=== PATIENT | male | born 1960 | race Caucasian/White ===

== ENCOUNTER 2017-11-10 20:29 | Inpatient (IN) | payer BC ==
[2017-11-10] MEDS ORDERED: VERAPAMIL 2.5 MG/ML 2 ML AMP ONE (21:14)
[2017-11-10] MEDS ORDERED: [UNRECOGNIZED DRUG - REMARK] IV ONE (21:17)
[2017-11-10] MEDS ORDERED: MIDAZOLAM 2 MG/2 ML VIAL ONE ×2 (21:26→21:38)
[2017-11-10] MEDS ORDERED: LIDOCAINE 2% INJ 20 MG/ML SQ ONE (21:29)
[2017-11-10] MEDS ORDERED: SODIUM CHLORIDE 0.9% 500 ML IV ONE (21:30)
[2017-11-10] MEDS ORDERED: MIDAZOLAM 2 MG/2 ML VIAL IV ONE ×3 (21:35→22:00)
[2017-11-10] MEDS ORDERED: BIVALIRUDIN BOLUS 250 MG/50 ML IV ONE (21:41)
[2017-11-10] MEDS ORDERED: SODIUM CHLORIDE 0.9% IV ONE (21:42)
[2017-11-10] MEDS ORDERED: BIVALIRUDIN IV ONE (21:42)
[2017-11-10] MEDS ORDERED: TICAGRELOR 90 MG TAB ONE (21:43)
[2017-11-10] MEDS ORDERED: TICAGRELOR 90 MG TAB OG-TUBE ONE (21:47)
[2017-11-10 21:50] LABS: ABG Base Excess -7.1 mmol/L; ABG HCO3 19 mmol/L (21-25); ABG Oxygen Saturation 98.7 % (94-97); ABG PCO2 42 mmHg (35-45); ABG PH 7.28 (7.35-7.45); ABG PO2 194 mmHg (83-108)
[2017-11-10] MEDS ORDERED: IOHEXOL 350 MG/ML 125ML BOTTLE INJ ONE (22:21)
[2017-11-10 22:31] LABS: ABG Base Excess -6.7 mmol/L; ABG HCO3 19 mmol/L (21-25); ABG Oxygen Saturation 98.6 % (94-97); ABG PCO2 43 mmHg (35-45); ABG PH 7.28 (7.35-7.45); ABG PO2 176 mmHg (83-108)
[2017-11-10] MEDS ORDERED: ATROPINE SULFATE 0.1 MG/ML 10ML SYRINGE IV PRN (22:45)
[2017-11-10] MEDS ORDERED: MAG HYDROX/AL HYDROX/SIMETH 30 ML CUP PO PRN (22:45)
[2017-11-10] MEDS ORDERED: NITROGLYCERIN SL TABS 0.4 MG TAB SUBLINGUAL PRN (22:45)
[2017-11-10] MEDS ORDERED: RX INFO: IV CONTRAST WAS GIVEN 1 EACH MISC MISCELLANE PRN (22:45)
[2017-11-10] MEDS ORDERED: ZOLPIDEM 5 MG TAB PO PRN (22:45)
--- NOTE | 2017-11-10 22:49 | CONS ---
CONSULTATION Mr. Meredith is 57-year-old male with a known history of lymphoma as well as history of carcinoid, who presented to the emergency room at [facility] after sudden cardiac . The patient was playing pickleball and apparently collapsed. An OR nurse started CPR on site, then the EMS arrived and was found to be in VFib, was shocked, went in asystole, subsequently had VFib again and then sinus tachycardia. He has been intubated, received epinephrine and Narcan. He was transferred from the emergency room at [facility] to [facility] for emergent cardiac catheterization. I do not have any other records, but according to the available chart, the patient had no evidence of chest discomfort prior to that and no prior cardiac history. According to the notes available to me, the patient is status post herniorrhaphy and cholecystectomy. No history of recent smoking. Review of systems could not be obtained. PHYSICAL EXAMINATION: A 57-year-old male; intubated, sedated, moving all extremities. HEAD: Normocephalic. EYES: Pupils fixed and not reactive to her light. NECK: No bruit noted. LUNGS: Clear to auscultation anteriorly. HEART: Regular rate and rhythm. S1, S2. No S3. No rub or gallop appreciated. ABDOMEN: Soft. Positive bowel sounds. No organomegaly. EXTREMITIES: No edema. Intact distal pulses. EKG shows a sinus mechanism with right bundle branch block, nonspecific ST- segment changes with possible prior inferior myocardial infarction. No lab data is available to me. IMPRESSION: 1. Cardiac arrest with ventricular fibrillation arrest. Rule out ischemic event in a patient with no prior cardiac history, according to the notes available to me. 2. History of leukemia in remission. 3. History of carcinoid. 4. History of hypertension. 5. History of hyperlipidemia. RECOMMENDATION: Patient will undergo emergent cardiac catheterization to further assess his status and guide his treatment. The plan was discussed by the ER physician at [facility] with his family that is not available at the time of my dictation. Thank you for this consult. Will follow with you. ADRIEN / IJN: [id number] / MTDD
[2017-11-10] MEDS ORDERED: PROPOFOL 100 ML IV ONE (22:59)
[2017-11-10 23:03] LABS: Glucose,Whole Blood 208 mg/dL (75-99)
--- NOTE | 2017-11-10 23:10 | PTCA ---
PERCUTANEOUSTRANS CORORONARY ANGIOGRAPHY Mr. Meredith is a 57-year-old male presented with acute sudden with ventricular fibrillation, underwent emergent cardiac catheterization was found to have critical stenosis involving the distal left main and the ostial LAD. Recommendation regarding angioplasty and stenting. DESCRIPTION OF PROCEDURE: A 6-Moldovan FR4 guiding catheter was introduced into the system and attempt to cannulate the left main were unsuccessful. The catheter was removed and a 6-Moldovan EBU 3.75 guiding catheter introduced. After cannulating the left main, a 0.014 advanced medium weight J-wire was advanced across the left main and positioned distal LAD. Subsequently, another 0.014 balanced medium weight J-wire was advanced in position in the distal left circumflex. Following that, a 2.5 x 12 mm Trek balloon was advanced and 2 inflations in the left main at maximum of 10 atmospheres were done. Following that, the balloon was removed and a 3.0 x 15 mm Xience Alpine stent was deployed in the distal left main and the ostial LAD and was dilated at 16 atmospheres. Following that, the balloon was removed and the wire was reintroduced in the left circumflex and a 3.0 x 12 mm Trek balloon was advanced and one inflation was done at 10 atmospheres. Following that, the balloon was removed and a 3.5 x 12 mm NC Trek balloon was advanced and inflation in the proximal segment of the stent was done at maximum of 12 atmospheres. After the last inflation, after appropriate wait, the balloon and the guidewire were withdrawn back in the guiding catheter. Images were obtained repeated. Those images reveal stable successful stenting. At that point, the guiding catheter, the balloon and the guidewire removed and a left ventriculogram was performed. Following that, catheter and sheaths were removed. Hemostasis was obtained with deployment of Angio-Seal. There was no immediate complication. The patient was hemodynamically stable at the end of procedure. He received Angiomax per protocol as well as oral loading dose of Brilinta. RESULTS: Successful stenting of the distal left main and the proximal ostial LAD with reduction of stenosis from 99% to 0%. RECOMMENDATION: Patient will continued on aspirin and Brilinta, statin and beta jessica. The prognosis remains guarded and depending on his neurological status, further recommendations will be made. Those findings and recommendation were discussed with the family who are in full understanding and agreement. Duration of the procedure: 55 minutes. MMODL / IJN: [id number] /
--- NOTE | 2017-11-10 23:19 | CC ---
CARDIAC CATHETERIZATION REPORT Mr. Meredith is a 57-year-old male with no prior documented history of coronary artery disease, history of stable leukemia as well as carcinoid, who presented to the emergency room at [facility] with sudden cardiac with ventricular fibrillation and CPR. He was intubated in sinus mechanism and was transferred to [facility]. Recommendation was made regarding cardiac catheterization. PROCEDURE: Patient was brought to the [facility], intubated and sedated. Using Xylocaine anesthesia and Seldinger technique, a 6-Mauritian sheath was introduced in the right femoral artery. Selective right and left coronary angiography was performed using 6-Mauritian 4 Bend right and left Percy catheters. Multiple views were taken of the arteries, including hemiaxial views. Following that, angioplasty and stenting was performed. Following that, 6-Mauritian tight pigtail catheter was introduced in the left ventricle and a 30- degree CRANE view of the left ventricle was obtained. Following that, catheter and sheath were removed. Hemostasis was obtained with deployment of an Angio-Seal. There was no immediate complication. Patient is returned to his room in stable condition. FINDINGS: 1. Left main. This is a large-sized vessel bifurcating into left circumflex, left anterior descending artery. Left main coronary artery has a 99% stenosis distally extending into the ostium of the left anterior descending artery. The distal left circumflex and proximal left anterior descending artery are calcified. 2. Left anterior descending artery. This is a large-sized vessel reaching toward the apex with a wrap around the apex segment giving rise to 2 small diagonal branches. The left anterior descending artery has mild intimal disease without any evidence of high-grade stenosis. 3. Left circumflex. This is a nondominant vessel, large in caliber, giving rise to a large obtuse marginal branch. The left circumflex has mild intimal disease in the proximal and mid segment of 20% to 30%. The ostium of the left circumflex has a 50% to 60% lesion. The rest of the vessel has no high-grade stenosis. 4. Right coronary artery. This is a large dominant vessel bifurcating into PDA, posterolateral segment and branches. The right coronary artery prior to the bifurcation has a plaque of about 30%. The rest of the vessel has no high-grade stenosis. 5. Left ventriculogram. Left ventriculogram was performed in 30-degree CRANE view and revealed anteroapical hypokinesis. The ejection fraction is estimated at 45%. There was no significant mitral regurgitation. 6. Hemodynamics. There was no gradient across the aortic valve. The left ventricular end-diastolic pressure was 20 to 24 mmHg. CONCLUSION: 1. Critical stenosis in the distal left main and ostial of LAD involving the takeoff of the left circumflex. 2. Mild disease in the distal right coronary artery. 3. Mildly to moderately impaired left ventricular systolic function. RECOMMENDATION: In view of findings and anatomy and the presentation, I have recommended proceeding with angioplasty and stenting of the left circumflex. MMODL / IJN: [id number] /
[2017-11-10] MEDS ORDERED: NALOXONE 0.4 MG/ML 1 ML VIAL IV PRN (23:42)
[2017-11-10] MEDS: PROPOFOL 1,000 MG in EMPTY BAG 1 BAG IV SCH (23:45)
[2017-11-10] MEDS: SODIUM CHLORIDE 0.9% 1,000 ML IV SCH (23:53)
[2017-11-11] MEDS ORDERED: HEPARIN SODIUM,PORCINE 5,000 UNIT/ML 1 ML VIAL SQ SCH
[2017-11-11] MEDS: SODIUM CHLORIDE 0.9% 1,000 ML IV SCH ×3 (00:08→00:50)
[2017-11-11 00:12] LABS: Basophils % (A) 0 %; Eosinophils % (A) 0 %; HCT 38.5 % (39.0-53.0); HGB 12.8 gm/dL (13.0-17.5); Lymphocytes # (A) 0.4 k/uL (1.0-4.8); Lymphocytes % (A) 3 %; MCH 31.6 pg (25.0-35.0); MCHC 33.3 g/dL (31.0-37.0); Mean Platelet Volume 8.9; Monocytes # (A) 0.5 k/uL (0-1.0); Monocytes % (A) 4 %; Neutrophils # (A) 13.8 k/uL (1.3-7.7); Neutrophils % (A) 93 %; Platelet Count 284 k/uL (150-450); RBC 4.06 m/uL (4.30-5.90); RDW 12.8 % (11.5-15.5); WBC 14.8 k/uL (3.8-10.6)
[2017-11-11 00:21] LABS: Calcium 9.1 mg/dL (8.4-10.2)
[2017-11-11 00:32] LABS: Magnesium 1.8 mg/dL (1.6-2.3); Phosphorus 5.4 mg/dL (2.5-4.5); Potassium 4.9 mmol/L (3.5-5.1)
[2017-11-11] MEDS ORDERED: NOREPINEPHRIN 4 MG-0.9% NS PMX 4 MG/250 ML ML IV ONE (01:41)
[2017-11-11] MEDS: NOREPINEPHRIN 4 MG-0.9% NS PMX 4 MG/250 ML ML IV SCH ×4 (01:45→20:52)
[2017-11-11] MEDS: PROPOFOL 1,000 MG in EMPTY BAG 1 BAG IV SCH ×4 (05:00→23:27)
[2017-11-11 05:16] LABS: ABG Base Excess -10.4 mmol/L; ABG HCO3 15 mmol/L (21-25); ABG Oxygen Saturation 98.4 % (94-97); ABG PCO2 28 mmHg (35-45); ABG PH 7.34 (7.35-7.45); ABG PO2 167 mmHg (83-108); ABG TCO2 16 mmol/L (19-24)
[2017-11-11 05:50] LABS: Basophils % (A) 0 %; Eosinophils % (A) 0 %; HCT 39.5 % (39.0-53.0); HGB 12.9 gm/dL (13.0-17.5); Lymphocytes # (A) 0.6 k/uL (1.0-4.8); Lymphocytes % (A) 7 %; MCH 30.2 pg (25.0-35.0); MCHC 32.7 g/dL (31.0-37.0); MCV 92.3 fL (80.0-100.0); Mean Platelet Volume 9.4; Monocytes # (A) 0.4 k/uL (0-1.0); Monocytes % (A) 4 %; Neutrophils # (A) 7.9 k/uL (1.3-7.7); Neutrophils % (A) 89 %; Platelet Count 326 k/uL (150-450); RBC 4.28 m/uL (4.30-5.90); WBC 8.9 k/uL (3.8-10.6)
[2017-11-11 07:18] LABS: Calcium 7.8 mg/dL (8.4-10.2); Magnesium 1.5 mg/dL (1.6-2.3); Phosphorus 3.2 mg/dL (2.5-4.5)
[2017-11-11 07:21] LABS: Potassium 6.8 mmol/L (3.5-5.1)
[2017-11-11] MEDS ORDERED: SODIUM CHLORIDE 0.9% 500 ML IV ONE (07:41)
--- NOTE | 2017-11-11 08:43 | XR ---
EXAMINATION TYPE: XR chest 1V DATE OF EXAM: 11/11/2017 COMPARISON: NONE INDICATION: Cardiac arrest TECHNIQUE: Single frontal view of the chest is obtained. FINDINGS: The heart size is normal. The pulmonary vasculature is normal. Minimal infiltrate or small nodule may be at the left base. This measures 7 mm. Some mild left lower lobe infiltrate is not excluded No displaced rib fractures are identified. No pneumothorax is evident. Endotracheal tube tip is 3.7 cm above the jasbir. A nasogastric tube transverses the thorax with tip in left upper quadrant of the abdomen. IMPRESSION: 1. Minimal infiltrate or densities at the left costophrenic angle. Follow-up is recommended. 2. Lines and catheters discussed above.
[2017-11-11] MEDS: ASPIRIN 81 MG PO SCH (09:06)
[2017-11-11] MEDS: TICAGRELOR 90 MG TAB PO SCH ×2 (09:06→21:02)
--- NOTE | 2017-11-11 10:34 | P.CNPUL ---
History of Present Illness Consult date: 11/11/17 Chief complaint: acute cardiac arrest History of present illness: A pleasant 57-year-old male patient who lives in [place], [place] and the patient was playing pickle ball in the [facility] area. The patient acutely arrested and he was into cardiac arrest. There was a bystander nurse who did CPR on him. EMS was called to the scene and the patient was found in V. fib. The patient was shocked and the patient was given a dose of epinephrine. Subsequently went into asystole. Following that, CPR was continued and the patient went into V. fib, shocked again and then went into normal sinus rhythm. EKG showed ST segment elevation and the patient was taken to [facility] and following that the patient was brought in to the [facility]. Emergent cardiac catheterization was done and the patient was found to have a left main lesion that was stented. The stent insertion with successful. The patient was in already intubated by EMS on the scene. The patient was kept intubated. The patient was moved to the ICU for further care. Overnight, the patient was sedated with Diprivan. He apparently was following some simple commands while given a sedation holiday. This morning, he is on 30 mics of levo fed for blood pressure support. Echocardiogram was done and showed ejection fraction of 35%. No other significant abnormalities noted and this is a preliminary report. Urine output is in order of 25-30 mL an hour. Overnight his urine output dropped and a given a bolus of 1 L and he received a total of 2.5 L fluid bolus. He is current maintenance fluid is at 75 mL of normal saline. He is on a mechanical ventilator on assist control mode at the rate of 20, tidal volume of 600, FiO2 of 50% and a PEEP of 5. Morning blood gases showed a pH of 7.34 with a pCO2 of 28 and pO2 167. Chest x- ray showing some cardiomegaly and some pulmonary vessel congestion. ET tube is in a good location. No other densities seen in the left lower lobe costophrenic angle area. The patient's creatinine is up to 1.4. Today's potassium is up to 6.8. This needs to be repeated. No EKG changes related to this high potassium level. He is afebrile. No aspiration was noted. He remains on 30 mics of norepinephrine infusion for now. Pulses in lower extremities are weak yet obtainable by Doppler. His legs are cold and clammy still. No significant secretions from his orotracheal tube. He is known to have carcinoid tumor and apparently his been on maintenance hormonal treatment. He is seeing a oncologist out of [facility]. The patient also has history of lymphoma. The details of these malignancies are not known to us. The origin of the carcinoid tumor is not clear to me at this point. Further information is to be obtained on this patient. Review of Systems ROS unobtainable: due to endotracheal tube, due to mental status Past Medical History Past Medical History: Coronary Artery Disease (CAD) Additional Past Medical History / Comment(s): Carcinoid tumor, history of lymphoma Medications and Allergies Allergies Allergy/AdvReac Type Severity Reaction Status Date / Time No Known Allergies Allergy Verified 11/10/17 21:00 Physical Exam Vitals: Vital Signs Temp Pulse Resp BP BP Pulse Ox 11/11/17 09:00 90 22 96/60 100 11/11/17 08:30 87 23 96/60 100 11/11/17 08:00 98.8 F 88 13 96/60 99 11/11/17 07:00 83 25 H 98 11/11/17 06:30 77 24 99 11/11/17 06:00 78 20 100 11/11/17 05:30 77 19 99 11/11/17 05:00 78 19 100 11/11/17 04:30 78 20 100 11/11/17 04:00 99.0 F 81 20 100 11/11/17 03:30 78 20 100 11/11/17 03:00 76 19 100 11/11/17 02:30 80 22 100 11/11/17 02:10 78 20 100 11/11/17 02:00 77 11 L 100 11/11/17 01:50 72 16 100 11/11/17 01:40 72 20 100 11/11/17 01:30 75 19 100 11/11/17 01:20 78 27 H 98 11/11/17 01:10 78 19 74/46 99 11/11/17 01:00 79 19 74/46 99 11/11/17 00:50 79 19 74/46 100 11/11/17 00:40 77 19 69/42 100 11/11/17 00:30 77 19 69/42 100 11/11/17 00:20 77 20 69/42 100 11/11/17 00:10 78 20 70/42 100 11/11/17 00:00 95.2 F L 78 20 70/42 100 11/10/17 23:50 73 20 70/42 100 11/10/17 23:40 72 19 81/50 100 11/10/17 23:30 68 19 81/50 100 11/10/17 23:20 66 20 81/50 100 11/10/17 23:10 79 80/48 11/10/17 23:00 95.2 F L 73 79 L 11/10/17 22:59 71 11/10/17 22:46 95.2 F L 20 80/52 Intake and Output 11/10/17 11/11/17 11/11/17 22:59 06:59 14:59 Intake Total 224.25 2872.267 812.595 Output Total 200 670 215 Balance 24.25 2202.267 597.595 Intake: IV 224.25 450 575 Sodium Chloride 0.9% 1, 450 575 000 ml @ 75 mls/hr IV . [id number] JACK Rx#:[id number] Intake, IV Titration 2422.267 237.595 Amount Norepinephrin 4 mg-0.9% 284.375 198.687 Ns Pmx 4 mg In 250 ml @ Titrate IV .Q0M JACK Rx#: [id number] Propofol 1,000 mg In 137.892 38.908 Empty Bag 1 bag @ Titrate IV .Q0M JACK Rx#: [id number] Sodium Chloride 0.9% 1, 2000 000 ml @ 999 mls/hr IV . Q1H1M JACK Rx#:[id number] Output: Gastric Drainage 400 100 Urine 200 270 115 Other: Voiding Method Indwelling Catheter Indwelling Catheter Indwelling Catheter Weight 87.6 kg ABP, PAP, CO, CI - Last 8 Hours Arterial Blood Pressure 104/62 Arterial Blood Pressure 108/62 Arterial Blood Pressure 102/62 Arterial Blood Pressure 100/62 Arterial Blood Pressure 102/65 Arterial Blood Pressure 105/68 Arterial Blood Pressure 87/59 Arterial Blood Pressure 99/62 Arterial Blood Pressure 115/75 Arterial Blood Pressure 109/72 Arterial Blood Pressure 104/70 Arterial Blood Pressure 102/69 Arterial Blood Pressure 103/69 Gen. appearance the patient is calm comfortable likely distress. He is still sedated under the effect of the prevent and is in the process of being given another sedation holiday. He withdraws to painful stimuli in all 4 extremities. He was not equal and reactive to light at 4-5 mm. No nystagmus. No clonus. No Babinski. My normal had orogastric and orotracheal tube are both in place.Neck was supple and without jugular venous distension, thyromegaly , or carotid bruits. Carotids were easily palpable bilaterally. There was no adenopathy. Lung sounds are equal and symmetrical bilaterally. No wheezes or rhonchi early crackles.Cardiac exam revealed the PMI to be normally situated and sized. The rhythm was regular and no extrasystoles were noted during several minutes of auscultation. The first and second heart sounds were normal and physiologic splitting of the second heart sound was noted. There were no murmurs, rubs, clicks, or gallops.Abdominal exam revealed normal bowel sounds. The abdomen was soft, non-tender, and without masses, organomegaly, or appreciable enlargement of the abdominal aorta.Examination of the extremities revealed easily palpable radial, femoral and pedal pulses. There was no cyanosis , clubbing or edema.Examination of the skin revealed no evidence of significant rashes, suspicious appearing nevi or other concerning lesions. Results - Laboratory Findings CBC and BMP: 11/11/17 05:13 11/11/17 06:45 ABG ABG pH 7.34 (7.35-7.45) L 11/11/17 05:15 ABG pCO2 28 mmHg (35-45) L 11/11/17 05:15 ABG pO2 167 mmHg (83-108) H 11/11/17 05:15 ABG O2 Saturation 98.4 % (94-97) H 11/11/17 05:15 Abnormal lab findings: Abnormal Labs 11/10/17 11/10/17 11/10/17 21:37 22:23 23:02 WBC RBC Hgb Hct Neutrophils # Lymphocytes # ABG pH 7.28 L 7.28 L ABG pCO2 ABG pO2 194 H 176 H ABG HCO3 19 L 19 L ABG Total CO2 ABG O2 Saturation 98.7 H 98.6 H Potassium Chloride Carbon Dioxide BUN Creatinine Glucose POC Glucose (mg/dL) 208 H Calcium Phosphorus Magnesium Troponin I Triglycerides HDL Cholesterol 11/10/17 11/10/17 11/10/17 23:29 23:29 23:29 WBC 14.8 H RBC 4.06 L Hgb 12.8 L Hct 38.5 L Neutrophils # 13.8 H Lymphocytes # 0.4 L ABG pH ABG pCO2 ABG pO2 ABG HCO3 ABG Total CO2 ABG O2 Saturation Potassium Chloride Carbon Dioxide 17 L BUN 21 H Creatinine Glucose 180 H POC Glucose (mg/dL) Calcium Phosphorus 5.4 H Magnesium Troponin I 5.520 H* Triglycerides HDL Cholesterol 11/11/17 11/11/17 11/11/17 05:13 05:13 05:15 WBC RBC 4.28 L Hgb 12.9 L Hct Neutrophils # 7.9 H Lymphocytes # 0.6 L ABG pH 7.34 L ABG pCO2 28 L ABG pO2 167 H ABG HCO3 15 L ABG Total CO2 16 L ABG O2 Saturation 98.4 H Potassium Chloride Carbon Dioxide BUN Creatinine Glucose POC Glucose (mg/dL) Calcium Phosphorus Magnesium Troponin I 16.800 H* Triglycerides HDL Cholesterol 11/11/17 06:45 WBC RBC Hgb Hct Neutrophils # Lymphocytes # ABG pH ABG pCO2 ABG pO2 ABG HCO3 ABG Total CO2 ABG O2 Saturation Potassium 6.8 H* Chloride 109 H Carbon Dioxide 19 L BUN 26 H Creatinine 1.41 H Glucose 125 H POC Glucose (mg/dL) Calcium 7.8 L Phosphorus Magnesium 1.5 L Troponin I Triglycerides 349 H HDL Cholesterol 36 L - Diagnostic Findings Chest x-ray: image reviewed Assessment and Plan Plan: Assessment [address] segment elevation myocardial infarction secondary to a tight left main lesion him a status post successful angioplasty and stenting 2 acute cardiac arrest secondary to above, resuscitated adequately, please refer to the information given earlier and the cord sheets 3 acute respiratory failure secondary to above 4 acute hypotension, possibly a component of cardiogenic shock postarrest. Echocardiogram showing impaired LV function with an ejection fraction of 35% and the patient is still pressor dependent 5 acute kidney injury secondary to above creatinine is up to 1.4 6 acute hyperkalemia 7 history of carcinoid tumor 8 history of lymphoma Plan Give the patient additional bolus of normal saline. Monitor the blood pressure and try to wean down the edema for this possible. The patient is still hypoperfusing and his still vasoconstrictive and cold and clammy. Will monitor his hemodynamics. We'll monitor the blood pressure and urine output. We'll be awaiting the final results of the echocardiogram. Continue vent support. Sedation holiday as the patient seems to be waking up appropriately and the patient is been following commands without any major difficulties. As such the patient has been resuscitated adequately and there are no clear signs of hypoxic encephalopathy at this point. Repeat the potassium level. Monitor renal function. Monitor urine output. Continue aspirin. Continue Brilinta. We'll try to get more information regarding his carcinoid tumor. The. The patient is a combination of octreotide and Sandostatin on outpatient basis.
[2017-11-11] MEDS ORDERED: SODIUM CHLORIDE 0.9% 1,000 ML IV ONE (10:46)
[2017-11-11] MEDS: METOPROLOL TARTRATE 12.5 MG TAB PO SCH ×2 (10:47→21:02)
--- NOTE | 2017-11-11 11:08 | P.PN ---
Subjective Progress Note Date: 11/11/17 Principal diagnosis: Cardiac Arrest This 57-year-old gentleman with no prior documented history of coronary artery disease, history of leukemia as well as carcinoid. Presented to the emergency room at [facility] after sudden cardiac with ventricular fibrillation and CPR. He was intubated and in sinus mechanism. Was transferred to [facility] and recommended to undergo cardiac catheterization. Cardiac catheterization showed critical stenosis in the distal left main and ostial LAD. He underwent stenting of both lesions. Patient remains intubated. He is currently on aspirin 81 mg daily, atorvastatin 80 mg daily, metoprolol tartrate 12.5 mg by mouth twice a day and Brilinta 90 mg twice a day. Objective - Vital Signs Vital signs: Vital Signs Temp 98.8 F 11/11/17 08:00 Pulse 91 11/11/17 10:30 Resp 22 11/11/17 10:30 BP 96/60 11/11/17 10:00 Pulse Ox 100 11/11/17 10:30 Intake & Output 11/10/17 11/11/17 11/11/17 18:59 06:59 18:59 Intake Total 3096.517 909.210 Output Total 870 215 Balance 2226.517 694.210 Weight 87.6 kg Intake: IV 674.25 650 Sodium Chloride 0.9% 1, 450 650 000 ml @ 75 mls/hr IV . [id number] JACK Rx#:[id number] Intake, IV Titration 2422.267 259.210 Amount Norepinephrin 4 mg-0.9% 284.375 198.687 Ns Pmx 4 mg In 250 ml @ Titrate IV .Q0M JACK Rx#: [id number] Propofol 1,000 mg In 137.892 60.523 Empty Bag 1 bag @ Titrate IV .Q0M JACK Rx#: [id number] Sodium Chloride 0.9% 1, 2000 000 ml @ 999 mls/hr IV . Q1H1M JACK Rx#:[id number] Output: Gastric Drainage 400 100 Urine 470 115 Other: Voiding Method Indwelling Catheter Indwelling Catheter ABP, PAP, CO, CI - Last Documented Arterial Blood Pressure 86/53 - Exam PHYSICAL EXAMINATION: HEENT: Head is atraumatic, normocephalic. Pupils equal, round. Neck is supple. There is no elevated jugular venous pressure. HEART EXAMINATION: Heart sounds regular, S1 and S2 normal. No murmur or gallop heard. CHEST EXAMINATION: Lungs are clear to auscultation and precussion. No chest wall tenderness is noted on palpation or with deep breathing. ABDOMEN: Soft, nontender. Bowel sounds are heard. No organomegaly noted. EXTREMITIES: Lower extremity peripheral pulses per doppler with no evidence of peripheral edema and no calf tenderness noted. NEUROLOGIC patient is awake, intubated, answering yes and no questions with gestures. . - Labs CBC & Chem 7: 11/11/17 05:13 11/11/17 10:30 Labs: Abnormal Lab Results - Last 24 Hours (Table) 11/10/17 11/10/17 11/10/17 Range/Units 21:37 22:23 23:02 WBC (3.8-10.6) k/uL RBC (4.30-5.90) m/uL Hgb (13.0-17.5) gm/dL Hct (39.0-53.0) % Neutrophils # (1.3-7.7) k/uL Lymphocytes # (1.0-4.8) k/uL ABG pH 7.28 L 7.28 L (7.35-7.45) ABG pCO2 (35-45) mmHg ABG pO2 194 H 176 H (83-108) mmHg ABG HCO3 19 L 19 L (21-25) mmol/L ABG Total CO2 (19-24) mmol/L ABG O2 Saturation 98.7 H 98.6 H (94-97) % Potassium (3.5-5.1) mmol/L Chloride (98-107) mmol/L Carbon Dioxide (22-30) mmol/L BUN (9-20) mg/dL Creatinine (0.66-1.25) mg/dL Glucose (74-99) mg/dL POC Glucose (mg/dL) 208 H (75-99) mg/dL Calcium (8.4-10.2) mg/dL Phosphorus (2.5-4.5) mg/dL Magnesium (1.6-2.3) mg/dL Troponin I (0.000-0.034) ng/mL Triglycerides (<150) mg/dL HDL Cholesterol (40-60) mg/dL 11/10/17 11/10/17 11/10/17 Range/Units 23:29 23:29 23:29 WBC 14.8 H (3.8-10.6) k/uL RBC 4.06 L (4.30-5.90) m/uL Hgb 12.8 L (13.0-17.5) gm/dL Hct 38.5 L (39.0-53.0) % Neutrophils # 13.8 H (1.3-7.7) k/uL Lymphocytes # 0.4 L (1.0-4.8) k/uL ABG pH (7.35-7.45) ABG pCO2 (35-45) mmHg ABG pO2 (83-108) mmHg ABG HCO3 (21-25) mmol/L ABG Total CO2 (19-24) mmol/L ABG O2 Saturation (94-97) % Potassium (3.5-5.1) mmol/L Chloride (98-107) mmol/L Carbon Dioxide 17 L (22-30) mmol/L BUN 21 H (9-20) mg/dL Creatinine (0.66-1.25) mg/dL Glucose 180 H (74-99) mg/dL POC Glucose (mg/dL) (75-99) mg/dL Calcium (8.4-10.2) mg/dL Phosphorus 5.4 H (2.5-4.5) mg/dL Magnesium (1.6-2.3) mg/dL Troponin I 5.520 H* (0.000-0.034) ng/mL Triglycerides (<150) mg/dL HDL Cholesterol (40-60) mg/dL 11/11/17 11/11/17 11/11/17 Range/Units 05:13 05:13 05:15 WBC (3.8-10.6) k/uL RBC 4.28 L (4.30-5.90) m/uL Hgb 12.9 L (13.0-17.5) gm/dL Hct (39.0-53.0) % Neutrophils # 7.9 H (1.3-7.7) k/uL Lymphocytes # 0.6 L (1.0-4.8) k/uL ABG pH 7.34 L (7.35-7.45) ABG pCO2 28 L (35-45) mmHg ABG pO2 167 H (83-108) mmHg ABG HCO3 15 L (21-25) mmol/L ABG Total CO2 16 L (19-24) mmol/L ABG O2 Saturation 98.4 H (94-97) % Potassium (3.5-5.1) mmol/L Chloride (98-107) mmol/L Carbon Dioxide (22-30) mmol/L BUN (9-20) mg/dL Creatinine (0.66-1.25) mg/dL Glucose (74-99) mg/dL POC Glucose (mg/dL) (75-99) mg/dL Calcium (8.4-10.2) mg/dL Phosphorus (2.5-4.5) mg/dL Magnesium (1.6-2.3) mg/dL Troponin I 16.800 H* (0.000-0.034) ng/mL Triglycerides (<150) mg/dL HDL Cholesterol (40-60) mg/dL 11/11/17 11/11/17 Range/Units 06:45 10:30 WBC (3.8-10.6) k/uL RBC (4.30-5.90) m/uL Hgb (13.0-17.5) gm/dL Hct (39.0-53.0) % Neutrophils # (1.3-7.7) k/uL Lymphocytes # (1.0-4.8) k/uL ABG pH (7.35-7.45) ABG pCO2 (35-45) mmHg ABG pO2 (83-108) mmHg ABG HCO3 (21-25) mmol/L ABG Total CO2 (19-24) mmol/L ABG O2 Saturation (94-97) % Potassium 6.8 H* 5.7 H (3.5-5.1) mmol/L Chloride 109 H (98-107) mmol/L Carbon Dioxide 19 L (22-30) mmol/L BUN 26 H (9-20) mg/dL Creatinine 1.41 H (0.66-1.25) mg/dL Glucose 125 H (74-99) mg/dL POC Glucose (mg/dL) (75-99) mg/dL Calcium 7.8 L (8.4-10.2) mg/dL Phosphorus (2.5-4.5) mg/dL Magnesium 1.5 L (1.6-2.3) mg/dL Troponin I (0.000-0.034) ng/mL Triglycerides 349 H (<150) mg/dL HDL Cholesterol 36 L (40-60) mg/dL Assessment and Plan Assessment: #1 cardiac arrest with ventricular fibrillation #2 status post stenting of the left main and LAD #3 history of leukemia, in remission #4 history of carcinoid #5 history of hypertension #6 history of hyperlipidemia Plan: From greens tier perspective, continue aspirin, atorvastatin, Brilinta, and metorprolol. Continue supportive therapy with mechanical ventilation. We'll continue to follow patient provide further recommendations accordingly. SANITARY ENGINEER note has been reviewed, I agree with a documented findings and plan of care. Patient was seen and examined.
[2017-11-11 11:45] LABS: Appearance,Urine Cloudy (Clear); Bilirubin,Urine Negative (Negative); Blood,Urine Moderate (Negative); Color,Urine Yellow; Glucose,Urine (UA) Negative (Negative); Ketones,Urine Negative (Negative); Leukocyte Esterase,Urine Negative (Negative); Mucus,Urine Rare /hpf; Nitrite,Urine Negative (Negative); PH, Urine 5.5 (5.0-8.0); Protein,Urine 1+ (Negative); RBC,Urine 5 /hpf (0-5); Squamous Epithelial Cell,Urine <1 /hpf (0-4); Urobilinogen,Urine <2.0 mg/dL (<2.0); WBC,Urine 10 /hpf (0-5)
[2017-11-11] MEDS ORDERED: SODIUM BICARB 8.4% 50 ML SYR (1 MEQ/ML) ONE (12:33)
[2017-11-11] MEDS ORDERED: DEXTROSE 50%-WATER 50 ML SYRINGE IVP ONE (12:34)
[2017-11-11] MEDS ORDERED: INSULIN REGULAR 100 UNIT/ML VIAL IV ONE (12:39)
[2017-11-11 14:08] LABS: Specific Gravity,Urine 1.048 (1.001-1.035)
[2017-11-11] MEDS ORDERED: Magnesium Replacement Protocol 1 EACH MISC MISCELLANE PRN (15:51)
[2017-11-11 16:02] LABS: Hemoglobin A1C 6.4 % (4.0-6.0)
[2017-11-11] MEDS: MORPHINE SULFATE 4 MG/ML SYRINGE IVP PRN (17:11)
[2017-11-11] MEDS: MAGNESIUM SULFATE-D5W PMX 1 GM in DEXTROSE/WATER 1 100ML.BAG IVPB SCH ×2 (17:12→18:16)
--- NOTE | 2017-11-11 17:39 | XR ---
Abdomen HISTORY: Pain Frontal view of the abdomen on 2 images Lung bases show areas of increased attenuation, retrocardiac air bronchograms could be indicative of pneumonia. NG tube is present with the distal tip overlying the stomach in the left upper quadrant. N o evident pneumoperitoneum or bowel obstruction. Question some renal stone some increased attenuation noted in the medullary aspect of the right kidney. Overlying leads obscure detail. Postop changes ar e noted in the right lower quadrant, vascular calcifications present in the pelvis. IMPRESSION: Correlate for pneumonia. Difficult to exclude renal calculi. NG tube is described. Follow -up as indicated.
[2017-11-11] MEDS: ALBUTEROL NEBULIZED 2.5 MG/3 ML INHALATION SCH (19:27)
[2017-11-11] MEDS: ATORVASTATIN 80 MG TAB PO SCH (21:01)
[2017-11-11] MEDS: CHLORHEXIDINE GLUCONATE 15 ML CUP MUCOUS MEM SCH (21:01)
--- NOTE | 2017-11-11 22:33 | P.HPIM ---
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 Patient was apparently playing pickle ball in the same with his family. Patient is leaned on the floor due to acute cardiac arrest. There was a bystander nurse who did CPR on him. EMS was called to the scene and the patient was found in V. fib. Patient had CPR for about 20 minutes and was also shocked. Patient was brought back to sinus rhythm. Patient was given lately taken to [facility] and was found to have ST elevated MT. Patient was immediately transferred to [facility]. Patient had emergent cardiac catheterization and left main artery stent was placed. Currently patient is intubated, mechanical ventilator and sedated. Patient otherwise does follow simple commands and able to open his eyes. Patient is on norepinephrine drip currently. 2-D echocardiography showed his ejection fraction 35%. Chest x-ray showed cardiomegaly and pulmonary vascular congestion. Potassium 6.8 today morning and came down to 4.6 currently. Magnesium 1.4 Patient is being followed by pulmonary and cardiology. Review of Systems Complete review of systems could not be obtained at this time Past Medical History Past Medical History: Coronary Artery Disease (CAD) Additional Past Medical History / Comment(s): Pt admitted with STEMI. 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 History of Any Multi-Drug Resistant Organisms: None Reported Past Surgical History: Back Surgery, Hernia Repair Additional Past Surgical History / Comment(s): 11/10/17 PCI with stent, bilateral hernia repair x 3, exploratory laparoscopy, colonoscopy, laminectomy. Past Anesthesia/Blood Transfusion Reactions: No Reported Reaction Smoking Status: Former smoker - Past Family History Father Family Medical History: No Reported History Additional Family Medical History / Comment(s): Father is 82 yrs old and healthy. Mother Family Medical History: Dementia Additional Family Medical History / Comment(s): Mother is . Medications and Allergies Home Medications Medication Instructions Recorded Confirmed Type Atorvastatin [Lipitor] 40 mg PO DAILY 11/11/17 11/11/17 History Butalb/APAP/Caff 50-325-40Mg 1 - 2 tab PO Q4H PRN MDD 6 TABS 11/11/17 11/11/17 History [Fioricet 50-325-40] Ibuprofen [Motrin] 600 mg PO Q6HR PRN 11/11/17 11/11/17 History Lisinopril [Zestril] 10 mg PO DAILY 11/11/17 11/11/17 History Octreotide Lar [SandoSTATIN LAR] 20 mg IM Q3D 11/11/17 11/11/17 History Omeprazole [PriLOSEC] 20 mg PO AC-[id number] 11/11/17 11/11/17 History Allergies Allergy/AdvReac Type Severity Reaction Status Date / Time No Known Allergies Allergy Verified 11/10/17 21:00 Physical Exam Vitals: Vital Signs Temp Pulse Resp BP BP Pulse Ox 11/11/17 11:30 91 31 H 97 11/11/17 11:00 90 23 100 11/11/17 10:30 91 22 100 11/11/17 10:00 90 27 H 96/60 100 11/11/17 09:30 87 21 96/60 100 11/11/17 09:00 90 22 96/60 100 11/11/17 08:30 87 23 96/60 100 11/11/17 08:00 98.8 F 88 13 96/60 99 11/11/17 07:00 83 25 H 98 11/11/17 06:30 77 24 99 11/11/17 06:00 78 20 100 11/11/17 05:30 77 19 99 11/11/17 05:00 78 19 100 11/11/17 04:30 78 20 100 11/11/17 04:00 99.0 F 81 20 100 11/11/17 03:30 78 20 100 11/11/17 03:00 76 19 100 11/11/17 02:30 80 22 100 11/11/17 02:10 78 20 100 11/11/17 02:00 77 11 L 100 11/11/17 01:50 72 16 100 11/11/17 01:40 72 20 100 11/11/17 01:30 75 19 100 11/11/17 01:20 78 27 H 98 11/11/17 01:10 78 19 74/46 99 11/11/17 01:00 79 19 74/46 99 11/11/17 00:50 79 19 74/46 100 11/11/17 00:40 77 19 69/42 100 11/11/17 00:30 77 19 69/42 100 11/11/17 00:20 77 20 69/42 100 11/11/17 00:10 78 20 70/42 100 11/11/17 00:00 95.2 F L 78 20 70/42 100 11/10/17 23:50 73 20 70/42 100 11/10/17 23:40 72 19 81/50 100 11/10/17 23:30 68 19 81/50 100 11/10/17 23:20 66 20 81/50 100 11/10/17 23:10 79 80/48 11/10/17 23:00 95.2 F L 73 79 L 11/10/17 22:59 71 11/10/17 22:46 95.2 F L 20 80/52 Intake and Output 11/10/17 11/11/17 11/11/17 22:59 06:59 14:59 Intake Total 224.25 2872.267 1984.210 Output Total 200 670 305 Balance 24.25 2202.267 1679.210 Intake: IV 224.25 450 1725 Sodium Chloride 0.9% 1, 450 1725 000 ml @ 75 mls/hr IV . [id number] JACK Rx#:[id number] Intake, IV Titration 2422.267 259.210 Amount Norepinephrin 4 mg-0.9% 284.375 198.687 Ns Pmx 4 mg In 250 ml @ Titrate IV .Q0M JACK Rx#: [id number] Propofol 1,000 mg In 137.892 60.523 Empty Bag 1 bag @ Titrate IV .Q0M JACK Rx#: [id number] Sodium Chloride 0.9% 1, 2000 000 ml @ 999 mls/hr IV . Q1H1M JACK Rx#:[id number] Output: Gastric Drainage 400 100 Urine 200 270 205 Other: Voiding Method Indwelling Catheter Indwelling Catheter Indwelling Catheter Weight 87.6 kg ABP, PAP, CO, CI - Last 8 Hours Arterial Blood Pressure 115/68 Arterial Blood Pressure 103/60 Arterial Blood Pressure 86/53 Arterial Blood Pressure 89/55 Arterial Blood Pressure 86/52 Arterial Blood Pressure 104/62 Arterial Blood Pressure 108/62 Arterial Blood Pressure 102/62 Arterial Blood Pressure 100/62 Arterial Blood Pressure 102/65 Arterial Blood Pressure 105/68 Arterial Blood Pressure 87/59 Arterial Blood Pressure 99/62 Arterial Blood Pressure 115/75 PHYSICAL EXAMINATION: Patient is lying in the bed comfortably, no acute distress, awake alert and currently intubated HEENT: Normocephalic. Neck is supple. Pupils reactive. Nostrils clear. Oral cavity is moist. Ears reveal no drainage. Neck reveals no JVD, carotid bruits, or thyromegaly. CHEST EXAMINATION: Trachea is central. Symmetrical expansion. Lung martel clear to auscultation and percussion. CARDIAC: Normal S1, S2 with no gallops. No murmurs ABDOMEN: Soft. Tenderness in the epigastric region. Bowel sounds normal. No organomegaly. No abdominal bruits. Extremities: reveal no edema. No clubbing or cyanosis Neurologically awake, alert with well-coordinated movements. No focal deficits noted Skin: No rash or skin lesions. Psychiatric: Could not be assessed completely Musculoskeletal: No joint swelling or deformity. Normal range of motion. Results CBC & Chem 7: 11/11/17 05:13 11/11/17 15:40 Labs: Abnormal Lab Results - Last 24 Hours (Table) 11/10/17 11/10/17 11/10/17 Range/Units 21:37 22:23 23:02 WBC (3.8-10.6) k/uL RBC (4.30-5.90) m/uL Hgb (13.0-17.5) gm/dL Hct (39.0-53.0) % Neutrophils # (1.3-7.7) k/uL Lymphocytes # (1.0-4.8) k/uL ABG pH 7.28 L 7.28 L (7.35-7.45) ABG pCO2 (35-45) mmHg ABG pO2 194 H 176 H (83-108) mmHg ABG HCO3 19 L 19 L (21-25) mmol/L ABG Total CO2 (19-24) mmol/L ABG O2 Saturation 98.7 H 98.6 H (94-97) % Potassium (3.5-5.1) mmol/L Chloride (98-107) mmol/L Carbon Dioxide (22-30) mmol/L BUN (9-20) mg/dL Creatinine (0.66-1.25) mg/dL Glucose (74-99) mg/dL POC Glucose (mg/dL) 208 H (75-99) mg/dL Calcium (8.4-10.2) mg/dL Phosphorus (2.5-4.5) mg/dL Magnesium (1.6-2.3) mg/dL Troponin I (0.000-0.034) ng/mL Triglycerides (<150) mg/dL HDL Cholesterol (40-60) mg/dL Urine Protein (Negative) Urine Blood (Negative) Urine WBC (0-5) /hpf Urine Mucus (None) /hpf 11/10/17 11/10/17 11/10/17 Range/Units 23:29 23:29 23:29 WBC 14.8 H (3.8-10.6) k/uL RBC 4.06 L (4.30-5.90) m/uL Hgb 12.8 L (13.0-17.5) gm/dL Hct 38.5 L (39.0-53.0) % Neutrophils # 13.8 H (1.3-7.7) k/uL Lymphocytes # 0.4 L (1.0-4.8) k/uL ABG pH (7.35-7.45) ABG pCO2 (35-45) mmHg ABG pO2 (83-108) mmHg ABG HCO3 (21-25) mmol/L ABG Total CO2 (19-24) mmol/L ABG O2 Saturation (94-97) % Potassium (3.5-5.1) mmol/L Chloride (98-107) mmol/L Carbon Dioxide 17 L (22-30) mmol/L BUN 21 H (9-20) mg/dL Creatinine (0.66-1.25) mg/dL Glucose 180 H (74-99) mg/dL POC Glucose (mg/dL) (75-99) mg/dL Calcium (8.4-10.2) mg/dL Phosphorus 5.4 H (2.5-4.5) mg/dL Magnesium (1.6-2.3) mg/dL Troponin I 5.520 H* (0.000-0.034) ng/mL Triglycerides (<150) mg/dL HDL Cholesterol (40-60) mg/dL Urine Protein (Negative) Urine Blood (Negative) Urine WBC (0-5) /hpf Urine Mucus (None) /hpf 11/11/17 11/11/17 11/11/17 Range/Units 05:13 05:13 05:15 WBC (3.8-10.6) k/uL RBC 4.28 L (4.30-5.90) m/uL Hgb 12.9 L (13.0-17.5) gm/dL Hct (39.0-53.0) % Neutrophils # 7.9 H (1.3-7.7) k/uL Lymphocytes # 0.6 L (1.0-4.8) k/uL ABG pH 7.34 L (7.35-7.45) ABG pCO2 28 L (35-45) mmHg ABG pO2 167 H (83-108) mmHg ABG HCO3 15 L (21-25) mmol/L ABG Total CO2 16 L (19-24) mmol/L ABG O2 Saturation 98.4 H (94-97) % Potassium (3.5-5.1) mmol/L Chloride (98-107) mmol/L Carbon Dioxide (22-30) mmol/L BUN (9-20) mg/dL Creatinine (0.66-1.25) mg/dL Glucose (74-99) mg/dL POC Glucose (mg/dL) (75-99) mg/dL Calcium (8.4-10.2) mg/dL Phosphorus (2.5-4.5) mg/dL Magnesium (1.6-2.3) mg/dL Troponin I 16.800 H* (0.000-0.034) ng/mL Triglycerides (<150) mg/dL HDL Cholesterol (40-60) mg/dL Urine Protein (Negative) Urine Blood (Negative) Urine WBC (0-5) /hpf Urine Mucus (None) /hpf 11/11/17 11/11/17 11/11/17 Range/Units 06:45 10:30 10:50 WBC (3.8-10.6) k/uL RBC (4.30-5.90) m/uL Hgb (13.0-17.5) gm/dL Hct (39.0-53.0) % Neutrophils # (1.3-7.7) k/uL Lymphocytes # (1.0-4.8) k/uL ABG pH (7.35-7.45) ABG pCO2 (35-45) mmHg ABG pO2 (83-108) mmHg ABG HCO3 (21-25) mmol/L ABG Total CO2 (19-24) mmol/L ABG O2 Saturation (94-97) % Potassium 6.8 H* 5.7 H (3.5-5.1) mmol/L Chloride 109 H (98-107) mmol/L Carbon Dioxide 19 L (22-30) mmol/L BUN 26 H (9-20) mg/dL Creatinine 1.41 H (0.66-1.25) mg/dL Glucose 125 H (74-99) mg/dL POC Glucose (mg/dL) (75-99) mg/dL Calcium 7.8 L (8.4-10.2) mg/dL Phosphorus (2.5-4.5) mg/dL Magnesium 1.5 L (1.6-2.3) mg/dL Troponin I (0.000-0.034) ng/mL Triglycerides 349 H (<150) mg/dL HDL Cholesterol 36 L (40-60) mg/dL Urine Protein 1+ H (Negative) Urine Blood Moderate H (Negative) Urine WBC 10 H (0-5) /hpf Urine Mucus Rare H (None) /hpf Thrombosis Risk Factor Assmnt - DVT/VTE Prophylaxis DVT/VTE Prophylaxis: Pharmacologic Prophylaxis ordered - Choose All That Apply Any of the Below Risk Factors Present?: Yes Each Factor Represents 1 point: Age 41-60 years, Obesity (BMI >25) Other Risk Factors: Yes Each Risk Factor Represents 2 Points: Malignancy Other congenital or acquired thrombophilia - If yes, enter type in comment: No Thrombosis Risk Factor Assessment Total Risk Factor Score: 4 Thrombosis Risk Factor Assessment Level: Moderate Risk Assessment and Plan Assessment: Acute ST elevated MT status post cardiac catheterization and stenting to left main artery Acute cardiac arrest. Status post adequate resuscitation Acute respiratory failure post procedure Hypertension and possible cardiogenic shock. 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 Pressor support and IV fluids. Pulmonary and cardiology is on board Continue with aspirin, statins and metoprolol. DVT prophylaxis Further recommendations based on the clinical course. Prognosis is guarded. Discussed the family at bedside in detail and all questions were answered. Time with Patient: Greater than 30
[2017-11-11] MEDS: HEPARIN SODIUM,PORCINE 5,000 UNIT/ML 1 ML VIAL SQ SCH (23:45)
[2017-11-12] MEDS: NOREPINEPHRIN 4 MG-0.9% NS PMX 4 MG/250 ML ML IV SCH ×3 (02:16→11:47)
[2017-11-12] MEDS: PROPOFOL 1,000 MG in EMPTY BAG 1 BAG IV SCH ×4 (02:17→21:57)
[2017-11-12 05:17] LABS: Magnesium 1.9 mg/dL (1.6-2.3); Phosphorus 3.4 mg/dL (2.5-4.5); Potassium 5.1 mmol/L (3.5-5.1)
[2017-11-12 05:28] LABS: Calcium 6.1 mg/dL (8.4-10.2)
[2017-11-12 05:50] LABS: HCT 39.9 % (39.0-53.0); HGB 13.7 gm/dL (13.0-17.5); MCH 31.4 pg (25.0-35.0); MCHC 34.4 g/dL (31.0-37.0); MCV 91.3 fL (80.0-100.0); Mean Platelet Volume 9.4; Platelet Count 265 k/uL (150-450); RBC 4.37 m/uL (4.30-5.90); RDW 13.2 % (11.5-15.5); WBC 8.9 k/uL (3.8-10.6)
[2017-11-12 06:16] LABS: ABG Base Excess -8.4 mmol/L; ABG HCO3 17 mmol/L (21-25); ABG Oxygen Saturation 94.8 % (94-97); ABG PCO2 28 mmHg (35-45); ABG PH 7.38 (7.35-7.45); ABG PO2 77 mmHg (83-108); ABG TCO2 18 mmol/L (19-24)
[2017-11-12] MEDS: MAGNESIUM SULFATE-D5W PMX 1 GM in DEXTROSE/WATER 1 100ML.BAG IVPB SCH ×2 (06:31→08:14)
--- NOTE | 2017-11-12 08:03 | XR ---
EXAMINATION TYPE: XR chest 1V portable DATE OF EXAM: 11/12/2017 COMPARISON: Prior chest x-ray 11/11/2017 HISTORY: Intubated TECHNIQUE: Single frontal view of the chest is obtained. FINDINGS: Endotracheal tube is overlying the tracheal air column in appropriate position, there is a n NG tube also present coursing towards the stomach, distal tip not included on the exam. No evident pneumothorax. Bibasilar increased density is again noted, the right hemidiaphragm is obscured in the interval. The heart is at the upper limit of normal for size. IMPRESSION: Findings are similar to prior exam, correlate for lower lobe atelectasis versus edema or pneumonia and associated effusion.
[2017-11-12] MEDS: MORPHINE SULFATE 4 MG/ML SYRINGE IVP PRN ×3 (08:08→19:15)
[2017-11-12 08:09] LABS: Band Neutrophils % 25 %; Lymphocytes # (M) 1.07 k/uL (1.0-4.8); Metamyelocytes # (M) 0.98 k/uL (0); Metamyelocytes % 11 %; Monocytes # (M) 0.18 k/uL (0-1.0); Myelocytes # (M) 0.36 k/uL (0); Myelocytes % 4 %; Neutrophils % (M) 48 %; Nucleated Red Blood Cells 0 /100 WBC (0-0); Total Cells Counted 200
[2017-11-12] MEDS: SODIUM CHLORIDE 0.9% 1,000 ML IV SCH ×2 (08:09→15:17)
[2017-11-12 08:10] LABS: Poikilocytosis (M) Present
[2017-11-12 08:11] LABS: Toxic Granulation Present
[2017-11-12] MEDS: HEPARIN SODIUM,PORCINE 5,000 UNIT/ML 1 ML VIAL SQ SCH ×2 (08:13→15:18)
[2017-11-12] MEDS: ASPIRIN 81 MG PO SCH (08:27)
[2017-11-12] MEDS: TICAGRELOR 90 MG TAB PO SCH ×2 (08:27→21:56)
[2017-11-12] MEDS: CHLORHEXIDINE GLUCONATE 15 ML CUP MUCOUS MEM SCH ×2 (08:27→21:57)
[2017-11-12] MEDS: METOPROLOL TARTRATE 12.5 MG TAB PO SCH ×2 (08:28→21:57)
[2017-11-12] MEDS: PANTOPRAZOLE 40 MG/10 ML VIAL IV SCH (08:28)
[2017-11-12] MEDS: ALBUTEROL NEBULIZED 2.5 MG/3 ML INHALATION SCH ×3 (08:30→19:08)
[2017-11-12] MEDS ORDERED: CALCIUM GLUCONATE 1,000 MG in SODIUM CHLORIDE 0.9% 100 ML IVPB ONE (10:00)
--- NOTE | 2017-11-12 12:10 | P.PN ---
Subjective Progress Note Date: 11/12/17 A pleasant 57-year-old male patient who lives in [place], [place] and the patient was playing pickle ball in the [facility] area. The patient acutely arrested and he was into cardiac arrest. There was a bystander nurse who did CPR on him. EMS was called to the scene and the patient was found in V. fib. The patient was shocked and the patient was given a dose of epinephrine. Subsequently went into asystole. Following that, CPR was continued and the patient went into V. fib, shocked again and then went into normal sinus rhythm. EKG showed ST segment elevation and the patient was taken to [facility] and following that the patient was brought in to the [facility]. Emergent cardiac catheterization was done and the patient was found to have a left main lesion that was stented. The stent insertion with successful. The patient was in already intubated by EMS on the scene. The patient was kept intubated. The patient was moved to the ICU for further care. Overnight, the patient was sedated with Diprivan. He apparently was following some simple commands while given a sedation holiday. This morning, he is on 30 mics of levo fed for blood pressure support. Echocardiogram was done and showed ejection fraction of 35%. No other significant abnormalities noted and this is a preliminary report. Urine output is in order of 25-30 mL an hour. Overnight his urine output dropped and a given a bolus of 1 L and he received a total of 2.5 L fluid bolus. He is current maintenance fluid is at 75 mL of normal saline. He is on a mechanical ventilator on assist control mode at the rate of 20, tidal volume of 600, FiO2 of 50% and a PEEP of 5. Morning blood gases showed a pH of 7.34 with a pCO2 of 28 and pO2 167. Chest x- ray showing some cardiomegaly and some pulmonary vessel congestion. ET tube is in a good location. No other densities seen in the left lower lobe costophrenic angle area. The patient's creatinine is up to 1.4. Today's potassium is up to 6.8. This needs to be repeated. No EKG changes related to this high potassium level. He is afebrile. No aspiration was noted. He remains on 30 mics of norepinephrine infusion for now. Pulses in lower extremities are weak yet obtainable by Doppler. His legs are cold and clammy still. No significant secretions from his orotracheal tube. He is known to have carcinoid tumor and apparently his been on maintenance hormonal treatment. He is seeing a oncologist out of [facility]. The patient also has history of lymphoma. The details of these malignancies are not known to us. The origin of the carcinoid tumor is not clear to me at this point. Further information is to be obtained on this patient. On 11/12 and I'm seeing this patient for a follow-up. The patient remains intubated on a mechanical ventilator and the patient is post acute STEMI in acute cardiac arrest. I did not extubated the patient yesterday as the patient was still hypo-tensive and hypoperfusing and the patient was having diminished pulses in lower extremities and he looked cold and clammy and he had ongoing electrolyte disturbance with hypokalemia. He was given IV fluids and the neck fluid balance over the past 24 hours is +2.3 L. Currently is on 75 mL an hour of normal saline. Pulses are palpable in lower oximetry is bilaterally and the patient is much more warm. He is still however on pressors and currently norepinephrine infusion is running at 14 mics. His urine output dropped this morning and he is producing around 25-30 mL an hour of urine output. The patient has the levo fed infusion running through his right upper extremity. He remains on a mechanical ventilator. His assist-control mode at the rate of 20, tidal volume of 600, FiO2 of 40% and a PEEP of 5. The blood gases showed a pH of 7.3 with a pCO2 of 28 and pO2 77. Chest x-ray showing cardiomegaly. ET tube is in a good location. There is development of four- vessel congestion and possibly a right-sided pleural effusion also developing. He is afebrile. He is having no significant secretions with orotracheal tube. His white cell count has dropped and I doubt an underlying aspiration pneumonia although this is not completely excluded. I think his hypotension and shock is probably cardiogenic following his cardiac arrest. In addition, the patient's ionized calcium today's at 3.8 and the patient was given a total of 1 g of calcium gluconate. His troponin peaked at 26.4. This morning he is sedated and is calm and comfortable and synchronous with the mechanical ventilator. Orogastric and orotracheal tube are both in place. The patient is still nothing by mouth. Objective - Vital Signs Vital signs: Vital Signs Temp 98.8 F 11/12/17 08:00 Pulse 92 11/12/17 10:00 Resp 19 11/12/17 10:00 BP 83/56 11/12/17 04:00 Pulse Ox 98 11/12/17 10:00 Intake & Output 11/11/17 11/12/17 11/12/17 18:59 06:59 18:59 Intake Total 3080.875 1701.783 675 Output Total 1405 1045 170 Balance 1675.875 656.783 505 Weight 87.6 kg 85 kg Intake: IV 2600 900 225 Sodium Chloride 0.9% 1, 2600 900 225 000 ml @ 75 mls/hr IV . [id number] JACK Rx#:[id number] Intake, IV Titration 480.875 741.783 450 Amount Magnesium Sulfate-D5w Pmx 100 1 gm In Dextrose/Water 1 100ml.bag @ 100 mls/hr IVPB Q1H JACK Rx#: [id number] Norepinephrin 4 mg-0.9% 332.750 591.500 250 Ns Pmx 4 mg In 250 ml @ Titrate IV .Q0M JACK Rx#: [id number] Propofol 1,000 mg In 148.125 150.283 100 Empty Bag 1 bag @ Titrate IV .Q0M JACK Rx#: [id number] Other 60 Output: Gastric Drainage 800 700 100 Urine 605 345 70 Other: Voiding Method Indwelling Catheter Indwelling Catheter Indwelling Catheter ABP, PAP, CO, CI - Last Documented Arterial Blood Pressure 92/57 - Exam Gen. appearance the patient is calm comfortable likely distress. Patient is calm and comfortable and the patient is sedated with Diprivan running at 40 mics per KG pigmented. He withdraws to painful stimuli in all 4 extremities. He was not equal and reactive to light at 4-5 mm. No nystagmus. No clonus. No Babinski. My normal had orogastric and orotracheal tube are both in place.Neck was supple and without jugular venous distension, thyromegaly, or carotid bruits. Carotids were easily palpable bilaterally. There was no adenopathy. Lung sounds are equal and symmetrical bilaterally. No wheezes or rhonchi early crackles.Cardiac exam revealed the PMI to be normally situated and sized. The rhythm was regular and no extrasystoles were noted during several minutes of auscultation. The first and second heart sounds were normal and physiologic splitting of the second heart sound was noted. There were no murmurs, rubs, clicks, or gallops.Abdominal exam revealed normal bowel sounds. The abdomen was soft, non-tender, and without masses, organomegaly, or appreciable enlargement of the abdominal aorta.Examination of the extremities revealed easily palpable radial, femoral and pedal pulses. There was no cyanosis , clubbing or edema. Examination of the skin revealed no evidence of significant rashes, suspicious appearing nevi or other concerning lesions. - Labs CBC & Chem 7: 11/12/17 04:45 11/12/17 04:45 Labs: Abnormal Lab Results - Last 24 Hours (Table) 11/10/17 11/11/17 11/11/17 Range/Units 23:29 10:50 11:30 Metamyelocytes # (Man) (0) k/uL Myelocytes # (Manual) (0) k/uL ABG pCO2 (35-45) mmHg ABG pO2 (83-108) mmHg ABG HCO3 (21-25) mmol/L ABG Total CO2 (19-24) mmol/L Chloride (98-107) mmol/L Carbon Dioxide (22-30) mmol/L BUN (9-20) mg/dL Creatinine (0.66-1.25) mg/dL Glucose (74-99) mg/dL Hemoglobin A1c 6.4 H (4.0-6.0) % Calcium (8.4-10.2) mg/dL Ionized Calcium Eduardo (4.5-5.3) mg/dL Troponin I 26.400 H* (0.000-0.034) ng/mL Ur Specific Corning 1.048 H (1.001-1.035) 11/12/17 11/12/17 11/12/17 Range/Units 04:45 04:45 06:10 Metamyelocytes # (Man) 0.98 H (0) k/uL Myelocytes # (Manual) 0.36 H (0) k/uL ABG pCO2 28 L (35-45) mmHg ABG pO2 77 L (83-108) mmHg ABG HCO3 17 L (21-25) mmol/L ABG Total CO2 18 L (19-24) mmol/L Chloride 113 H (98-107) mmol/L Carbon Dioxide 17 L (22-30) mmol/L BUN 33 H (9-20) mg/dL Creatinine 1.44 H (0.66-1.25) mg/dL Glucose 141 H (74-99) mg/dL Hemoglobin A1c (4.0-6.0) % Calcium 6.1 L* (8.4-10.2) mg/dL Ionized Calcium Eduardo (4.5-5.3) mg/dL Troponin I (0.000-0.034) ng/mL Ur Specific Corning (1.001-1.035) 11/12/17 Range/Units 06:53 Metamyelocytes # (Man) (0) k/uL Myelocytes # (Manual) (0) k/uL ABG pCO2 (35-45) mmHg ABG pO2 (83-108) mmHg ABG HCO3 (21-25) mmol/L ABG Total CO2 (19-24) mmol/L Chloride (98-107) mmol/L Carbon Dioxide (22-30) mmol/L BUN (9-20) mg/dL Creatinine (0.66-1.25) mg/dL Glucose (74-99) mg/dL Hemoglobin A1c (4.0-6.0) % Calcium (8.4-10.2) mg/dL Ionized Calcium Eduardo 3.8 L (4.5-5.3) mg/dL Troponin I (0.000-0.034) ng/mL Ur Specific Corning (1.001-1.035) Microbiology - Last 24 Hours (Table) 11/11/17 23:23 Sputum Culture - Preliminary Sputum Assessment and Plan Plan: Assessment [address] segment elevation myocardial infarction secondary to a tight left main lesion him a status post successful angioplasty and stenting 2 acute cardiac arrest secondary to above, resuscitated adequately, please refer to the information given earlier and the code sheets 3 acute respiratory failure secondary to above 4 acute hypotension, possibly a component of cardiogenic shock postarrest. Echocardiogram showing impaired LV function with an ejection fraction of 35% and the patient is still pressor dependent 5 acute kidney injury secondary to above creatinine is up to 1.4 6 acute hyperkalemia, treated and the patient's potassium level is down to 5.1 7 history of carcinoid tumor 8 history of lymphoma 9 hypocalcemia 10 non-anion gap metabolic acidosis Plan Juany IV fluids with normal saline at the rate of 75 mL an hour. Insert the triple-lumen catheter and monitor the CVP. Continue pressors with levo fed. Attempted improved back cardiac output with addition of dobutamine at 2.5 g per KG pigmented and may go up to 5 and the patient's blood pressure and heart rate tolerates. Will monitor the urine output. Avoid Lasix for now. Continue vent support. Continue monitoring the hemodynamics. Initiate tube feeds at a lower rate. Keep the patient sedated for now. Keep the metoprolol and hold. DVT and GI prophylaxis. We'll continue to follow. Family was updated on his condition and the patient is still critical. This critically care evaluation that was done and 32 minutes. This was done excluding time to do any procedures. Time with Patient: Greater than 30
[2017-11-12] MEDS: MILRINONE-D5W PMX 20 MG in DEXTROSE/WATER 1 100ML.BAG IV SCH ×2 (13:04→23:03)
--- NOTE | 2017-11-12 13:19 | XR ---
EXAMINATION TYPE: XR chest 1V DATE OF EXAM: 11/12/2017 COMPARISON: Prior chest x-ray 11/12/2017 and earlier time HISTORY: Left subclavian central venous catheter placement TECHNIQUE: Single frontal view of the chest is obtained. FINDINGS: There is been interval placement of a left subclavian central venous catheter, distal tip is at the cavoatrial junction level. No evident pneumothorax. No other interval change. IMPRESSION: No evident complication status post central venous catheter placement
[2017-11-12] MEDS: NOREPINEPHRIN 16 MG-0.9%NS PMX 16 MG/250 ML ML IV SCH (17:29)
[2017-11-12 17:49] LABS: Glucose,Whole Blood 144 mg/dL (75-99)
--- NOTE | 2017-11-12 18:12 | PCN ---
PROCEDURE NOTE TRIPLE LUMEN CATHETER PLACEMENT: PREOPERATIVE DIAGNOSIS: Acute cardiac arrest/myocardial infarction. POSTOPERATIVE DIAGNOSIS: Acute cardiac arrest/myocardial infarction. Indication Hemodynamic monitoring/Intravenous access. A time-out was completed verifying correct patient, procedure, site, positioning, and implant(s) or special equipment if applicable. The patient was placed in a dependent position appropriate for triple lumen catheter placement based on the vein to be cannulated. The patient's left neck was prepped and draped in sterile fashion. 1% Lidocaine was used to anesthetize the surrounding skin area. A triple lumen 9F Cordis catheter was introduced into the left subclavian vein using Seldinger technique. The catheter was threaded smoothly over the guide wire and appropriate blood return was obtained. Each lumen of the catheter was evacuated of air and flushed with sterile saline. The catheter was then sutured in place to the skin and a sterile dressing applied. Perfusion to the extremity distal to the point of catheter insertion was checked and found to be adequate. MMODL / IJN: [id number] /
[2017-11-12] MEDS: ATORVASTATIN 80 MG TAB PO SCH (21:56)
[2017-11-12 23:45] LABS: Glucose,Whole Blood 149 mg/dL (75-99)
[2017-11-13] MEDS: HEPARIN SODIUM,PORCINE 5,000 UNIT/ML 1 ML VIAL SQ SCH ×3 (00:01→16:29)
[2017-11-13] MEDS: INSULIN ASPART 100 UNIT/ML 1 ML 10 ML VIAL SQ SCH ×4 (00:01→18:35)
[2017-11-13] MEDS: MORPHINE SULFATE 4 MG/ML SYRINGE IVP PRN (02:30)
[2017-11-13 04:44] LABS: ABG HCO3 17 mmol/L (21-25); ABG Oxygen Saturation 96.2 % (94-97); ABG PCO2 29 mmHg (35-45); ABG PH 7.38 (7.35-7.45); ABG PO2 85 mmHg (83-108); ABG TCO2 18 mmol/L (19-24)
[2017-11-13 05:15] LABS: Basophils % (A) 0 %; Eosinophils % (A) 0 %; HCT 29.5 % (39.0-53.0); Lymphocytes # (A) 0.5 k/uL (1.0-4.8); Lymphocytes % (A) 6 %; MCH 31.5 pg (25.0-35.0); MCV 92.8 fL (80.0-100.0); Mean Platelet Volume 10.2; Monocytes # (A) 0.2 k/uL (0-1.0); Monocytes % (A) 3 %; Neutrophils # (A) 7.4 k/uL (1.3-7.7); Neutrophils % (A) 90 %; Platelet Count 205 k/uL (150-450); RBC 3.18 m/uL (4.30-5.90); RDW 13.4 % (11.5-15.5); WBC 8.3 k/uL (3.8-10.6)
[2017-11-13 06:31] LABS: Magnesium 2.5 mg/dL (1.6-2.3); Phosphorus 3.2 mg/dL (2.5-4.5); Potassium 4.4 mmol/L (3.5-5.1)
[2017-11-13 06:53] LABS: Calcium 5.6 mg/dL (8.4-10.2)
[2017-11-13] MEDS: PROPOFOL 1,000 MG in EMPTY BAG 1 BAG IV SCH ×4 (07:10→20:28)
[2017-11-13 07:16] LABS: Glucose,Whole Blood 161 mg/dL (75-99)
[2017-11-13] MEDS: ALBUTEROL NEBULIZED 2.5 MG/3 ML INHALATION SCH ×3 (07:46→19:34)
[2017-11-13] MEDS ORDERED: CALCIUM GLUCONATE 2,000 MG in SODIUM CHLORIDE 0.9% 100 ML IVPB ONE (08:23)
[2017-11-13] MEDS ORDERED: FUROSEMIDE 10 MG/ML 4 ML VIAL IV STA (08:25)
[2017-11-13 08:54] LABS: Total Bilirubin 0.4 mg/dL (0.2-1.3)
[2017-11-13] MEDS ORDERED: RX INFO: IV CONTRAST WAS GIVEN 1 EACH MISC MISCELLANE PRN (09:09)
--- NOTE | 2017-11-13 09:09 | P.PN ---
Subjective Progress Note Date: 11/13/17 A pleasant 57-year-old male patient who lives in [place], [place] and the patient was playing pickle ball in the [facility] area. The patient acutely arrested and he was into cardiac arrest. There was a bystander nurse who did CPR on him. EMS was called to the scene and the patient was found in V. fib. The patient was shocked and the patient was given a dose of epinephrine. Subsequently went into asystole. Following that, CPR was continued and the patient went into V. fib, shocked again and then went into normal sinus rhythm. EKG showed ST segment elevation and the patient was taken to [facility] [place] [facility] and following that the patient was brought in to the [facility]. Emergent cardiac catheterization was done and the patient was found to have a left main lesion that was stented. The stent insertion with successful. The patient was in already intubated by EMS on the scene. The patient was kept intubated. The patient was moved to the ICU for further care. Overnight, the patient was sedated with Diprivan. He apparently was following some simple commands while given a sedation holiday. This morning, he is on 30 mics of levo fed for blood pressure support. Echocardiogram was done and showed ejection fraction of 35%. No other significant abnormalities noted and this is a preliminary report. Urine output is in order of 25-30 mL an hour. Overnight his urine output dropped and a given a bolus of 1 L and he received a total of 2.5 L fluid bolus. He is current maintenance fluid is at 75 mL of normal saline. He is on a mechanical ventilator on assist control mode at the rate of 20, tidal volume of 600, FiO2 of 50% and a PEEP of 5. Morning blood gases showed a pH of 7.34 with a pCO2 of 28 and pO2 167. Chest x- ray showing some cardiomegaly and some pulmonary vessel congestion. ET tube is in a good location. No other densities seen in the left lower lobe costophrenic angle area. The patient's creatinine is up to 1.4. Today's potassium is up to 6.8. This needs to be repeated. No EKG changes related to this high potassium level. He is afebrile. No aspiration was noted. He remains on 30 mics of norepinephrine infusion for now. Pulses in lower extremities are weak yet obtainable by Doppler. His legs are cold and clammy still. No significant secretions from his orotracheal tube. He is known to have carcinoid tumor and apparently his been on maintenance hormonal treatment. He is seeing a oncologist out of [facility]. The patient also has history of lymphoma. The details of these malignancies are not known to us. The origin of the carcinoid tumor is not clear to me at this point. Further information is to be obtained on this patient. On 11/12 I'm seeing this patient for a follow-up. The patient remains intubated on a mechanical ventilator and the patient is post acute STEMI in acute cardiac arrest. I did not extubated the patient yesterday as the patient was still hypo-tensive and hypoperfusing and the patient was having diminished pulses in lower extremities and he looked cold and clammy and he had ongoing electrolyte disturbance with hypokalemia. He was given IV fluids and the neck fluid balance over the past 24 hours is +2.3 L. Currently is on 75 mL an hour of normal saline. Pulses are palpable in lower oximetry is bilaterally and the patient is much more warm. He is still however on pressors and currently norepinephrine infusion is running at 14 mics. His urine output dropped this morning and he is producing around 25-30 mL an hour of urine output. The patient has the levo fed infusion running through his right upper extremity. He remains on a mechanical ventilator. His assist-control mode at the rate of 20, tidal volume of 600, FiO2 of 40% and a PEEP of 5. The blood gases showed a pH of 7.3 with a pCO2 of 28 and pO2 77. Chest x-ray showing cardiomegaly. ET tube is in a good location. There is development of four-vessel congestion and possibly a right-sided pleural effusion also developing. He is afebrile. He is having no significant secretions with orotracheal tube. His white cell count has dropped and I doubt an underlying aspiration pneumonia although this is not completely excluded. I think his hypotension and shock is probably cardiogenic following his cardiac arrest. In addition, the patient's ionized calcium today's at 3.8 and the patient was given a total of 1 g of calcium gluconate. His troponin peaked at 26.4. This morning he is sedated and is calm and comfortable and synchronous with the mechanical ventilator. Orogastric and orotracheal tube are both in place. The patient is still nothing by mouth. On 11/13/2017 I'm seeing this patient for a follow-up. Patient remains intubated on a mechanical ventilator. He is sedated Diprivan is calm and comfortable. He withdraws to painful stimulation. A repeat echo cardiac exam was done today that showed a preserved LV function. Note that post [place] the patient's ejection fraction was impaired with ejection fraction of 35-40%. Based on the licensed occupational therapy assistant destination, the ejection fraction is a furthermore improved. I did add milrinone yesterday on him which I am willing to discontinue based on these findings. His CVP is around 7. He is in a positive fluid balance in order of 5 L since he came in to the intensive care unit. He has adequate pulses in all 4 extremities bilaterally. His chest x-ray showing diffuse bilateral pulmonary infiltrates which seems to be more so of a acute lung injury/aspiration-type of picture/non-cardiogenic pulmonary edema. The patient is on assist control mode, at the rate of 20, tidal volume of 600, FiO2 of 40% and PEEP of 5. The morning blood gas showed a pH of 7.38 with a pCO2 of 29 and pO2 of 85. The patient is on normal state rate of 75 mL an hour. Urine output is between 25-30 mL an hour. The patient's creatinine was up to 2 on today's evaluation. He did have a 1 spike of temperature and he is currently covered with IV Zosyn. White cell count is not elevated. No secretions with orotracheal tube. The patient had some difficulties tolerating tube feeds. Abdomen on examination was felt to be quite tender. Calcium level has dropped progressively. We'll need immediate fed femoral the abdomen addition to the liver function tests and pancreatic enzymes. Calcium level will be supplemented. Objective - Vital Signs Vital signs: Vital Signs Temp 99.3 F 11/13/17 08:00 Pulse 96 11/13/17 08:00 Resp 20 11/13/17 08:00 BP 92/43 11/13/17 01:00 Pulse Ox 97 11/13/17 08:00 Intake & Output 11/12/17 11/13/17 11/13/17 18:59 06:59 18:59 Intake Total 1600.0 1345.261 210.781 Output Total 455 890 80 Balance 1145.0 455.261 130.781 Weight 85 kg 98.3 kg Intake: IV 900 900 75 Sodium Chloride 0.9% 1, 900 900 75 000 ml @ 75 mls/hr IV . [id number] [facility] Rx#:[id number] Intake, IV Titration 650.0 365.261 135.781 Amount Calcium Gluconate 1,000 100 mg In Sodium Chloride 0.9 % 100 ml @ 100 mls/hr IVPB ONCE ONE Rx#: [id number] Magnesium Sulfate-D5w Pmx 100 1 gm In Dextrose/Water 1 100ml.bag @ 100 mls/hr IVPB Q1H [facility] Rx#: [id number] Milrinone-D5w Pmx 20 mg 61.115 In Dextrose/Water 1 100ml .bag @ 0.4 MCG/KG/MIN 10. 2 mls/hr IV .[id number] [facility] Rx#:[id number] Norepinephrin 16 mg-0.9% 91.646 135.781 Ns Pmx 16 mg In 250 ml @ Titrate IV .Q0M [facility] Rx#: [id number] Norepinephrin 4 mg-0.9% 250 Ns Pmx 4 mg In 250 ml @ Titrate IV .Q0M [facility] Rx#: [id number] Piperacillin-Tazobactam 3 12.5 .375 gm In Dextrose/Water 1 50ml.bag @ 12.5 mls/hr IVPB Q8HR [facility] Rx#: [id number] Propofol 1,000 mg In 200.0 200 Empty Bag 1 bag @ Titrate IV .Q0M [facility] Rx#: [id number] Tube Feeding 50 80 Output: Gastric Drainage 100 290 Urine 355 600 80 Other: Voiding Method Indwelling Catheter Indwelling Catheter ABP, PAP, CO, CI - Last Documented Arterial Blood Pressure 121/49 - Exam Gen. appearance the patient is calm comfortable likely distress. Patient is calm and comfortable and the patient is sedated with Diprivan r. He withdraws to painful stimuli in all 4 extremities. He was not equal and reactive to light . No nystagmus. No clonus. No Babinski. My normal had orogastric and orotracheal tube are both in place.Neck was supple and without jugular venous distension, thyromegaly, or carotid bruits. Carotids were easily palpable bilaterally. There was no adenopathy. Lung sounds are equal and symmetrical bilaterally. No wheezes or rhonchi early crackles.Cardiac exam revealed the PMI to be normally situated and sized. The rhythm was regular and no extrasystoles were noted during several minutes of auscultation. The first and second heart sounds were normal and physiologic splitting of the second heart sound was noted. There were no murmurs, rubs, clicks, or gallops.Abdominal exam revealed normal bowel sounds. The abdomen was soft, non-tender, and without masses, organomegaly, or appreciable enlargement of the abdominal aorta.the patient's abdomen is mildly tender and there is a mild diffuse tenderness yet a accurate examination cannot be performed as the patient is currently off sedation. Abdomen is not firm. Bowel sounds are hypoactive at this point. Examination of the extremities revealed easily palpable radial, femoral and pedal pulses. There was no cyanosis, clubbing or edema. Examination of the skin revealed no evidence of significant rashes, suspicious appearing nevi or other concerning lesions. - Labs CBC & Chem 7: 11/13/17 04:45 11/13/17 04:45 Labs: Abnormal Lab Results - Last 24 Hours (Table) 11/12/17 11/12/17 11/13/17 Range/Units 17:48 23:43 04:42 RBC (4.30-5.90) m/uL Hgb (13.0-17.5) gm/dL Hct (39.0-53.0) % Lymphocytes # (1.0-4.8) k/uL ABG pCO2 29 L (35-45) mmHg ABG HCO3 17 L (21-25) mmol/L ABG Total CO2 18 L (19-24) mmol/L Chloride (98-107) mmol/L Carbon Dioxide (22-30) mmol/L BUN (9-20) mg/dL Creatinine (0.66-1.25) mg/dL Glucose (74-99) mg/dL POC Glucose (mg/dL) 144 H 149 H (75-99) mg/dL Calcium (8.4-10.2) mg/dL Ionized Calcium Eduardo (4.5-5.3) mg/dL Magnesium (1.6-2.3) mg/dL 11/13/17 11/13/17 11/13/17 Range/Units 04:45 04:45 04:45 RBC 3.18 L (4.30-5.90) m/uL Hgb 10.0 L D (13.0-17.5) gm/dL Hct 29.5 L (39.0-53.0) % Lymphocytes # 0.5 L (1.0-4.8) k/uL ABG pCO2 (35-45) mmHg ABG HCO3 (21-25) mmol/L ABG Total CO2 (19-24) mmol/L Chloride 112 H (98-107) mmol/L Carbon Dioxide 18 L (22-30) mmol/L BUN 45 H (9-20) mg/dL Creatinine 2.00 H (0.66-1.25) mg/dL Glucose 154 H (74-99) mg/dL POC Glucose (mg/dL) (75-99) mg/dL Calcium 5.6 L* (8.4-10.2) mg/dL Ionized Calcium Eduardo 3.8 L (4.5-5.3) mg/dL Magnesium 2.5 H (1.6-2.3) mg/dL 11/13/17 Range/Units 07:14 RBC (4.30-5.90) m/uL Hgb (13.0-17.5) gm/dL Hct (39.0-53.0) % Lymphocytes # (1.0-4.8) k/uL ABG pCO2 (35-45) mmHg ABG HCO3 (21-25) mmol/L ABG Total CO2 (19-24) mmol/L Chloride (98-107) mmol/L Carbon Dioxide (22-30) mmol/L BUN (9-20) mg/dL Creatinine (0.66-1.25) mg/dL Glucose (74-99) mg/dL POC Glucose (mg/dL) 161 H (75-99) mg/dL Calcium (8.4-10.2) mg/dL Ionized Calcium Eduardo (4.5-5.3) mg/dL Magnesium (1.6-2.3) mg/dL Microbiology - Last 24 Hours (Table) 11/11/17 23:23 Gram Stain - Preliminary Sputum Sputum Culture - Preliminary Assessment and Plan Plan: Assessment [address] segment elevation myocardial infarction secondary to a tight left main lesion him a status post successful angioplasty and stenting 2 acute cardiac arrest secondary to above, resuscitated adequately 3 acute respiratory failure secondary to above 4 acute hypotension, post cardiac arrest. Obviously echocardiogram showing a preserved LV function and there is no valvular disruption and that is no clear- cut cardiogenic component. No evidence of any stunned myocardium on subsequent echocardiogram. Consider peripheral vasodilation probably related to an underlying septic event. 5 acute kidney injury secondary to above creatinine is up to 2.0 6 diffuse bilateral pulmonary infiltrates/effusion. Consider noncardiogenic pulmonary edema. Consider acute lung injury secondary aspiration/cardiac arrest. Patient is still oxygenating and ventilating well. Not ready for any weaning for now. I 7 history of carcinoid tumor 8 history of lymphoma 9 hypocalcemia, recurrent, will need further investigation 10 non-anion gap metabolic acidosis 11 poor tolerability to tube feeds along with some mild abdominal tenderness. We'll need further investigation Plan Stop the milrinone, and continue IV fluids at 75 mL an hour. IV Zosyn was added yesterday in consultation for aspiration pneumonia. Drop the tidal volume to 500. Continue monitoring the urine output. Check liver function tests, check amylase and lipase, check flat film of the abdomen, give the patient 2 g of calcium gluconate and monitor the calcium level as the patient's ionized calcium is still low, keep tube feeds on hold for today, give a dose of Lasix 40 mg IV push, no weaning for today. Case was discussed with the family. May consider transferring him to a tertiary care center specially if his condition shows no signs of improvement and/or worsening over the next few hours. Case was discussed with Dr. Alan from cardiology. Echocardiogram was repeated and reviewed. We'll continue to follow make further recommendations based on his progress. Critically care evaluation. 45 minutes. Time with Patient: Greater than 30
[2017-11-13] MEDS: NOREPINEPHRIN 16 MG-0.9%NS PMX 16 MG/250 ML ML IV SCH (09:19)
[2017-11-13] MEDS: SODIUM CHLORIDE 0.9% 1,000 ML IV SCH (09:19)
[2017-11-13] MEDS: PIPERACILLIN-TAZOBACTAM 3.375 GM in DEXTROSE/WATER 1 50ML.BAG IVPB SCH ×3 (09:20→16:32)
[2017-11-13] MEDS: MILRINONE-D5W PMX 20 MG in DEXTROSE/WATER 1 100ML.BAG IV SCH (09:20)
[2017-11-13] MEDS: METOPROLOL TARTRATE 12.5 MG TAB PO SCH ×2 (09:21→20:17)
[2017-11-13] MEDS: PANTOPRAZOLE 40 MG/10 ML VIAL IV SCH (09:24)
[2017-11-13] MEDS: CHLORHEXIDINE GLUCONATE 15 ML CUP MUCOUS MEM SCH ×2 (09:24→20:29)
[2017-11-13] MEDS: TICAGRELOR 90 MG TAB PO SCH ×2 (09:25→20:28)
[2017-11-13] MEDS: ASPIRIN 81 MG PO SCH (09:25)
[2017-11-13] MEDS: IOHEXOL 350 MG/ML 25 ML BOTTLE (ORAL USE) PO PRN ×2 (09:54→11:03)
--- NOTE | 2017-11-13 12:11 | CT ---
EXAMINATION TYPE: CT abdomen pelvis wo con DATE OF EXAM: 11/13/2017 HISTORY: Abdominal pain. Poor tolerability to tube feeds with mild abdominal tenderness. History of n euroendocrine tumor and lymphoma. CT DLP: 1207.9 mGycm. Automated Exposure Control for Dose Reduction was Utilized. TECHNIQUE: CT scan of the abdomen and pelvis is performed with oral but without IV contrast. COMPARISON: NONE FINDINGS: Within the limitations of a non-contrast study, the following observations are made. LUNG BASES: There is cardiomegaly with small to moderate-sized bilateral pleural effusions partially imaged and associated compressive atelectasis. There is coronary artery desiccation which is noted ma rker for coronary artery disease. Bilateral rounded gynecomastia is present. LIVER/GB: Gallbladder has distended margins without surrounding inflammatory change. PANCREAS: No significant abnormality is seen. SPLEEN: No significant abnormality is seen. ADRENALS: No significant abnormality is seen. KIDNEYS: Felipe catheter seen within bladder. BOWEL: Oral contrast reaches level of the cecum. Cecum is low-lying into the right anterior pelvis. T here is severe wall thickening at this level with mild surrounding fluid. This could reflect site of tumor or inflammatory change. Small bowel up to this level shows no suspicious dilatation. Some contr ast filled small bowel loops in the lower abdomen or slightly more prominent. There is small amount o f fluid in the left paracolic gutter. GENITAL ORGANS: No gross abnormality seen. LYMPH NODES: There is abnormal retroperitoneal adenopathy. For reference aortocaval lymph node measur es 2.1 x 1.9 cm axial image 48. OSSEOUS STRUCTURES: Moderate to advanced disc space narrowing lumbosacral junction with vacuum disc p henomenon is present. OTHER: Surgical coils from right inguinal hernia repair surgery are noted at superior right groin lev el. IMPRESSION: Marked abnormal cecum with severe wall thickening, primary neoplasm and/or inflammation/i nfection is in differential. Small amount of abdominal and pelvic ascites and presence of retroperito peter adenopathy makes neoplasm more likely. There are slightly prominent distal small bowel loops elias sing concern for mild ileus or mild partial obstruction. No abnormal distention is present. Contrast does reach level of cecum.
[2017-11-13 12:23] LABS: Glucose,Whole Blood 123 mg/dL (75-99)
--- NOTE | 2017-11-13 13:37 | XR ---
EXAMINATION TYPE: XR chest 1V portable DATE OF EXAM: 11/13/2017 CLINICAL HISTORY: Shortness of breath. TECHNIQUE: 2 AP portable semierect views of the chest are obtained. COMPARISON: Chest x-ray from one day earlier and older studies. FINDINGS: An endotracheal tube, orogastric tube, and left-sided subclavian central venous catheter a re all stable in appearance. There is persistent mild cardiomegaly with central vascular congestion and bibasilar opacity felt to reflect small to moderate-sized bilateral pleural effusions and associated bibasilar compressive atel ectasis. Osseous structures are intact. IMPRESSION: Overall stable findings, suspect CHF exacerbation as there is mild cardiomegaly with ce ntral vascular congestion and small to moderate-sized bilateral pleural effusions felt present. Corre late clinically. No significant change from one day earlier.
--- NOTE | 2017-11-13 16:34 | P.PN ---
Subjective Patient remains intubated. He remains on pressors which are being tapered off his blood pressure is fairly normal now. While his 2-D echo shows preserved LV systolic function without any segmental wall motion normalities chest x-ray shows bibasilar opacities and he is still intubated On examination breath sounds are reduced bilaterally Heart sounds are soft soreness to his normal no murmurs or gallops On pressors the blood pressure is 143 systolic and the pressors are being tapered off Abdomen soft nontender Impression Acute myocardial infarction, left main disease status post successful stenting and preserved LV systolic function on 2-D echo today Plan Continue aspirin Brilinta, and atorvastatin low dose metoprolol while tapering off pressors and if possible tomorrow maximize this Objective - Vital Signs Vital signs: Vital Signs Temp 98 F 11/13/17 12:00 Pulse 90 11/13/17 15:00 Resp 20 11/13/17 15:00 BP 114/54 11/13/17 14:00 Pulse Ox 97 11/13/17 15:00 Intake & Output 11/12/17 11/13/17 11/13/17 18:59 06:59 18:59 Intake Total 1600.0 7889.486 6263.448 Output Total 447 747 2910 Balance 1145.0 455.261 -16.552 Weight 85 kg 98.3 kg Intake: IV 900 900 723 0.9 for pressure 48 Sodium Chloride 0.9% 1, 900 900 675 000 ml @ 75 mls/hr IV . [id number] [facility] Rx#:[id number] Intake, IV Titration 650.0 365.261 405.448 Amount Calcium Gluconate 1,000 100 mg In Sodium Chloride 0.9 % 100 ml @ 100 mls/hr IVPB ONCE ONE Rx#: [id number] Calcium Gluconate 2,000 100 mg In Sodium Chloride 0.9 % 100 ml @ 100 mls/hr IVPB ONCE ONE Rx#: [id number] Magnesium Sulfate-D5w Pmx 100 1 gm In Dextrose/Water 1 100ml.bag @ 100 mls/hr IVPB Q1H [facility] Rx#: [id number] Milrinone-D5w Pmx 20 mg 61.115 In Dextrose/Water 1 100ml .bag @ 0.4 MCG/KG/MIN 10. 2 mls/hr IV .[id number] [facility] Rx#:[id number] Norepinephrin 16 mg-0.9% 91.646 205.448 Ns Pmx 16 mg In 250 ml @ Titrate IV .Q0M [facility] Rx#: [id number] Norepinephrin 4 mg-0.9% 250 Ns Pmx 4 mg In 250 ml @ Titrate IV .Q0M [facility] Rx#: [id number] Piperacillin-Tazobactam 3 12.5 .375 gm In Dextrose/Water 1 50ml.bag @ 12.5 mls/hr IVPB Q8HR [facility] Rx#: [id number] Propofol 1,000 mg In 200.0 200 100 Empty Bag 1 bag @ Titrate IV .Q0M [facility] Rx#: [id number] Tube Feeding 50 80 Other 1000 Output: Gastric Drainage 100 290 250 Urine 406 169 9284 Other: Voiding Method Indwelling Catheter Indwelling Catheter Indwelling Catheter ABP, PAP, CO, CI - Last Documented Arterial Blood Pressure 121/55 - Labs CBC & Chem 7: 11/13/17 04:45 11/13/17 04:45 Labs: Abnormal Lab Results - Last 24 Hours (Table) 11/12/17 11/12/17 11/13/17 Range/Units 17:48 23:43 04:42 RBC (4.30-5.90) m/uL Hgb (13.0-17.5) gm/dL Hct (39.0-53.0) % Lymphocytes # (1.0-4.8) k/uL ABG pCO2 29 L (35-45) mmHg ABG HCO3 17 L (21-25) mmol/L ABG Total CO2 18 L (19-24) mmol/L Chloride (98-107) mmol/L Carbon Dioxide (22-30) mmol/L BUN (9-20) mg/dL Creatinine (0.66-1.25) mg/dL Glucose (74-99) mg/dL POC Glucose (mg/dL) 144 H 149 H (75-99) mg/dL Calcium (8.4-10.2) mg/dL Ionized Calcium Eduardo (4.5-5.3) mg/dL Magnesium (1.6-2.3) mg/dL AST (17-59) U/L ALT (21-72) U/L Amylase (30-110) U/L Lipase (23-300) U/L 11/13/17 11/13/17 11/13/17 Range/Units 04:45 04:45 04:45 RBC 3.18 L (4.30-5.90) m/uL Hgb 10.0 L D (13.0-17.5) gm/dL Hct 29.5 L (39.0-53.0) % Lymphocytes # 0.5 L (1.0-4.8) k/uL ABG pCO2 (35-45) mmHg ABG HCO3 (21-25) mmol/L ABG Total CO2 (19-24) mmol/L Chloride 112 H (98-107) mmol/L Carbon Dioxide 18 L (22-30) mmol/L BUN 45 H (9-20) mg/dL Creatinine 2.00 H (0.66-1.25) mg/dL Glucose 154 H (74-99) mg/dL POC Glucose (mg/dL) (75-99) mg/dL Calcium 5.6 L* (8.4-10.2) mg/dL Ionized Calcium Eduardo 3.8 L (4.5-5.3) mg/dL Magnesium 2.5 H (1.6-2.3) mg/dL AST (17-59) U/L ALT (21-72) U/L Amylase (30-110) U/L Lipase (23-300) U/L 11/13/17 11/13/17 11/13/17 Range/Units 04:45 07:14 12:03 RBC (4.30-5.90) m/uL Hgb (13.0-17.5) gm/dL Hct (39.0-53.0) % Lymphocytes # (1.0-4.8) k/uL ABG pCO2 (35-45) mmHg ABG HCO3 (21-25) mmol/L ABG Total CO2 (19-24) mmol/L Chloride (98-107) mmol/L Carbon Dioxide (22-30) mmol/L BUN (9-20) mg/dL Creatinine (0.66-1.25) mg/dL Glucose (74-99) mg/dL POC Glucose (mg/dL) 161 H 123 H (75-99) mg/dL Calcium (8.4-10.2) mg/dL Ionized Calcium Eduardo (4.5-5.3) mg/dL Magnesium (1.6-2.3) mg/dL AST 218 H (17-59) U/L ALT 179 H (21-72) U/L Amylase 257 H (30-110) U/L Lipase 478 H (23-300) U/L Microbiology - Last 24 Hours (Table) 11/11/17 23:23 Gram Stain - Preliminary Sputum Sputum Culture - Preliminary
[2017-11-13 18:37] LABS: Glucose,Whole Blood 119 mg/dL (75-99)
[2017-11-13] MEDS: ATORVASTATIN 80 MG TAB PO SCH (20:28)
[2017-11-13 23:48] LABS: Glucose,Whole Blood 123 mg/dL (75-99)
--- NOTE | 2017-11-13 23:58 | P.PN ---
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 Patient was apparently playing pickle ball in the same with his family. Patient is leaned on the floor due to acute cardiac arrest. There was a bystander nurse who did CPR on him. EMS was called to the scene and the patient was found in V. fib. Patient had CPR for about 20 minutes and was also shocked. Patient was brought back to sinus rhythm. Patient was given lately taken to [facility] and was found to have ST elevated NM. Patient was immediately transferred to [facility]. Patient had emergent cardiac catheterization and left main artery stent was placed. Currently patient is intubated, mechanical ventilator and sedated. Patient otherwise does follow simple commands and able to open his eyes. Patient is on norepinephrine drip currently. 2-D echocardiography showed his ejection fraction 35%. Chest x-ray showed cardiomegaly and pulmonary vascular congestion. Potassium 6.8 today morning and came down to 4.6 currently. Magnesium 1.4 Patient is being followed by pulmonary and cardiology. 11/12/2017 Patient remained on mechanical ventilator. Patient is still on pressor support. The blood gases showed a pH of 7.3 with a pCO2 of 28 and pO2 77. Chest x-ray showed cardiomegaly and pulmonary vascular congestion and possibly right-sided developing pleural effusion. Patient was given calcium gluconate due to hypocalcemia. Patient has been afebrile otherwise. tube feeding is being initiated. Discussed with the family in detail at bedside. Complete review of systems could not be apparent from the patient. Objective - Vital Signs Vital signs: Vital Signs Temp 100.4 F H 11/12/17 15:00 Pulse 96 11/12/17 19:38 Resp 18 11/12/17 19:30 BP 83/56 11/12/17 04:00 Pulse Ox 85 L 11/12/17 19:30 Intake & Output 11/12/17 11/12/17 11/13/17 06:59 18:59 06:59 Intake Total 8621.442 8531.0 85 Output Total 1045 455 30 Balance 224.123 6435.0 55 Weight 85 kg 85 kg Intake: IV 900 900 75 Sodium Chloride 0.9% 1, 900 900 75 000 ml @ 75 mls/hr IV . [id number] [facility] Rx#:[id number] Intake, IV Titration 741.783 650.0 Amount Calcium Gluconate 1,000 100 mg In Sodium Chloride 0.9 % 100 ml @ 100 mls/hr IVPB ONCE ONE Rx#: [id number] Magnesium Sulfate-D5w Pmx 100 1 gm In Dextrose/Water 1 100ml.bag @ 100 mls/hr IVPB Q1H [facility] Rx#: [id number] Norepinephrin 4 mg-0.9% 591.500 250 Ns Pmx 4 mg In 250 ml @ Titrate IV .Q0M [facility] Rx#: [id number] Propofol 1,000 mg In 150.283 200.0 Empty Bag 1 bag @ Titrate IV .Q0M [facility] Rx#: [id number] Tube Feeding 50 10 Other 60 Output: Gastric Drainage 700 100 Urine 345 355 30 Other: Voiding Method Indwelling Catheter Indwelling Catheter ABP, PAP, CO, CI - Last Documented Arterial Blood Pressure 108/47 - Exam Patient is lying in the bed comfortably, no acute distress, sedated and intubated HEENT: Normocephalic. Neck is supple. Pupils reactive. Nostrils clear. Oral cavity is moist. Ears reveal no drainage. Neck reveals no JVD, carotid bruits, or thyromegaly. CHEST EXAMINATION: Trachea is central. Symmetrical expansion. Lung martel clear to auscultation and percussion. CARDIAC: Normal S1, S2 with no gallops. No murmurs ABDOMEN: Soft. Tenderness in the epigastric region. Bowel sounds normal. No organomegaly. No abdominal bruits. Extremities: reveal no edema. No clubbing or cyanosis Neurologically sedated and intubated. No focal deficits noted Skin: No rash or skin lesions. Psychiatric: Could not be assessed completely Musculoskeletal: No joint swelling or deformity. Normal range of motion. - Labs CBC & Chem 7: 11/13/17 04:45 11/13/17 04:45 Labs: Abnormal Lab Results - Last 24 Hours (Table) 11/12/17 11/12/17 11/12/17 Range/Units 04:45 04:45 06:10 Metamyelocytes # (Man) 0.98 H (0) k/uL Myelocytes # (Manual) 0.36 H (0) k/uL ABG pCO2 28 L (35-45) mmHg ABG pO2 77 L (83-108) mmHg ABG HCO3 17 L (21-25) mmol/L ABG Total CO2 18 L (19-24) mmol/L Chloride 113 H (98-107) mmol/L Carbon Dioxide 17 L (22-30) mmol/L BUN 33 H (9-20) mg/dL Creatinine 1.44 H (0.66-1.25) mg/dL Glucose 141 H (74-99) mg/dL POC Glucose (mg/dL) (75-99) mg/dL Calcium 6.1 L* (8.4-10.2) mg/dL Ionized Calcium Eduardo (4.5-5.3) mg/dL 11/12/17 11/12/17 Range/Units 06:53 17:48 Metamyelocytes # (Man) (0) k/uL Myelocytes # (Manual) (0) k/uL ABG pCO2 (35-45) mmHg ABG pO2 (83-108) mmHg ABG HCO3 (21-25) mmol/L ABG Total CO2 (19-24) mmol/L Chloride (98-107) mmol/L Carbon Dioxide (22-30) mmol/L BUN (9-20) mg/dL Creatinine (0.66-1.25) mg/dL Glucose (74-99) mg/dL POC Glucose (mg/dL) 144 H (75-99) mg/dL Calcium (8.4-10.2) mg/dL Ionized Calcium Eduardo 3.8 L (4.5-5.3) mg/dL Microbiology - Last 24 Hours (Table) 11/11/17 23:23 Gram Stain - Preliminary Sputum Sputum Culture - Preliminary Assessment and Plan Assessment: Acute ST elevated NM status post cardiac catheterization and stenting to left main artery Acute cardiac arrest. Status post adequate resuscitation Acute respiratory failure post procedure Hypertension and possible cardiogenic shock. 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 Pressor support and IV fluids. Pulmonary and cardiology is on board Continue with aspirin, statins and metoprolol. DVT prophylaxis Further recommendations based on the clinical course. Prognosis is guarded. Discussed the family at bedside in detail and all questions were answered. Time with Patient: Greater than 30
--- NOTE | 2017-11-14 00:04 | P.PN ---
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 Patient was apparently playing pickle ball in the same with his family. Patient is leaned on the floor due to acute cardiac arrest. There was a bystander nurse who did CPR on him. EMS was called to the scene and the patient was found in V. fib. Patient had CPR for about 20 minutes and was also shocked. Patient was brought back to sinus rhythm. Patient was given lately taken to [facility] and was found to have ST elevated OR. Patient was immediately transferred to [facility]. Patient had emergent cardiac catheterization and left main artery stent was placed. Currently patient is intubated, mechanical ventilator and sedated. Patient otherwise does follow simple commands and able to open his eyes. Patient is on norepinephrine drip currently. 2-D echocardiography showed his ejection fraction 35%. Chest x-ray showed cardiomegaly and pulmonary vascular congestion. Potassium 6.8 today morning and came down to 4.6 currently. Magnesium 1.4 Patient is being followed by pulmonary and cardiology. 11/12/2017 Patient remained on mechanical ventilator. Patient is still on pressor support. The blood gases showed a pH of 7.3 with a pCO2 of 28 and pO2 77. Chest x-ray showed cardiomegaly and pulmonary vascular congestion and possibly right-sided developing pleural effusion. Patient was given calcium gluconate due to hypocalcemia. Patient has been afebrile otherwise. tube feeding is being initiated. Discussed with the family in detail at bedside. 11/13/2017 Patient remained on mechanical ventilator. And pressor support. Chest x-ray showed consistent with CHF with pulmonary vascular congestion and bilateral pleural effusion. CT of the abdomen and pelvis was done. We showed inflammatory changes in the ileum which is consistent with his neoplasm. Otherwise ileus versus partial bowel obstruction was noted which has been ongoing as per the family. No fever no chills. Patient was started on Zosyn at this time. Pulmonary and cardiology is following. Patient's condition is still critical which has been related to the family. Active Medications Al Hydroxide/Mg Hydroxide (Maalox) 30 ml PO Q4HR PRN PRN Reason: Heartburn Albuterol Sulfate (Ventolin Nebulized) 2.5 mg INHALATION RT-TID [facility] Last Admin: 11/13/17 19:34 Dose: 2.5 mg Aspirin (Aspirin) 81 mg PO DAILY [facility] Last Admin: 11/13/17 09:25 Dose: 81 mg Atorvastatin Calcium (Lipitor) 80 mg PO HS [facility] Last Admin: 11/13/17 20:28 Dose: 80 mg Atropine Sulfate (Atropine) 0.5 mg IV ONCE PRN PRN Reason: Symptomatic Bradycardia Chlorhexidine Gluconate (Peridex) 15 ml MUCOUS MEM BID [facility] Last Admin: 11/13/17 20:29 Dose: 15 ml Heparin Sodium (Porcine) (Heparin) 5,000 unit SQ Q8HR [facility] Last Admin: 11/13/17 16:29 Dose: 5,000 unit Sodium Chloride (Saline 0.9%) 1,000 mls @ 75 mls/hr IV .[id number] [facility] Last Admin: 11/13/17 09:19 Dose: 75 mls/hr Propofol 1,000 mg/ IV Solution 100 mls @ 0 mls/hr IV .Q0M [facility]; Titrate PRN Reason: Protocol Last Admin: 11/13/17 20:28 Dose: 40.18 mcg/kg/min, 23.7 mls/hr Norepinephrine Bitartrate (Levophed-0.9% Nacl 16 Mg/250ml Pmx) 16 mg in 250 mls @ 0 mls/hr IV .Q0M [facility]; Titrate PRN Reason: Protocol Last Titration: 11/13/17 19:03 Dose: 8 mcg/min, 7.5 mls/hr Piperacillin/Tazobactam/ (Dextrose 3.375 gm/ IV Solution) 50 mls @ 12.5 mls/hr IVPB Q8HR [facility] Last Admin: 11/13/17 16:32 Dose: 12.5 mls/hr Insulin Aspart (Novolog) 0 unit SQ Q6HR [facility] PRN Reason: Protocol Last Admin: 11/13/17 18:35 Dose: Not Given Iohexol (Omnipaque 350 Mg/Ml (For Oral Use)) 25 ml PO Q60M PRN PRN Reason: CT Scan Stop: 11/14/17 09:10 Last Admin: 11/13/17 11:03 Dose: 25 ml Metoprolol Tartrate (Lopressor) 12.5 mg PO BID [facility] Last Admin: 11/13/17 20:17 Dose: Not Given Miscellaneous Information (Magnesium Per Protocol) 1 each MISCELLANE DAILY PRN ; Protocol PRN Reason: Per Protocol Miscellaneous Information (Rx Info: Iv Contrast Was Given) 1 each MISCELLANE DAILY PRN PRN Reason: Per Protocol Stop: 11/15/17 09:10 Morphine Sulfate (Morphine Sulfate (Inj)) 1 mg IVP Q4HR PRN PRN Reason: Pain Last Admin: 11/13/17 02:30 Dose: 1 mg Naloxone HCl (Narcan) 0.2 mg IV Q2M PRN PRN Reason: Opioid Reversal Nitroglycerin (Nitrostat) 0.4 mg SUBLINGUAL Q5M PRN PRN Reason: Chest Pain Pantoprazole Sodium (Protonix) 40 mg IV DAILY [facility] Last Admin: 11/13/17 09:24 Dose: 40 mg Ticagrelor (Brilinta) 90 mg PO BID [facility] Last Admin: 11/13/17 20:28 Dose: 90 mg Zolpidem Tartrate (Ambien) 5 mg PO HS PRN PRN Reason: Insomnia Complete review of systems could not be apparent from the patient. Objective - Vital Signs Vital signs: Vital Signs Temp 100.7 F H 11/13/17 20:00 Pulse 90 11/13/17 20:30 Resp 31 H 11/13/17 20:30 BP 95/53 11/13/17 19:00 Pulse Ox 98 11/13/17 20:30 Intake & Output 11/13/17 11/13/17 11/14/17 06:59 18:59 07:59 Intake Total 7184.428 6062.027 267.392 Output Total 890 2845 195 Balance 455.261 -405.973 72.392 Weight 98.3 kg Intake: IV 900 966 162 0.9 for pressure 66 12 Sodium Chloride 0.9% 1, 900 900 150 000 ml @ 75 mls/hr IV . [id number] [facility] Rx#:[id number] Intake, IV Titration 365.261 473.027 105.392 Amount Calcium Gluconate 2,000 100 mg In Sodium Chloride 0.9 % 100 ml @ 100 mls/hr IVPB ONCE ONE Rx#: [id number] Milrinone-D5w Pmx 20 mg 61.115 In Dextrose/Water 1 100ml .bag @ 0.4 MCG/KG/MIN 10. 2 mls/hr IV .[id number] [facility] Rx#:[id number] Norepinephrin 16 mg-0.9% 91.646 206.667 2.437 Ns Pmx 16 mg In 250 ml @ Titrate IV .Q0M [facility] Rx#: [id number] Piperacillin-Tazobactam 3 12.5 12.5 .375 gm In Dextrose/Water 1 50ml.bag @ 12.5 mls/hr IVPB Q8HR [facility] Rx#: [id number] Propofol 1,000 mg In 200 166.36 90.455 Empty Bag 1 bag @ Titrate IV .Q0M [facility] Rx#: [id number] Tube Feeding 80 Other 1000 Output: Gastric Drainage 290 500 Urine 600 2345 195 Other: Voiding Method Indwelling Catheter Indwelling Catheter ABP, PAP, CO, CI - Last Documented Arterial Blood Pressure 78/38 - Exam Patient is lying in the bed comfortably, no acute distress, sedated and intubated HEENT: Normocephalic. Neck is supple. Pupils reactive. Nostrils clear. Oral cavity is moist. Ears reveal no drainage. Neck reveals no JVD, carotid bruits, or thyromegaly. CHEST EXAMINATION: Trachea is central. Symmetrical expansion. Lung martel clear to auscultation and percussion. CARDIAC: Normal S1, S2 with no gallops. No murmurs ABDOMEN: Soft. Tenderness in the epigastric region. Bowel sounds normal. No organomegaly. No abdominal bruits. Extremities: reveal no edema. No clubbing or cyanosis Neurologically sedated and intubated. No focal deficits noted Skin: No rash or skin lesions. Psychiatric: Could not be assessed completely Musculoskeletal: No joint swelling or deformity. Normal range of motion. - Labs CBC & Chem 7: 11/13/17 04:45 11/13/17 04:45 Labs: Abnormal Lab Results - Last 24 Hours (Table) 11/12/17 11/13/17 11/13/17 Range/Units 23:43 04:42 04:45 RBC 3.18 L (4.30-5.90) m/uL Hgb 10.0 L D (13.0-17.5) gm/dL Hct 29.5 L (39.0-53.0) % Lymphocytes # 0.5 L (1.0-4.8) k/uL ABG pCO2 29 L (35-45) mmHg ABG HCO3 17 L (21-25) mmol/L ABG Total CO2 18 L (19-24) mmol/L Chloride (98-107) mmol/L Carbon Dioxide (22-30) mmol/L BUN (9-20) mg/dL Creatinine (0.66-1.25) mg/dL Glucose (74-99) mg/dL POC Glucose (mg/dL) 149 H (75-99) mg/dL Calcium (8.4-10.2) mg/dL Ionized Calcium Eduardo (4.5-5.3) mg/dL Magnesium (1.6-2.3) mg/dL AST (17-59) U/L ALT (21-72) U/L Amylase (30-110) U/L Lipase (23-300) U/L 11/13/17 11/13/17 11/13/17 Range/Units 04:45 04:45 04:45 RBC (4.30-5.90) m/uL Hgb (13.0-17.5) gm/dL Hct (39.0-53.0) % Lymphocytes # (1.0-4.8) k/uL ABG pCO2 (35-45) mmHg ABG HCO3 (21-25) mmol/L ABG Total CO2 (19-24) mmol/L Chloride 112 H (98-107) mmol/L Carbon Dioxide 18 L (22-30) mmol/L BUN 45 H (9-20) mg/dL Creatinine 2.00 H (0.66-1.25) mg/dL Glucose 154 H (74-99) mg/dL POC Glucose (mg/dL) (75-99) mg/dL Calcium 5.6 L* (8.4-10.2) mg/dL Ionized Calcium Eduardo 3.8 L (4.5-5.3) mg/dL Magnesium 2.5 H (1.6-2.3) mg/dL AST 218 H (17-59) U/L ALT 179 H (21-72) U/L Amylase 257 H (30-110) U/L Lipase 478 H (23-300) U/L 0311/13/17 11/13/17 Range/Units 07:14 12:03 18:33 RBC (4.30-5.90) m/uL Hgb (13.0-17.5) gm/dL Hct (39.0-53.0) % Lymphocytes # (1.0-4.8) k/uL ABG pCO2 (35-45) mmHg ABG HCO3 (21-25) mmol/L ABG Total CO2 (19-24) mmol/L Chloride (98-107) mmol/L Carbon Dioxide (22-30) mmol/L BUN (9-20) mg/dL Creatinine (0.66-1.25) mg/dL Glucose (74-99) mg/dL POC Glucose (mg/dL) 161 H 123 H 119 H (75-99) mg/dL Calcium (8.4-10.2) mg/dL Ionized Calcium Eduardo (4.5-5.3) mg/dL Magnesium (1.6-2.3) mg/dL AST (17-59) U/L ALT (21-72) U/L Amylase (30-110) U/L Lipase (23-300) U/L Assessment and Plan Assessment: Acute ST elevated OR status post cardiac catheterization and stenting to left main artery Acute cardiac arrest. Status post adequate resuscitation Acute respiratory failure post procedure Hypertension and possible cardiogenic shock. 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 Replaced with calcium gluconate elevated lipase and amylase Elevated liver enzymes DVT prophylaxis Plan: Patient be continued on mechanical ventilator. Pressor support and IV fluids. Pulmonary and cardiology is on board Continue with aspirin, statins and metoprolol. DVT prophylaxis Further recommendations based on the clinical course. Prognosis is guarded. Discussed the family at bedside in detail and all questions were answered. Time with Patient: Greater than 30
[2017-11-14] MEDS: PROPOFOL 1,000 MG in EMPTY BAG 1 BAG IV SCH ×5 (01:00→21:38)
[2017-11-14] MEDS: HEPARIN SODIUM,PORCINE 5,000 UNIT/ML 1 ML VIAL SQ SCH ×4 (01:18→23:24)
[2017-11-14] MEDS: INSULIN ASPART 100 UNIT/ML 1 ML 10 ML VIAL SQ SCH ×5 (01:18→23:26)
[2017-11-14] MEDS: PIPERACILLIN-TAZOBACTAM 3.375 GM in DEXTROSE/WATER 1 50ML.BAG IVPB SCH ×4 (01:18→23:28)
[2017-11-14 04:59] LABS: ABG Base Excess -6.6 mmol/L; ABG HCO3 17 mmol/L (21-25); ABG Oxygen Saturation 98.2 % (94-97); ABG PCO2 31 mmHg (35-45); ABG PH 7.37 (7.35-7.45); ABG PO2 135 mmHg (83-108)
[2017-11-14 05:21] LABS: Basophils % (A) 0 %; Eosinophils # (A) 0.1 k/uL (0-0.7); Eosinophils % (A) 1 %; HCT 27.9 % (39.0-53.0); HGB 9.4 gm/dL (13.0-17.5); Lymphocytes # (A) 0.6 k/uL (1.0-4.8); Lymphocytes % (A) 6 %; MCH 31.6 pg (25.0-35.0); MCHC 33.9 g/dL (31.0-37.0); MCV 93.1 fL (80.0-100.0); Mean Platelet Volume 9.7; Monocytes # (A) 0.5 k/uL (0-1.0); Monocytes % (A) 4 %; Neutrophils # (A) 9.1 k/uL (1.3-7.7); Neutrophils % (A) 88 %; Platelet Count 191 k/uL (150-450); RBC 2.99 m/uL (4.30-5.90); RDW 13.7 % (11.5-15.5); WBC 10.4 k/uL (3.8-10.6)
[2017-11-14 05:53] LABS: Ionized Calcium 3.6 mg/dL (4.5-5.3)
[2017-11-14 06:01] LABS: Magnesium 2.6 mg/dL (1.6-2.3); Phosphorus 4.8 mg/dL (2.5-4.5); Potassium 4.2 mmol/L (3.5-5.1)
[2017-11-14 06:45] LABS: Calcium 5.8 mg/dL (8.4-10.2)
[2017-11-14 07:07] LABS: Glucose,Whole Blood 126 mg/dL (75-99)
[2017-11-14] MEDS: ALBUTEROL NEBULIZED 2.5 MG/3 ML INHALATION SCH ×3 (07:22→18:49)
--- NOTE | 2017-11-14 07:41 | XR ---
EXAMINATION TYPE: XR chest 1V portable DATE OF EXAM: 11/14/2017 CLINICAL HISTORY: Difficulty breathing progress study. TECHNIQUE: Single AP portable semiupright view of the chest is obtained. COMPARISON: Chest x-ray from one day earlier and older studies. FINDINGS: An endotracheal tube, orogastric tube, and left-sided subclavian central venous catheter a re all stable in appearance. There is persistent mild cardiomegaly with moderate to severe central vascular congestion and bibasil ar opacity felt to reflect small to moderate-sized bilateral pleural effusions and associated bibasil ar compressive atelectasis. Osseous structures are intact. IMPRESSION: Suspect CHF exacerbation as there is mild cardiomegaly with moderate to severe central va scular congestion and small to moderate-sized bilateral pleural effusions all felt present. No signif icant change from one day earlier.
[2017-11-14] MEDS: SODIUM CHLORIDE 0.9% 1,000 ML IV SCH ×3 (08:05→20:39)
[2017-11-14] MEDS ORDERED: CALCIUM GLUCONATE 1,000 MG in SODIUM CHLORIDE 0.9% 100 ML IVPB ONE (09:16)
--- NOTE | 2017-11-14 09:18 | P.NPCON ---
History of Present Illness - Reason for Consult Consult date: 11/14/17 acute renal failure - Chief Complaint Cardiopulmonary arrest - History of Present Illness Mr. Meredith is a 57-year-old white gentleman coming to the hospital with cardiopulmonary arrest. He was playing ping-pong ball suddenly collapsed and CPR was started by his friend and EMS was called. When he presented to the hospital on 11/10/2017 he had V. fib and STEMI and LAD was stented and currently on a ventilator. His baseline creatinine is about 1.2 MG per DL. And his creatinine started creeping to 2.5 MG per DL today he has good urine output. He still on a ventilator with 5 of PEEP and 40% FiO2. He is still on levofloxacin at 2 mics. Echo showed EF of 35%. Review of Systems Unable to obtain at this point because he is on a ventilator Past Medical History Past Medical History: Coronary Artery Disease (CAD) Additional Past Medical History / Comment(s): Pt admitted with STEMI. 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 History of Any Multi-Drug Resistant Organisms: None Reported Past Surgical History: Back Surgery, Hernia Repair Additional Past Surgical History / Comment(s): 11/10/17 PCI with stent, bilateral hernia repair x 3, exploratory laparoscopy, colonoscopy, laminectomy. Past Anesthesia/Blood Transfusion Reactions: No Reported Reaction Smoking Status: Former smoker - Past Family History Father Family Medical History: No Reported History Additional Family Medical History / Comment(s): Father is 82 yrs old and healthy. Mother Family Medical History: Dementia Additional Family Medical History / Comment(s): Mother is . Medications and Allergies Home Medications and Allergies Comment(s): Reviewed Home Medications Medication Instructions Recorded Confirmed Type Atorvastatin [Lipitor] 40 mg PO DAILY 11/11/17 11/11/17 History Butalb/APAP/Caff 50-325-40Mg 1 - 2 tab PO Q4H PRN MDD 6 TABS 11/11/17 11/11/17 History [Fioricet 50-325-40] Ibuprofen [Motrin] 600 mg PO Q6HR PRN 11/11/17 11/11/17 History Lisinopril [Zestril] 10 mg PO DAILY 11/11/17 11/11/17 History Octreotide Lar [SandoSTATIN LAR] 20 mg IM Q3D 11/11/17 11/11/17 History Omeprazole [PriLOSEC] 20 mg PO [id number] 11/11/17 11/11/17 History Allergies Allergy/AdvReac Type Severity Reaction Status Date / Time No Known Allergies Allergy Verified 11/10/17 21:00 Physical Exam Vitals: Vital Signs Temp Pulse Resp BP Pulse Ox 11/14/17 08:30 89 21 96 11/14/17 08:00 100 F H 88 22 91 L 11/14/17 07:32 84 11/14/17 07:30 82 20 98 11/14/17 07:23 83 11/14/17 07:00 82 21 96 11/14/17 06:00 99.3 F 81 19 98 11/14/17 05:30 80 22 98 11/14/17 05:00 79 24 99 11/14/17 04:30 77 17 98 11/14/17 04:00 98.8 F 79 20 98 11/14/17 03:30 79 22 99 11/14/17 03:00 79 22 102/51 98 11/14/17 01:30 81 23 102/51 98 11/14/17 01:00 81 20 98 11/14/17 00:30 83 22 98 11/14/17 00:00 99.6 F 82 22 98 11/13/17 23:30 81 21 98 11/13/17 23:00 84 11 L 97 11/13/17 22:31 87 23 96 11/13/17 22:30 87 16 96 11/13/17 22:00 100.8 F H 87 25 H 98 11/13/17 21:30 89 24 97 11/13/17 21:00 91 23 97 11/13/17 20:30 90 31 H 98 11/13/17 20:01 86 11/13/17 20:00 100.7 F H 89 22 99 11/13/17 19:44 86 11/13/17 19:30 86 22 98 11/13/17 19:00 88 24 95/53 97 11/13/17 18:30 93 26 H 95/53 97 11/13/17 18:00 93 15 95/53 97 11/13/17 17:30 94 20 95/53 97 11/13/17 17:27 89 20 96 11/13/17 16:30 88 20 87/49 95 11/13/17 16:00 99.4 F 90 20 97 11/13/17 15:30 91 23 97 11/13/17 15:00 90 20 97 11/13/17 14:30 87 22 96 11/13/17 14:00 90 21 114/54 97 11/13/17 13:51 88 11/13/17 13:42 89 11/13/17 13:30 89 22 114/54 98 11/13/17 13:00 90 21 114/54 96 11/13/17 12:30 92 25 H 114/54 97 11/13/17 12:00 98 F 95 20 114/54 95 11/13/17 11:00 93 20 98 11/13/17 10:30 92 20 100 11/13/17 10:00 95 25 H 97 11/13/17 09:30 92 20 97 11/13/17 09:00 94 20 99 11/13/17 08:30 94 20 96 Intake and Output 11/13/17 11/14/17 11/14/17 21:59 06:59 14:59 Intake Total 233.270 Output Total 175 Balance 58.270 Intake: IV 162 0.9 for pressure 12 Sodium Chloride 0.9% 1, 150 000 ml @ 75 mls/hr IV . [id number] [facility] Rx#:[id number] Intake, IV Titration 71.270 Amount Norepinephrin 16 mg-0.9% 6.095 Ns Pmx 16 mg In 250 ml @ Titrate IV .Q0M [facility] Rx#: [id number] Piperacillin-Tazobactam 3 .375 gm In Dextrose/Water 1 50ml.bag @ 12.5 mls/hr IVPB Q8HR [facility] Rx#: [id number] Propofol 1,000 mg In 65.175 Empty Bag 1 bag @ Titrate IV .Q0M [facility] Rx#: [id number] Output: Gastric Drainage Urine 175 Other: Voiding Method Weight ABP, PAP, CO, CI - Last 8 Hours Arterial Blood Pressure 113/55 Arterial Blood Pressure 138/71 Arterial Blood Pressure 105/51 Arterial Blood Pressure 105/53 Arterial Blood Pressure 119/56 Arterial Blood Pressure 102/54 Arterial Blood Pressure 132/66 Arterial Blood Pressure 93/54 Arterial Blood Pressure 92/53 Arterial Blood Pressure 119/61 Arterial Blood Pressure 90/51 Arterial Blood Pressure 96/53 Arterial Blood Pressure 123/63 Arterial Blood Pressure 100/54 Lying in bed on a ventilator being commands S1-S2 heard lungs clear Soft bowel sounds present Felipe catheter in place No edema Results - Lab Results Most recent lab results ABG pH 7.37 (7.35-7.45) 11/14/17 04:30 ABG pCO2 31 mmHg (35-45) L 11/14/17 04:30 ABG pO2 135 mmHg (83-108) H 11/14/17 04:30 ABG HCO3 17 mmol/L (21-25) L 11/14/17 04:30 ABG O2 Saturation 98.2 % (94-97) H 11/14/17 04:30 Calcium 5.8 mg/dL (8.4-10.2) L* 11/14/17 04:50 Phosphorus 4.8 mg/dL (2.5-4.5) H 11/14/17 04:50 Magnesium 2.6 mg/dL (1.6-2.3) H 11/14/17 04:50 11/14/17 04:50 11/14/17 04:50 Assessment and Plan Assessment: Impression: #1 nonoliguric acute kidney injury from acute tubular necrosis (toxic from contrast and ischemic from cardiopulmonary arrest) #2 coronary artery disease with STEMI status post LAD stent #3 vent dependent respiratory failure #4 status post cardiopulmonary arrest #5 cardiogenic shock #6 carcinoid tumor #7 metabolic acidosis from NILE. #8 hypocalcemia. Recommendations: #1 currently he is euvolemic with good urine output. He is on normal saline 75 mL an hour. Continue with fluids as his urine output and OG output combined is 3 and half liters. #2 renal off pressors and ventilator #3 his creatinine will rise and stabilize and come down, anticipate recovery next couple of days. #4 check intact PTH with magnesium and phosphorus within normal limits. Replace calcium gluconate for hypocalcemia. Thank you Very much for this consultation we will follow along while he is in the hospital.
[2017-11-14] MEDS: TICAGRELOR 90 MG TAB PO SCH ×2 (09:23→21:37)
[2017-11-14] MEDS: PANTOPRAZOLE 40 MG/10 ML VIAL IV SCH (09:23)
[2017-11-14] MEDS: METOPROLOL TARTRATE 12.5 MG TAB PO SCH ×2 (09:23→22:51)
[2017-11-14] MEDS: ASPIRIN 81 MG PO SCH (09:23)
[2017-11-14] MEDS: CHLORHEXIDINE GLUCONATE 15 ML CUP MUCOUS MEM SCH ×2 (09:23→21:37)
--- NOTE | 2017-11-14 11:15 | P.PN ---
Subjective Progress Note Date: 11/14/17 A pleasant 57-year-old male patient who lives in [place], [place] and the patient was playing pickle ball in the [facility] area. The patient acutely arrested and he was into cardiac arrest. There was a bystander nurse who did CPR on him. EMS was called to the scene and the patient was found in V. fib. The patient was shocked and the patient was given a dose of epinephrine. Subsequently went into asystole. Following that, CPR was continued and the patient went into V. fib, shocked again and then went into normal sinus rhythm. EKG showed ST segment elevation and the patient was taken to [facility] and following that the patient was brought in to the [facility]. Emergent cardiac catheterization was done and the patient was found to have a left main lesion that was stented. The stent insertion with successful. The patient was in already intubated by EMS on the scene. The patient was kept intubated. The patient was moved to the ICU for further care. Overnight, the patient was sedated with Diprivan. He apparently was following some simple commands while given a sedation holiday. This morning, he is on 30 mics of levo fed for blood pressure support. Echocardiogram was done and showed ejection fraction of 35%. No other significant abnormalities noted and this is a preliminary report. Urine output is in order of 25-30 mL an hour. Overnight his urine output dropped and a given a bolus of 1 L and he received a total of 2.5 L fluid bolus. He is current maintenance fluid is at 75 mL of normal saline. He is on a mechanical ventilator on assist control mode at the rate of 20, tidal volume of 600, FiO2 of 50% and a PEEP of 5. Morning blood gases showed a pH of 7.34 with a pCO2 of 28 and pO2 167. Chest x- ray showing some cardiomegaly and some pulmonary vessel congestion. ET tube is in a good location. No other densities seen in the left lower lobe costophrenic angle area. The patient's creatinine is up to 1.4. Today's potassium is up to 6.8. This needs to be repeated. No EKG changes related to this high potassium level. He is afebrile. No aspiration was noted. He remains on 30 mics of norepinephrine infusion for now. Pulses in lower extremities are weak yet obtainable by Doppler. His legs are cold and clammy still. No significant secretions from his orotracheal tube. He is known to have carcinoid tumor and apparently his been on maintenance hormonal treatment. He is seeing a oncologist out of [facility]. The patient also has history of lymphoma. The details of these malignancies are not known to us. The origin of the carcinoid tumor is not clear to me at this point. Further information is to be obtained on this patient. On 11/12 I'm seeing this patient for a follow-up. The patient remains intubated on a mechanical ventilator and the patient is post acute STEMI in acute cardiac arrest. I did not extubated the patient yesterday as the patient was still hypo-tensive and hypoperfusing and the patient was having diminished pulses in lower extremities and he looked cold and clammy and he had ongoing electrolyte disturbance with hypokalemia. He was given IV fluids and the neck fluid balance over the past 24 hours is +2.3 L. Currently is on 75 mL an hour of normal saline. Pulses are palpable in lower oximetry is bilaterally and the patient is much more warm. He is still however on pressors and currently norepinephrine infusion is running at 14 mics. His urine output dropped this morning and he is producing around 25-30 mL an hour of urine output. The patient has the levo fed infusion running through his right upper extremity. He remains on a mechanical ventilator. His assist-control mode at the rate of 20, tidal volume of 600, FiO2 of 40% and a PEEP of 5. The blood gases showed a pH of 7.3 with a pCO2 of 28 and pO2 77. Chest x-ray showing cardiomegaly. ET tube is in a good location. There is development of four-vessel congestion and possibly a right-sided pleural effusion also developing. He is afebrile. He is having no significant secretions with orotracheal tube. His white cell count has dropped and I doubt an underlying aspiration pneumonia although this is not completely excluded. I think his hypotension and shock is probably cardiogenic following his cardiac arrest. In addition, the patient's ionized calcium today's at 3.8 and the patient was given a total of 1 g of calcium gluconate. His troponin peaked at 26.4. This morning he is sedated and is calm and comfortable and synchronous with the mechanical ventilator. Orogastric and orotracheal tube are both in place. The patient is still nothing by mouth. On 11/13/2017 I'm seeing this patient for a follow-up. Patient remains intubated on a mechanical ventilator. He is sedated Diprivan is calm and comfortable. He withdraws to painful stimulation. A repeat echo cardiac exam was done today that showed a preserved LV function. Note that post [place] the patient's ejection fraction was impaired with ejection fraction of 35-40%. 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 I did add milrinone yesterday on him which I am willing to discontinue based on these findings. His CVP is around 7. He is in a positive fluid balance in order of 5 L since he came in to the intensive care unit. He has adequate pulses in all 4 extremities bilaterally. His chest x-ray showing diffuse bilateral pulmonary infiltrates which seems to be more so of a acute lung injury/aspiration-type of picture/non-cardiogenic pulmonary edema. The patient is on assist control mode, at the rate of 20, tidal volume of 600, FiO2 of 40% and PEEP of 5. The morning blood gas showed a pH of 7.38 with a pCO2 of 29 and pO2 of 85. The patient is on normal state rate of 75 mL an hour. Urine output is between 25-30 mL an hour. The patient's creatinine was up to 2 on today's evaluation. He did have a 1 spike of temperature and he is currently covered with IV Zosyn. White cell count is not elevated. No secretions with orotracheal tube. The patient had some difficulties tolerating tube feeds. Abdomen on examination was felt to be quite tender. Calcium level has dropped progressively. We'll need immediate fed femoral the abdomen addition to the liver function tests and pancreatic enzymes. Calcium level will be supplemented. On 11/14/2017 I'm seeing this patient for a follow-up. As mentioned earlier the patient is post cardiac arrest and the patient had a acute cardiac intervention and stenting of a left main for an acute cardiac arrest, acute ST segment elevation myocardial infarction. The patient fortunately does not show signs of hypoxic encephalopathy. Yet there is another complications preventing him from weaning. Initially was quite hypotensive which was thought to be of a cardiogenic in nature. Subsequent echocardiogram showed improvement in the LV function and probably had this done the myocardium which is improving. Hemodynamically improved and is at the point where norepinephrine infusion has been drop down to a few mics only. He subsequently developed an acute kidney injury, nonoliguric, and the creatinine is up to 2.5. This is expected knowing that the patient was subjected to a cardiac arrest, hypotension, pressors and contrast material. He also had potentially an aspiration pneumonia. He developed bilateral lower lobe consolidation/atelectasis and effusions. He is currently on IV Zosyn. The patient got diuresed any procedures adequate amount of urine output over the past 24 hours. He is still oxygenating and ventilating without any major difficulties. He also developed a abdominal distention. CAT scan of the abdomen was done and there is a cecal mass probably his known carcinoid mass. In addition, there is small bowel ileus/ obstruction for which the tube feeds were placed on hold and since then the patient has drained approximately 800 mL of gastric greenish material and his output is still considerably high. Liver function test are within normal. Amylase and lipase are not elevated. The patient also is having excessive rest or secretions which are being suctioned out. He is not ready for further weaning for now. Is afebrile. He is sedated with propofol. He is still on the same vent setting which includes an assist-control of 20, FiO2 of 60% Objective - Vital Signs Vital signs: Vital Signs Temp 100 F H 11/14/17 08:00 Pulse 84 11/14/17 10:00 Resp 20 11/14/17 10:00 BP 102/51 11/14/17 03:00 Pulse Ox 97 11/14/17 10:00 Intake & Output 11/13/17 11/14/17 11/14/17 17:59 06:59 18:59 Intake Total 480.757 Output Total 495 Balance -14.243 Weight Intake: IV 374.0 0.9 for pressure 24 Calcium Gluconate 1,000 100 mg In Sodium Chloride 0.9 % 100 ml @ 100 mls/hr IVPB ONCE ONE Rx#: [id number] Piperacillin-Tazobactam 3 25.0 .375 gm In Dextrose/Water 1 50ml.bag @ 12.5 mls/hr IVPB Q8HR [facility] Rx#: [id number] Sodium Chloride 0.9% 1, 225 000 ml @ 75 mls/hr IV . [id number] [facility] Rx#:[id number] Intake, IV Titration 106.757 Amount Calcium Gluconate 2,000 mg In Sodium Chloride 0.9 % 100 ml @ 100 mls/hr IVPB ONCE ONE Rx#: [id number] Norepinephrin 16 mg-0.9% 7.282 Ns Pmx 16 mg In 250 ml @ Titrate IV .Q0M [facility] Rx#: [id number] Piperacillin-Tazobactam 3 .375 gm In Dextrose/Water 1 50ml.bag @ 12.5 mls/hr IVPB Q8HR [facility] Rx#: [id number] Propofol 1,000 mg In 99.475 Empty Bag 1 bag @ Titrate IV .Q0M [facility] Rx#: [id number] Other Output: Gastric Drainage 100 Urine 395 Other: Voiding Method ABP, PAP, CO, CI - Last Documented Arterial Blood Pressure 98/51 - Exam Gen. appearance the patient is calm comfortable likely distress. Patient is calm and comfortable and the patient is sedated with Diprivan r. He withdraws to painful stimuli in all 4 extremities. He was not equal and reactive to light . No nystagmus. No clonus. No Babinski. My normal had orogastric and orotracheal tube are both in place.Neck was supple and without jugular venous distension, thyromegaly, or carotid bruits. Carotids were easily palpable bilaterally. There was no adenopathy. Lung sounds are equal and symmetrical bilaterally. No wheezes or rhonchi early crackles.Cardiac exam revealed the PMI to be normally situated and sized. The rhythm was regular and no extrasystoles were noted during several minutes of auscultation. The first and second heart sounds were normal and physiologic splitting of the second heart sound was noted. There were no murmurs, rubs, clicks, or gallops.Abdominal exam revealed diminished bowel sounds. The abdomen was soft, non-tender, and without masses, organomegaly, or appreciable enlargement of the abdominal aorta.there is no abdominal distention this point. the patient's abdomen is mildly tender and there is a mild diffuse tenderness yet a accurate examination cannot be performed as the patient is currently off sedation. Abdomen is not firm. Bowel sounds are hypoactive at this point. Examination of the extremities revealed easily palpable radial, femoral and pedal pulses. There was no cyanosis , clubbing or edema. Examination of the skin revealed no evidence of significant rashes, suspicious appearing nevi or other concerning lesions. - Labs CBC & Chem 7: 11/14/17 04:50 11/14/17 04:50 Labs: Abnormal Lab Results - Last 24 Hours (Table) 11/13/17 11/13/17 11/13/17 Range/Units 12:03 18:33 23:46 RBC (4.30-5.90) m/uL Hgb (13.0-17.5) gm/dL Hct (39.0-53.0) % Neutrophils # (1.3-7.7) k/uL Lymphocytes # (1.0-4.8) k/uL ABG pCO2 (35-45) mmHg ABG pO2 (83-108) mmHg ABG HCO3 (21-25) mmol/L ABG O2 Saturation (94-97) % Chloride (98-107) mmol/L Carbon Dioxide (22-30) mmol/L BUN (9-20) mg/dL Creatinine (0.66-1.25) mg/dL Glucose (74-99) mg/dL POC Glucose (mg/dL) 123 H 119 H 123 H (75-99) mg/dL Calcium (8.4-10.2) mg/dL Ionized Calcium Eduardo (4.5-5.3) mg/dL Phosphorus (2.5-4.5) mg/dL Magnesium (1.6-2.3) mg/dL 11/14/17 11/14/17 11/14/17 Range/Units 04:30 04:50 04:50 RBC 2.99 L (4.30-5.90) m/uL Hgb 9.4 L (13.0-17.5) gm/dL Hct 27.9 L (39.0-53.0) % Neutrophils # 9.1 H (1.3-7.7) k/uL Lymphocytes # 0.6 L (1.0-4.8) k/uL ABG pCO2 31 L (35-45) mmHg ABG pO2 135 H (83-108) mmHg ABG HCO3 17 L (21-25) mmol/L ABG O2 Saturation 98.2 H (94-97) % Chloride 112 H (98-107) mmol/L Carbon Dioxide 18 L (22-30) mmol/L BUN 50 H (9-20) mg/dL Creatinine 2.50 H (0.66-1.25) mg/dL Glucose 115 H (74-99) mg/dL POC Glucose (mg/dL) (75-99) mg/dL Calcium 5.8 L* (8.4-10.2) mg/dL Ionized Calcium Eduardo 3.6 L (4.5-5.3) mg/dL Phosphorus 4.8 H (2.5-4.5) mg/dL Magnesium 2.6 H (1.6-2.3) mg/dL 11/14/17 Range/Units 07:05 RBC (4.30-5.90) m/uL Hgb (13.0-17.5) gm/dL Hct (39.0-53.0) % Neutrophils # (1.3-7.7) k/uL Lymphocytes # (1.0-4.8) k/uL ABG pCO2 (35-45) mmHg ABG pO2 (83-108) mmHg ABG HCO3 (21-25) mmol/L ABG O2 Saturation (94-97) % Chloride (98-107) mmol/L Carbon Dioxide (22-30) mmol/L BUN (9-20) mg/dL Creatinine (0.66-1.25) mg/dL Glucose (74-99) mg/dL POC Glucose (mg/dL) 126 H (75-99) mg/dL Calcium (8.4-10.2) mg/dL Ionized Calcium Eduardo (4.5-5.3) mg/dL Phosphorus (2.5-4.5) mg/dL Magnesium (1.6-2.3) mg/dL Assessment and Plan Plan: Assessment [address] segment elevation myocardial infarction secondary to a tight left main lesion him a status post successful angioplasty and stenting 2 acute cardiac arrest secondary to above, resuscitated adequately 3 acute hypoxic respiratory failure secondary to above 4 acute hypotension, post cardiac arrest. Obviously echocardiogram showing a preserved LV function and there is no valvular disruption and that is no clear- cut cardiogenic component. No evidence of any stunned myocardium on subsequent echocardiogram. Low-pressure considerably improved and the patient is currently on few mics of norepinephrine infusion 5 acute kidney injury secondary acute cardiac arrest, hypotension and possibly contrast material. The patient is nonoliguric. Creatinine is up to 2.5. 6 diffuse bilateral pulmonary infiltrates/effusion. Consider noncardiogenic pulmonary edema. Consider acute lung injury secondary aspiration/cardiac arrest. Patient is still oxygenating and ventilating well. The volume status is somewhat improved compared to yesterday. The patient got diuresed. The patient is still having significant amount of orotracheal secretions. Sputum Gram stain and culture was sent. 7 history of carcinoid tumor the patient had a follow-up CAT scan of the abdomen that showed abnormal cecum and severe wall thickening with primary nap as could be present as the patient has known history of carcinoid. The patient also has a component of small bowel obstruction/ileus. NG tube is in place. Bowel sounds are hypoactive the patient is having significant amount of output for now. Abdomen is less distended and less tender compared to yesterday. 8 history of lymphoma 9 hypocalcemia, recurrent, 10 non-anion gap metabolic acidosis Plan The patient is on IV fluids at the rate of 75 mL an hour. This will be continued. No plans to wean and extubate today. Keep the patient on mechanical ventilator. Monitor the urine output and the renal function. No need for Lasix today. Levo fed will be titrated to keep a mean atrial pressure above 65. The patient continues to have episodes of hypocalcemia. He received a total of 2 g of calcium yesterday and 2 g the night before. The calcium level is down to 3.6 ionized and the patient will be given a total of 3 g of calcium today. We'll continue with IV Zosyn. Sputum Gram stain and culture. Continue and keep the bowel to rest. Monitor renal function. Keep the patient on sedation. The patient wakes up nicely and the patient follows commands once given a sedation holiday. He is actually taking well. Not ready for weaning for the above-mentioned comorbidities. We'll continue to follow. The was updated on his condition. Critically care evaluation. 35 minutes. Time with Patient: Greater than 30
[2017-11-14] MEDS ORDERED: CALCIUM GLUCONATE 2,000 MG in SODIUM CHLORIDE 0.9% 100 ML IVPB ONE (11:17)
[2017-11-14 12:03] LABS: Glucose,Whole Blood 125 mg/dL (75-99)
--- NOTE | 2017-11-14 16:16 | P.PN ---
Subjective Patient remains intubated. White count 10.4 him a electrolytes are normal BUN 50 creatinine 2.5 still remains intubated On examination Blood pressure 180 no 57 mmHg pulse rate in the 80s Heart sounds are normal no murmurs no gallops no rub Breath sounds are clear no rhonchi no crackles Abdomen is soft nontender Extremities warm no edema Impression VF arrest in the setting of an acute myocardial infarction left main disease left main stenosis and stenting Plan Continue medical treatment for coronary artery disease LV function has improved await neurologic recovery and resolution of pulmonary issues Objective - Vital Signs Vital signs: Vital Signs Temp 98.6 F 11/14/17 12:00 Pulse 82 11/14/17 15:30 Resp 21 11/14/17 15:30 BP 102/51 11/14/17 03:00 Pulse Ox 96 11/14/17 15:30 Intake & Output 11/13/17 11/14/17 11/14/17 17:59 06:59 18:59 Intake Total 860.757 Output Total 1055 Balance -194.243 Weight Intake: IV 754.0 0.9 for pressure 54 Calcium Gluconate 1,000 200 mg In Sodium Chloride 0.9 % 100 ml @ 100 mls/hr IVPB ONCE ONE Rx#: [id number] Piperacillin-Tazobactam 3 50.0 .375 gm In Dextrose/Water 1 50ml.bag @ 12.5 mls/hr IVPB Q8HR [facility] Rx#: [id number] Sodium Chloride 0.9% 1, 450 000 ml @ 75 mls/hr IV . [id number] [facility] Rx#:[id number] Intake, IV Titration 106.757 Amount Calcium Gluconate 2,000 mg In Sodium Chloride 0.9 % 100 ml @ 100 mls/hr IVPB ONCE ONE Rx#: [id number] Norepinephrin 16 mg-0.9% 7.282 Ns Pmx 16 mg In 250 ml @ Titrate IV .Q0M [facility] Rx#: [id number] Piperacillin-Tazobactam 3 .375 gm In Dextrose/Water 1 50ml.bag @ 12.5 mls/hr IVPB Q8HR [facility] Rx#: [id number] Propofol 1,000 mg In 99.475 Empty Bag 1 bag @ Titrate IV .Q0M [facility] Rx#: [id number] Other Output: Gastric Drainage 300 Urine 755 Other: Voiding Method Indwelling Catheter ABP, PAP, CO, CI - Last Documented Arterial Blood Pressure 114/56 - Labs CBC & Chem 7: 11/14/17 04:50 11/14/17 04:50 Labs: Abnormal Lab Results - Last 24 Hours (Table) 11/13/17 11/13/17 11/14/17 Range/Units 18:33 23:46 04:30 RBC (4.30-5.90) m/uL Hgb (13.0-17.5) gm/dL Hct (39.0-53.0) % Neutrophils # (1.3-7.7) k/uL Lymphocytes # (1.0-4.8) k/uL ABG pCO2 31 L (35-45) mmHg ABG pO2 135 H (83-108) mmHg ABG HCO3 17 L (21-25) mmol/L ABG O2 Saturation 98.2 H (94-97) % Chloride (98-107) mmol/L Carbon Dioxide (22-30) mmol/L BUN (9-20) mg/dL Creatinine (0.66-1.25) mg/dL Glucose (74-99) mg/dL POC Glucose (mg/dL) 119 H 123 H (75-99) mg/dL Calcium (8.4-10.2) mg/dL Ionized Calcium Eduardo (4.5-5.3) mg/dL Phosphorus (2.5-4.5) mg/dL Magnesium (1.6-2.3) mg/dL 11/14/17 11/14/17 11/14/17 Range/Units 04:50 04:50 07:05 RBC 2.99 L (4.30-5.90) m/uL Hgb 9.4 L (13.0-17.5) gm/dL Hct 27.9 L (39.0-53.0) % Neutrophils # 9.1 H (1.3-7.7) k/uL Lymphocytes # 0.6 L (1.0-4.8) k/uL ABG pCO2 (35-45) mmHg ABG pO2 (83-108) mmHg ABG HCO3 (21-25) mmol/L ABG O2 Saturation (94-97) % Chloride 112 H (98-107) mmol/L Carbon Dioxide 18 L (22-30) mmol/L BUN 50 H (9-20) mg/dL Creatinine 2.50 H (0.66-1.25) mg/dL Glucose 115 H (74-99) mg/dL POC Glucose (mg/dL) 126 H (75-99) mg/dL Calcium 5.8 L* (8.4-10.2) mg/dL Ionized Calcium Eduardo 3.6 L (4.5-5.3) mg/dL Phosphorus 4.8 H (2.5-4.5) mg/dL Magnesium 2.6 H (1.6-2.3) mg/dL 11/14/17 Range/Units 12:02 RBC (4.30-5.90) m/uL Hgb (13.0-17.5) gm/dL Hct (39.0-53.0) % Neutrophils # (1.3-7.7) k/uL Lymphocytes # (1.0-4.8) k/uL ABG pCO2 (35-45) mmHg ABG pO2 (83-108) mmHg ABG HCO3 (21-25) mmol/L ABG O2 Saturation (94-97) % Chloride (98-107) mmol/L Carbon Dioxide (22-30) mmol/L BUN (9-20) mg/dL Creatinine (0.66-1.25) mg/dL Glucose (74-99) mg/dL POC Glucose (mg/dL) 125 H (75-99) mg/dL Calcium (8.4-10.2) mg/dL Ionized Calcium Eduardo (4.5-5.3) mg/dL Phosphorus (2.5-4.5) mg/dL Magnesium (1.6-2.3) mg/dL Microbiology - Last 24 Hours (Table) 11/11/17 23:23 Gram Stain - Final Sputum Sputum Culture - Final
[2017-11-14 19:00] LABS: Glucose,Whole Blood 132 mg/dL (75-99)
[2017-11-14] MEDS: ATORVASTATIN 80 MG TAB PO SCH (21:37)
[2017-11-14 23:28] LABS: Glucose,Whole Blood 120 mg/dL (75-99)
[2017-11-15 04:40] LABS: ABG Base Excess -8.3 mmol/L; ABG HCO3 17 mmol/L (21-25); ABG Oxygen Saturation 97.2 % (94-97); ABG PCO2 29 mmHg (35-45); ABG PH 7.37 (7.35-7.45); ABG PO2 105 mmHg (83-108); ABG TCO2 18 mmol/L (19-24)
[2017-11-15 04:42] LABS: Basophils % (A) 0 %; Eosinophils # (A) 0.2 k/uL (0-0.7); Eosinophils % (A) 2 %; HCT 26.7 % (39.0-53.0); HGB 8.9 gm/dL (13.0-17.5); Lymphocytes # (A) 0.5 k/uL (1.0-4.8); Lymphocytes % (A) 5 %; MCH 31.1 pg (25.0-35.0); MCHC 33.4 g/dL (31.0-37.0); MCV 93.1 fL (80.0-100.0); Mean Platelet Volume 9.3; Monocytes # (A) 0.6 k/uL (0-1.0); Monocytes % (A) 6 %; Neutrophils # (A) 9.4 k/uL (1.3-7.7); Neutrophils % (A) 87 %; Platelet Count 217 k/uL (150-450); RBC 2.87 m/uL (4.30-5.90); WBC 10.9 k/uL (3.8-10.6)
[2017-11-15 05:27] LABS: Phosphorus 4.9 mg/dL (2.5-4.5); Potassium 4.2 mmol/L (3.5-5.1)
[2017-11-15 06:13] LABS: Calcium 6.2 mg/dL (8.4-10.2)
[2017-11-15] MEDS: INSULIN ASPART 100 UNIT/ML 1 ML 10 ML VIAL SQ SCH ×2 (06:15→12:15)
[2017-11-15] MEDS ORDERED: CALCIUM GLUCONATE 1,000 MG in SODIUM CHLORIDE 0.9% 100 ML IVPB ONE (07:00)
[2017-11-15] MEDS: ALBUTEROL NEBULIZED 2.5 MG/3 ML INHALATION SCH ×3 (07:16→20:07)
[2017-11-15] MEDS: ASPIRIN 81 MG PO SCH (08:50)
[2017-11-15] MEDS: HEPARIN SODIUM,PORCINE 5,000 UNIT/ML 1 ML VIAL SQ SCH ×3 (08:50→23:41)
[2017-11-15] MEDS: TICAGRELOR 90 MG TAB PO SCH ×2 (08:51→21:16)
[2017-11-15] MEDS: PANTOPRAZOLE 40 MG/10 ML VIAL IV SCH (08:51)
[2017-11-15] MEDS: METOPROLOL TARTRATE 12.5 MG TAB PO SCH ×2 (08:51→21:16)
[2017-11-15] MEDS: CHLORHEXIDINE GLUCONATE 15 ML CUP MUCOUS MEM SCH ×2 (08:51→21:16)
[2017-11-15] MEDS: SODIUM CHLORIDE 0.9% 1,000 ML IV SCH ×2 (08:51→23:41)
[2017-11-15] MEDS: PIPERACILLIN-TAZOBACTAM 3.375 GM in DEXTROSE/WATER 1 50ML.BAG IVPB SCH ×3 (08:57→23:41)
--- NOTE | 2017-11-15 09:26 | XR ---
EXAMINATION TYPE: XR chest 1V portable DATE OF EXAM: 11/15/2017 COMPARISON: 11/14/2017 HISTORY: Tube placement TECHNIQUE: Single frontal view of the chest is obtained. FINDINGS: ET and NG tube stable. Left-sided central line stable. Bilateral consolidation and pleural effusion stable. No pneumothorax. Heart size enlarged. IMPRESSION: 1. Stable bilateral infiltrate and pleural effusion underlying CHF not excluded correlate for pneumon ia.
[2017-11-15] MEDS: PROPOFOL 1,000 MG in EMPTY BAG 1 BAG IV SCH ×3 (09:56→23:59)
--- NOTE | 2017-11-15 12:05 | P.PN ---
Subjective Progress Note Date: 11/15/17 Principal diagnosis: Acute cardiac arrest secondary to acute ST segment elevation UT. A pleasant 57-year-old male patient who lives in [place], [place] and the patient was playing pickle ball in the [facility] area. The patient acutely arrested and he was into cardiac arrest. There was a bystander nurse who did CPR on him. EMS was called to the scene and the patient was found in V. fib. The patient was shocked and the patient was given a dose of epinephrine. Subsequently went into asystole. Following that, CPR was continued and the patient went into V. fib, shocked again and then went into normal sinus rhythm. EKG showed ST segment elevation and the patient was taken to [facility] and following that the patient was brought in to the [facility]. Emergent cardiac catheterization was done and the patient was found to have a left main lesion that was stented. The stent insertion with successful. The patient was in already intubated by EMS on the scene. The patient was kept intubated. The patient was moved to the ICU for further care. Overnight, the patient was sedated with Diprivan. He apparently was following some simple commands while given a sedation holiday. This morning, he is on 30 mics of levo fed for blood pressure support. Echocardiogram was done and showed ejection fraction of 35%. No other significant abnormalities noted and this is a preliminary report. Urine output is in order of 25-30 mL an hour. Overnight his urine output dropped and a given a bolus of 1 L and he received a total of 2.5 L fluid bolus. He is current maintenance fluid is at 75 mL of normal saline. He is on a mechanical ventilator on assist control mode at the rate of 20, tidal volume of 600, FiO2 of 50% and a PEEP of 5. Morning blood gases showed a pH of 7.34 with a pCO2 of 28 and pO2 167. Chest x- ray showing some cardiomegaly and some pulmonary vessel congestion. ET tube is in a good location. No other densities seen in the left lower lobe costophrenic angle area. The patient's creatinine is up to 1.4. Today's potassium is up to 6.8. This needs to be repeated. No EKG changes related to this high potassium level. He is afebrile. No aspiration was noted. He remains on 30 mics of norepinephrine infusion for now. Pulses in lower extremities are weak yet obtainable by Doppler. His legs are cold and clammy still. No significant secretions from his orotracheal tube. He is known to have carcinoid tumor and apparently his been on maintenance hormonal treatment. He is seeing a oncologist out of [facility]. The patient also has history of lymphoma. The details of these malignancies are not known to us. The origin of the carcinoid tumor is not clear to me at this point. Further information is to be obtained on this patient. On 11/12 I'm seeing this patient for a follow-up. The patient remains intubated on a mechanical ventilator and the patient is post acute STEMI in acute cardiac arrest. I did not extubated the patient yesterday as the patient was still hypo-tensive and hypoperfusing and the patient was having diminished pulses in lower extremities and he looked cold and clammy and he had ongoing electrolyte disturbance with hypokalemia. He was given IV fluids and the neck fluid balance over the past 24 hours is +2.3 L. Currently is on 75 mL an hour of normal saline. Pulses are palpable in lower oximetry is bilaterally and the patient is much more warm. He is still however on pressors and currently norepinephrine infusion is running at 14 mics. His urine output dropped this morning and he is producing around 25-30 mL an hour of urine output. The patient has the levo fed infusion running through his right upper extremity. He remains on a mechanical ventilator. His assist-control mode at the rate of 20, tidal volume of 600, FiO2 of 40% and a PEEP of 5. The blood gases showed a pH of 7.3 with a pCO2 of 28 and pO2 77. Chest x-ray showing cardiomegaly. ET tube is in a good location. There is development of four-vessel congestion and possibly a right-sided pleural effusion also developing. He is afebrile. He is having no significant secretions with orotracheal tube. His white cell count has dropped and I doubt an underlying aspiration pneumonia although this is not completely excluded. I think his hypotension and shock is probably cardiogenic following his cardiac arrest. In addition, the patient's ionized calcium today's at 3.8 and the patient was given a total of 1 g of calcium gluconate. His troponin peaked at 26.4. This morning he is sedated and is calm and comfortable and synchronous with the mechanical ventilator. Orogastric and orotracheal tube are both in place. The patient is still nothing by mouth. On 11/13/2017 I'm seeing this patient for a follow-up. Patient remains intubated on a mechanical ventilator. He is sedated Diprivan is calm and comfortable. He withdraws to painful stimulation. A repeat echo cardiac exam was done today that showed a preserved LV function. Note that post UT the patient's ejection fraction was impaired with ejection fraction of 35-40%. Based on the candy maker helper destination, the ejection fraction is a furthermore improved. I did add milrinone yesterday on him which I am willing to discontinue based on these findings. His CVP is around 7. He is in a positive fluid balance in order of 5 L since he came in to the intensive care unit. He has adequate pulses in all 4 extremities bilaterally. His chest x-ray showing diffuse bilateral pulmonary infiltrates which seems to be more so of a acute lung injury/aspiration-type of picture/non-cardiogenic pulmonary edema. The patient is on assist control mode, at the rate of 20, tidal volume of 600, FiO2 of 40% and PEEP of 5. The morning blood gas showed a pH of 7.38 with a pCO2 of 29 and pO2 of 85. The patient is on normal state rate of 75 mL an hour. Urine output is between 25-30 mL an hour. The patient's creatinine was up to 2 on today's evaluation. He did have a 1 spike of temperature and he is currently covered with IV Zosyn. White cell count is not elevated. No secretions with orotracheal tube. The patient had some difficulties tolerating tube feeds. Abdomen on examination was felt to be quite tender. Calcium level has dropped progressively. We'll need immediate fed femoral the abdomen addition to the liver function tests and pancreatic enzymes. Calcium level will be supplemented. On 11/14/2017 I'm seeing this patient for a follow-up. As mentioned earlier the patient is post cardiac arrest and the patient had a acute cardiac intervention and stenting of a left main for an acute cardiac arrest, acute ST segment elevation myocardial infarction. The patient fortunately does not show signs of hypoxic encephalopathy. Yet there is another complications preventing him from weaning. Initially was quite hypotensive which was thought to be of a cardiogenic in nature. Subsequent echocardiogram showed improvement in the LV function and probably had this done the myocardium which is improving. Hemodynamically improved and is at the point where norepinephrine infusion has been drop down to a few mics only. He subsequently developed an acute kidney injury, nonoliguric, and the creatinine is up to 2.5. This is expected knowing that the patient was subjected to a cardiac arrest, hypotension, pressors and contrast material. He also had potentially an aspiration pneumonia. He developed bilateral lower lobe consolidation/atelectasis and effusions. He is currently on IV Zosyn. The patient got diuresed any procedures adequate amount of urine output over the past 24 hours. He is still oxygenating and ventilating without any major difficulties. He also developed a abdominal distention. CAT scan of the abdomen was done and there is a cecal mass probably his known carcinoid mass. In addition, there is small bowel ileus/ obstruction for which the tube feeds were placed on hold and since then the patient has drained approximately 800 mL of gastric greenish material and his output is still considerably high. Liver function test are within normal. Amylase and lipase are not elevated. The patient also is having excessive rest or secretions which are being suctioned out. He is not ready for further weaning for now. Is afebrile. He is sedated with propofol. He is still on the same vent setting which includes an assist-control of 20, FiO2 of 60% Patient was reevaluated today on 11/15/2017, patient remains on mechanical ventilation, his ventilator settings are FiO2 of 40% tidal volume of 500 assist control rate of 20 and PEEP of 5. ABG showed a pO2 of 105 pCO2 of 29 pH of 7.37 CBC and basic metabolic profile are relatively normal however his BUN is 59 creatinine is 3.05. Bicarb is 18. Patient continues to have fair amount of secretions according to the nurses taking care of him, his urine output is excellent, remains on IV fluid at a relatively high rate. Chest x-ray showed stable bilateral infiltrates and possibly pleural effusions. Suspect the patient may have had an aspiration pneumonia involving the right lower lobe. Hemodynamically, the patient seems to be stable, neurologically he was noted to be functioning well based on the note by Dr. Moise above. Apparently the patient did not sustain any significant hypoxic encephalopathy. His echocardiogram showed improvement in LV function. His kidney functioning seems to be a bit concerning, being closely followed by nephrology. I believe the patient must have sustained acute tubular necrosis and acute kidney injury. Remains on antibiotics for presumptive aspiration. His CT of the abdomen was reviewed, there is a cecal mass possibly his known carcinoid mass. His feeding was placed on hold, but considering the patient had 2 bowel movements over the last 24 hours, I will resume tube feeding. Secretions are still present but not as bad as reported by Dr. Moise yesterday. Hence I plan to give the patient a weaning trial, sedation holiday, and possibly a spontaneous breathing trial. Objective - Vital Signs Vital signs: Vital Signs Temp 97.7 F 11/15/17 08:00 Pulse 74 11/15/17 11:00 Resp 24 11/15/17 11:00 BP 92/49 11/15/17 11:00 Pulse Ox 98 11/15/17 11:00 Intake & Output 11/14/17 11/15/17 11/15/17 18:59 06:59 18:59 Intake Total 1850.903 2148.353 400.973 Output Total 1470 1500 480 Balance -259.192 -302.647 -79.027 Weight 87.9 kg 87.9 kg Intake: IV 997.0 1037.0 387 0.9 for pressure 72 12 12 Calcium Gluconate 1,000 200 100 mg In Sodium Chloride 0.9 % 100 ml @ 100 mls/hr IVPB ONCE ONE Rx#: [id number] Piperacillin-Tazobactam 3 50.0 50.0 50 .375 gm In Dextrose/Water 1 50ml.bag @ 12.5 mls/hr IVPB Q8HR [facility] Rx#: [id number] Sodium Chloride 0.9% 1, 675 975 225 000 ml @ 75 mls/hr IV . [id number] [facility] Rx#:[id number] Intake, IV Titration 213.808 160.353 13.973 Amount Norepinephrin 16 mg-0.9% 14.333 14.153 Ns Pmx 16 mg In 250 ml @ Titrate IV .Q0M [facility] Rx#: [id number] Propofol 1,000 mg In 199.475 146.2 13.973 Empty Bag 1 bag @ Titrate IV .Q0M [facility] Rx#: [id number] Output: Gastric Drainage 500 400 Urine 970 1100 480 Other: Voiding Method Indwelling Catheter Indwelling Catheter Indwelling Catheter # Bowel Movements 1 ABP, PAP, CO, CI - Last Documented Arterial Blood Pressure 109/58 - Exam Physical Exam: Revealed a 57-year-old white male on mechanical ventilation, in no distress. Presently on propofol. Head: Atraumatic, normocephalic. HEENT:[Neck is supple.] [No neck masses.] [No thyromegaly.] [No JVD.] Endotracheal tube seems to be intact. Moist mucous membranes. Throat is clear. Chest: [Minimal fine crackles at the right base, no rhonchi no wheezes.] Cardiac Exam: [Normal S1 and S2, no S3 gallop, no murmur.] Abdomen: [Soft, nontender, no megaly, no rebound, no guarding, normal bowel sounds.] Extremities: [No clubbing, no edema, no cyanosis.] Neurological Exam: Cannot be assessed, patient is presently on propofol drip. Psychiatric: Cannot be assessed patient is sedated Musculoskeletal: Cannot be assessed. - Labs CBC & Chem 7: 11/15/17 04:25 11/15/17 04:25 Labs: Abnormal Lab Results - Last 24 Hours (Table) 11/14/17 11/14/17 11/14/17 Range/Units 12:02 18:49 23:25 WBC (3.8-10.6) k/uL RBC (4.30-5.90) m/uL Hgb (13.0-17.5) gm/dL Hct (39.0-53.0) % Neutrophils # (1.3-7.7) k/uL Lymphocytes # (1.0-4.8) k/uL ABG pCO2 (35-45) mmHg ABG HCO3 (21-25) mmol/L ABG Total CO2 (19-24) mmol/L ABG O2 Saturation (94-97) % Chloride (98-107) mmol/L Carbon Dioxide (22-30) mmol/L BUN (9-20) mg/dL Creatinine (0.66-1.25) mg/dL Glucose (74-99) mg/dL POC Glucose (mg/dL) 125 H 132 H 120 H (75-99) mg/dL Calcium (8.4-10.2) mg/dL Ionized Calcium Eduardo (4.5-5.3) mg/dL Phosphorus (2.5-4.5) mg/dL Magnesium (1.6-2.3) mg/dL TSH (0.465-4.680) mIU/L 11/15/17 11/15/17 11/15/17 Range/Units 04:25 04:25 04:35 WBC 10.9 H (3.8-10.6) k/uL RBC 2.87 L (4.30-5.90) m/uL Hgb 8.9 L (13.0-17.5) gm/dL Hct 26.7 L (39.0-53.0) % Neutrophils # 9.4 H (1.3-7.7) k/uL Lymphocytes # 0.5 L (1.0-4.8) k/uL ABG pCO2 29 L (35-45) mmHg ABG HCO3 17 L (21-25) mmol/L ABG Total CO2 18 L (19-24) mmol/L ABG O2 Saturation 97.2 H (94-97) % Chloride 114 H (98-107) mmol/L Carbon Dioxide 18 L (22-30) mmol/L BUN 59 H (9-20) mg/dL Creatinine 3.05 H (0.66-1.25) mg/dL Glucose 105 H (74-99) mg/dL POC Glucose (mg/dL) (75-99) mg/dL Calcium 6.2 L* (8.4-10.2) mg/dL Ionized Calcium Eduardo 4.0 L (4.5-5.3) mg/dL Phosphorus 4.9 H (2.5-4.5) mg/dL Magnesium 3.0 H (1.6-2.3) mg/dL TSH 0.114 L (0.465-4.680) mIU/L Microbiology - Last 24 Hours (Table) 11/11/17 23:23 Gram Stain - Final Sputum Sputum Culture - Final Assessment and Plan Assessment: [address] segment elevation myocardial infarction secondary to a tight left main lesion him a status post successful angioplasty and stenting 2 acute cardiac arrest secondary to above, resuscitated adequately 3 acute hypoxic respiratory failure secondary to above 4 acute hypotension, post cardiac arrest. Obviously echocardiogram showing a preserved LV function and there is no valvular disruption and that is no clear- cut cardiogenic component. No evidence of any stunned myocardium on subsequent echocardiogram. Low-pressure considerably improved and the patient is currently on few mics of norepinephrine infusion 5 acute kidney injury secondary acute cardiac arrest, hypotension and possibly contrast material. The patient is nonoliguric. Creatinine is up to 3.05 with BUN of 59 6 diffuse bilateral pulmonary infiltrates/effusion. Consider noncardiogenic pulmonary edema. Consider acute lung injury secondary aspiration/cardiac arrest. Patient is still oxygenating and ventilating well. The patient is still having significant amount of orotracheal secretions. Sputum Gram stain and culture was sent. 7 history of carcinoid tumor the patient had a follow-up CAT scan of the abdomen that showed abnormal cecum and severe wall thickening with primary nap as could be present as the patient has known history of carcinoid. The patient also has a component of small bowel obstruction/ileus. Seems to be resolving today. NG tube is in place. Bowel sounds are becoming active, hence we'll proceed with feeding again today. 8 history of lymphoma 9 hypocalcemia, recurrent, 10 non-anion gap metabolic acidosis Plan: Continue IV fluids at 75 mL/h, continue to monitor renal status closely, discontinue propofol, assess mental status, consider spontaneous breathing trial today. Discontinue norepinephrine if tolerated. Continue empiric antibiotics Zosyn for presumptive aspiration pneumonia involving the right lower lobe. Continue to monitor renal functioning. Restart feeding via nasogastric tube. We'll continue to follow closely. Critical care time is 34 minutes. Time with Patient: Greater than 30
[2017-11-15 12:13] LABS: Glucose,Whole Blood 128 mg/dL (75-99)
--- NOTE | 2017-11-15 13:12 | ECHOF ---
Referral Reason:wy MEASUREMENTS -------- HEIGHT: 175.3 cm WEIGHT: 87.5 kg BP: 102/65 IVSd: 1.5 cm (0.6 - 1.1) LVIDd: 3.8 cm (3.9 - 5.3) LVPWd: 1.4 cm (0.6 - 1.1) IVSs: 2.0 cm LVIDs: 2.5 cm LVPWs: 1.6 cm LA Diam: 3.2 cm (2.7 - 3.8) Ao Diam: 3.3 cm (2.0 - 3.7) AV Cusp: 1.9 cm (1.5 - 2.6) LA Diam: 3.3 cm (2.7 - 3.8) MV EXCURSION: 16.312 mm (> 18.000) MV EF SLOPE: 73 mm/s (70 - 150) EPSS: 0.5 cm MV E Colby: 0.29 m/s MV DecT: 204 ms MV A Colby: 0.71 m/s MV E/A Ratio: 0.41 RAP: 5.00 mmHg RVSP: 24.69 mmHg FINDINGS -------- Sinus rhythm. This was a technically adequate study. The left ventricular size is normal. There is moderate concentric left ventricular hypertrophy. O verall left ventricular systolic function is moderately impaired with, an EF between 35 - 40 %. Sep paradise wall motion is delayed, and consistent with conduction delay/bundle branch block. Posterior hyp okinesis Septal Hypokinesis The right ventricle is normal in size. The left atrial size is normal. The right atrial size is normal. 5.0mg OF Lumason UTLIZED: 2 OR MORE WALL SEGMENTS NOT VISUALIZED. The aortic valve is trileaflet, and appears structurally normal. No aortic stenosis or regurgitation. Mild mitral regurgitation is present. Mild tricuspid regurgitation present. There is no evidence of pulmonary hypertension. The right v entricular systolic pressure, as measured by Doppler, is 24.69mmHg. Trace/mild (physiologic) pulmonic regurgitation. The aortic root size is normal. There is no pericardial effusion. CONCLUSIONS -------- 1. The left ventricular size is normal. 2. There is moderate concentric left ventricular hypertrophy. 3. Septal wall motion is delayed, and consistent with conduction delay/bundle branch block. 4. Posterior hypokinesis 5. Septal Hypokinesis 6. 5.0mg OF Lumason UTLIZED: 2 OR MORE WALL SEGMENTS NOT VISUALIZED. 7. The aortic valve is trileaflet, and appears structurally normal. No aortic stenosis or regurgitati on. 8. Mild mitral regurgitation is present. 9. Mild tricuspid regurgitation present. 10. There is no evidence of pulmonary hypertension. 11. The right ventricular systolic pressure, as measured by Doppler, is 24.69mmHg. 12. Trace/mild (physiologic) pulmonic regurgitation. 13. The aortic root size is normal. 14. There is no pericardial effusion. DEICER FINISHER: Ailyn Villegas RDCS
--- NOTE | 2017-11-15 13:12 | ECHOF ---
Referral Reason:AMI MEASUREMENTS -------- HEIGHT: 175.3 cm WEIGHT: 98.0 kg BP: 139/54 RVIDd: 3.0 cm (< 3.3) IVSd: 1.3 cm (0.6 - 1.1) LVIDd: 4.1 cm (3.9 - 5.3) LVPWd: 1.3 cm (0.6 - 1.1) IVSs: 1.7 cm LVIDs: 1.9 cm LVPWs: 1.7 cm Ao Diam: 3.5 cm (2.0 - 3.7) AV Cusp: 1.7 cm (1.5 - 2.6) LA Diam: 2.8 cm (2.7 - 3.8) MV EXCURSION: 13.189 mm (> 18.000) MV EF SLOPE: 71 mm/s (70 - 150) EPSS: 0.5 cm MV E Colby: 0.69 m/s MV DecT: 258 ms MV A Colby: 0.83 m/s MV E/A Ratio: 0.84 RAP: 5.00 mmHg RVSP: 15.95 mmHg FINDINGS -------- Sinus rhythm. This was a technically good study. The left ventricular size is normal. There is mild concentric left ventricular hypertrophy. Overa ll left ventricular systolic function is normal with, an EF between 55 - 60 %. The right ventricle is normal in size. The left atrium is normal in size. The right atrium is normal in size. Aortic valve is trileaflet and is mildly thickened. The mitral valve leaflets are mildly thickened. Mild mitral regurgitation is present. Mild tricuspid regurgitation present. The right ventricular systolic pressure, as measured by Doppl er, is 15.95mmHg. Pulmonic valve appears structurally normal. The aortic root size is normal. Normal inferior vena cava with normal inspiratory collapse consistent with estimated right atrial pre ssure of 5 mmHg. The pericardium is normal. CONCLUSIONS -------- 1. Sinus rhythm. 2. This was a technically good study. 3. The left ventricular size is normal. 4. There is mild concentric left ventricular hypertrophy. 5. Overall left ventricular systolic function is normal with, an EF between 55 - 60 %. 6. The right ventricle is normal in size. 7. The left atrium is normal in size. 8. The right atrium is normal in size. 9. Aortic valve is trileaflet and is mildly thickened. 10. The mitral valve leaflets are mildly thickened. 11. Mild mitral regurgitation is present. 12. Mild tricuspid regurgitation present. 13. The right ventricular systolic pressure, as measured by Doppler, is 15.95mmHg. 14. Pulmonic valve appears structurally normal. 15. The aortic root size is normal. 16. Normal inferior vena cava with normal inspiratory collapse consistent with estimated right atrial pressure of 5 mmHg. 17. The pericardium is normal. YEAST DISTILLER: Allison Wheeler RDCS
[2017-11-15] MEDS: ATORVASTATIN 80 MG TAB PO SCH (21:16)
--- NOTE | 2017-11-15 22:04 | P.PN ---
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 Patient was apparently playing pickle ball in the same with his family. Patient is leaned on the floor due to acute cardiac arrest. There was a bystander nurse who did CPR on him. EMS was called to the scene and the patient was found in V. fib. Patient had CPR for about 20 minutes and was also shocked. Patient was brought back to sinus rhythm. Patient was given lately taken to [facility] and was found to have ST elevated IN. Patient was immediately transferred to [facility]. Patient had emergent cardiac catheterization and left main artery stent was placed. Currently patient is intubated, mechanical ventilator and sedated. Patient otherwise does follow simple commands and able to open his eyes. Patient is on norepinephrine drip currently. 2-D echocardiography showed his ejection fraction 35%. Chest x-ray showed cardiomegaly and pulmonary vascular congestion. Potassium 6.8 today morning and came down to 4.6 currently. Magnesium 1.4 Patient is being followed by pulmonary and cardiology. 11/12/2017 Patient remained on mechanical ventilator. Patient is still on pressor support. The blood gases showed a pH of 7.3 with a pCO2 of 28 and pO2 77. Chest x-ray showed cardiomegaly and pulmonary vascular congestion and possibly right-sided developing pleural effusion. Patient was given calcium gluconate due to hypocalcemia. Patient has been afebrile otherwise. tube feeding is being initiated. Discussed with the family in detail at bedside. 11/13/2017 Patient remained on mechanical ventilator. And pressor support. Chest x-ray showed consistent with CHF with pulmonary vascular congestion and bilateral pleural effusion. CT of the abdomen and pelvis was done. We showed inflammatory changes in the ileum which is consistent with his neoplasm. Otherwise ileus versus partial bowel obstruction was noted which has been ongoing as per the family. No fever no chills. Patient was started on Zosyn at this time. Pulmonary and cardiology is following. Patient's condition is still critical which has been related to the family. 11/14/2017 Patient is currently on ventilator. Weaning off pressor support. Otherwise they'll function worsening with elevated creatinine level. Nephrology was consulted. Otherwise patient is awake and is able to respond with eye- movement. No fever no chills. Continued on IV fluids. Active Medications Al Hydroxide/Mg Hydroxide (Maalox) 30 ml PO Q4HR PRN PRN Reason: Heartburn Albuterol Sulfate (Ventolin Nebulized) 2.5 mg INHALATION RT-TID [facility] Last Admin: 11/13/17 19:34 Dose: 2.5 mg Aspirin (Aspirin) 81 mg PO DAILY JACK Last Admin: 11/13/17 09:25 Dose: 81 mg Atorvastatin Calcium (Lipitor) 80 mg PO HS JACK Last Admin: 11/13/17 20:28 Dose: 80 mg Atropine Sulfate (Atropine) 0.5 mg IV ONCE PRN PRN Reason: Symptomatic Bradycardia Chlorhexidine Gluconate (Peridex) 15 ml MUCOUS MEM BID [facility] Last Admin: 11/13/17 20:29 Dose: 15 ml Heparin Sodium (Porcine) (Heparin) 5,000 unit SQ Q8HR JACK Last Admin: 11/13/17 16:29 Dose: 5,000 unit Sodium Chloride (Saline 0.9%) 1,000 mls @ 75 mls/hr IV .[id number] [facility] Last Admin: 11/13/17 09:19 Dose: 75 mls/hr Propofol 1,000 mg/ IV Solution 100 mls @ 0 mls/hr IV .Q0M JACK; Titrate PRN Reason: Protocol Last Admin: 11/13/17 20:28 Dose: 40.18 mcg/kg/min, 23.7 mls/hr Norepinephrine Bitartrate (Levophed-0.9% Nacl 16 Mg/250ml Pmx) 16 mg in 250 mls @ 0 mls/hr IV .Q0M JACK; Titrate PRN Reason: Protocol Last Titration: 11/13/17 19:03 Dose: 8 mcg/min, 7.5 mls/hr Piperacillin/Tazobactam/ (Dextrose 3.375 gm/ IV Solution) 50 mls @ 12.5 mls/hr IVPB Q8HR [facility] Last Admin: 11/13/17 16:32 Dose: 12.5 mls/hr Insulin Aspart (Novolog) 0 unit SQ Q6HR JACK PRN Reason: Protocol Last Admin: 11/13/17 18:35 Dose: Not Given Iohexol (Omnipaque 350 Mg/Ml (For Oral Use)) 25 ml PO Q60M PRN PRN Reason: CT Scan Stop: 11/14/17 09:10 Last Admin: 11/13/17 11:03 Dose: 25 ml Metoprolol Tartrate (Lopressor) 12.5 mg PO BID [facility] Last Admin: 11/13/17 20:17 Dose: Not Given Miscellaneous Information (Magnesium Per Protocol) 1 each MISCELLANE DAILY PRN ; Protocol PRN Reason: Per Protocol Miscellaneous Information (Rx Info: Iv Contrast Was Given) 1 each MISCELLANE DAILY PRN PRN Reason: Per Protocol Stop: 11/15/17 09:10 Morphine Sulfate (Morphine Sulfate (Inj)) 1 mg IVP Q4HR PRN PRN Reason: Pain Last Admin: 11/13/17 02:30 Dose: 1 mg Naloxone HCl (Narcan) 0.2 mg IV Q2M PRN PRN Reason: Opioid Reversal Nitroglycerin (Nitrostat) 0.4 mg SUBLINGUAL Q5M PRN PRN Reason: Chest Pain Pantoprazole Sodium (Protonix) 40 mg IV DAILY [facility] Last Admin: 11/13/17 09:24 Dose: 40 mg Ticagrelor (Brilinta) 90 mg PO BID [facility] Last Admin: 11/13/17 20:28 Dose: 90 mg Zolpidem Tartrate (Ambien) 5 mg PO HS PRN PRN Reason: Insomnia Complete review of systems could not be apparent from the patient. Objective - Vital Signs Vital signs: Vital Signs Temp 98.6 F 11/14/17 20:00 Pulse 81 11/14/17 21:30 Resp 20 11/14/17 21:30 BP 93/46 11/14/17 21:30 Pulse Ox 95 11/14/17 21:30 Intake & Output 11/14/17 11/14/17 11/15/17 06:59 18:59 06:59 Intake Total 1210.808 337 Output Total 1470 265 Balance -259.192 72 Weight Intake: IV 997.0 237 0.9 for pressure 72 12 Calcium Gluconate 1,000 200 mg In Sodium Chloride 0.9 % 100 ml @ 100 mls/hr IVPB ONCE ONE Rx#: [id number] Piperacillin-Tazobactam 3 50.0 .375 gm In Dextrose/Water 1 50ml.bag @ 12.5 mls/hr IVPB Q8HR JACK Rx#: [id number] Sodium Chloride 0.9% 1, 675 225 000 ml @ 75 mls/hr IV . [id number] JACK Rx#:[id number] Intake, IV Titration 213.808 100 Amount Norepinephrin 16 mg-0.9% 14.333 Ns Pmx 16 mg In 250 ml @ Titrate IV .Q0M JACK Rx#: [id number] Piperacillin-Tazobactam 3 .375 gm In Dextrose/Water 1 50ml.bag @ 12.5 mls/hr IVPB Q8HR JACK Rx#: [id number] Propofol 1,000 mg In 199.475 100 Empty Bag 1 bag @ Titrate IV .Q0M JACK Rx#: [id number] Output: Gastric Drainage 500 Urine 970 265 Other: Voiding Method Indwelling Catheter # Bowel Movements 1 ABP, PAP, CO, CI - Last Documented Arterial Blood Pressure 93/46 - Exam Patient is lying in the bed comfortably, no acute distress, sedated and intubated HEENT: Normocephalic. Neck is supple. Pupils reactive. Nostrils clear. Oral cavity is moist. Ears reveal no drainage. Neck reveals no JVD, carotid bruits, or thyromegaly. CHEST EXAMINATION: Trachea is central. Symmetrical expansion. Lung martel clear to auscultation and percussion. CARDIAC: Normal S1, S2 with no gallops. No murmurs ABDOMEN: Soft. Tenderness in the epigastric region. Bowel sounds normal. No organomegaly. No abdominal bruits. Extremities: reveal no edema. No clubbing or cyanosis Neurologically sedated and intubated. No focal deficits noted Skin: No rash or skin lesions. Psychiatric: Could not be assessed completely Musculoskeletal: No joint swelling or deformity. Normal range of motion. - Labs CBC & Chem 7: 11/15/17 04:25 11/15/17 04:25 Labs: Abnormal Lab Results - Last 24 Hours (Table) 11/13/17 11/14/17 11/14/17 Range/Units 23:46 04:30 04:50 RBC 2.99 L (4.30-5.90) m/uL Hgb 9.4 L (13.0-17.5) gm/dL Hct 27.9 L (39.0-53.0) % Neutrophils # 9.1 H (1.3-7.7) k/uL Lymphocytes # 0.6 L (1.0-4.8) k/uL ABG pCO2 31 L (35-45) mmHg ABG pO2 135 H (83-108) mmHg ABG HCO3 17 L (21-25) mmol/L ABG O2 Saturation 98.2 H (94-97) % Chloride (98-107) mmol/L Carbon Dioxide (22-30) mmol/L BUN (9-20) mg/dL Creatinine (0.66-1.25) mg/dL Glucose (74-99) mg/dL POC Glucose (mg/dL) 123 H (75-99) mg/dL Calcium (8.4-10.2) mg/dL Ionized Calcium Eduardo (4.5-5.3) mg/dL Phosphorus (2.5-4.5) mg/dL Magnesium (1.6-2.3) mg/dL 11/14/17 11/14/17 11/14/17 Range/Units 04:50 07:05 12:02 RBC (4.30-5.90) m/uL Hgb (13.0-17.5) gm/dL Hct (39.0-53.0) % Neutrophils # (1.3-7.7) k/uL Lymphocytes # (1.0-4.8) k/uL ABG pCO2 (35-45) mmHg ABG pO2 (83-108) mmHg ABG HCO3 (21-25) mmol/L ABG O2 Saturation (94-97) % Chloride 112 H (98-107) mmol/L Carbon Dioxide 18 L (22-30) mmol/L BUN 50 H (9-20) mg/dL Creatinine 2.50 H (0.66-1.25) mg/dL Glucose 115 H (74-99) mg/dL POC Glucose (mg/dL) 126 H 125 H (75-99) mg/dL Calcium 5.8 L* (8.4-10.2) mg/dL Ionized Calcium Eduardo 3.6 L (4.5-5.3) mg/dL Phosphorus 4.8 H (2.5-4.5) mg/dL Magnesium 2.6 H (1.6-2.3) mg/dL 11/14/17 Range/Units 18:49 RBC (4.30-5.90) m/uL Hgb (13.0-17.5) gm/dL Hct (39.0-53.0) % Neutrophils # (1.3-7.7) k/uL Lymphocytes # (1.0-4.8) k/uL ABG pCO2 (35-45) mmHg ABG pO2 (83-108) mmHg ABG HCO3 (21-25) mmol/L ABG O2 Saturation (94-97) % Chloride (98-107) mmol/L Carbon Dioxide (22-30) mmol/L BUN (9-20) mg/dL Creatinine (0.66-1.25) mg/dL Glucose (74-99) mg/dL POC Glucose (mg/dL) 132 H (75-99) mg/dL Calcium (8.4-10.2) mg/dL Ionized Calcium Eduardo (4.5-5.3) mg/dL Phosphorus (2.5-4.5) mg/dL Magnesium (1.6-2.3) mg/dL Microbiology - Last 24 Hours (Table) 11/11/17 23:23 Gram Stain - Final Sputum Sputum Culture - Final Assessment and Plan Assessment: Acute ST elevated IN status post cardiac catheterization and stenting to left main artery Acute cardiac arrest. Status post adequate resuscitation Acute kidney injury likely due to ATN Acute respiratory failure post procedure Hypertension and possible cardiogenic shock. 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 Replaced with calcium gluconate elevated lipase and amylase Elevated liver enzymes DVT prophylaxis Plan: Patient be continued on mechanical ventilator. Pressor support and IV fluids. Wean off from [place] support. Pulmonary and cardiology is on board Continue with aspirin, statins and metoprolol. DVT prophylaxis Further recommendations based on the clinical course. Prognosis is guarded. Discussed the family at bedside in detail and all questions were answered. Time with Patient: Greater than 30
--- NOTE | 2017-11-15 22:07 | P.PN ---
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 Patient was apparently playing pickle ball in the same with his family. Patient is leaned on the floor due to acute cardiac arrest. There was a bystander nurse who did CPR on him. EMS was called to the scene and the patient was found in V. fib. Patient had CPR for about 20 minutes and was also shocked. Patient was brought back to sinus rhythm. Patient was given lately taken to [facility] and was found to have ST elevated ND. Patient was immediately transferred to [facility]. Patient had emergent cardiac catheterization and left main artery stent was placed. Currently patient is intubated, mechanical ventilator and sedated. Patient otherwise does follow simple commands and able to open his eyes. Patient is on norepinephrine drip currently. 2-D echocardiography showed his ejection fraction 35%. Chest x-ray showed cardiomegaly and pulmonary vascular congestion. Potassium 6.8 today morning and came down to 4.6 currently. Magnesium 1.4 Patient is being followed by pulmonary and cardiology. 11/12/2017 Patient remained on mechanical ventilator. Patient is still on pressor support. The blood gases showed a pH of 7.3 with a pCO2 of 28 and pO2 77. Chest x-ray showed cardiomegaly and pulmonary vascular congestion and possibly right-sided developing pleural effusion. Patient was given calcium gluconate due to hypocalcemia. Patient has been afebrile otherwise. tube feeding is being initiated. Discussed with the family in detail at bedside. 11/13/2017 Patient remained on mechanical ventilator. And pressor support. Chest x-ray showed consistent with CHF with pulmonary vascular congestion and bilateral pleural effusion. CT of the abdomen and pelvis was done. We showed inflammatory changes in the ileum which is consistent with his neoplasm. Otherwise ileus versus partial bowel obstruction was noted which has been ongoing as per the family. No fever no chills. Patient was started on Zosyn at this time. Pulmonary and cardiology is following. Patient's condition is still critical which has been related to the family. 11/14/2017 Patient is currently on ventilator. Weaning off pressor support. Otherwise they'll function worsening with elevated creatinine level. Nephrology was consulted. Patient was given calcium gluconate. Otherwise patient is awake and is able to respond with eye-movement. No fever no chills. Continued on IV fluids. 11/15/2017 Patient remained on mechanical ventilator. Otherwise renal function slightly worsened with creatinine level III.05. Patient is making good urine output. Patient is off pressor support. Continued on IV fluids. No other acute overnight issues. No fever. No nausea vomiting. Active Medications Al Hydroxide/Mg Hydroxide (Maalox) 30 ml PO Q4HR PRN PRN Reason: Heartburn Albuterol Sulfate (Ventolin Nebulized) 2.5 mg INHALATION RT-TID [facility] Last Admin: 11/13/17 19:34 Dose: 2.5 mg Aspirin (Aspirin) 81 mg PO DAILY [facility] Last Admin: 11/13/17 09:25 Dose: 81 mg Atorvastatin Calcium (Lipitor) 80 mg PO HS [facility] Last Admin: 11/13/17 20:28 Dose: 80 mg Atropine Sulfate (Atropine) 0.5 mg IV ONCE PRN PRN Reason: Symptomatic Bradycardia Chlorhexidine Gluconate (Peridex) 15 ml MUCOUS MEM BID [facility] Last Admin: 11/13/17 20:29 Dose: 15 ml Heparin Sodium (Porcine) (Heparin) 5,000 unit SQ Q8HR JACK Last Admin: 11/13/17 16:29 Dose: 5,000 unit Sodium Chloride (Saline 0.9%) 1,000 mls @ 75 mls/hr IV .[id number] [facility] Last Admin: 11/13/17 09:19 Dose: 75 mls/hr Propofol 1,000 mg/ IV Solution 100 mls @ 0 mls/hr IV .Q0M JACK; Titrate PRN Reason: Protocol Last Admin: 11/13/17 20:28 Dose: 40.18 mcg/kg/min, 23.7 mls/hr Norepinephrine Bitartrate (Levophed-0.9% Nacl 16 Mg/250ml Pmx) 16 mg in 250 mls @ 0 mls/hr IV .Q0M JACK; Titrate PRN Reason: Protocol Last Titration: 11/13/17 19:03 Dose: 8 mcg/min, 7.5 mls/hr Piperacillin/Tazobactam/ (Dextrose 3.375 gm/ IV Solution) 50 mls @ 12.5 mls/hr IVPB Q8HR [facility] Last Admin: 11/13/17 16:32 Dose: 12.5 mls/hr Insulin Aspart (Novolog) 0 unit SQ Q6HR JACK PRN Reason: Protocol Last Admin: 11/13/17 18:35 Dose: Not Given Iohexol (Omnipaque 350 Mg/Ml (For Oral Use)) 25 ml PO Q60M PRN PRN Reason: CT Scan Stop: 11/14/17 09:10 Last Admin: 11/13/17 11:03 Dose: 25 ml Metoprolol Tartrate (Lopressor) 12.5 mg PO BID [facility] Last Admin: 11/13/17 20:17 Dose: Not Given Miscellaneous Information (Magnesium Per Protocol) 1 each MISCELLANE DAILY PRN ; Protocol PRN Reason: Per Protocol Miscellaneous Information (Rx Info: Iv Contrast Was Given) 1 each MISCELLANE DAILY PRN PRN Reason: Per Protocol Stop: 11/15/17 09:10 Morphine Sulfate (Morphine Sulfate (Inj)) 1 mg IVP Q4HR PRN PRN Reason: Pain Last Admin: 11/13/17 02:30 Dose: 1 mg Naloxone HCl (Narcan) 0.2 mg IV Q2M PRN PRN Reason: Opioid Reversal Nitroglycerin (Nitrostat) 0.4 mg SUBLINGUAL Q5M PRN PRN Reason: Chest Pain Pantoprazole Sodium (Protonix) 40 mg IV DAILY [facility] Last Admin: 11/13/17 09:24 Dose: 40 mg Ticagrelor (Brilinta) 90 mg PO BID [facility] Last Admin: 11/13/17 20:28 Dose: 90 mg Zolpidem Tartrate (Ambien) 5 mg PO HS PRN PRN Reason: Insomnia Complete review of systems could not be apparent from the patient. Objective - Vital Signs Vital signs: Vital Signs Temp 98.2 F 11/15/17 19:00 Pulse 79 11/15/17 21:30 Resp 27 H 11/15/17 21:30 BP 95/51 11/15/17 21:30 Pulse Ox 99 11/15/17 21:30 Intake & Output 11/15/17 11/15/17 11/16/17 06:59 18:59 06:59 Intake Total 4929.294 8442.926 263.225 Output Total 1500 1150 180 Balance -302.647 -65.074 83.225 Weight 87.9 kg 87.9 kg Intake: IV 1037.0 954 162 0.9 for pressure 12 54 12 Calcium Gluconate 1,000 100 mg In Sodium Chloride 0.9 % 100 ml @ 100 mls/hr IVPB ONCE ONE Rx#: [id number] Piperacillin-Tazobactam 3 50.0 50 .375 gm In Dextrose/Water 1 50ml.bag @ 12.5 mls/hr IVPB Q8HR [facility] Rx#: [id number] Sodium Chloride 0.9% 1, 975 750 150 000 ml @ 75 mls/hr IV . [id number] [facility] Rx#:[id number] Intake, IV Titration 160.353 70.926 61.225 Amount Norepinephrin 16 mg-0.9% 14.153 Ns Pmx 16 mg In 250 ml @ Titrate IV .Q0M JACK Rx#: [id number] Propofol 1,000 mg In 146.2 70.926 61.225 Empty Bag 1 bag @ Titrate IV .Q0M [facility] Rx#: [id number] Tube Feeding 60 40 Output: Gastric Drainage 400 Urine 1100 1150 180 Other: Voiding Method Indwelling Catheter Indwelling Catheter Indwelling Catheter ABP, PAP, CO, CI - Last Documented Arterial Blood Pressure 123/55 - Exam Patient is lying in the bed comfortably, no acute distress, sedated and intubated HEENT: Normocephalic. Neck is supple. Pupils reactive. Nostrils clear. Oral cavity is moist. Ears reveal no drainage. Neck reveals no JVD, carotid bruits, or thyromegaly. CHEST EXAMINATION: Trachea is central. Symmetrical expansion. Lung martel clear to auscultation and percussion. CARDIAC: Normal S1, S2 with no gallops. No murmurs ABDOMEN: Soft. Tenderness in the epigastric region. Bowel sounds normal. No organomegaly. No abdominal bruits. Extremities: reveal no edema. No clubbing or cyanosis Neurologically sedated and intubated. No focal deficits noted Skin: No rash or skin lesions. Psychiatric: Could not be assessed completely Musculoskeletal: No joint swelling or deformity. Normal range of motion. - Labs CBC & Chem 7: 11/15/17 04:25 11/15/17 04:25 Labs: Abnormal Lab Results - Last 24 Hours (Table) 11/14/17 11/15/17 11/15/17 Range/Units 23:25 04:25 04:25 WBC 10.9 H (3.8-10.6) k/uL RBC 2.87 L (4.30-5.90) m/uL Hgb 8.9 L (13.0-17.5) gm/dL Hct 26.7 L (39.0-53.0) % Neutrophils # 9.4 H (1.3-7.7) k/uL Lymphocytes # 0.5 L (1.0-4.8) k/uL ABG pCO2 (35-45) mmHg ABG HCO3 (21-25) mmol/L ABG Total CO2 (19-24) mmol/L ABG O2 Saturation (94-97) % Chloride (98-107) mmol/L Carbon Dioxide (22-30) mmol/L BUN (9-20) mg/dL Creatinine (0.66-1.25) mg/dL Glucose (74-99) mg/dL POC Glucose (mg/dL) 120 H (75-99) mg/dL Calcium (8.4-10.2) mg/dL Ionized Calcium Eduardo (4.5-5.3) mg/dL Phosphorus (2.5-4.5) mg/dL Magnesium (1.6-2.3) mg/dL TSH (0.465-4.680) mIU/L PTH Intact 318.6 H (14.0-72.0) pg/mL 11/15/17 11/15/17 11/15/17 Range/Units 04:25 04:35 12:11 WBC (3.8-10.6) k/uL RBC (4.30-5.90) m/uL Hgb (13.0-17.5) gm/dL Hct (39.0-53.0) % Neutrophils # (1.3-7.7) k/uL Lymphocytes # (1.0-4.8) k/uL ABG pCO2 29 L (35-45) mmHg ABG HCO3 17 L (21-25) mmol/L ABG Total CO2 18 L (19-24) mmol/L ABG O2 Saturation 97.2 H (94-97) % Chloride 114 H (98-107) mmol/L Carbon Dioxide 18 L (22-30) mmol/L BUN 59 H (9-20) mg/dL Creatinine 3.05 H (0.66-1.25) mg/dL Glucose 105 H (74-99) mg/dL POC Glucose (mg/dL) 128 H (75-99) mg/dL Calcium 6.2 L* (8.4-10.2) mg/dL Ionized Calcium Eduardo 4.0 L (4.5-5.3) mg/dL Phosphorus 4.9 H (2.5-4.5) mg/dL Magnesium 3.0 H (1.6-2.3) mg/dL TSH 0.114 L (0.465-4.680) mIU/L PTH Intact (14.0-72.0) pg/mL Assessment and Plan Assessment: Acute ST elevated ND status post cardiac catheterization and stenting to left main artery Acute cardiac arrest. Status post adequate resuscitation Acute kidney injury likely due to ATN Low TSH. Possible sick euthyroid. check free T4 level. Acute respiratory failure post procedure Hypertension and possible cardiogenic shock. 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 Replaced with calcium gluconate elevated lipase and amylase Elevated liver enzymes DVT prophylaxis Plan: Patient be continued on mechanical ventilator. Pressor support and IV fluids. Patient is off pressor support. Pulmonary and cardiology is on board Continue with aspirin, statins and metoprolol. DVT prophylaxis Further recommendations based on the clinical course. Prognosis is guarded. Discussed the family at bedside in detail and all questions were answered. Time with Patient: Greater than 30
--- NOTE | 2017-11-15 22:24 | PN ---
PROGRESS NOTE Patient is seen for followup for acute kidney injury. Currently patient is awake. There are plans for extubation. He is maintained on normal saline at 75 mL/hour. Patient has good urine output. On examination this morning, blood pressure was 113/59, heart rate about 80 per minute. Patient is afebrile. EXAMINATION OF THE HEART: S1, S2. EXAMINATION OF LUNGS: Decreased breath sounds at the bases. ABDOMEN: Soft. Examination of lower extremities shows edema trace bilaterally. [employer] exam is grossly intact. Labs show sodium 142, potassium 4.2, chloride 114. CO2 is 18, BUN 59, serum creatinine 3.05, hemoglobin 8.9 g/dL. ASSESSMENT: 1. Acute kidney injury, acute tubular necrosis, currently nonoliguric with good urine output. Serum creatinine is higher today. Patient is not maintained on any nephrotoxic medications. Continue with the IV fluids. Chest x-ray from today did show bilateral pleural effusions with consideration for possible CHF. However, clinically at this time we can continue with the IV fluids. If patient is extubated, we will likely give him a dose of Lasix and decrease the IV fluids. 2. Acute ST-elevation myocardial infarction, status post cardiac catheterization and angioplasty and stenting. 3. Status post cardiac arrest. 4. Ventilator-dependent respiratory failure, status post cardiac arrest. Consider mildly diuresing patient if unable to come off the vent and depending on his repeat chest x-ray in a.m. 5. Metabolic acidosis, currently stable. 6. Anemia. No active bleeding noted. Check iron studies. 7. Hypocalcemia with significantly elevated PTH levels. Magnesium is not low. Check 25-hydroxy vitamin D levels and continue calcium supplementation. PLAN: Repeat chest x-ray in a.m. Reevaluate volume status in a.m. Check 25-hydroxy vitamin D levels and check iron profile if not done. MMODL / IJN: [id number] /
[2017-11-16] MEDS: PROPOFOL 1,000 MG in EMPTY BAG 1 BAG IV SCH ×2 (03:37→12:39)
[2017-11-16 04:39] LABS: Basophils % (A) 0 %; Eosinophils # (A) 0.2 k/uL (0-0.7); Eosinophils % (A) 2 %; HCT 27.5 % (39.0-53.0); HGB 9.5 gm/dL (13.0-17.5); Lymphocytes # (A) 0.6 k/uL (1.0-4.8); Lymphocytes % (A) 5 %; MCHC 34.5 g/dL (31.0-37.0); MCV 92.8 fL (80.0-100.0); Mean Platelet Volume 8.4; Monocytes # (A) 0.5 k/uL (0-1.0); Monocytes % (A) 4 %; Neutrophils # (A) 9.8 k/uL (1.3-7.7); Neutrophils % (A) 87 %; Platelet Count 296 k/uL (150-450); RBC 2.96 m/uL (4.30-5.90); WBC 11.3 k/uL (3.8-10.6)
[2017-11-16 04:54] LABS: Ionized Calcium 4.2 mg/dL (4.5-5.3)
[2017-11-16 05:13] LABS: Potassium 3.9 mmol/L (3.5-5.1)
[2017-11-16 05:25] LABS: T4, Free (Free Thyroxine) 0.68 ng/dL (0.78-2.19)
[2017-11-16 05:30] LABS: Calcium 6.4 mg/dL (8.4-10.2)
[2017-11-16] MEDS ORDERED: Potassium Replacement Protocol 1 EACH MISC MISCELLANE PRN (05:40)
[2017-11-16] MEDS ORDERED: CALCIUM GLUCONATE 1,000 MG in SODIUM CHLORIDE 0.9% 100 ML IVPB ONE (05:40)
[2017-11-16] MEDS ORDERED: POTASSIUM BICARBONATE/CIT AC 20 MEQ TABLET.EFF NG-TUBE SCH (06:00)
[2017-11-16] MEDS: ALBUTEROL NEBULIZED 2.5 MG/3 ML INHALATION SCH ×3 (07:14→19:20)
[2017-11-16] MEDS: PANTOPRAZOLE 40 MG/10 ML VIAL IV SCH (08:11)
[2017-11-16] MEDS: METOPROLOL TARTRATE 12.5 MG TAB PO SCH ×2 (08:11→20:09)
[2017-11-16] MEDS: TICAGRELOR 90 MG TAB PO SCH ×2 (08:11→20:09)
[2017-11-16] MEDS: HEPARIN SODIUM,PORCINE 5,000 UNIT/ML 1 ML VIAL SQ SCH ×3 (08:11→23:26)
[2017-11-16] MEDS: CHLORHEXIDINE GLUCONATE 15 ML CUP MUCOUS MEM SCH ×2 (08:11→20:09)
[2017-11-16] MEDS: PIPERACILLIN-TAZOBACTAM 3.375 GM in DEXTROSE/WATER 1 50ML.BAG IVPB SCH ×3 (08:12→23:26)
[2017-11-16 08:13] LABS: ABG Base Excess -8.2 mmol/L; ABG HCO3 17 mmol/L (21-25); ABG Oxygen Saturation 96.9 % (94-97); ABG PCO2 29 mmHg (35-45); ABG PH 7.38 (7.35-7.45); ABG PO2 90 mmHg (83-108); ABG TCO2 18 mmol/L (19-24)
[2017-11-16] MEDS: ASPIRIN 81 MG PO SCH (08:14)
--- NOTE | 2017-11-16 10:10 | XR ---
EXAMINATION TYPE: XR chest 1V portable DATE OF EXAM: 11/16/2017 COMPARISON: 11/15/2017 HISTORY: Tube placement TECHNIQUE: Single frontal view of the chest is obtained. FINDINGS: ET and NG tube stable. Left-sided central line stable. Bilateral consolidation and pleural effusion stable. No pneumothorax. Heart size enlarged. IMPRESSION: Stable bilateral infiltrate and pleural effusion underlying CHF not excluded correlate f or pneumonia.
--- NOTE | 2017-11-16 12:16 | P.PN ---
Subjective Progress Note Date: 11/16/17 Principal diagnosis: Acute cardiac arrest secondary to acute ST segment elevation MN. A pleasant 57-year-old male patient who lives in [place], [place] and the patient was playing pickle ball in the [facility] area. The patient acutely arrested and he was into cardiac arrest. There was a bystander nurse who did CPR on him. EMS was called to the scene and the patient was found in V. fib. The patient was shocked and the patient was given a dose of epinephrine. Subsequently went into asystole. Following that, CPR was continued and the patient went into V. fib, shocked again and then went into normal sinus rhythm. EKG showed ST segment elevation and the patient was taken to [facility] and following that the patient was brought in to the Risk Manager [facility]. Emergent cardiac catheterization was done and the patient was found to have a left main lesion that was stented. The stent insertion with successful. The patient was in already intubated by EMS on the scene. The patient was kept intubated. The patient was moved to the ICU for further care. Overnight, the patient was sedated with Diprivan. He apparently was following some simple commands while given a sedation holiday. This morning, he is on 30 mics of levo fed for blood pressure support. Echocardiogram was done and showed ejection fraction of 35%. No other significant abnormalities noted and this is a preliminary report. Urine output is in order of 25-30 mL an hour. Overnight his urine output dropped and a given a bolus of 1 L and he received a total of 2.5 L fluid bolus. He is current maintenance fluid is at 75 mL of normal saline. He is on a mechanical ventilator on assist control mode at the rate of 20, tidal volume of 600, FiO2 of 50% and a PEEP of 5. Morning blood gases showed a pH of 7.34 with a pCO2 of 28 and pO2 167. Chest x- ray showing some cardiomegaly and some pulmonary vessel congestion. ET tube is in a good location. No other densities seen in the left lower lobe costophrenic angle area. The patient's creatinine is up to 1.4. Today's potassium is up to 6.8. This needs to be repeated. No EKG changes related to this high potassium level. He is afebrile. No aspiration was noted. He remains on 30 mics of norepinephrine infusion for now. Pulses in lower extremities are weak yet obtainable by Doppler. His legs are cold and clammy still. No significant secretions from his orotracheal tube. He is known to have carcinoid tumor and apparently his been on maintenance hormonal treatment. He is seeing a oncologist out of [facility]. The patient also has history of lymphoma. The details of these malignancies are not known to us. The origin of the carcinoid tumor is not clear to me at this point. Further information is to be obtained on this patient. On 11/12 I'm seeing this patient for a follow-up. The patient remains intubated on a mechanical ventilator and the patient is post acute STEMI in acute cardiac arrest. I did not extubated the patient yesterday as the patient was still hypo-tensive and hypoperfusing and the patient was having diminished pulses in lower extremities and he looked cold and clammy and he had ongoing electrolyte disturbance with hypokalemia. He was given IV fluids and the neck fluid balance over the past 24 hours is +2.3 L. Currently is on 75 mL an hour of normal saline. Pulses are palpable in lower oximetry is bilaterally and the patient is much more warm. He is still however on pressors and currently norepinephrine infusion is running at 14 mics. His urine output dropped this morning and he is producing around 25-30 mL an hour of urine output. The patient has the levo fed infusion running through his right upper extremity. He remains on a mechanical ventilator. His assist-control mode at the rate of 20, tidal volume of 600, FiO2 of 40% and a PEEP of 5. The blood gases showed a pH of 7.3 with a pCO2 of 28 and pO2 77. Chest x-ray showing cardiomegaly. ET tube is in a good location. There is development of four-vessel congestion and possibly a right-sided pleural effusion also developing. He is afebrile. He is having no significant secretions with orotracheal tube. His white cell count has dropped and I doubt an underlying aspiration pneumonia although this is not completely excluded. I think his hypotension and shock is probably cardiogenic following his cardiac arrest. In addition, the patient's ionized calcium today's at 3.8 and the patient was given a total of 1 g of calcium gluconate. His troponin peaked at 26.4. This morning he is sedated and is calm and comfortable and synchronous with the mechanical ventilator. Orogastric and orotracheal tube are both in place. The patient is still nothing by mouth. On 11/13/2017 I'm seeing this patient for a follow-up. Patient remains intubated on a mechanical ventilator. He is sedated Diprivan is calm and comfortable. He withdraws to painful stimulation. A repeat echo cardiac exam was done today that showed a preserved LV function. Note that post MN the patient's ejection fraction was impaired with ejection fraction of 35-40%. Based on the hard tile setter apprentice destination, the ejection fraction is a furthermore improved. I did add milrinone yesterday on him which I am willing to discontinue based on these findings. His CVP is around 7. He is in a positive fluid balance in order of 5 L since he came in to the intensive care unit. He has adequate pulses in all 4 extremities bilaterally. His chest x-ray showing diffuse bilateral pulmonary infiltrates which seems to be more so of a acute lung injury/aspiration-type of picture/non-cardiogenic pulmonary edema. The patient is on assist control mode, at the rate of 20, tidal volume of 600, FiO2 of 40% and PEEP of 5. The morning blood gas showed a pH of 7.38 with a pCO2 of 29 and pO2 of 85. The patient is on normal state rate of 75 mL an hour. Urine output is between 25-30 mL an hour. The patient's creatinine was up to 2 on today's evaluation. He did have a 1 spike of temperature and he is currently covered with IV Zosyn. White cell count is not elevated. No secretions with orotracheal tube. The patient had some difficulties tolerating tube feeds. Abdomen on examination was felt to be quite tender. Calcium level has dropped progressively. We'll need immediate fed femoral the abdomen addition to the liver function tests and pancreatic enzymes. Calcium level will be supplemented. On 11/14/2017 I'm seeing this patient for a follow-up. As mentioned earlier the patient is post cardiac arrest and the patient had a acute cardiac intervention and stenting of a left main for an acute cardiac arrest, acute ST segment elevation myocardial infarction. The patient fortunately does not show signs of hypoxic encephalopathy. Yet there is another complications preventing him from weaning. Initially was quite hypotensive which was thought to be of a cardiogenic in nature. Subsequent echocardiogram showed improvement in the LV function and probably had this done the myocardium which is improving. Hemodynamically improved and is at the point where norepinephrine infusion has been drop down to a few mics only. He subsequently developed an acute kidney injury, nonoliguric, and the creatinine is up to 2.5. This is expected knowing that the patient was subjected to a cardiac arrest, hypotension, pressors and contrast material. He also had potentially an aspiration pneumonia. He developed bilateral lower lobe consolidation/atelectasis and effusions. He is currently on IV Zosyn. The patient got diuresed any procedures adequate amount of urine output over the past 24 hours. He is still oxygenating and ventilating without any major difficulties. He also developed a abdominal distention. CAT scan of the abdomen was done and there is a cecal mass probably his known carcinoid mass. In addition, there is small bowel ileus/ obstruction for which the tube feeds were placed on hold and since then the patient has drained approximately 800 mL of gastric greenish material and his output is still considerably high. Liver function test are within normal. Amylase and lipase are not elevated. The patient also is having excessive rest or secretions which are being suctioned out. He is not ready for further weaning for now. Is afebrile. He is sedated with propofol. He is still on the same vent setting which includes an assist-control of 20, FiO2 of 60% Patient was reevaluated today on 11/15/2017, patient remains on mechanical ventilation, his ventilator settings are FiO2 of 40% tidal volume of 500 assist control rate of 20 and PEEP of 5. ABG showed a pO2 of 105 pCO2 of 29 pH of 7.37 CBC and basic metabolic profile are relatively normal however his BUN is 59 creatinine is 3.05. Bicarb is 18. Patient continues to have fair amount of secretions according to the nurses taking care of him, his urine output is excellent, remains on IV fluid at a relatively high rate. Chest x-ray showed stable bilateral infiltrates and possibly pleural effusions. Suspect the patient may have had an aspiration pneumonia involving the right lower lobe. Hemodynamically, the patient seems to be stable, neurologically he was noted to be functioning well based on the note by Dr. Moise above. Apparently the patient did not sustain any significant hypoxic encephalopathy. His echocardiogram showed improvement in LV function. His kidney functioning seems to be a bit concerning, being closely followed by nephrology. I believe the patient must have sustained acute tubular necrosis and acute kidney injury. Remains on antibiotics for presumptive aspiration. His CT of the abdomen was reviewed, there is a cecal mass possibly his known carcinoid mass. His feeding was placed on hold, but considering the patient had 2 bowel movements over the last 24 hours, I will resume tube feeding. Secretions are still present but not as bad as reported by Dr. Moise yesterday. Hence I plan to give the patient a weaning trial, sedation holiday, and possibly a spontaneous breathing trial. Reevaluated today on 11/16/2017, remains on mechanical ventilation, sedated, on propofol drip, ventilator settings are the same as noted above. ABG showed a pO2 of 90 pCO2 of 29 pH of 7.38. Renal profile is slightly better today with a creatinine down to 2.90 BUN is 65. Patient remains a bit acidotic with a bicarb of 17. Endotracheal tube secretions seem to be much less today. Chest x -ray is showing improvement in his by basilar infiltrates and pleural effusions. Hemodynamically the patient remains stable. Neurologically patient is to be awakened today, he will be given a sedation holiday, and possibly a spontaneous breathing trial. All labs were reviewed, patient remains on enteral feeding. is at bedside, and she was updated on his condition. Objective - Vital Signs Vital signs: Vital Signs Temp 98.4 F 11/16/17 08:00 Pulse 84 11/16/17 11:00 Resp 30 H 11/16/17 11:00 BP 111/56 11/16/17 11:00 Pulse Ox 99 11/16/17 11:00 Intake & Output 11/15/17 11/16/17 11/16/17 18:59 06:59 18:59 Intake Total 4879.093 2963.557 424 Output Total 1150 1265 355 Balance -65.074 626.557 69 Weight 87.9 kg 86.1 kg Intake: IV 954 1026 324 0.9 for pressure 54 51 24 Calcium Gluconate 1,000 100 mg In Sodium Chloride 0.9 % 100 ml @ 100 mls/hr IVPB ONCE ONE Rx#: [id number] Piperacillin-Tazobactam 3 50 .375 gm In Dextrose/Water 1 50ml.bag @ 12.5 mls/hr IVPB Q8HR [facility] Rx#: [id number] Sodium Chloride 0.9% 1, 750 975 300 000 ml @ 75 mls/hr IV . [id number] JACK Rx#:[id number] Intake, IV Titration 70.926 195.557 Amount Propofol 1,000 mg In 70.926 195.557 Empty Bag 1 bag @ Titrate IV .Q0M JACK Rx#: [id number] Tube Feeding 60 670 100 Output: Urine 1150 1265 355 Other: Voiding Method Indwelling Catheter Indwelling Catheter Indwelling Catheter ABP, PAP, CO, CI - Last Documented Arterial Blood Pressure 134/60 - Exam Physical Exam: Revealed a 57-year-old white male on mechanical ventilation, in no distress. Presently on propofol. Head: Atraumatic, normocephalic. HEENT:[Neck is supple.] [No neck masses.] [No thyromegaly.] [No JVD.] Endotracheal tube seems to be intact. Moist mucous membranes. Throat is clear. Chest: [Minimal fine crackles at the right base, no rhonchi no wheezes.] Cardiac Exam: [Normal S1 and S2, no S3 gallop, no murmur.] Abdomen: [Soft, nontender, no megaly, no rebound, no guarding, normal bowel sounds.] Extremities: [No clubbing, no edema, no cyanosis.] Neurological Exam: Cannot be assessed, patient is presently on propofol drip. Psychiatric: Cannot be assessed patient is sedated Musculoskeletal: Cannot be assessed. - Labs CBC & Chem 7: 11/16/17 04:15 11/16/17 04:15 Labs: Abnormal Lab Results - Last 24 Hours (Table) 11/15/17 11/15/17 11/15/17 Range/Units 04:25 04:25 12:11 WBC (3.8-10.6) k/uL RBC (4.30-5.90) m/uL Hgb (13.0-17.5) gm/dL Hct (39.0-53.0) % Neutrophils # (1.3-7.7) k/uL Lymphocytes # (1.0-4.8) k/uL ABG pCO2 (35-45) mmHg ABG HCO3 (21-25) mmol/L ABG Total CO2 (19-24) mmol/L Chloride (98-107) mmol/L Carbon Dioxide (22-30) mmol/L BUN (9-20) mg/dL Creatinine (0.66-1.25) mg/dL Glucose (74-99) mg/dL POC Glucose (mg/dL) 128 H (75-99) mg/dL Calcium (8.4-10.2) mg/dL Ionized Calcium Eduardo (4.5-5.3) mg/dL Vitamin D 25-Hydroxy 15.8 L (30.0-100.0) ng/mL Free T4 (0.78-2.19) ng/dL PTH Intact 318.6 H (14.0-72.0) pg/mL 11/16/17 11/16/17 11/16/17 Range/Units 04:15 04:15 08:10 WBC 11.3 H (3.8-10.6) k/uL RBC 2.96 L (4.30-5.90) m/uL Hgb 9.5 L (13.0-17.5) gm/dL Hct 27.5 L (39.0-53.0) % Neutrophils # 9.8 H (1.3-7.7) k/uL Lymphocytes # 0.6 L (1.0-4.8) k/uL ABG pCO2 29 L (35-45) mmHg ABG HCO3 17 L (21-25) mmol/L ABG Total CO2 18 L (19-24) mmol/L Chloride 117 H (98-107) mmol/L Carbon Dioxide 17 L (22-30) mmol/L BUN 65 H (9-20) mg/dL Creatinine 2.90 H (0.66-1.25) mg/dL Glucose 151 H (74-99) mg/dL POC Glucose (mg/dL) (75-99) mg/dL Calcium 6.4 L* (8.4-10.2) mg/dL Ionized Calcium Eduardo 4.2 L (4.5-5.3) mg/dL Vitamin D 25-Hydroxy (30.0-100.0) ng/mL Free T4 0.68 L (0.78-2.19) ng/dL PTH Intact (14.0-72.0) pg/mL Assessment and Plan Assessment: [address] segment elevation myocardial infarction secondary to a tight left main lesion him a status post successful angioplasty and stenting 2 acute cardiac arrest secondary to above, resuscitated adequately 3 acute hypoxic respiratory failure secondary to above 4 acute hypotension, post cardiac arrest. Obviously echocardiogram showing a preserved LV function and there is no valvular disruption and that is no clear- cut cardiogenic component. No evidence of any stunned myocardium on subsequent echocardiogram. 5 acute kidney injury secondary acute cardiac arrest, hypotension and possibly contrast material. The patient is nonoliguric. Creatinine is up to 2.9, and BUN is 65 6 diffuse bilateral pulmonary infiltrates/effusion. Consider noncardiogenic pulmonary edema. Consider acute lung injury secondary aspiration/cardiac arrest. Patient is still oxygenating and ventilating well. The patient is still having some endotracheal tube secretions. But improved. 7 history of carcinoid tumor the patient had a follow-up CAT scan of the abdomen that showed abnormal cecum and severe wall thickening with primary nap as could be present as the patient has known history of carcinoid. The patient also has a component of small bowel obstruction/ileus. Seems to be resolving today. NG tube is in place. Bowel sounds are becoming active, hence we'll proceed with feeding again today. 8 history of lymphoma 9 hypocalcemia, recurrent, 10 non-anion gap metabolic acidosis Plan: Continue IV fluids at 75 mL/h, continue to monitor renal status closely, discontinue propofol, assess mental status, consider spontaneous breathing trial today. Continue empiric antibiotics Zosyn for presumptive aspiration pneumonia involving the right lower lobe. Continue to monitor renal functioning. Restart feeding via nasogastric tube. We'll continue to follow closely. Critical care time is 40 minutes, discussed his condition with at bedside. Time with Patient: Greater than 30
[2017-11-16] MEDS: SODIUM CHLORIDE 0.9% 1,000 ML IV SCH ×4 (12:38→20:12)
[2017-11-16] MEDS: ATORVASTATIN 80 MG TAB PO SCH (20:09)
[2017-11-16] MEDS: ERGOCALCIFEROL 50,000 UNIT CAP PO SCH (20:10)
--- NOTE | 2017-11-16 20:16 | PN ---
PROGRESS NOTE Patient is seen for followup for acute kidney injury secondary to ischemic acute tubular necrosis currently nonoliguric with good urine output. Patient remains on IV fluids. His serum creatinine is about the same as yesterday at 2.9 from 3.0 from yesterday. The patient could not be extubated yesterday. He is on weaning trials again today. EXAMINATION: Blood pressure is 136/66, heart rate 98 per minute. He is afebrile. Examination of the heart: S1, S2. Examination lungs: Bilateral breath sounds are heard. Abdomen is soft, nontender. Examination lower extremities shows edema 1+ mainly in the ankles. LAB: Show sodium 145, potassium 3.9, chloride 117, CO2 17, BUN 65, serum creatinine 2.9, hemoglobin 9.5 g/dL. UA shows 1+ protein, moderate blood. ASSESSMENT: 1. Acute kidney injury, acute tubular necrosis, currently nonoliguric secondary to contrast nephropathy from recent coronary stenting as well as hypotension and hypoperfusion. Cardiac catheterization was on 11/10/2017. I will continue with the IV fluids but decrease the rate to about 50 mL an hour. 2. Status post cardiac arrest. 3. Acute ST-elevation [place] status post coronary stent placement on 11/10/2017. 4. History of carcinoid tumor. PLAN: Decrease IV fluids. Repeat labs in a.m. Continue to avoid nephrotoxic agents. MMODL / IJN: [id number] /
[2017-11-17] MEDS: PROPOFOL 1,000 MG in EMPTY BAG 1 BAG IV SCH ×4 (00:34→18:24)
[2017-11-17] MEDS: MORPHINE SULFATE 4 MG/ML SYRINGE IVP PRN (03:48)
[2017-11-17 05:32] LABS: Basophils # (A) 0.1 k/uL (0-0.2); Basophils % (A) 0 %; Eosinophils # (A) 0.3 k/uL (0-0.7); Eosinophils % (A) 2 %; HCT 28.3 % (39.0-53.0); HGB 9.9 gm/dL (13.0-17.5); Lymphocytes # (A) 0.8 k/uL (1.0-4.8); Lymphocytes % (A) 5 %; MCH 32.3 pg (25.0-35.0); MCV 92.1 fL (80.0-100.0); Mean Platelet Volume 8.6; Monocytes # (A) 0.6 k/uL (0-1.0); Monocytes % (A) 3 %; Neutrophils # (A) 14.9 k/uL (1.3-7.7); Neutrophils % (A) 88 %; Platelet Count 385 k/uL (150-450); RBC 3.07 m/uL (4.30-5.90); RDW 14.4 % (11.5-15.5); WBC 16.9 k/uL (3.8-10.6)
[2017-11-17 05:53] LABS: Ionized Calcium 4.4 mg/dL (4.5-5.3)
[2017-11-17 06:03] LABS: Calcium 6.9 mg/dL (8.4-10.2); Magnesium 3.1 mg/dL (1.6-2.3); Phosphorus 4.6 mg/dL (2.5-4.5); Potassium 4.1 mmol/L (3.5-5.1)
[2017-11-17 07:39] LABS: ABG Base Excess -8.8 mmol/L; ABG HCO3 18 mmol/L (21-25); ABG Oxygen Saturation 95.5 % (94-97); ABG PCO2 35 mmHg (35-45); ABG PH 7.31 (7.35-7.45); ABG PO2 87 mmHg (83-108); ABG TCO2 19 mmol/L (19-24)
[2017-11-17] MEDS: TICAGRELOR 90 MG TAB PO SCH ×2 (08:28→20:43)
[2017-11-17] MEDS: PIPERACILLIN-TAZOBACTAM 3.375 GM in DEXTROSE/WATER 1 50ML.BAG IVPB SCH ×2 (08:28→16:19)
[2017-11-17] MEDS: PANTOPRAZOLE 40 MG/10 ML VIAL IV SCH (08:28)
[2017-11-17] MEDS: CHLORHEXIDINE GLUCONATE 15 ML CUP MUCOUS MEM SCH ×2 (08:28→20:42)
[2017-11-17] MEDS: HEPARIN SODIUM,PORCINE 5,000 UNIT/ML 1 ML VIAL SQ SCH ×2 (08:28→16:04)
[2017-11-17] MEDS: ASPIRIN 81 MG PO SCH (08:29)
--- NOTE | 2017-11-17 08:29 | XR ---
EXAMINATION TYPE: XR chest 1V portable DATE OF EXAM: 11/17/2017 COMPARISON: 11/16/2017 HISTORY: Tube placement TECHNIQUE: Single frontal view of the chest is obtained. FINDINGS: ET and NG tube stable. ET tube approximately 2 cm above jasbir. Left-sided central line st able. Bilateral consolidation and pleural effusion stable. No pneumothorax. Heart size enlarged. IMPRESSION: Stable bilateral infiltrate and pleural effusion underlying CHF not excluded correlate f or pneumonia.
[2017-11-17] MEDS: ALBUTEROL NEBULIZED 2.5 MG/3 ML INHALATION SCH ×3 (08:39→19:07)
[2017-11-17] MEDS: METOPROLOL TARTRATE 12.5 MG TAB PO SCH ×2 (09:24→20:42)
[2017-11-17] MEDS ORDERED: DEXTROSE 5% IN WATER 1,000 ML IV ONE (09:41)
[2017-11-17] MEDS ORDERED: LORazepam 2 MG/ML INJ IV STA (10:24)
--- NOTE | 2017-11-17 11:38 | PN ---
PROGRESS NOTE Patient is seen for followup for acute kidney injury. He remains on the vent. Renal function is slightly improved with creatinine going down to 2.68. The urine output has been about 100 to 75 mL an hour. Patient was maintained on half-normal saline. His IV fluids have been switched to D5W for the high sodium. PHYSICAL EXAMINATION: On examination, blood pressure is 116/65, heart rate 87 per minute. Patient is afebrile. He is not following commands. Sedation is decreased. EXAMINATION OF THE HEART: S1, S2. EXAMINATION OF THE LUNGS: Bilateral breath sounds are heard. Abdomen is soft, nontender, distended. Examination of lower extremities shows edema 2+ bilaterally. LABS: Labs show sodium 149, potassium 4.1, chloride 122, BUN 64, serum creatinine 2.68. Hemoglobin 9.9 g/dL. ASSESSMENT: 1. Acute kidney injury, acute tubular necrosis secondary to contrast nephropathy and hypoperfusion, currently improved. Patient is not requiring vasopressors anymore. Once his sodium improves, we can try diuresis. 2. Ventilator-dependent respiratory failure. 3. Status post cardiac arrest. 4. Status post acute myocardial infarction, status post coronary stenting on 11/10/[address] Alan. 5. Cardiomyopathy, ejection fraction at about 45%. 6. Mild volume overload with third spacing and interstitial edema. Chest x-ray showing bilateral infiltrates and pleural effusions. PLAN: Agree with D5W. If the patient is back on his tube feeding, I will also increase his free water down the feeding tube. Repeat labs in a.m. Continue to avoid nephrotoxic agents. MMODL / IJN: [id number] /
--- NOTE | 2017-11-17 12:03 | P.PN ---
Subjective Progress Note Date: 11/17/17 Principal diagnosis: Acute cardiac arrest secondary to acute ST segment elevation CO. A pleasant 57-year-old male patient who lives in [place], [place] and the patient was playing pickle ball in the [facility] area. The patient acutely arrested and he was into cardiac arrest. There was a bystander nurse who did CPR on him. EMS was called to the scene and the patient was found in V. fib. The patient was shocked and the patient was given a dose of epinephrine. Subsequently went into asystole. Following that, CPR was continued and the patient went into V. fib, shocked again and then went into normal sinus rhythm. EKG showed ST segment elevation and the patient was taken to [facility] and following that the patient was brought in to the [facility]. Emergent cardiac catheterization was done and the patient was found to have a left main lesion that was stented. The stent insertion with successful. The patient was in already intubated by EMS on the scene. The patient was kept intubated. The patient was moved to the ICU for further care. Overnight, the patient was sedated with Diprivan. He apparently was following some simple commands while given a sedation holiday. This morning, he is on 30 mics of levo fed for blood pressure support. Echocardiogram was done and showed ejection fraction of 35%. No other significant abnormalities noted and this is a preliminary report. Urine output is in order of 25-30 mL an hour. Overnight his urine output dropped and a given a bolus of 1 L and he received a total of 2.5 L fluid bolus. He is current maintenance fluid is at 75 mL of normal saline. He is on a mechanical ventilator on assist control mode at the rate of 20, tidal volume of 600, FiO2 of 50% and a PEEP of 5. Morning blood gases showed a pH of 7.34 with a pCO2 of 28 and pO2 167. Chest x- ray showing some cardiomegaly and some pulmonary vessel congestion. ET tube is in a good location. No other densities seen in the left lower lobe costophrenic angle area. The patient's creatinine is up to 1.4. Today's potassium is up to 6.8. This needs to be repeated. No EKG changes related to this high potassium level. He is afebrile. No aspiration was noted. He remains on 30 mics of norepinephrine infusion for now. Pulses in lower extremities are weak yet obtainable by Doppler. His legs are cold and clammy still. No significant secretions from his orotracheal tube. He is known to have carcinoid tumor and apparently his been on maintenance hormonal treatment. He is seeing a oncologist out of [facility]. The patient also has history of lymphoma. The details of these malignancies are not known to us. The origin of the carcinoid tumor is not clear to me at this point. Further information is to be obtained on this patient. On 11/12 I'm seeing this patient for a follow-up. The patient remains intubated on a mechanical ventilator and the patient is post acute STEMI in acute cardiac arrest. I did not extubated the patient yesterday as the patient was still hypo-tensive and hypoperfusing and the patient was having diminished pulses in lower extremities and he looked cold and clammy and he had ongoing electrolyte disturbance with hypokalemia. He was given IV fluids and the neck fluid balance over the past 24 hours is +2.3 L. Currently is on 75 mL an hour of normal saline. Pulses are palpable in lower oximetry is bilaterally and the patient is much more warm. He is still however on pressors and currently norepinephrine infusion is running at 14 mics. His urine output dropped this morning and he is producing around 25-30 mL an hour of urine output. The patient has the levo fed infusion running through his right upper extremity. He remains on a mechanical ventilator. His assist-control mode at the rate of 20, tidal volume of 600, FiO2 of 40% and a PEEP of 5. The blood gases showed a pH of 7.3 with a pCO2 of 28 and pO2 77. Chest x-ray showing cardiomegaly. ET tube is in a good location. There is development of four-vessel congestion and possibly a right-sided pleural effusion also developing. He is afebrile. He is having no significant secretions with orotracheal tube. His white cell count has dropped and I doubt an underlying aspiration pneumonia although this is not completely excluded. I think his hypotension and shock is probably cardiogenic following his cardiac arrest. In addition, the patient's ionized calcium today's at 3.8 and the patient was given a total of 1 g of calcium gluconate. His troponin peaked at 26.4. This morning he is sedated and is calm and comfortable and synchronous with the mechanical ventilator. Orogastric and orotracheal tube are both in place. The patient is still nothing by mouth. On 11/13/2017 I'm seeing this patient for a follow-up. Patient remains intubated on a mechanical ventilator. He is sedated Diprivan is calm and comfortable. He withdraws to painful stimulation. A repeat echo cardiac exam was done today that showed a preserved LV function. Note that post CO the patient's ejection fraction was impaired with ejection fraction of 35-40%. Based on the termite control servicer destination, the ejection fraction is a furthermore improved. I did add milrinone yesterday on him which I am willing to discontinue based on these findings. His CVP is around 7. He is in a positive fluid balance in order of 5 L since he came in to the intensive care unit. He has adequate pulses in all 4 extremities bilaterally. His chest x-ray showing diffuse bilateral pulmonary infiltrates which seems to be more so of a acute lung injury/aspiration-type of picture/non-cardiogenic pulmonary edema. The patient is on assist control mode, at the rate of 20, tidal volume of 600, FiO2 of 40% and PEEP of 5. The morning blood gas showed a pH of 7.38 with a pCO2 of 29 and pO2 of 85. The patient is on normal state rate of 75 mL an hour. Urine output is between 25-30 mL an hour. The patient's creatinine was up to 2 on today's evaluation. He did have a 1 spike of temperature and he is currently covered with IV Zosyn. White cell count is not elevated. No secretions with orotracheal tube. The patient had some difficulties tolerating tube feeds. Abdomen on examination was felt to be quite tender. Calcium level has dropped progressively. We'll need immediate fed femoral the abdomen addition to the liver function tests and pancreatic enzymes. Calcium level will be supplemented. On 11/14/2017 I'm seeing this patient for a follow-up. As mentioned earlier the patient is post cardiac arrest and the patient had a acute cardiac intervention and stenting of a left main for an acute cardiac arrest, acute ST segment elevation myocardial infarction. The patient fortunately does not show signs of hypoxic encephalopathy. Yet there is another complications preventing him from weaning. Initially was quite hypotensive which was thought to be of a cardiogenic in nature. Subsequent echocardiogram showed improvement in the LV function and probably had this done the myocardium which is improving. Hemodynamically improved and is at the point where norepinephrine infusion has been drop down to a few mics only. He subsequently developed an acute kidney injury, nonoliguric, and the creatinine is up to 2.5. This is expected knowing that the patient was subjected to a cardiac arrest, hypotension, pressors and contrast material. He also had potentially an aspiration pneumonia. He developed bilateral lower lobe consolidation/atelectasis and effusions. He is currently on IV Zosyn. The patient got diuresed any procedures adequate amount of urine output over the past 24 hours. He is still oxygenating and ventilating without any major difficulties. He also developed a abdominal distention. CAT scan of the abdomen was done and there is a cecal mass probably his known carcinoid mass. In addition, there is small bowel ileus/ obstruction for which the tube feeds were placed on hold and since then the patient has drained approximately 800 mL of gastric greenish material and his output is still considerably high. Liver function test are within normal. Amylase and lipase are not elevated. The patient also is having excessive rest or secretions which are being suctioned out. He is not ready for further weaning for now. Is afebrile. He is sedated with propofol. He is still on the same vent setting which includes an assist-control of 20, FiO2 of 60% Patient was reevaluated today on 11/15/2017, patient remains on mechanical ventilation, his ventilator settings are FiO2 of 40% tidal volume of 500 assist control rate of 20 and PEEP of 5. ABG showed a pO2 of 105 pCO2 of 29 pH of 7.37 CBC and basic metabolic profile are relatively normal however his BUN is 59 creatinine is 3.05. Bicarb is 18. Patient continues to have fair amount of secretions according to the nurses taking care of him, his urine output is excellent, remains on IV fluid at a relatively high rate. Chest x-ray showed stable bilateral infiltrates and possibly pleural effusions. Suspect the patient may have had an aspiration pneumonia involving the right lower lobe. Hemodynamically, the patient seems to be stable, neurologically he was noted to be functioning well based on the note by Dr. Moise above. Apparently the patient did not sustain any significant hypoxic encephalopathy. His echocardiogram showed improvement in LV function. His kidney functioning seems to be a bit concerning, being closely followed by nephrology. I believe the patient must have sustained acute tubular necrosis and acute kidney injury. Remains on antibiotics for presumptive aspiration. His CT of the abdomen was reviewed, there is a cecal mass possibly his known carcinoid mass. His feeding was placed on hold, but considering the patient had 2 bowel movements over the last 24 hours, I will resume tube feeding. Secretions are still present but not as bad as reported by Dr. Moise yesterday. Hence I plan to give the patient a weaning trial, sedation holiday, and possibly a spontaneous breathing trial. Reevaluated today on 11/16/2017, remains on mechanical ventilation, sedated, on propofol drip, ventilator settings are the same as noted above. ABG showed a pO2 of 90 pCO2 of 29 pH of 7.38. Renal profile is slightly better today with a creatinine down to 2.90 BUN is 65. Patient remains a bit acidotic with a bicarb of 17. Endotracheal tube secretions seem to be much less today. Chest x -ray is showing improvement in his by basilar infiltrates and pleural effusions. Hemodynamically the patient remains stable. Neurologically patient is to be awakened today, he will be given a sedation holiday, and possibly a spontaneous breathing trial. All labs were reviewed, patient remains on enteral feeding. is at bedside, and she was updated on his condition. Patient was reevaluated today on 11/17/2017, remains on mechanical ventilation, sedated, on propofol drip. His ventilator settings are basically the same. No changes were made over the last 24 hours. However the patient was taken off propofol, I awaken the patient, seems to be responsive, but generally weak, and I recommended a trial of spontaneous breathing using pressure support mode of mechanical ventilation, pressure support was at 12 and CPAP. Patient did well for about 45 minutes, then he was noted to get more tachypneic, tachycardic, and hypertensive. Patient was arrested back again on assist control mode of mechanical ventilation. His IV fluid was changed to D5W since the patient is developing hypernatremia, and hyperchloremic metabolic acidosis. His renal profile showed a BUN of 64 creatinine of 2.68 slightly improved compared to yesterday. ABG showed a pO2 of 87 pCO2 of 35 pH of 7.31. CBC continues to show leukocytosis with WBC count of 16.9. Chest x-ray is showing stable bilateral infiltrates and pleural effusions. Looking at the patient's fluid balance, patient has been slightly on the negative side, and his urine output has been reasonable. His IV fluid was changed to D5W because of the hypernatremia, and may have to consider fluid boluses via the nasogastric tube with the feedings. Objective - Vital Signs Vital signs: Vital Signs Temp 98.5 F 11/17/17 08:00 Pulse 93 11/17/17 11:00 Resp 33 H 11/17/17 11:00 BP 134/66 11/17/17 11:00 Pulse Ox 95 11/17/17 11:00 Intake & Output 11/16/17 11/17/17 11/17/17 18:59 06:59 18:59 Intake Total 2021 1599.817 568.667 Output Total 880 1150 555 Balance 1142 449.817 13.667 Weight 87.2 kg Intake: IV 972 613 317.5 0.9 for pressure 72 63 30 Dextrose 5% in Water 1, 50 000 ml @ 50 mls/hr IV . Q20H [facility] Rx#:[id number] Piperacillin-Tazobactam 3 37.5 .375 gm In Dextrose/Water 1 50ml.bag @ 12.5 mls/hr IVPB Q8HR [facility] Rx#: [id number] Sodium Chloride 0.9% 1, 900 550 200 000 ml @ 50 mls/hr IV . Q20H [facility] Rx#:[id number] Intake, IV Titration 200 146.817 71.167 Amount Propofol 1,000 mg In 200 146.817 71.167 Empty Bag 1 bag @ Titrate IV .Q0M [facility] Rx#: [id number] Tube Feeding 850 750 150 Other 90 30 Output: Urine 880 1150 555 Other: Voiding Method Indwelling Catheter Indwelling Catheter ABP, PAP, CO, CI - Last Documented Arterial Blood Pressure 158/79 - Exam Physical Exam: Revealed a 57-year-old white male on mechanical ventilation, in no distress. Head: Atraumatic, normocephalic. HEENT:[Neck is supple.] [No neck masses.] [No thyromegaly.] [No JVD.] Endotracheal tube seems to be intact. Moist mucous membranes. Throat is clear. Chest: [Minimal fine crackles at the right base, no rhonchi no wheezes.] Cardiac Exam: [Normal S1 and S2, no S3 gallop, no murmur.] Abdomen: [Soft, nontender, no megaly, no rebound, no guarding, normal bowel sounds.] Extremities: [No clubbing, no edema, no cyanosis.] Neurological Exam: Examined off propofol, patient was noted to follow very simple instructions, but generally weak, and seems to be appropriate.. Psychiatric: Blunted affect, cannot fully assess mental status examination except the patient is able to follow instructions. Musculoskeletal: Generally weak otherwise no focal deficit. - Labs CBC & Chem 7: 11/17/17 05:20 11/17/17 05:20 Labs: Abnormal Lab Results - Last 24 Hours (Table) 11/17/17 11/17/17 11/17/17 Range/Units 05:20 05:20 07:37 WBC 16.9 H (3.8-10.6) k/uL RBC 3.07 L (4.30-5.90) m/uL Hgb 9.9 L (13.0-17.5) gm/dL Hct 28.3 L (39.0-53.0) % Neutrophils # 14.9 H (1.3-7.7) k/uL Lymphocytes # 0.8 L (1.0-4.8) k/uL ABG pH 7.31 L (7.35-7.45) ABG HCO3 18 L (21-25) mmol/L Sodium 149 H (137-145) mmol/L Chloride 122 H* (98-107) mmol/L Carbon Dioxide 18 L (22-30) mmol/L BUN 64 H (9-20) mg/dL Creatinine 2.68 H (0.66-1.25) mg/dL Glucose 136 H (74-99) mg/dL Calcium 6.9 L (8.4-10.2) mg/dL Ionized Calcium Eduardo 4.4 L (4.5-5.3) mg/dL Phosphorus 4.6 H (2.5-4.5) mg/dL Magnesium 3.1 H (1.6-2.3) mg/dL Assessment and Plan Assessment: [address] segment elevation myocardial infarction secondary to a tight left main lesion him a status post successful angioplasty and stenting 2 acute cardiac arrest secondary to above, resuscitated adequately 3 acute hypoxic respiratory failure secondary to above 4 acute hypotension, post cardiac arrest. Obviously echocardiogram showing a preserved LV function and there is no valvular disruption and that is no clear- cut cardiogenic component. No evidence of any stunned myocardium on subsequent echocardiogram. 5 acute kidney injury secondary acute cardiac arrest, hypotension and possibly contrast material. The patient is nonoliguric. Creatinine is up to 2.9, and BUN is 65 6 diffuse bilateral pulmonary infiltrates/effusion. Consider noncardiogenic pulmonary edema. Consider acute lung injury secondary aspiration/cardiac arrest. Patient is still oxygenating and ventilating well. The patient is still having some endotracheal tube secretions. But improved. 7 history of carcinoid tumor the patient had a follow-up CAT scan of the abdomen that showed abnormal cecum and severe wall thickening with primary nap as could be present as the patient has known history of carcinoid. The patient also has a component of small bowel obstruction/ileus. Seems to be resolving today. NG tube is in place. Bowel sounds are becoming active, hence we'll proceed with feeding again today. 8 history of lymphoma 9 hypocalcemia, recurrent, 10 non-anion gap metabolic acidosis 11 acute hypernatremia with hyperchloremic metabolic acidosis, patient is free water deficient, hence the IV fluid was changed to D5W, may give free water fluid boluses via nasogastric tube. Plan: Continue at least twice a day trials of spontaneous breathing trials, patient tolerated pressure support of 12 and CPAP for about 40 minutes. However he was noted to be tachypnea, tachycardic, hypertensive, hence he was placed back on assist control mode of mechanical ventilation again. Discussed his condition with his at bedside, we will continue these trials, however comes next week May have to seriously consider tracheostomy. Continue nutritional support, continue hemodynamic support, continue GI and DVT prophylaxis. Prognosis remains very guarded. Critical care time is 40 minutes Time with Patient: Greater than 30
[2017-11-17] MEDS: METOCLOPRAMIDE 5 MG/ML 2 ML VIAL IVP SCH ×2 (12:41→18:25)
[2017-11-17] MEDS: ATORVASTATIN 80 MG TAB PO SCH (20:43)
--- NOTE | 2017-11-17 22:40 | P.PN ---
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 Patient was apparently playing pickle ball in the same with his family. Patient is leaned on the floor due to acute cardiac arrest. There was a bystander nurse who did CPR on him. EMS was called to the scene and the patient was found in V. fib. Patient had CPR for about 20 minutes and was also shocked. Patient was brought back to sinus rhythm. Patient was given lately taken to [facility] and was found to have ST elevated MO. Patient was immediately transferred to [facility]. Patient had emergent cardiac catheterization and left main artery stent was placed. Currently patient is intubated, mechanical ventilator and sedated. Patient otherwise does follow simple commands and able to open his eyes. Patient is on norepinephrine drip currently. 2-D echocardiography showed his ejection fraction 35%. Chest x-ray showed cardiomegaly and pulmonary vascular congestion. Potassium 6.8 today morning and came down to 4.6 currently. Magnesium 1.4 Patient is being followed by pulmonary and cardiology. 11/12/2017 Patient remained on mechanical ventilator. Patient is still on pressor support. The blood gases showed a pH of 7.3 with a pCO2 of 28 and pO2 77. Chest x-ray showed cardiomegaly and pulmonary vascular congestion and possibly right-sided developing pleural effusion. Patient was given calcium gluconate due to hypocalcemia. Patient has been afebrile otherwise. tube feeding is being initiated. Discussed with the family in detail at bedside. 11/13/2017 Patient remained on mechanical ventilator. And pressor support. Chest x-ray showed consistent with CHF with pulmonary vascular congestion and bilateral pleural effusion. CT of the abdomen and pelvis was done. We showed inflammatory changes in the ileum which is consistent with his neoplasm. Otherwise ileus versus partial bowel obstruction was noted which has been ongoing as per the family. No fever no chills. Patient was started on Zosyn at this time. Pulmonary and cardiology is following. Patient's condition is still critical which has been related to the family. 11/14/2017 Patient is currently on ventilator. Weaning off pressor support. Otherwise they'll function worsening with elevated creatinine level. Nephrology was consulted. Patient was given calcium gluconate. Otherwise patient is awake and is able to respond with eye-movement. No fever no chills. Continued on IV fluids. 11/15/2017 Patient remained on mechanical ventilator. Otherwise renal function slightly worsened with creatinine level III.05. Patient is making good urine output. Patient is off pressor support. Continued on IV fluids. No other acute overnight issues. No fever. No nausea vomiting. 11/16/2017 Patient remained on mechanical ventilator. Otherwise failed weaning trial today. Patient does have good urine output and renal function improved with creatinine level II.9 No fever no chills. No other acute overnight issues. Patient was found have low TSH level and free T4 level. recommended to start on levothyroxine but the patient's does not want to be started this time saying that she usually does have low levels due to his cancer. Otherwise patient was recommended to follow with primary care physician for repeat levels. Active Medications Al Hydroxide/Mg Hydroxide (Maalox) 30 ml PO Q4HR PRN PRN Reason: Heartburn Albuterol Sulfate (Ventolin Nebulized) 2.5 mg INHALATION RT-TID [facility] Last Admin: 11/13/17 19:34 Dose: 2.5 mg Aspirin (Aspirin) 81 mg PO DAILY [facility] Last Admin: 11/13/17 09:25 Dose: 81 mg Atorvastatin Calcium (Lipitor) 80 mg PO HS [facility] Last Admin: 11/13/17 20:28 Dose: 80 mg Atropine Sulfate (Atropine) 0.5 mg IV ONCE PRN PRN Reason: Symptomatic Bradycardia Chlorhexidine Gluconate (Peridex) 15 ml MUCOUS MEM BID [facility] Last Admin: 11/13/17 20:29 Dose: 15 ml Heparin Sodium (Porcine) (Heparin) 5,000 unit SQ Q8HR [facility] Last Admin: 11/13/17 16:29 Dose: 5,000 unit Sodium Chloride (Saline 0.9%) 1,000 mls @ 75 mls/hr IV .[id number] [facility] Last Admin: 11/13/17 09:19 Dose: 75 mls/hr Propofol 1,000 mg/ IV Solution 100 mls @ 0 mls/hr IV .Q0M [facility]; Titrate PRN Reason: Protocol Last Admin: 11/13/17 20:28 Dose: 40.18 mcg/kg/min, 23.7 mls/hr Norepinephrine Bitartrate (Levophed-0.9% Nacl 16 Mg/250ml Pmx) 16 mg in 250 mls @ 0 mls/hr IV .Q0M [facility]; Titrate PRN Reason: Protocol Last Titration: 11/13/17 19:03 Dose: 8 mcg/min, 7.5 mls/hr Piperacillin/Tazobactam/ (Dextrose 3.375 gm/ IV Solution) 50 mls @ 12.5 mls/hr IVPB Q8HR [facility] Last Admin: 11/13/17 16:32 Dose: 12.5 mls/hr Insulin Aspart (Novolog) 0 unit SQ Q6HR [facility] PRN Reason: Protocol Last Admin: 11/13/17 18:35 Dose: Not Given Iohexol (Omnipaque 350 Mg/Ml (For Oral Use)) 25 ml PO Q60M PRN PRN Reason: CT Scan Stop: 11/14/17 09:10 Last Admin: 11/13/17 11:03 Dose: 25 ml Metoprolol Tartrate (Lopressor) 12.5 mg PO BID [facility] Last Admin: 11/13/17 20:17 Dose: Not Given Miscellaneous Information (Magnesium Per Protocol) 1 each MISCELLANE DAILY PRN ; Protocol PRN Reason: Per Protocol Miscellaneous Information (Rx Info: Iv Contrast Was Given) 1 each MISCELLANE DAILY PRN PRN Reason: Per Protocol Stop: 11/15/17 09:10 Morphine Sulfate (Morphine Sulfate (Inj)) 1 mg IVP Q4HR PRN PRN Reason: Pain Last Admin: 11/13/17 02:30 Dose: 1 mg Naloxone HCl (Narcan) 0.2 mg IV Q2M PRN PRN Reason: Opioid Reversal Nitroglycerin (Nitrostat) 0.4 mg SUBLINGUAL Q5M PRN PRN Reason: Chest Pain Pantoprazole Sodium (Protonix) 40 mg IV DAILY [facility] Last Admin: 11/13/17 09:24 Dose: 40 mg Ticagrelor (Brilinta) 90 mg PO BID [facility] Last Admin: 11/13/17 20:28 Dose: 90 mg Zolpidem Tartrate (Ambien) 5 mg PO HS PRN PRN Reason: Insomnia Complete review of systems could not be apparent from the patient. Objective - Vital Signs Vital signs: Vital Signs Temp 99.0 F 11/16/17 16:00 Pulse 98 11/16/17 18:00 Resp 26 H 11/16/17 18:00 BP 149/64 11/16/17 18:00 Pulse Ox 100 11/16/17 18:00 Intake & Output 11/16/17 11/16/17 11/17/17 06:59 18:59 06:59 Intake Total 3608.439 6628 Output Total 1265 880 Balance 025.498 5230 Weight 86.1 kg Intake: IV 1026 972 0.9 for pressure 51 72 Sodium Chloride 0.9% 1, 975 900 000 ml @ 75 mls/hr IV . [id number] [facility] Rx#:[id number] Intake, IV Titration 195.557 100 Amount Propofol 1,000 mg In 195.557 100 Empty Bag 1 bag @ Titrate IV .Q0M [facility] Rx#: [id number] Tube Feeding 670 850 Output: Urine 1265 880 Other: Voiding Method Indwelling Catheter Indwelling Catheter ABP, PAP, CO, CI - Last Documented Arterial Blood Pressure 136/66 - Exam Patient is lying in the bed comfortably, no acute distress, patient is awake and is able to open his eyes with verbal commands. HEENT: Normocephalic. Neck is supple. Pupils reactive. Nostrils clear. Oral cavity is moist. Ears reveal no drainage. Neck reveals no JVD, carotid bruits, or thyromegaly. CHEST EXAMINATION: Trachea is central. Symmetrical expansion. Lung martel clear to auscultation and percussion. CARDIAC: Normal S1, S2 with no gallops. No murmurs ABDOMEN: Soft. Tenderness in the epigastric region. Bowel sounds normal. No organomegaly. No abdominal bruits. Extremities: reveal no edema. No clubbing or cyanosis Neurologically awake and alert. No focal deficits noted Skin: No rash or skin lesions. Psychiatric: Could not be assessed completely Musculoskeletal: No joint swelling or deformity. Normal range of motion. - Labs CBC & Chem 7: 11/17/17 05:20 11/17/17 05:20 Labs: Abnormal Lab Results - Last 24 Hours (Table) 11/15/17 11/16/17 11/16/17 Range/Units 04:25 04:15 04:15 WBC 11.3 H (3.8-10.6) k/uL RBC 2.96 L (4.30-5.90) m/uL Hgb 9.5 L (13.0-17.5) gm/dL Hct 27.5 L (39.0-53.0) % Neutrophils # 9.8 H (1.3-7.7) k/uL Lymphocytes # 0.6 L (1.0-4.8) k/uL ABG pCO2 (35-45) mmHg ABG HCO3 (21-25) mmol/L ABG Total CO2 (19-24) mmol/L Chloride 117 H (98-107) mmol/L Carbon Dioxide 17 L (22-30) mmol/L BUN 65 H (9-20) mg/dL Creatinine 2.90 H (0.66-1.25) mg/dL Glucose 151 H (74-99) mg/dL Calcium 6.4 L* (8.4-10.2) mg/dL Ionized Calcium Eduardo 4.2 L (4.5-5.3) mg/dL Vitamin D 25-Hydroxy 15.8 L (30.0-100.0) ng/mL Free T4 0.68 L (0.78-2.19) ng/dL 11/16/17 Range/Units 08:10 WBC (3.8-10.6) k/uL RBC (4.30-5.90) m/uL Hgb (13.0-17.5) gm/dL Hct (39.0-53.0) % Neutrophils # (1.3-7.7) k/uL Lymphocytes # (1.0-4.8) k/uL ABG pCO2 29 L (35-45) mmHg ABG HCO3 17 L (21-25) mmol/L ABG Total CO2 18 L (19-24) mmol/L Chloride (98-107) mmol/L Carbon Dioxide (22-30) mmol/L BUN (9-20) mg/dL Creatinine (0.66-1.25) mg/dL Glucose (74-99) mg/dL Calcium (8.4-10.2) mg/dL Ionized Calcium Eduardo (4.5-5.3) mg/dL Vitamin D 25-Hydroxy (30.0-100.0) ng/mL Free T4 (0.78-2.19) ng/dL Assessment and Plan Assessment: Acute ST elevated MO status post cardiac catheterization and stenting to left main artery Acute cardiac arrest. Status post adequate resuscitation Acute kidney injury likely due to ATN. Improving Hypothyroidism. Low TSH and free T4 level Acute respiratory failure post procedure Hypertension and possible cardiogenic shock. 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 Replaced with calcium gluconate elevated lipase and amylase Elevated liver enzymes DVT prophylaxis Plan: Patient be continued on mechanical ventilator. Pressor support and IV fluids. Patient is off pressor support. Pulmonary and cardiology is on board. Continue the weaning trial as tolerated. Continue with aspirin, statins and metoprolol. DVT prophylaxis Further recommendations based on the clinical course. Prognosis is guarded. Discussed the family at bedside in detail and all questions were answered. Time with Patient: Greater than 30
--- NOTE | 2017-11-17 22:42 | P.PN ---
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 Patient was apparently playing pickle ball in the same with his family. Patient is leaned on the floor due to acute cardiac arrest. There was a bystander nurse who did CPR on him. EMS was called to the scene and the patient was found in V. fib. Patient had CPR for about 20 minutes and was also shocked. Patient was brought back to sinus rhythm. Patient was given lately taken to [facility] and was found to have ST elevated VT. Patient was immediately transferred to [facility]. Patient had emergent cardiac catheterization and left main artery stent was placed. Currently patient is intubated, mechanical ventilator and sedated. Patient otherwise does follow simple commands and able to open his eyes. Patient is on norepinephrine drip currently. 2-D echocardiography showed his ejection fraction 35%. Chest x-ray showed cardiomegaly and pulmonary vascular congestion. Potassium 6.8 today morning and came down to 4.6 currently. Magnesium 1.4 Patient is being followed by pulmonary and cardiology. 11/12/2017 Patient remained on mechanical ventilator. Patient is still on pressor support. The blood gases showed a pH of 7.3 with a pCO2 of 28 and pO2 77. Chest x-ray showed cardiomegaly and pulmonary vascular congestion and possibly right-sided developing pleural effusion. Patient was given calcium gluconate due to hypocalcemia. Patient has been afebrile otherwise. tube feeding is being initiated. Discussed with the family in detail at bedside. 11/13/2017 Patient remained on mechanical ventilator. And pressor support. Chest x-ray showed consistent with CHF with pulmonary vascular congestion and bilateral pleural effusion. CT of the abdomen and pelvis was done. We showed inflammatory changes in the ileum which is consistent with his neoplasm. Otherwise ileus versus partial bowel obstruction was noted which has been ongoing as per the family. No fever no chills. Patient was started on Zosyn at this time. Pulmonary and cardiology is following. Patient's condition is still critical which has been related to the family. 11/14/2017 Patient is currently on ventilator. Weaning off pressor support. Otherwise they'll function worsening with elevated creatinine level. Nephrology was consulted. Patient was given calcium gluconate. Otherwise patient is awake and is able to respond with eye-movement. No fever no chills. Continued on IV fluids. 11/15/2017 Patient remained on mechanical ventilator. Otherwise renal function slightly worsened with creatinine level III.05. Patient is making good urine output. Patient is off pressor support. Continued on IV fluids. No other acute overnight issues. No fever. No nausea vomiting. 11/16/2017 Patient remained on mechanical ventilator. Otherwise failed weaning trial today. Patient does have good urine output and renal function improved with creatinine level II.9 No fever no chills. No other acute overnight issues. Patient was found have low TSH level and free T4 level. recommended to start on levothyroxine but the patient's does not want to be started this time saying that she usually does have low levels due to his cancer. Otherwise patient was recommended to follow with primary care physician for repeat levels. 11/17/2017 patient is on mechanical data and became more shaky and distress with weaning trial. Otherwise renal function is much improved with creatinine level II.68 Sodium level increased to 148 along with chloride level. IV fluids changed to D5 water. Otherwise no fever no chills. Leukocytosis with increased WBC count 16 today. Discussed with his at bedside in detail and all questions answered. Active Medications Al Hydroxide/Mg Hydroxide (Maalox) 30 ml PO Q4HR PRN PRN Reason: Heartburn Albuterol Sulfate (Ventolin Nebulized) 2.5 mg INHALATION RT-TID [facility] Last Admin: 11/13/17 19:34 Dose: 2.5 mg Aspirin (Aspirin) 81 mg PO DAILY [facility] Last Admin: 11/13/17 09:25 Dose: 81 mg Atorvastatin Calcium (Lipitor) 80 mg PO HS [facility] Last Admin: 11/13/17 20:28 Dose: 80 mg Atropine Sulfate (Atropine) 0.5 mg IV ONCE PRN PRN Reason: Symptomatic Bradycardia Chlorhexidine Gluconate (Peridex) 15 ml MUCOUS MEM BID [facility] Last Admin: 11/13/17 20:29 Dose: 15 ml Heparin Sodium (Porcine) (Heparin) 5,000 unit SQ Q8HR [facility] Last Admin: 11/13/17 16:29 Dose: 5,000 unit Sodium Chloride (Saline 0.9%) 1,000 mls @ 75 mls/hr IV .[id number] [facility] Last Admin: 11/13/17 09:19 Dose: 75 mls/hr Propofol 1,000 mg/ IV Solution 100 mls @ 0 mls/hr IV .Q0M [facility]; Titrate PRN Reason: Protocol Last Admin: 11/13/17 20:28 Dose: 40.18 mcg/kg/min, 23.7 mls/hr Norepinephrine Bitartrate (Levophed-0.9% Nacl 16 Mg/250ml Pmx) 16 mg in 250 mls @ 0 mls/hr IV .Q0M [facility]; Titrate PRN Reason: Protocol Last Titration: 11/13/17 19:03 Dose: 8 mcg/min, 7.5 mls/hr Piperacillin/Tazobactam/ (Dextrose 3.375 gm/ IV Solution) 50 mls @ 12.5 mls/hr IVPB Q8HR [facility] Last Admin: 11/13/17 16:32 Dose: 12.5 mls/hr Insulin Aspart (Novolog) 0 unit SQ Q6HR [facility] PRN Reason: Protocol Last Admin: 11/13/17 18:35 Dose: Not Given Iohexol (Omnipaque 350 Mg/Ml (For Oral Use)) 25 ml PO Q60M PRN PRN Reason: CT Scan Stop: 11/14/17 09:10 Last Admin: 11/13/17 11:03 Dose: 25 ml Metoprolol Tartrate (Lopressor) 12.5 mg PO BID [facility] Last Admin: 11/13/17 20:17 Dose: Not Given Miscellaneous Information (Magnesium Per Protocol) 1 each MISCELLANE DAILY PRN ; Protocol PRN Reason: Per Protocol Miscellaneous Information (Rx Info: Iv Contrast Was Given) 1 each MISCELLANE DAILY PRN PRN Reason: Per Protocol Stop: 11/15/17 09:10 Morphine Sulfate (Morphine Sulfate (Inj)) 1 mg IVP Q4HR PRN PRN Reason: Pain Last Admin: 11/13/17 02:30 Dose: 1 mg Naloxone HCl (Narcan) 0.2 mg IV Q2M PRN PRN Reason: Opioid Reversal Nitroglycerin (Nitrostat) 0.4 mg SUBLINGUAL Q5M PRN PRN Reason: Chest Pain Pantoprazole Sodium (Protonix) 40 mg IV DAILY [facility] Last Admin: 11/13/17 09:24 Dose: 40 mg Ticagrelor (Brilinta) 90 mg PO BID [facility] Last Admin: 11/13/17 20:28 Dose: 90 mg Zolpidem Tartrate (Ambien) 5 mg PO HS PRN PRN Reason: Insomnia Complete review of systems could not be apparent from the patient. Objective - Vital Signs Vital signs: Vital Signs Temp 99.0 F 11/17/17 20:00 Pulse 93 11/17/17 20:30 Resp 29 H 11/17/17 20:30 BP 122/70 11/17/17 20:30 Pulse Ox 100 11/17/17 20:30 Intake & Output 11/17/17 11/17/17 11/18/17 06:59 18:59 06:59 Intake Total 6884.318 9658.000 118.5 Output Total 1150 1175 100 Balance 449.817 -8.000 18.5 Weight 87.2 kg Intake: IV 613 787.0 68.5 0.9 40 0 0.9 for pressure 63 72 6 Dextrose 5% in Water 1, 400 50 000 ml @ 50 mls/hr IV . Q20H [facility] Rx#:[id number] Piperacillin-Tazobactam 3 75.0 12.5 .375 gm In Dextrose/Water 1 50ml.bag @ 12.5 mls/hr IVPB Q8HR [facility] Rx#: [id number] Sodium Chloride 0.9% 1, 550 200 000 ml @ 50 mls/hr IV . Q20H [facility] Rx#:[id number] Intake, IV Titration 146.817 100.000 Amount Propofol 1,000 mg In 146.817 100.000 Empty Bag 1 bag @ Titrate IV .Q0M [facility] Rx#: [id number] Tube Feeding 750 250 50 Other 90 30 Output: Urine 1150 1175 100 Other: Voiding Method Indwelling Catheter Indwelling Catheter ABP, PAP, CO, CI - Last Documented Arterial Blood Pressure 145/72 - Exam Patient is lying in the bed comfortably, no acute distress, patient is awake and is able to open his eyes with verbal commands. HEENT: Normocephalic. Neck is supple. Pupils reactive. Nostrils clear. Oral cavity is moist. Ears reveal no drainage. Neck reveals no JVD, carotid bruits, or thyromegaly. CHEST EXAMINATION: Trachea is central. Symmetrical expansion. Lung martel clear to auscultation and percussion. CARDIAC: Normal S1, S2 with no gallops. No murmurs ABDOMEN: Soft. Tenderness in the epigastric region. Bowel sounds normal. No organomegaly. No abdominal bruits. Extremities: reveal no edema. No clubbing or cyanosis Neurologically awake and alert. No focal deficits noted Skin: No rash or skin lesions. Psychiatric: Could not be assessed completely Musculoskeletal: No joint swelling or deformity. Normal range of motion. - Labs CBC & Chem 7: 11/17/17 05:20 11/17/17 05:20 Labs: Abnormal Lab Results - Last 24 Hours (Table) 11/17/17 11/17/17 11/17/17 Range/Units 05:20 05:20 07:37 WBC 16.9 H (3.8-10.6) k/uL RBC 3.07 L (4.30-5.90) m/uL Hgb 9.9 L (13.0-17.5) gm/dL Hct 28.3 L (39.0-53.0) % Neutrophils # 14.9 H (1.3-7.7) k/uL Lymphocytes # 0.8 L (1.0-4.8) k/uL ABG pH 7.31 L (7.35-7.45) ABG HCO3 18 L (21-25) mmol/L Sodium 149 H (137-145) mmol/L Chloride 122 H* (98-107) mmol/L Carbon Dioxide 18 L (22-30) mmol/L BUN 64 H (9-20) mg/dL Creatinine 2.68 H (0.66-1.25) mg/dL Glucose 136 H (74-99) mg/dL Calcium 6.9 L (8.4-10.2) mg/dL Ionized Calcium Eduardo 4.4 L (4.5-5.3) mg/dL Phosphorus 4.6 H (2.5-4.5) mg/dL Magnesium 3.1 H (1.6-2.3) mg/dL Assessment and Plan Assessment: Acute ST elevated [place] status post cardiac catheterization and stenting to left main artery Acute cardiac arrest. Status post adequate resuscitation Acute kidney injury likely due to ATN. Improving Hypothyroidism. Low TSH and free T4 level Acute respiratory failure post procedure Hypertension and possible cardiogenic shock. 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 Replaced with calcium gluconate elevated lipase and amylase Elevated liver enzymes DVT prophylaxis Plan: Patient be continued on mechanical ventilator. Pressor support and IV fluids. Patient is off pressor support. Pulmonary and cardiology is on board. Continue the weaning trial as tolerated. Continue with aspirin, statins and metoprolol. DVT prophylaxis Further recommendations based on the clinical course. Prognosis is guarded. Discussed the family at bedside in detail and all questions were answered. Time with Patient: Greater than 30
[2017-11-18] MEDS: HEPARIN SODIUM,PORCINE 5,000 UNIT/ML 1 ML VIAL SQ SCH ×3 (01:00→15:54)
[2017-11-18] MEDS: METOCLOPRAMIDE 5 MG/ML 2 ML VIAL IVP SCH ×4 (01:01→17:09)
[2017-11-18] MEDS: PIPERACILLIN-TAZOBACTAM 3.375 GM in DEXTROSE/WATER 1 50ML.BAG IVPB SCH ×3 (01:01→15:54)
[2017-11-18 04:34] LABS: Basophils # (A) 0.1 k/uL (0-0.2); Basophils % (A) 0 %; Eosinophils # (A) 0.3 k/uL (0-0.7); Eosinophils % (A) 1 %; HCT 29.1 % (39.0-53.0); HGB 9.8 gm/dL (13.0-17.5); Lymphocytes # (A) 0.7 k/uL (1.0-4.8); Lymphocytes % (A) 4 %; MCHC 33.6 g/dL (31.0-37.0); MCV 92.1 fL (80.0-100.0); Mean Platelet Volume 8.7; Monocytes # (A) 0.5 k/uL (0-1.0); Monocytes % (A) 3 %; Neutrophils # (A) 18.4 k/uL (1.3-7.7); Neutrophils % (A) 90 %; Platelet Count 458 k/uL (150-450); RBC 3.15 m/uL (4.30-5.90); RDW 14.2 % (11.5-15.5); WBC 20.4 k/uL (3.8-10.6)
[2017-11-18 05:06] LABS: Ionized Calcium 4.4 mg/dL (4.5-5.3)
[2017-11-18 05:15] LABS: Calcium 6.8 mg/dL (8.4-10.2); Magnesium 3.1 mg/dL (1.6-2.3); Phosphorus 5.3 mg/dL (2.5-4.5); Potassium 4.2 mmol/L (3.5-5.1)
[2017-11-18] MEDS: PROPOFOL 1,000 MG in EMPTY BAG 1 BAG IV SCH ×2 (06:00→19:49)
[2017-11-18 07:51] LABS: ABG HCO3 16 mmol/L (21-25); ABG Oxygen Saturation 96.6 % (94-97); ABG PCO2 27 mmHg (35-45); ABG PH 7.38 (7.35-7.45); ABG PO2 87 mmHg (83-108); ABG TCO2 17 mmol/L (19-24)
[2017-11-18] MEDS: ALBUTEROL NEBULIZED 2.5 MG/3 ML INHALATION SCH ×3 (08:20→19:27)
[2017-11-18] MEDS: CHLORHEXIDINE GLUCONATE 15 ML CUP MUCOUS MEM SCH ×2 (08:31→21:46)
[2017-11-18] MEDS: PANTOPRAZOLE 40 MG/10 ML VIAL IV SCH (08:31)
[2017-11-18] MEDS: ASPIRIN 81 MG PO SCH (08:31)
[2017-11-18] MEDS: METOPROLOL TARTRATE 12.5 MG TAB PO SCH ×2 (08:31→21:46)
[2017-11-18] MEDS: TICAGRELOR 90 MG TAB PO SCH ×2 (08:32→21:46)
[2017-11-18] MEDS: DEXTROSE 5% IN WATER 1,000 ML IV SCH ×2 (10:16→18:15)
--- NOTE | 2017-11-18 10:22 | XR ---
EXAMINATION TYPE: XR chest 1V DATE OF EXAM: 11/18/2017 COMPARISON: 11/17/2017 HISTORY: Shortness of breath TECHNIQUE: Single frontal view of the chest is obtained. FINDINGS: ET and NG tube stable. ET tube approximately 2 cm above jasbir. Left-sided central line st able. Bilateral consolidation and pleural effusion stable. No pneumothorax. Heart size enlarged. IMPRESSION: 1. Stable bilateral infiltrate and pleural effusion. Frontal diagnosis would include diffuse pneumoni a, CHF or ARDS.
--- NOTE | 2017-11-18 10:25 | XR ---
EXAMINATION TYPE: XR abdomen 1V DATE OF EXAM: 11/18/2017 COMPARISON: 11/11/2017 HISTORY: Pain TECHNIQUE: One view abdominal series FINDINGS: Bilateral infiltrate, pleural effusion and cardiomegaly noted. Bowel gas pattern is nonspecific. Contrast is seen within bowel extending to the rectum. Hypertrophic change of the spine and arthropathy of the hips noted. NG tube noted. Overall bowel gas pattern nons pecific. IMPRESSION: 1. Nonspecific abdomen 2. Bilateral infiltrate and pleural effusion
[2017-11-18] MEDS ORDERED: ceFAZolin IN SWFI 2 GM/20 ML SYRINGE IVP ONE (10:45)
[2017-11-18 11:09] LABS: Glucose,Whole Blood 203 mg/dL (75-99)
[2017-11-18] MEDS: INSULIN ASPART 100 UNIT/ML 1 ML 10 ML VIAL SQ SCH ×2 (11:10→17:09)
--- NOTE | 2017-11-18 11:30 | P.PN ---
Subjective Patient remains intubated. No meaningful neurologic recovery. From a cardiac standpoint he appears stable Pulse rate in the 80s, blood pressure 125/71 mmHg no JVD Breath sounds are clear no rhonchi no crackles Abdomen soft nontender Heart sounds are normal normal S1 normal S2 Labs are reviewed sodium 151 chloride 121, creatinine 2.67 magnesium 3.1 Impression VF arrest CAD status post coronary stenting in the setting of an CT LV function was normal in follow-up by 2-D echo No arrhythmias From a cardiac standpoint continue baby aspirin atorvastatin beta blockers Awaiting neurologic recovery Please call us as needed Objective - Vital Signs Vital signs: Vital Signs Temp 97.8 F 11/18/17 08:00 Pulse 85 11/18/17 10:00 Resp 20 11/18/17 10:00 BP 125/71 11/18/17 10:00 Pulse Ox 96 11/18/17 10:00 Intake & Output 11/17/17 11/18/17 11/18/17 18:59 06:59 18:59 Intake Total 0731.337 8518.5 904.867 Output Total 1175 1205 515 Balance -8.000 769.5 389.867 Weight 87.7 kg 87.7 kg Intake: IV 787.0 774.5 492.5 0.9 40 40 50 0.9 for pressure 72 72 30 Dextrose 5% in Water 1, 125 000 ml @ 125 mls/hr IV . Q8H [facility] Rx#:[id number] Dextrose 5% in Water 1, 400 600 275 000 ml @ 50 mls/hr IV . Q20H [facility] Rx#:[id number] Piperacillin-Tazobactam 3 75.0 62.5 12.5 .375 gm In Dextrose/Water 1 50ml.bag @ 12.5 mls/hr IVPB Q8HR [facility] Rx#: [id number] Sodium Chloride 0.9% 1, 200 000 ml @ 50 mls/hr IV . Q20H [facility] Rx#:[id number] Intake, IV Titration 100.000 100 62.367 Amount Propofol 1,000 mg In 100.000 100 62.367 Empty Bag 1 bag @ Titrate IV .Q0M [facility] Rx#: [id number] Tube Feeding 250 800 250 Other 30 300 100 Output: Urine 1175 1205 515 Other: Voiding Method Indwelling Catheter Indwelling Catheter Indwelling Catheter ABP, PAP, CO, CI - Last Documented Arterial Blood Pressure 129/71 - Labs CBC & Chem 7: 11/18/17 04:20 11/18/17 04:20 Labs: Abnormal Lab Results - Last 24 Hours (Table) 11/18/17 11/18/17 11/18/17 Range/Units 04:20 04:20 07:50 WBC 20.4 H (3.8-10.6) k/uL RBC 3.15 L (4.30-5.90) m/uL Hgb 9.8 L (13.0-17.5) gm/dL Hct 29.1 L (39.0-53.0) % Plt Count 458 H (150-450) k/uL Neutrophils # 18.4 H (1.3-7.7) k/uL Lymphocytes # 0.7 L (1.0-4.8) k/uL ABG pCO2 27 L (35-45) mmHg ABG HCO3 16 L (21-25) mmol/L ABG Total CO2 17 L (19-24) mmol/L Sodium 151 H (137-145) mmol/L Chloride 121 H* (98-107) mmol/L Carbon Dioxide 17 L (22-30) mmol/L BUN 62 H (9-20) mg/dL Creatinine 2.67 H (0.66-1.25) mg/dL Glucose 155 H (74-99) mg/dL POC Glucose (mg/dL) (75-99) mg/dL Calcium 6.8 L (8.4-10.2) mg/dL Ionized Calcium Eduardo 4.4 L (4.5-5.3) mg/dL Phosphorus 5.3 H (2.5-4.5) mg/dL Magnesium 3.1 H (1.6-2.3) mg/dL 11/18/17 Range/Units 11:06 WBC (3.8-10.6) k/uL RBC (4.30-5.90) m/uL Hgb (13.0-17.5) gm/dL Hct (39.0-53.0) % Plt Count (150-450) k/uL Neutrophils # (1.3-7.7) k/uL Lymphocytes # (1.0-4.8) k/uL ABG pCO2 (35-45) mmHg ABG HCO3 (21-25) mmol/L ABG Total CO2 (19-24) mmol/L Sodium (137-145) mmol/L Chloride (98-107) mmol/L Carbon Dioxide (22-30) mmol/L BUN (9-20) mg/dL Creatinine (0.66-1.25) mg/dL Glucose (74-99) mg/dL POC Glucose (mg/dL) 203 H (75-99) mg/dL Calcium (8.4-10.2) mg/dL Ionized Calcium Eduardo (4.5-5.3) mg/dL Phosphorus (2.5-4.5) mg/dL Magnesium (1.6-2.3) mg/dL
--- NOTE | 2017-11-18 12:46 | P.PN ---
Subjective Progress Note Date: 11/18/17 Principal diagnosis: Acute cardiac arrest secondary to acute ST segment elevation OR. A pleasant 57-year-old male patient who lives in [place], [place] and the patient was playing pickle ball in the [facility] area. The patient acutely arrested and he was into cardiac arrest. There was a bystander nurse who did CPR on him. EMS was called to the scene and the patient was found in V. fib. The patient was shocked and the patient was given a dose of epinephrine. Subsequently went into asystole. Following that, CPR was continued and the patient went into V. fib, shocked again and then went into normal sinus rhythm. EKG showed ST segment elevation and the patient was taken to [facility] and following that the patient was brought in to the [facility]. Emergent cardiac catheterization was done and the patient was found to have a left main lesion that was stented. The stent insertion with successful. The patient was in already intubated by EMS on the scene. The patient was kept intubated. The patient was moved to the ICU for further care. Overnight, the patient was sedated with Diprivan. He apparently was following some simple commands while given a sedation holiday. This morning, he is on 30 mics of levo fed for blood pressure support. Echocardiogram was done and showed ejection fraction of 35%. No other significant abnormalities noted and this is a preliminary report. Urine output is in order of 25-30 mL an hour. Overnight his urine output dropped and a given a bolus of 1 L and he received a total of 2.5 L fluid bolus. He is current maintenance fluid is at 75 mL of normal saline. He is on a mechanical ventilator on assist control mode at the rate of 20, tidal volume of 600, FiO2 of 50% and a PEEP of 5. Morning blood gases showed a pH of 7.34 with a pCO2 of 28 and pO2 167. Chest x- ray showing some cardiomegaly and some pulmonary vessel congestion. ET tube is in a good location. No other densities seen in the left lower lobe costophrenic angle area. The patient's creatinine is up to 1.4. Today's potassium is up to 6.8. This needs to be repeated. No EKG changes related to this high potassium level. He is afebrile. No aspiration was noted. He remains on 30 mics of norepinephrine infusion for now. Pulses in lower extremities are weak yet obtainable by Doppler. His legs are cold and clammy still. No significant secretions from his orotracheal tube. He is known to have carcinoid tumor and apparently his been on maintenance hormonal treatment. He is seeing a oncologist out of [facility]. The patient also has history of lymphoma. The details of these malignancies are not known to us. The origin of the carcinoid tumor is not clear to me at this point. Further information is to be obtained on this patient. On 11/12 I'm seeing this patient for a follow-up. The patient remains intubated on a mechanical ventilator and the patient is post acute STEMI in acute cardiac arrest. I did not extubated the patient yesterday as the patient was still hypo-tensive and hypoperfusing and the patient was having diminished pulses in lower extremities and he looked cold and clammy and he had ongoing electrolyte disturbance with hypokalemia. He was given IV fluids and the neck fluid balance over the past 24 hours is +2.3 L. Currently is on 75 mL an hour of normal saline. Pulses are palpable in lower oximetry is bilaterally and the patient is much more warm. He is still however on pressors and currently norepinephrine infusion is running at 14 mics. His urine output dropped this morning and he is producing around 25-30 mL an hour of urine output. The patient has the levo fed infusion running through his right upper extremity. He remains on a mechanical ventilator. His assist-control mode at the rate of 20, tidal volume of 600, FiO2 of 40% and a PEEP of 5. The blood gases showed a pH of 7.3 with a pCO2 of 28 and pO2 77. Chest x-ray showing cardiomegaly. ET tube is in a good location. There is development of four-vessel congestion and possibly a right-sided pleural effusion also developing. He is afebrile. He is having no significant secretions with orotracheal tube. His white cell count has dropped and I doubt an underlying aspiration pneumonia although this is not completely excluded. I think his hypotension and shock is probably cardiogenic following his cardiac arrest. In addition, the patient's ionized calcium today's at 3.8 and the patient was given a total of 1 g of calcium gluconate. His troponin peaked at 26.4. This morning he is sedated and is calm and comfortable and synchronous with the mechanical ventilator. Orogastric and orotracheal tube are both in place. The patient is still nothing by mouth. On 11/13/2017 I'm seeing this patient for a follow-up. Patient remains intubated on a mechanical ventilator. He is sedated Diprivan is calm and comfortable. He withdraws to painful stimulation. A repeat echo cardiac exam was done today that showed a preserved LV function. Note that post OR the patient's ejection fraction was impaired with ejection fraction of 35-40%. Based on the framing machine tender destination, the ejection fraction is a furthermore improved. I did add milrinone yesterday on him which I am willing to discontinue based on these findings. His CVP is around 7. He is in a positive fluid balance in order of 5 L since he came in to the intensive care unit. He has adequate pulses in all 4 extremities bilaterally. His chest x-ray showing diffuse bilateral pulmonary infiltrates which seems to be more so of a acute lung injury/aspiration-type of picture/non-cardiogenic pulmonary edema. The patient is on assist control mode, at the rate of 20, tidal volume of 600, FiO2 of 40% and PEEP of 5. The morning blood gas showed a pH of 7.38 with a pCO2 of 29 and pO2 of 85. The patient is on normal state rate of 75 mL an hour. Urine output is between 25-30 mL an hour. The patient's creatinine was up to 2 on today's evaluation. He did have a 1 spike of temperature and he is currently covered with IV Zosyn. White cell count is not elevated. No secretions with orotracheal tube. The patient had some difficulties tolerating tube feeds. Abdomen on examination was felt to be quite tender. Calcium level has dropped progressively. We'll need immediate fed femoral the abdomen addition to the liver function tests and pancreatic enzymes. Calcium level will be supplemented. On 11/14/2017 I'm seeing this patient for a follow-up. As mentioned earlier the patient is post cardiac arrest and the patient had a acute cardiac intervention and stenting of a left main for an acute cardiac arrest, acute ST segment elevation myocardial infarction. The patient fortunately does not show signs of hypoxic encephalopathy. Yet there is another complications preventing him from weaning. Initially was quite hypotensive which was thought to be of a cardiogenic in nature. Subsequent echocardiogram showed improvement in the LV function and probably had this done the myocardium which is improving. Hemodynamically improved and is at the point where norepinephrine infusion has been drop down to a few mics only. He subsequently developed an acute kidney injury, nonoliguric, and the creatinine is up to 2.5. This is expected knowing that the patient was subjected to a cardiac arrest, hypotension, pressors and contrast material. He also had potentially an aspiration pneumonia. He developed bilateral lower lobe consolidation/atelectasis and effusions. He is currently on IV Zosyn. The patient got diuresed any procedures adequate amount of urine output over the past 24 hours. He is still oxygenating and ventilating without any major difficulties. He also developed a abdominal distention. CAT scan of the abdomen was done and there is a cecal mass probably his known carcinoid mass. In addition, there is small bowel ileus/ obstruction for which the tube feeds were placed on hold and since then the patient has drained approximately 800 mL of gastric greenish material and his output is still considerably high. Liver function test are within normal. Amylase and lipase are not elevated. The patient also is having excessive rest or secretions which are being suctioned out. He is not ready for further weaning for now. Is afebrile. He is sedated with propofol. He is still on the same vent setting which includes an assist-control of 20, FiO2 of 60% Patient was reevaluated today on 11/15/2017, patient remains on mechanical ventilation, his ventilator settings are FiO2 of 40% tidal volume of 500 assist control rate of 20 and PEEP of 5. ABG showed a pO2 of 105 pCO2 of 29 pH of 7.37 CBC and basic metabolic profile are relatively normal however his BUN is 59 creatinine is 3.05. Bicarb is 18. Patient continues to have fair amount of secretions according to the nurses taking care of him, his urine output is excellent, remains on IV fluid at a relatively high rate. Chest x-ray showed stable bilateral infiltrates and possibly pleural effusions. Suspect the patient may have had an aspiration pneumonia involving the right lower lobe. Hemodynamically, the patient seems to be stable, neurologically he was noted to be functioning well based on the note by Dr. Moise above. Apparently the patient did not sustain any significant hypoxic encephalopathy. His echocardiogram showed improvement in LV function. His kidney functioning seems to be a bit concerning, being closely followed by nephrology. I believe the patient must have sustained acute tubular necrosis and acute kidney injury. Remains on antibiotics for presumptive aspiration. His CT of the abdomen was reviewed, there is a cecal mass possibly his known carcinoid mass. His feeding was placed on hold, but considering the patient had 2 bowel movements over the last 24 hours, I will resume tube feeding. Secretions are still present but not as bad as reported by Dr. Moise yesterday. Hence I plan to give the patient a weaning trial, sedation holiday, and possibly a spontaneous breathing trial. Reevaluated today on 11/16/2017, remains on mechanical ventilation, sedated, on propofol drip, ventilator settings are the same as noted above. ABG showed a pO2 of 90 pCO2 of 29 pH of 7.38. Renal profile is slightly better today with a creatinine down to 2.90 BUN is 65. Patient remains a bit acidotic with a bicarb of 17. Endotracheal tube secretions seem to be much less today. Chest x -ray is showing improvement in his by basilar infiltrates and pleural effusions. Hemodynamically the patient remains stable. Neurologically patient is to be awakened today, he will be given a sedation holiday, and possibly a spontaneous breathing trial. All labs were reviewed, patient remains on enteral feeding. is at bedside, and she was updated on his condition. Patient was reevaluated today on 11/17/2017, remains on mechanical ventilation, sedated, on propofol drip. His ventilator settings are basically the same. No changes were made over the last 24 hours. However the patient was taken off propofol, I awaken the patient, seems to be responsive, but generally weak, and I recommended a trial of spontaneous breathing using pressure support mode of mechanical ventilation, pressure support was at 12 and CPAP. Patient did well for about 45 minutes, then he was noted to get more tachypneic, tachycardic, and hypertensive. Patient was arrested back again on assist control mode of mechanical ventilation. His IV fluid was changed to D5W since the patient is developing hypernatremia, and hyperchloremic metabolic acidosis. His renal profile showed a BUN of 64 creatinine of 2.68 slightly improved compared to yesterday. ABG showed a pO2 of 87 pCO2 of 35 pH of 7.31. CBC continues to show leukocytosis with WBC count of 16.9. Chest x-ray is showing stable bilateral infiltrates and pleural effusions. Looking at the patient's fluid balance, patient has been slightly on the negative side, and his urine output has been reasonable. His IV fluid was changed to D5W because of the hypernatremia, and may have to consider fluid boluses via the nasogastric tube with the feedings. Reevaluated today on 11/18/2017, a shunt remains on mechanical ventilation, same ventilator settings, remains sedated on propofol, however I was able to take him off of propofol, and kept him on assist control mode of mechanical ventilation. As soon as the patient woke up, he was noted to be tachypneic, followed intermittently very simple instructions like closing eyes and squeezing hands, but not wiggling toes. Patient was noted to be generally weak , not quite ready for a spontaneous breathing trial. May consider again pressure support of 12 and CPAP today. In the last few days the patient seems to fail all weaning trials, hence I discussed with the today potentially setting him up for tracheostomy. is agreeable, however the patient is on brilinta, and we'll discuss with the framing machine tender if we could hold it for few days. A shunt will likely benefit from tracheostomy and PEG tube placement, I believe his course on mechanical ventilation is going to be definitely prolonged. He may eventually require transfer to an ECF. All his labs, x-rays , were reviewed, I'm quite concerned about his abdominal distention, hence I placed a consult to Dr. briggs to evaluate. Meantime his tube feeding was placed on hold, and will place nasogastric tube on intermittent suction. Flat plate of the abdomen was done, chest x-ray showed some improvement in his by basilar opacities today. Renal functioning seems to be worsening, and his hypernatremia is not improving much. Hence we will increase his IV fluid with D5W, and would hold on any diuretics for now. His urine output seems to be reasonable. Patient has been in positive balance especially with the free water flushes given through the nasogastric tube to correct his hypernatremia. Objective - Vital Signs Vital signs: Vital Signs Temp 97.8 F 11/18/17 08:00 Pulse 90 11/18/17 11:00 Resp 33 H 11/18/17 11:00 BP 120/68 11/18/17 11:00 Pulse Ox 99 11/18/17 11:00 Intake & Output 11/17/17 11/18/17 11/18/17 18:59 06:59 18:59 Intake Total 1392.473 5947.5 904.867 Output Total 1175 1205 515 Balance -8.000 769.5 389.867 Weight 87.7 kg 87.7 kg Intake: IV 787.0 774.5 492.5 0.9 40 40 50 0.9 for pressure 72 72 30 Dextrose 5% in Water 1, 125 000 ml @ 125 mls/hr IV . Q8H [facility] Rx#:[id number] Dextrose 5% in Water 1, 400 600 275 000 ml @ 50 mls/hr IV . Q20H [facility] Rx#:[id number] Piperacillin-Tazobactam 3 75.0 62.5 12.5 .375 gm In Dextrose/Water 1 50ml.bag @ 12.5 mls/hr IVPB Q8HR [facility] Rx#: [id number] Sodium Chloride 0.9% 1, 200 000 ml @ 50 mls/hr IV . Q20H [facility] Rx#:[id number] Intake, IV Titration 100.000 100 62.367 Amount Propofol 1,000 mg In 100.000 100 62.367 Empty Bag 1 bag @ Titrate IV .Q0M [facility] Rx#: [id number] Tube Feeding 250 800 250 Other 30 300 100 Output: Urine 1175 1205 515 Other: Voiding Method Indwelling Catheter Indwelling Catheter Indwelling Catheter ABP, PAP, CO, CI - Last Documented Arterial Blood Pressure 155/83 - Exam Physical Exam: Revealed a 57-year-old white male on mechanical ventilation, in no distress. Head: Atraumatic, normocephalic. HEENT:[Neck is supple.] [No neck masses.] [No thyromegaly.] [No JVD.] Endotracheal tube seems to be intact. Moist mucous membranes. Throat is clear. Chest: [Minimal fine crackles at the right base, no rhonchi no wheezes.] Cardiac Exam: [Normal S1 and S2, no S3 gallop, no murmur.] Abdomen: [Soft, nontender, no megaly, no rebound, no guarding, normal bowel sounds.] Extremities: [No clubbing, no edema, no cyanosis.] Neurological Exam: Examined off propofol, patient was noted to follow very simple instructions, but generally weak, and seems to be appropriate.. Psychiatric: Blunted affect, cannot fully assess mental status examination except the patient is able to follow instructions. Musculoskeletal: Generally weak otherwise no focal deficit. - Labs CBC & Chem 7: 11/18/17 04:20 11/18/17 04:20 Labs: Abnormal Lab Results - Last 24 Hours (Table) 11/18/17 11/18/17 11/18/17 Range/Units 04:20 04:20 07:50 WBC 20.4 H (3.8-10.6) k/uL RBC 3.15 L (4.30-5.90) m/uL Hgb 9.8 L (13.0-17.5) gm/dL Hct 29.1 L (39.0-53.0) % Plt Count 458 H (150-450) k/uL Neutrophils # 18.4 H (1.3-7.7) k/uL Lymphocytes # 0.7 L (1.0-4.8) k/uL ABG pCO2 27 L (35-45) mmHg ABG HCO3 16 L (21-25) mmol/L ABG Total CO2 17 L (19-24) mmol/L Sodium 151 H (137-145) mmol/L Chloride 121 H* (98-107) mmol/L Carbon Dioxide 17 L (22-30) mmol/L BUN 62 H (9-20) mg/dL Creatinine 2.67 H (0.66-1.25) mg/dL Glucose 155 H (74-99) mg/dL POC Glucose (mg/dL) (75-99) mg/dL Calcium 6.8 L (8.4-10.2) mg/dL Ionized Calcium Eduardo 4.4 L (4.5-5.3) mg/dL Phosphorus 5.3 H (2.5-4.5) mg/dL Magnesium 3.1 H (1.6-2.3) mg/dL 11/18/17 Range/Units 11:06 WBC (3.8-10.6) k/uL RBC (4.30-5.90) m/uL Hgb (13.0-17.5) gm/dL Hct (39.0-53.0) % Plt Count (150-450) k/uL Neutrophils # (1.3-7.7) k/uL Lymphocytes # (1.0-4.8) k/uL ABG pCO2 (35-45) mmHg ABG HCO3 (21-25) mmol/L ABG Total CO2 (19-24) mmol/L Sodium (137-145) mmol/L Chloride (98-107) mmol/L Carbon Dioxide (22-30) mmol/L BUN (9-20) mg/dL Creatinine (0.66-1.25) mg/dL Glucose (74-99) mg/dL POC Glucose (mg/dL) 203 H (75-99) mg/dL Calcium (8.4-10.2) mg/dL Ionized Calcium Eduardo (4.5-5.3) mg/dL Phosphorus (2.5-4.5) mg/dL Magnesium (1.6-2.3) mg/dL Assessment and Plan Assessment: [address] segment elevation myocardial infarction secondary to a tight left main lesion him a status post successful angioplasty and stenting 2 acute cardiac arrest secondary to above, resuscitated adequately 3 acute hypoxic respiratory failure secondary to above 4 acute hypotension, post cardiac arrest. Obviously echocardiogram showing a preserved LV function and there is no valvular disruption and that is no clear- cut cardiogenic component. No evidence of any stunned myocardium on subsequent echocardiogram. 5 acute kidney injury secondary acute cardiac arrest, hypotension and possibly contrast material. The patient is nonoliguric. Creatinine is up to 2.9, and BUN is 65 6 diffuse bilateral pulmonary infiltrates/effusion. Consider noncardiogenic pulmonary edema. Consider acute lung injury secondary aspiration/cardiac arrest. Patient is still oxygenating and ventilating well. The patient is still having less and less endotracheal tube secretions 7 history of carcinoid tumor the patient had a follow-up CAT scan of the abdomen that showed abnormal cecum and severe wall thickening with primary nap as could be present as the patient has known history of carcinoid. The patient also has a component of small bowel obstruction/ileus. Seems to be resolving today. NG tube is in place. Bowel sounds are becoming active, hence we'll proceed with feeding again today. 8 history of lymphoma 9 hypocalcemia, recurrent, 10 non-anion gap metabolic acidosis 11 acute hypernatremia with hyperchloremic metabolic acidosis, patient is free water deficient, hence the IV fluid was changed to D5W, may give free water fluid boluses via nasogastric tube. 12 abdominal distention with possible ileus, hence tube feeding will be placed on hold, nasogastric tube placed on suction, initiated a surgical consultation. 13 failure to wean in spite of multiple trials over the last few days, hence initiated a consultation to Dr. Navarro to consider tracheostomy and PEG tube placement. Will decide on brilinta with the framing machine tender. Plan: Continue at least twice a day trials of spontaneous breathing trials, patient tolerated pressure support of 12 and CPAP for about 40 minutes. However he was noted to be tachypnea, tachycardic, hypertensive, hence he was placed back on assist control mode of mechanical ventilation again. Discussed his condition with his at bedside, we will continue these trials, however comes next week May have to seriously consider tracheostomy. Continue nutritional support, continue hemodynamic support, continue GI and DVT prophylaxis. Prognosis remains very guarded. Critical care time is 45 minutes Time with Patient: Greater than 30
[2017-11-18] MEDS: IOHEXOL 350 MG/ML 25 ML BOTTLE (ORAL USE) PO PRN ×2 (16:18→18:56)
--- NOTE | 2017-11-18 16:42 | PN ---
PROGRESS NOTE Patient is seen for followup for acute kidney injury. Currently he remains on the vent. Patient is maintained on D5W, which was started yesterday. His serum sodium remains high. Renal function is about the same, with good urine output. The patient has not required any pressors. Tube feeds are on hold, as he is not moving his bowels. On examination, blood pressure was 103/51, heart rate 86 per minute this morning. EXAMINATION OF THE HEART: S1, S2. EXAMINATION OF LUNGS: Bilateral breath sounds are heard. ABDOMEN: Soft, distended, non-tender. Examination of lower extremities shows edema 1+, mainly in the lower extremities. Scrotal edema is noted. Labs show sodium 151, potassium 4.2, chloride 121, CO2 17, BUN 62, serum creatinine 2.67, hemoglobin 9.8 g/dL. ASSESSMENT: 1. Hypernatremia. Serum sodium is higher today. Increase D5 water. Patient is not able to receive free water through the PEG tube since we are not using his gut. 2. Acute kidney injury, acute tubular necrosis, currently stable, nonoliguric, with good urine output. 3. Non-gap metabolic acidosis secondary to renal failure. Continue to monitor for now. Patient is not able to tolerate oral sodium bicarb. We will likely switch to IV bicarb if his acidosis worsens. 4. Vent-dependent respiratory failure. 5. Status post cardiac arrest. 6. Status post acute myocardial infarction and coronary stenting. PLAN: Increase D5W. Repeat labs in a.m. MMODL / IJN: [id number] /
[2017-11-18 17:07] LABS: Glucose,Whole Blood 167 mg/dL (75-99)
[2017-11-18] MEDS ORDERED: EPINEPHrine 10 ML SYRINGE (0.1 MG/ML) ONE (19:55)
[2017-11-18] MEDS ORDERED: ATROPINE SULFATE 0.1 MG/ML 10ML SYRINGE ONE (19:55)
--- NOTE | 2017-11-18 20:53 | CT ---
EXAMINATION TYPE: CT abdomen pelvis wo con DATE OF EXAM: 11/18/2017 COMPARISON: 11/13/2017 HISTORY: Abd distention CT DLP: 1123.1 mGycm Automated exposure control for dose reduction was used. TECHNIQUE: Helical acquisition of images was performed from the lung bases through the pelvis. FINDINGS: There are moderate-sized bilateral pleural effusions. There is consolidation and atelectasis at the l vinayak bases. Heart is enlarged. Liver shows no focal defect. Bile ducts are not dilated. Gallbladder is distended. Gallbladder measur es 4.5 cm in diameter. There is no evidence of a splenic mass. There is no sign of pancreatic mass. There is some fluid in the anterior pararenal space on the left side. The kidneys have normal size. T here is no hydronephrosis. Ureters are not dilated. There is Felipe catheter in the urinary bladder. T here is a small amount of fluid in the right paracolic gutter. There are some enlarged abdominal para rectal lymph nodes that measure up to 2 cm. There is a nasogastric tube in the gastric fundus. IMPRESSION: PLEURAL EFFUSIONS AND BASILAR PULMONARY INFILTRATES AND ATELECTASIS SUGGESTIVE OF CONGESTIVE HEART FA ILURE. CARDIOMEGALY. RETROPERITONEAL ADENOPATHY. NO EVIDENCE OF RENAL OBSTRUCTION. MILDLY DILATED GAL LBLADDER SUGGESTIVE OF CHOLECYSTITIS. THIS IS UNCHANGED. THERE IS MILD ASCITES FLUID THAT IS UNCHANGE D. NO EVIDENCE OF BOWEL OBSTRUCTION.
[2017-11-18] MEDS: ATORVASTATIN 80 MG TAB PO SCH (21:45)
[2017-11-18] MEDS: MORPHINE SULFATE 4 MG/ML SYRINGE IVP PRN (21:48)
[2017-11-19 00:06] LABS: Glucose,Whole Blood 177 mg/dL (75-99)
[2017-11-19] MEDS: METOCLOPRAMIDE 5 MG/ML 2 ML VIAL IVP SCH ×5 (00:28→23:34)
[2017-11-19] MEDS: HEPARIN SODIUM,PORCINE 5,000 UNIT/ML 1 ML VIAL SQ SCH ×4 (00:28→23:34)
[2017-11-19] MEDS: PIPERACILLIN-TAZOBACTAM 3.375 GM in DEXTROSE/WATER 1 50ML.BAG IVPB SCH ×3 (00:28→16:06)
[2017-11-19] MEDS: INSULIN ASPART 100 UNIT/ML 1 ML 10 ML VIAL SQ SCH ×5 (00:28→23:34)
[2017-11-19 00:29] LABS: Calcium 6.7 mg/dL (8.4-10.2); Potassium 4.5 mmol/L (3.5-5.1)
[2017-11-19] MEDS: DEXTROSE 5% IN WATER 1,000 ML IV SCH ×3 (00:32→17:51)
[2017-11-19] MEDS: PROPOFOL 1,000 MG in EMPTY BAG 1 BAG IV SCH ×3 (02:15→18:07)
[2017-11-19 04:17] LABS: Basophils % (A) 0 %; Eosinophils # (A) 0.2 k/uL (0-0.7); Eosinophils % (A) 1 %; HCT 26.6 % (39.0-53.0); HGB 8.6 gm/dL (13.0-17.5); Lymphocytes # (A) 0.9 k/uL (1.0-4.8); Lymphocytes % (A) 4 %; MCH 30.3 pg (25.0-35.0); MCHC 32.4 g/dL (31.0-37.0); MCV 93.6 fL (80.0-100.0); Mean Platelet Volume 9.3; Monocytes # (A) 0.6 k/uL (0-1.0); Monocytes % (A) 3 %; Neutrophils # (A) 20.8 k/uL (1.3-7.7); Neutrophils % (A) 91 %; Platelet Count 424 k/uL (150-450); RBC 2.84 m/uL (4.30-5.90); RDW 14.5 % (11.5-15.5); WBC 22.9 k/uL (3.8-10.6)
[2017-11-19 04:29] LABS: Magnesium 2.9 mg/dL (1.6-2.3); Phosphorus 6.9 mg/dL (2.5-4.5); Potassium 4.4 mmol/L (3.5-5.1)
[2017-11-19 04:37] LABS: Calcium 6.4 mg/dL (8.4-10.2)
[2017-11-19 06:59] LABS: Glucose,Whole Blood 164 mg/dL (75-99)
[2017-11-19 07:10] LABS: ABG Base Excess -9.3 mmol/L; ABG HCO3 16 mmol/L (21-25); ABG PCO2 26 mmHg (35-45); ABG PH 7.39 (7.35-7.45); ABG PO2 93 mmHg (83-108); ABG TCO2 17 mmol/L (19-24)
[2017-11-19] MEDS: ALBUTEROL NEBULIZED 2.5 MG/3 ML INHALATION SCH ×3 (07:27→19:45)
[2017-11-19] MEDS: METOPROLOL TARTRATE 12.5 MG TAB PO SCH (08:01)
[2017-11-19] MEDS: PANTOPRAZOLE 40 MG/10 ML VIAL IV SCH (08:01)
[2017-11-19] MEDS: ASPIRIN 81 MG PO SCH (08:01)
[2017-11-19] MEDS: TICAGRELOR 90 MG TAB PO SCH ×2 (08:02→20:21)
[2017-11-19] MEDS: CHLORHEXIDINE GLUCONATE 15 ML CUP MUCOUS MEM SCH ×2 (08:02→20:21)
--- NOTE | 2017-11-19 08:26 | XR ---
EXAMINATION TYPE: XR chest 1V portable DATE OF EXAM: 11/19/2017 COMPARISON: 11/18/2017 HISTORY: SOB, Follow Up FINDINGS: Indwelling tubes and catheters are unchanged. Scattered infiltrates are unchanged. Stable appearance of the cardio-mediastinal structures at this time. Pleural effusion unchanged. IMPRESSION: 1. Stable portable chest. Clinical correlation and follow up until resolution is recommended.
[2017-11-19] MEDS ORDERED: FUROSEMIDE 10 MG/ML 4 ML VIAL IV STA (09:03)
[2017-11-19] MEDS ORDERED: METOPROLOL TARTRATE 12.5 MG TAB PO ONE (09:15)
[2017-11-19] MEDS ORDERED: ceFAZolin IN SWFI 2 GM/20 ML SYRINGE IVP ONE (09:30)
[2017-11-19] MEDS ORDERED: CALCIUM GLUCONATE 1,000 MG in SODIUM CHLORIDE 0.9% 100 ML IVPB ONE (09:30)
--- NOTE | 2017-11-19 09:57 | P.GSCN ---
History of Present Illness Consult date: 11/19/17 Reason for Consult: Prolonged mechanical ventilation, failed weaning trials, need for tracheostomy and PEG tube placement. Requesting physician: Liam Hassan History of present illness: This 57-year-old gentleman presented to the hospital via EMS secondary to cardiac arrest. Apparently he had been playing pickle ball, collapsed, and was found to be in cardiac arrest. Bystander CPR was initiated, EMS was called, the patient was in V. fib and was shocked, eventually returning to normal sinus rhythm. He was transported to [facility] and subsequently brought to [facility] for emergent heart catheterization. The patient did undergo successful stenting of his LAD, he remained intubated in the intensive care unit. Multiple weaning trials have been attempted and have been unsuccessful. Therefore Dr. Navarro was consulted for placement of tracheostomy and PEG tube placement. Of note, patient was started on Brilinta after stent placement which cardiology does not want discontinued. Review of Systems ROS unobtainable: due to endotracheal tube Past Medical History Past Medical History: Coronary Artery Disease (CAD) Additional Past Medical History / Comment(s): Pt admitted with STEMI. 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 History of Any Multi-Drug Resistant Organisms: None Reported Past Surgical History: Back Surgery, Hernia Repair Additional Past Surgical History / Comment(s): 11/10/17 PCI with stent, bilateral hernia repair x 3, exploratory laparoscopy, colonoscopy, laminectomy. Past Anesthesia/Blood Transfusion Reactions: No Reported Reaction Smoking Status: Former smoker - Past Family History Father Family Medical History: No Reported History Additional Family Medical History / Comment(s): Father is 82 yrs old and healthy. Mother Family Medical History: Dementia Additional Family Medical History / Comment(s): Mother is . Medications and Allergies Home Medications Medication Instructions Recorded Confirmed Type Atorvastatin [Lipitor] 40 mg PO DAILY 11/11/17 11/11/17 History Butalb/APAP/Caff 50-325-40Mg 1 - 2 tab PO Q4H PRN MDD 6 TABS 11/11/17 11/11/17 History [Fioricet 50-325-40] Ibuprofen [Motrin] 600 mg PO Q6HR PRN 11/11/17 11/11/17 History Lisinopril [Zestril] 10 mg PO DAILY 11/11/17 11/11/17 History Octreotide Lar [SandoSTATIN LAR] 20 mg IM Q3D 11/11/17 11/11/17 History Omeprazole [PriLOSEC] 20 mg PO AC-BRKFST 11/11/17 11/11/17 History Allergies Allergy/AdvReac Type Severity Reaction Status Date / Time No Known Allergies Allergy Verified 11/10/17 21:00 Surgical - Exam Vital Signs Temp Resp BP 95.2 F L 20 80/52 11/10/17 22:46 11/10/17 22:46 11/10/17 22:46 - General well developed, well nourished, no distress - Eyes PERRL, icteric - Neck trachea midline - Respiratory Lungs sounds diminished bilaterally. Respirations even, nonlabored on mechanical ventilation. Current settings assist control mode, FiO2 40%, tidal volume 500, respiratory rate 20, PEEP 5. 7.5 ET tube present, 24 at the lip. - Cardiovascular S1, S2 present. Regular rate and rhythm, sinus rhythm on telemetry. Palpable peripheral pulses bilaterally. Trace generalized edema present. Right radial arterial line, left subclavian triple-lumen central line present. - Abdomen OG tube present to lower intermittent suction. Green drainage present. Abdomen: soft, non tender, bowel sounds - Genitourinary Felipe present draining clear, yellow urine. Urine output 50-125 mL per hour overnight. - Rectum Deferred - Integumentary no rash - Neurologic Sedated with propofol. Results - Labs 11/19/17 03:46 11/19/17 03:46 Abnormal Lab Results - Last 24 Hours (Table) 11/18/17 11/18/17 11/18/17 Range/Units 11:06 17:05 23:52 WBC (3.8-10.6) k/uL RBC (4.30-5.90) m/uL Hgb (13.0-17.5) gm/dL Hct (39.0-53.0) % Neutrophils # (1.3-7.7) k/uL Lymphocytes # (1.0-4.8) k/uL ABG pCO2 (35-45) mmHg ABG HCO3 (21-25) mmol/L ABG Total CO2 (19-24) mmol/L Chloride 115 H (98-107) mmol/L Carbon Dioxide 16 L (22-30) mmol/L BUN 62 H (9-20) mg/dL Creatinine 2.80 H (0.66-1.25) mg/dL Glucose 146 H (74-99) mg/dL POC Glucose (mg/dL) 203 H 167 H (75-99) mg/dL Calcium 6.7 L (8.4-10.2) mg/dL Ionized Calcium Eduardo (4.5-5.3) mg/dL Phosphorus (2.5-4.5) mg/dL Magnesium (1.6-2.3) mg/dL 11/19/17 11/19/17 11/19/17 Range/Units 00:04 03:46 03:46 WBC 22.9 H (3.8-10.6) k/uL RBC 2.84 L (4.30-5.90) m/uL Hgb 8.6 L (13.0-17.5) gm/dL Hct 26.6 L (39.0-53.0) % Neutrophils # 20.8 H (1.3-7.7) k/uL Lymphocytes # 0.9 L (1.0-4.8) k/uL ABG pCO2 (35-45) mmHg ABG HCO3 (21-25) mmol/L ABG Total CO2 (19-24) mmol/L Chloride 114 H (98-107) mmol/L Carbon Dioxide 16 L (22-30) mmol/L BUN 63 H (9-20) mg/dL Creatinine 2.97 H (0.66-1.25) mg/dL Glucose 129 H (74-99) mg/dL POC Glucose (mg/dL) 177 H (75-99) mg/dL Calcium 6.4 L* (8.4-10.2) mg/dL Ionized Calcium Eduardo 4.0 L (4.5-5.3) mg/dL Phosphorus 6.9 H (2.5-4.5) mg/dL Magnesium 2.9 H (1.6-2.3) mg/dL 11/19/17 11/19/17 Range/Units 06:57 07:05 WBC (3.8-10.6) k/uL RBC (4.30-5.90) m/uL Hgb (13.0-17.5) gm/dL Hct (39.0-53.0) % Neutrophils # (1.3-7.7) k/uL Lymphocytes # (1.0-4.8) k/uL ABG pCO2 26 L (35-45) mmHg ABG HCO3 16 L (21-25) mmol/L ABG Total CO2 17 L (19-24) mmol/L Chloride (98-107) mmol/L Carbon Dioxide (22-30) mmol/L BUN (9-20) mg/dL Creatinine (0.66-1.25) mg/dL Glucose (74-99) mg/dL POC Glucose (mg/dL) 164 H (75-99) mg/dL Calcium (8.4-10.2) mg/dL Ionized Calcium Eduardo (4.5-5.3) mg/dL Phosphorus (2.5-4.5) mg/dL Magnesium (1.6-2.3) mg/dL Diabetes panel 11/18/17 11/18/17 11/19/17 Range/Units 16:54 23:52 03:46 Sodium 145 142 143 (137-145) mmol/L Potassium 4.5 4.4 (3.5-5.1) mmol/L Chloride 115 H 114 H (98-107) mmol/L Carbon Dioxide 16 L 16 L (22-30) mmol/L BUN 62 H 63 H (9-20) mg/dL Creatinine 2.80 H 2.97 H (0.66-1.25) mg/dL Glucose 146 H 129 H (74-99) mg/dL Calcium 6.7 L 6.4 L* (8.4-10.2) mg/dL Calcium panel 11/18/17 11/19/17 Range/Units 23:52 03:46 Calcium 6.7 L 6.4 L* (8.4-10.2) mg/dL Ionized Calcium Eduardo 4.0 L (4.5-5.3) mg/dL Phosphorus 6.9 H (2.5-4.5) mg/dL Pituitary panel 11/18/17 11/18/17 11/19/17 Range/Units 16:54 23:52 03:46 Sodium 145 142 143 (137-145) mmol/L Potassium 4.5 4.4 (3.5-5.1) mmol/L Chloride 115 H 114 H (98-107) mmol/L Carbon Dioxide 16 L 16 L (22-30) mmol/L BUN 62 H 63 H (9-20) mg/dL Creatinine 2.80 H 2.97 H (0.66-1.25) mg/dL Glucose 146 H 129 H (74-99) mg/dL Calcium 6.7 L 6.4 L* (8.4-10.2) mg/dL Adrenal panel 11/18/17 11/18/17 11/19/17 Range/Units 16:54 23:52 03:46 Sodium 145 142 143 (137-145) mmol/L Potassium 4.5 4.4 (3.5-5.1) mmol/L Chloride 115 H 114 H (98-107) mmol/L Carbon Dioxide 16 L 16 L (22-30) mmol/L BUN 62 H 63 H (9-20) mg/dL Creatinine 2.80 H 2.97 H (0.66-1.25) mg/dL Glucose 146 H 129 H (74-99) mg/dL Calcium 6.7 L 6.4 L* (8.4-10.2) mg/dL - Imaging Chest x-ray: report reviewed, image reviewed Assessment and Plan (1) Respiratory failure Current Visit: Yes Status: Acute Code(s): J96.90 - RESPIRATORY FAILURE, UNSP , UNSP W HYPOXIA OR HYPERCAPNIA SNOMED Code(s): 977181019 (2) Cardiac arrest Current Visit: Yes Status: Acute Code(s): I46.9 - CARDIAC ARREST, CAUSE UNSPECIFIED SNOMED Code(s): 812818372 Plan: The patient was seen and examined at the bedside with Dr. Navarro. Chart/ diagnostics were reviewed. Risks and benefits were reviewed extensively with the at the bedside. Patient is very high risk for bleed secondary to Brilinta use. is very aware and states she would still like a tracheostomy and PEG tube placed. We will wait until the early part of next week to make final decision in hopes of being able to wean and extubate this weekend. Thank you Dr. Hassan for this consult. Please contact us with any questions. Time with Patient: Greater than 30
[2017-11-19] MEDS: MORPHINE SULFATE 4 MG/ML SYRINGE IVP PRN ×2 (10:22→20:25)
[2017-11-19] MEDS: LACTULOSE 20 GM/30 ML CUP PO SCH ×2 (10:31→20:21)
[2017-11-19] MEDS: QUEtiapine 25 MG TAB PO SCH ×2 (11:13→20:20)
[2017-11-19 11:18] LABS: Glucose,Whole Blood 151 mg/dL (75-99)
--- NOTE | 2017-11-19 11:39 | P.PN ---
Subjective Patient still intubated. Being considered for tracheostomy. Last evening at about 10:00 he had a very long episode of asystole secondary to paroxysmal AV block. This episode may have lasted for about 30 seconds. This occurred without any stimulation On examination he is 99.4F, respirations 20, blood pressure 133/72 mmHg, Breath sounds are equal bilaterally no rhonchi no crackles Heart sounds S1 and S2 are soft Extremities are warm Impression VF arrest Anterior wall CA Left main stenting Complete recovery of LV function Delayed paroxysmal AV block with a prolonged episode of asystole for greater than 30 seconds Suggest In view of the telemetry findings and the history of post anterior wall infarct the pacemaker would be indicated. However, at this time the patient is on IV antibiotics and white count is still elevated I would recommend an externalized temporary pacemaker Objective - Vital Signs Vital signs: Vital Signs Temp 99.4 F 11/19/17 10:00 Pulse 84 11/19/17 10:00 Resp 20 11/19/17 10:00 BP 133/72 11/19/17 10:00 Pulse Ox 98 11/19/17 10:00 Intake & Output 11/18/17 11/19/17 11/19/17 18:59 06:59 18:59 Intake Total 2083.000 1730.038 788.625 Output Total 1020 1150 350 Balance 1063.000 580.038 438.625 Weight 87.7 kg 87.7 kg Intake: IV 1633.0 1601.0 742.5 0.9 130 110 50 0.9 for pressure 78 66 30 Calcium Gluconate 1,000 100 mg In Sodium Chloride 0.9 % 100 ml @ 100 mls/hr IVPB ONCE ONE Rx#: [id number] Dextrose 5% in Water 1, 275 000 ml @ 50 mls/hr IV . Q20H ONE Rx#:[id number] Dextrose 5% in Water 1, 1125 1375 525 000 ml @ 75 mls/hr IV . [id number] [facility] Rx#:[id number] Piperacillin-Tazobactam 3 25.0 50.0 37.5 .375 gm In Dextrose/Water 1 50ml.bag @ 12.5 mls/hr IVPB Q8HR [facility] Rx#: [id number] Intake, IV Titration 100.000 129.038 1.125 Amount Propofol 1,000 mg In 100.000 129.038 1.125 Empty Bag 1 bag @ Titrate IV .Q0M [facility] Rx#: [id number] Oral 45 Tube Feeding 250 Other 100 Output: Gastric Drainage 400 Urine 1020 750 350 Other: Voiding Method Indwelling Catheter Indwelling Catheter ABP, PAP, CO, CI - Last Documented Arterial Blood Pressure 133/72 - Labs CBC & Chem 7: 11/19/17 03:46 11/19/17 03:46 Labs: Abnormal Lab Results - Last 24 Hours (Table) 11/18/17 11/18/17 11/19/17 Range/Units 17:05 23:52 00:04 WBC (3.8-10.6) k/uL RBC (4.30-5.90) m/uL Hgb (13.0-17.5) gm/dL Hct (39.0-53.0) % Neutrophils # (1.3-7.7) k/uL Lymphocytes # (1.0-4.8) k/uL ABG pCO2 (35-45) mmHg ABG HCO3 (21-25) mmol/L ABG Total CO2 (19-24) mmol/L Chloride 115 H (98-107) mmol/L Carbon Dioxide 16 L (22-30) mmol/L BUN 62 H (9-20) mg/dL Creatinine 2.80 H (0.66-1.25) mg/dL Glucose 146 H (74-99) mg/dL POC Glucose (mg/dL) 167 H 177 H (75-99) mg/dL Calcium 6.7 L (8.4-10.2) mg/dL Ionized Calcium Eduardo (4.5-5.3) mg/dL Phosphorus (2.5-4.5) mg/dL Magnesium (1.6-2.3) mg/dL 11/19/17 11/19/17 11/19/17 Range/Units 03:46 03:46 06:57 WBC 22.9 H (3.8-10.6) k/uL RBC 2.84 L (4.30-5.90) m/uL Hgb 8.6 L (13.0-17.5) gm/dL Hct 26.6 L (39.0-53.0) % Neutrophils # 20.8 H (1.3-7.7) k/uL Lymphocytes # 0.9 L (1.0-4.8) k/uL ABG pCO2 (35-45) mmHg ABG HCO3 (21-25) mmol/L ABG Total CO2 (19-24) mmol/L Chloride 114 H (98-107) mmol/L Carbon Dioxide 16 L (22-30) mmol/L BUN 63 H (9-20) mg/dL Creatinine 2.97 H (0.66-1.25) mg/dL Glucose 129 H (74-99) mg/dL POC Glucose (mg/dL) 164 H (75-99) mg/dL Calcium 6.4 L* (8.4-10.2) mg/dL Ionized Calcium Eduardo 4.0 L (4.5-5.3) mg/dL Phosphorus 6.9 H (2.5-4.5) mg/dL Magnesium 2.9 H (1.6-2.3) mg/dL 11/19/17 11/19/17 Range/Units 07:05 11:15 WBC (3.8-10.6) k/uL RBC (4.30-5.90) m/uL Hgb (13.0-17.5) gm/dL Hct (39.0-53.0) % Neutrophils # (1.3-7.7) k/uL Lymphocytes # (1.0-4.8) k/uL ABG pCO2 26 L (35-45) mmHg ABG HCO3 16 L (21-25) mmol/L ABG Total CO2 17 L (19-24) mmol/L Chloride (98-107) mmol/L Carbon Dioxide (22-30) mmol/L BUN (9-20) mg/dL Creatinine (0.66-1.25) mg/dL Glucose (74-99) mg/dL POC Glucose (mg/dL) 151 H (75-99) mg/dL Calcium (8.4-10.2) mg/dL Ionized Calcium Eduardo (4.5-5.3) mg/dL Phosphorus (2.5-4.5) mg/dL Magnesium (1.6-2.3) mg/dL
[2017-11-19] MEDS ORDERED: SODIUM CHLORIDE 0.9% 250 ML IV ONE (12:05)
[2017-11-19] MEDS ORDERED: ceFAZolin IN SWFI 2 GM/20 ML SYRINGE IVP STA (12:11)
[2017-11-19] MEDS ORDERED: ceFAZolin 1,000 MG in DEXTROSE/WATER 1 50ML.BAG IVPB STA (12:14)
[2017-11-19] MEDS ORDERED: IODIXANOL 270 MG/ML 50 ML ML IV ONE (12:23)
[2017-11-19] MEDS ORDERED: LIDOCAINE 2% INJ 20 MG/ML SQ ONE (12:46)
--- NOTE | 2017-11-19 13:24 | P.PN ---
Subjective Progress Note Date: 11/19/17 Principal diagnosis: Acute cardiac arrest secondary to acute ST segment elevation WV. A pleasant 57-year-old male patient who lives in [place], [place] and the patient was playing pickle ball in the [facility] area. The patient acutely arrested and he was into cardiac arrest. There was a bystander nurse who did CPR on him. EMS was called to the scene and the patient was found in V. fib. The patient was shocked and the patient was given a dose of epinephrine. Subsequently went into asystole. Following that, CPR was continued and the patient went into V. fib, shocked again and then went into normal sinus rhythm. EKG showed ST segment elevation and the patient was taken to [facility] and following that the patient was brought in to the [facility]. Emergent cardiac catheterization was done and the patient was found to have a left main lesion that was stented. The stent insertion with successful. The patient was in already intubated by EMS on the scene. The patient was kept intubated. The patient was moved to the ICU for further care. Overnight, the patient was sedated with Diprivan. He apparently was following some simple commands while given a sedation holiday. This morning, he is on 30 mics of levo fed for blood pressure support. Echocardiogram was done and showed ejection fraction of 35%. No other significant abnormalities noted and this is a preliminary report. Urine output is in order of 25-30 mL an hour. Overnight his urine output dropped and a given a bolus of 1 L and he received a total of 2.5 L fluid bolus. He is current maintenance fluid is at 75 mL of normal saline. He is on a mechanical ventilator on assist control mode at the rate of 20, tidal volume of 600, FiO2 of 50% and a PEEP of 5. Morning blood gases showed a pH of 7.34 with a pCO2 of 28 and pO2 167. Chest x- ray showing some cardiomegaly and some pulmonary vessel congestion. ET tube is in a good location. No other densities seen in the left lower lobe costophrenic angle area. The patient's creatinine is up to 1.4. Today's potassium is up to 6.8. This needs to be repeated. No EKG changes related to this high potassium level. He is afebrile. No aspiration was noted. He remains on 30 mics of norepinephrine infusion for now. Pulses in lower extremities are weak yet obtainable by Doppler. His legs are cold and clammy still. No significant secretions from his orotracheal tube. He is known to have carcinoid tumor and apparently his been on maintenance hormonal treatment. He is seeing a oncologist out of [facility]. The patient also has history of lymphoma. The details of these malignancies are not known to us. The origin of the carcinoid tumor is not clear to me at this point. Further information is to be obtained on this patient. On 11/12 I'm seeing this patient for a follow-up. The patient remains intubated on a mechanical ventilator and the patient is post acute STEMI in acute cardiac arrest. I did not extubated the patient yesterday as the patient was still hypo-tensive and hypoperfusing and the patient was having diminished pulses in lower extremities and he looked cold and clammy and he had ongoing electrolyte disturbance with hypokalemia. He was given IV fluids and the neck fluid balance over the past 24 hours is +2.3 L. Currently is on 75 mL an hour of normal saline. Pulses are palpable in lower oximetry is bilaterally and the patient is much more warm. He is still however on pressors and currently norepinephrine infusion is running at 14 mics. His urine output dropped this morning and he is producing around 25-30 mL an hour of urine output. The patient has the levo fed infusion running through his right upper extremity. He remains on a mechanical ventilator. His assist-control mode at the rate of 20, tidal volume of 600, FiO2 of 40% and a PEEP of 5. The blood gases showed a pH of 7.3 with a pCO2 of 28 and pO2 77. Chest x-ray showing cardiomegaly. ET tube is in a good location. There is development of four-vessel congestion and possibly a right-sided pleural effusion also developing. He is afebrile. He is having no significant secretions with orotracheal tube. His white cell count has dropped and I doubt an underlying aspiration pneumonia although this is not completely excluded. I think his hypotension and shock is probably cardiogenic following his cardiac arrest. In addition, the patient's ionized calcium today's at 3.8 and the patient was given a total of 1 g of calcium gluconate. His troponin peaked at 26.4. This morning he is sedated and is calm and comfortable and synchronous with the mechanical ventilator. Orogastric and orotracheal tube are both in place. The patient is still nothing by mouth. On 11/13/2017 I'm seeing this patient for a follow-up. Patient remains intubated on a mechanical ventilator. He is sedated Diprivan is calm and comfortable. He withdraws to painful stimulation. A repeat echo cardiac exam was done today that showed a preserved LV function. Note that post WV the patient's ejection fraction was impaired with ejection fraction of 35-40%. Based on the fireman helper destination, the ejection fraction is a furthermore improved. I did add milrinone yesterday on him which I am willing to discontinue based on these findings. His CVP is around 7. He is in a positive fluid balance in order of 5 L since he came in to the intensive care unit. He has adequate pulses in all 4 extremities bilaterally. His chest x-ray showing diffuse bilateral pulmonary infiltrates which seems to be more so of a acute lung injury/aspiration-type of picture/non-cardiogenic pulmonary edema. The patient is on assist control mode, at the rate of 20, tidal volume of 600, FiO2 of 40% and PEEP of 5. The morning blood gas showed a pH of 7.38 with a pCO2 of 29 and pO2 of 85. The patient is on normal state rate of 75 mL an hour. Urine output is between 25-30 mL an hour. The patient's creatinine was up to 2 on today's evaluation. He did have a 1 spike of temperature and he is currently covered with IV Zosyn. White cell count is not elevated. No secretions with orotracheal tube. The patient had some difficulties tolerating tube feeds. Abdomen on examination was felt to be quite tender. Calcium level has dropped progressively. We'll need immediate fed femoral the abdomen addition to the liver function tests and pancreatic enzymes. Calcium level will be supplemented. On 11/14/2017 I'm seeing this patient for a follow-up. As mentioned earlier the patient is post cardiac arrest and the patient had a acute cardiac intervention and stenting of a left main for an acute cardiac arrest, acute ST segment elevation myocardial infarction. The patient fortunately does not show signs of hypoxic encephalopathy. Yet there is another complications preventing him from weaning. Initially was quite hypotensive which was thought to be of a cardiogenic in nature. Subsequent echocardiogram showed improvement in the LV function and probably had this done the myocardium which is improving. Hemodynamically improved and is at the point where norepinephrine infusion has been drop down to a few mics only. He subsequently developed an acute kidney injury, nonoliguric, and the creatinine is up to 2.5. This is expected knowing that the patient was subjected to a cardiac arrest, hypotension, pressors and contrast material. He also had potentially an aspiration pneumonia. He developed bilateral lower lobe consolidation/atelectasis and effusions. He is currently on IV Zosyn. The patient got diuresed any procedures adequate amount of urine output over the past 24 hours. He is still oxygenating and ventilating without any major difficulties. He also developed a abdominal distention. CAT scan of the abdomen was done and there is a cecal mass probably his known carcinoid mass. In addition, there is small bowel ileus/ obstruction for which the tube feeds were placed on hold and since then the patient has drained approximately 800 mL of gastric greenish material and his output is still considerably high. Liver function test are within normal. Amylase and lipase are not elevated. The patient also is having excessive rest or secretions which are being suctioned out. He is not ready for further weaning for now. Is afebrile. He is sedated with propofol. He is still on the same vent setting which includes an assist-control of 20, FiO2 of 60% Patient was reevaluated today on 11/15/2017, patient remains on mechanical ventilation, his ventilator settings are FiO2 of 40% tidal volume of 500 assist control rate of 20 and PEEP of 5. ABG showed a pO2 of 105 pCO2 of 29 pH of 7.37 CBC and basic metabolic profile are relatively normal however his BUN is 59 creatinine is 3.05. Bicarb is 18. Patient continues to have fair amount of secretions according to the nurses taking care of him, his urine output is excellent, remains on IV fluid at a relatively high rate. Chest x-ray showed stable bilateral infiltrates and possibly pleural effusions. Suspect the patient may have had an aspiration pneumonia involving the right lower lobe. Hemodynamically, the patient seems to be stable, neurologically he was noted to be functioning well based on the note by Dr. Moise above. Apparently the patient did not sustain any significant hypoxic encephalopathy. His echocardiogram showed improvement in LV function. His kidney functioning seems to be a bit concerning, being closely followed by nephrology. I believe the patient must have sustained acute tubular necrosis and acute kidney injury. Remains on antibiotics for presumptive aspiration. His CT of the abdomen was reviewed, there is a cecal mass possibly his known carcinoid mass. His feeding was placed on hold, but considering the patient had 2 bowel movements over the last 24 hours, I will resume tube feeding. Secretions are still present but not as bad as reported by Dr. Moise yesterday. Hence I plan to give the patient a weaning trial, sedation holiday, and possibly a spontaneous breathing trial. Reevaluated today on 11/16/2017, remains on mechanical ventilation, sedated, on propofol drip, ventilator settings are the same as noted above. ABG showed a pO2 of 90 pCO2 of 29 pH of 7.38. Renal profile is slightly better today with a creatinine down to 2.90 BUN is 65. Patient remains a bit acidotic with a bicarb of 17. Endotracheal tube secretions seem to be much less today. Chest x -ray is showing improvement in his by basilar infiltrates and pleural effusions. Hemodynamically the patient remains stable. Neurologically patient is to be awakened today, he will be given a sedation holiday, and possibly a spontaneous breathing trial. All labs were reviewed, patient remains on enteral feeding. is at bedside, and she was updated on his condition. Patient was reevaluated today on 11/17/2017, remains on mechanical ventilation, sedated, on propofol drip. His ventilator settings are basically the same. No changes were made over the last 24 hours. However the patient was taken off propofol, I awaken the patient, seems to be responsive, but generally weak, and I recommended a trial of spontaneous breathing using pressure support mode of mechanical ventilation, pressure support was at 12 and CPAP. Patient did well for about 45 minutes, then he was noted to get more tachypneic, tachycardic, and hypertensive. Patient was arrested back again on assist control mode of mechanical ventilation. His IV fluid was changed to D5W since the patient is developing hypernatremia, and hyperchloremic metabolic acidosis. His renal profile showed a BUN of 64 creatinine of 2.68 slightly improved compared to yesterday. ABG showed a pO2 of 87 pCO2 of 35 pH of 7.31. CBC continues to show leukocytosis with WBC count of 16.9. Chest x-ray is showing stable bilateral infiltrates and pleural effusions. Looking at the patient's fluid balance, patient has been slightly on the negative side, and his urine output has been reasonable. His IV fluid was changed to D5W because of the hypernatremia, and may have to consider fluid boluses via the nasogastric tube with the feedings. Reevaluated today on 11/18/2017, patient remains on mechanical ventilation, same ventilator settings, remains sedated on propofol, however I was able to take him off of propofol, and kept him on assist control mode of mechanical ventilation. As soon as the patient woke up, he was noted to be tachypneic, followed intermittently very simple instructions like closing eyes and squeezing hands, but not wiggling toes. Patient was noted to be generally weak , not quite ready for a spontaneous breathing trial. May consider again pressure support of 12 and CPAP today. In the last few days the patient seems to fail all weaning trials, hence I discussed with the today potentially setting him up for tracheostomy. is agreeable, however the patient is on brilinta, and we'll discuss with the fireman helper if we could hold it for few days. A shunt will likely benefit from tracheostomy and PEG tube placement, I believe his course on mechanical ventilation is going to be definitely prolonged. He may eventually require transfer to an ECF. All his labs, x-rays , were reviewed, I'm quite concerned about his abdominal distention, hence I placed a consult to Dr. briggs to evaluate. Meantime his tube feeding was placed on hold, and will place nasogastric tube on intermittent suction. Flat plate of the abdomen was done, chest x-ray showed some improvement in his by basilar opacities today. Renal functioning seems to be worsening, and his hypernatremia is not improving much. Hence we will increase his IV fluid with D5W, and would hold on any diuretics for now. His urine output seems to be reasonable. Patient has been in positive balance especially with the free water flushes given through the nasogastric tube to correct his hypernatremia. Reevaluated today on 11/19/2017, patient remains on mechanical ventilation, ventilator settings are tidal volume of 500, assist control rate of 20 FiO2 of 40% and PEEP of 5. ABG showed a pO2 of 93 pCO2 of 26 pH of 7.39. Patient had a positive fluid balance of 1600 mL over the last 24 hours. Hence I will cut down his IV fluid and bit, and give him a dose of Lasix. His sodium corrected nicely it is 143 today. Bicarb remains low at 16, BUN remains 63 and creatinine about the same 2.97. Chest x-ray continues to show bilateral opacities, possibly infiltrates related to aspiration, although the possibility of some fluid overload is not entirely ruled out but felt to be less likely. That should improve with Lasix IV push since it will be given today. Patient was taken off propofol, noted to be anxious, he became tachypneic tachycardic and hypertensive, I kept him on assist control mode of mechanical ventilation but off propofol, and I added Seroquel. Patient had 24 second episode of asystole yesterday, and he recovered on his own without any intervention. Discussed this with the fireman helper today, and he plans to take him for a pacemaker implantation. He seems to be quite concerned about that episode of sinus pauses. I also discussed his condition with the surgical staff for tracheostomy possibly Wednesday in spite of being on Brilinta. Doubt if we can successfully weaned and extubated the patient in the next couple of days. Objective - Vital Signs Vital signs: Vital Signs Temp 98.0 F 11/19/17 11:00 Pulse 82 11/19/17 11:00 Resp 20 11/19/17 11:00 BP 112/59 11/19/17 11:00 Pulse Ox 98 11/19/17 11:00 Intake & Output 11/18/17 11/19/17 11/19/17 18:59 06:59 18:59 Intake Total 2083.000 1730.038 852.225 Output Total 1020 1150 350 Balance 1063.000 580.038 502.225 Weight 87.7 kg 87.7 kg 87.7 kg Intake: IV 1633.0 1601.0 792.5 0.9 130 110 50 0.9 for pressure 78 66 30 Calcium Gluconate 1,000 100 mg In Sodium Chloride 0.9 % 100 ml @ 100 mls/hr IVPB ONCE ONE Rx#: [id number] Dextrose 5% in Water 1, 275 000 ml @ 50 mls/hr IV . Q20H ONE Rx#:[id number] Dextrose 5% in Water 1, 1125 1375 525 000 ml @ 75 mls/hr IV . [id number] [facility] Rx#:[id number] Piperacillin-Tazobactam 3 25.0 50.0 37.5 .375 gm In Dextrose/Water 1 50ml.bag @ 12.5 mls/hr IVPB Q8HR JACK Rx#: [id number] Intake, IV Titration 100.000 129.038 14.725 Amount Propofol 1,000 mg In 100.000 129.038 14.725 Empty Bag 1 bag @ Titrate IV .Q0M JACK Rx#: [id number] Oral 45 Tube Feeding 250 Other 100 Output: Gastric Drainage 400 Urine 1020 750 350 Other: Voiding Method Indwelling Catheter Indwelling Catheter Indwelling Catheter ABP, PAP, CO, CI - Last Documented Arterial Blood Pressure 131/67 - Exam Physical Exam: Revealed a 57-year-old white male on mechanical ventilation, in no distress. Head: Atraumatic, normocephalic. HEENT:[Neck is supple.] [No neck masses.] [No thyromegaly.] [No JVD.] Endotracheal tube seems to be intact. Moist mucous membranes. Throat is clear. Chest: [Minimal fine crackles at the right base, no rhonchi no wheezes.] Cardiac Exam: [Normal S1 and S2, no S3 gallop, no murmur.] Abdomen: [Soft, nontender, no megaly, no rebound, no guarding, normal bowel sounds.] Extremities: [No clubbing, no edema, no cyanosis.] Neurological Exam: Examined off propofol, patient was noted to follow very simple instructions, but generally weak, and seems to be appropriate.. Psychiatric: Blunted affect, cannot fully assess mental status examination except the patient is able to follow instructions. Musculoskeletal: Generally weak otherwise no focal deficit. - Labs CBC & Chem 7: 11/19/17 03:46 11/19/17 03:46 Labs: Abnormal Lab Results - Last 24 Hours (Table) 11/18/17 11/18/17 11/19/17 Range/Units 17:05 23:52 00:04 WBC (3.8-10.6) k/uL RBC (4.30-5.90) m/uL Hgb (13.0-17.5) gm/dL Hct (39.0-53.0) % Neutrophils # (1.3-7.7) k/uL Lymphocytes # (1.0-4.8) k/uL ABG pCO2 (35-45) mmHg ABG HCO3 (21-25) mmol/L ABG Total CO2 (19-24) mmol/L Chloride 115 H (98-107) mmol/L Carbon Dioxide 16 L (22-30) mmol/L BUN 62 H (9-20) mg/dL Creatinine 2.80 H (0.66-1.25) mg/dL Glucose 146 H (74-99) mg/dL POC Glucose (mg/dL) 167 H 177 H (75-99) mg/dL Calcium 6.7 L (8.4-10.2) mg/dL Ionized Calcium Eduardo (4.5-5.3) mg/dL Phosphorus (2.5-4.5) mg/dL Magnesium (1.6-2.3) mg/dL 11/19/17 11/19/17 11/19/17 Range/Units 03:46 03:46 06:57 WBC 22.9 H (3.8-10.6) k/uL RBC 2.84 L (4.30-5.90) m/uL Hgb 8.6 L (13.0-17.5) gm/dL Hct 26.6 L (39.0-53.0) % Neutrophils # 20.8 H (1.3-7.7) k/uL Lymphocytes # 0.9 L (1.0-4.8) k/uL ABG pCO2 (35-45) mmHg ABG HCO3 (21-25) mmol/L ABG Total CO2 (19-24) mmol/L Chloride 114 H (98-107) mmol/L Carbon Dioxide 16 L (22-30) mmol/L BUN 63 H (9-20) mg/dL Creatinine 2.97 H (0.66-1.25) mg/dL Glucose 129 H (74-99) mg/dL POC Glucose (mg/dL) 164 H (75-99) mg/dL Calcium 6.4 L* (8.4-10.2) mg/dL Ionized Calcium Eduardo 4.0 L (4.5-5.3) mg/dL Phosphorus 6.9 H (2.5-4.5) mg/dL Magnesium 2.9 H (1.6-2.3) mg/dL 11/19/17 11/19/17 Range/Units 07:05 11:15 WBC (3.8-10.6) k/uL RBC (4.30-5.90) m/uL Hgb (13.0-17.5) gm/dL Hct (39.0-53.0) % Neutrophils # (1.3-7.7) k/uL Lymphocytes # (1.0-4.8) k/uL ABG pCO2 26 L (35-45) mmHg ABG HCO3 16 L (21-25) mmol/L ABG Total CO2 17 L (19-24) mmol/L Chloride (98-107) mmol/L Carbon Dioxide (22-30) mmol/L BUN (9-20) mg/dL Creatinine (0.66-1.25) mg/dL Glucose (74-99) mg/dL POC Glucose (mg/dL) 151 H (75-99) mg/dL Calcium (8.4-10.2) mg/dL Ionized Calcium Eduardo (4.5-5.3) mg/dL Phosphorus (2.5-4.5) mg/dL Magnesium (1.6-2.3) mg/dL Assessment and Plan Assessment: [address] segment elevation myocardial infarction secondary to a tight left main lesion him a status post successful angioplasty and stenting 2 acute cardiac arrest secondary to above, resuscitated adequately 3 acute hypoxic respiratory failure secondary to above 4 acute hypotension, post cardiac arrest. Obviously echocardiogram showing a preserved LV function and there is no valvular disruption and that is no clear- cut cardiogenic component. No evidence of any stunned myocardium on subsequent echocardiogram. 5 acute kidney injury secondary acute cardiac arrest, hypotension and possibly contrast material. The patient is nonoliguric. Creatinine is up to 2.9, and BUN is 65 6 diffuse bilateral pulmonary infiltrates/effusion. Consider noncardiogenic pulmonary edema. Consider acute lung injury secondary aspiration/cardiac arrest. Patient is still oxygenating and ventilating well. The patient is still having less and less endotracheal tube secretions 7 history of carcinoid tumor involving the GI tract, and now we are dealing with what seems to be some ileus, surgery was consulted, recommended conservative measures only. Patient remains on Reglan, and lactulose was added today 9 hypocalcemia, recurrent, patient will be addressed accordingly. 10 non-anion gap metabolic acidosis 11 acute hypernatremia with hyperchloremic metabolic acidosis, patient is free water deficient, hence the IV fluid was changed to D5W, may give free water fluid boluses via nasogastric tube. 12 abdominal distention with possible ileus, hence tube feeding will be placed on hold, nasogastric tube placed on suction, initiated a surgical consultation. 13 failure to wean in spite of multiple trials over the last few days, hence initiated a consultation to Dr. Navarro to consider tracheostomy and PEG tube placement. Will decide on brilinta with the fireman helper. 14 one episode of 24 seconds sinus positive/asystole, hence the patient will require a pacemaker implantation which will be done today by cardiology. Plan: Continue present supportive care measures, bronchodilators, diuretics, antibiotics, steroids, GI and DVT prophylaxis, nutritional support if we could go back to enteral feeding, otherwise may have to consider TPN. Continue daily weaning trials and possibly spontaneous breathing trials. That will depend on his overall clinical condition on a daily basis. Discussed his condition with multiple consultants today, I also discussed his condition with his , and we will continue treatment plan as outlined. Prognosis remains guarded, patient remains critically ill, critical care time is 40 minutes. Time with Patient: Greater than 30
--- NOTE | 2017-11-19 13:27 | P.PCN ---
Preoperative Diagnosis: Externalize permanent pacemaker Indication for procedure Paroxysmal AV block with prolonged episode of asystole, post anterior wall ME greater than 7 days back, left main stenting, preserved LV systolic function Intubated ventilator dependent elevated white count central line in place left subclavian awaiting PEG tube and tracheostomy Procedure details IV antibiosis administered Right upper extremity venogram revealed patent subclavian vein Right axillary vein accessed at the second rib Via appropriate size introducer sheath a [address] [employer] brand lead was positioned in the RV apex Thresholds less than 0.8 V at 0.5 ms R waves 2.8 mV pacing impedance 760 ohms Secured to the skin Connected to permanent pacemaker generator Generator secured to the skin Sterile dressing, CHG, applied Plan If the patient's mental status improves then a dual-chamber pacemaker should be considered since this was high-grade block/intermittent complete heart block abrupt onset with a very long episode of asystole This was an anterior wall ME, preserved LV systolic function left main stenting No dressing needed watch for any signs of infection at the incision site Externalized pacemaker may be kept for several weeks after 4-6 weeks if there is no local infection at the insertion site Do not remove dressing
--- NOTE | 2017-11-19 15:06 | P.GSCN ---
History of Present Illness Consult date: 11/19/17 Reason for Consult: Abdominal pain History of present illness: 57-year-old being seen at the request of the attending for a surgical eval for abdominal distention. Patient currently is sedated on vent support patient apparently had an acute cardiac arrest CPR was started EMS called to the scene found to be in V. fib ACLS protocol initiated patient was initially transferred from [facility] into [facility] taken urgently to the pathology laboratory technologist. Patient was found to have a left main lesion that was stented. Postprocedure patient has been intubated on vent support monitored closely by multiple consulting physicians in the ICU with an silica spray mixer.. Patient developed an episode of asystole yesterday just returned from the pathology laboratory technologist where pacemaker was implanted today. According to the nurse at the bedside and the at the bedside the abdominal distention has improved. Reviewing the CAT scan suggested of an ileus no evidence of a small bowel obstruction. Nasogastric tube is in place connected to suction a few hypoactive bowel tones noted TPN will be initiated tentatively patient is being scheduled on Wednesday per vascular surgery to have a PEG tube and trach. Review of Systems Not able to obtain Past Medical History Past Medical History: Coronary Artery Disease (CAD) Additional Past Medical History / Comment(s): Pt admitted with STEMI. 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 History of Any Multi-Drug Resistant Organisms: None Reported Past Surgical History: Back Surgery, Hernia Repair Additional Past Surgical History / Comment(s): 11/10/17 PCI with stent, bilateral hernia repair x 3, exploratory laparoscopy, colonoscopy, laminectomy. Past Anesthesia/Blood Transfusion Reactions: No Reported Reaction Smoking Status: Former smoker - Past Family History Father Family Medical History: No Reported History Additional Family Medical History / Comment(s): Father is 82 yrs old and healthy. Mother Family Medical History: Dementia Additional Family Medical History / Comment(s): Mother is . Medications and Allergies Home Medications Medication Instructions Recorded Confirmed Type Atorvastatin [Lipitor] 40 mg PO DAILY 11/11/17 11/11/17 History Butalb/APAP/Caff 50-325-40Mg 1 - 2 tab PO Q4H PRN MDD 6 TABS 11/11/17 11/11/17 History [Fioricet 50-325-40] Ibuprofen [Motrin] 600 mg PO Q6HR PRN 11/11/17 11/11/17 History Lisinopril [Zestril] 10 mg PO DAILY 11/11/17 11/11/17 History Octreotide Lar [SandoSTATIN LAR] 20 mg IM Q3D 11/11/17 11/11/17 History Omeprazole [PriLOSEC] 20 mg PO AC-BRKFST 11/11/17 11/11/17 History Allergies Allergy/AdvReac Type Severity Reaction Status Date / Time No Known Allergies Allergy Verified 11/10/17 21:00 Surgical - Exam Vital Signs Temp Resp BP 95.2 F L 20 80/52 11/10/17 22:46 11/10/17 22:46 11/10/17 22:46 GENERAL APPEARANCE: 57-year-old orally intubated sedated on vent support VITAL SIGNS: Reviewed HEENT: Head is normocephalic and atraumatic. Pupils are equal and reactive. The nares are patent. Oropharynx is clear without lesions. NECK: Supple without lymphadenopathy. Traches midline. HEART: S1, S2. Regular rate and rhythm. No murmur noted LUNGS: No crackles or wheezes are heard. Anterior fine crackles at the bases no wheezing noted ABDOMEN: Soft, nontender, mildly distended with few hypoactive bowel tones nasal gastric tube in place brownish secretions noted in the tubing indwelling Felipe catheter in place No peritoneal signs. No palpable organomegaly or masses. EXTREMITIES: Venodyne's on to the bilateral lower extremities Results - Labs 11/19/17 03:46 11/19/17 03:46 Abnormal Lab Results - Last 24 Hours (Table) 11/18/17 11/18/17 11/19/17 Range/Units 17:05 23:52 00:04 WBC (3.8-10.6) k/uL RBC (4.30-5.90) m/uL Hgb (13.0-17.5) gm/dL Hct (39.0-53.0) % Neutrophils # (1.3-7.7) k/uL Lymphocytes # (1.0-4.8) k/uL ABG pCO2 (35-45) mmHg ABG HCO3 (21-25) mmol/L ABG Total CO2 (19-24) mmol/L Chloride 115 H (98-107) mmol/L Carbon Dioxide 16 L (22-30) mmol/L BUN 62 H (9-20) mg/dL Creatinine 2.80 H (0.66-1.25) mg/dL Glucose 146 H (74-99) mg/dL POC Glucose (mg/dL) 167 H 177 H (75-99) mg/dL Calcium 6.7 L (8.4-10.2) mg/dL Ionized Calcium Eduardo (4.5-5.3) mg/dL Phosphorus (2.5-4.5) mg/dL Magnesium (1.6-2.3) mg/dL 11/19/17 11/19/17 11/19/17 Range/Units 03:46 03:46 06:57 WBC 22.9 H (3.8-10.6) k/uL RBC 2.84 L (4.30-5.90) m/uL Hgb 8.6 L (13.0-17.5) gm/dL Hct 26.6 L (39.0-53.0) % Neutrophils # 20.8 H (1.3-7.7) k/uL Lymphocytes # 0.9 L (1.0-4.8) k/uL ABG pCO2 (35-45) mmHg ABG HCO3 (21-25) mmol/L ABG Total CO2 (19-24) mmol/L Chloride 114 H (98-107) mmol/L Carbon Dioxide 16 L (22-30) mmol/L BUN 63 H (9-20) mg/dL Creatinine 2.97 H (0.66-1.25) mg/dL Glucose 129 H (74-99) mg/dL POC Glucose (mg/dL) 164 H (75-99) mg/dL Calcium 6.4 L* (8.4-10.2) mg/dL Ionized Calcium Eduardo 4.0 L (4.5-5.3) mg/dL Phosphorus 6.9 H (2.5-4.5) mg/dL Magnesium 2.9 H (1.6-2.3) mg/dL 11/19/17 11/19/17 Range/Units 07:05 11:15 WBC (3.8-10.6) k/uL RBC (4.30-5.90) m/uL Hgb (13.0-17.5) gm/dL Hct (39.0-53.0) % Neutrophils # (1.3-7.7) k/uL Lymphocytes # (1.0-4.8) k/uL ABG pCO2 26 L (35-45) mmHg ABG HCO3 16 L (21-25) mmol/L ABG Total CO2 17 L (19-24) mmol/L Chloride (98-107) mmol/L Carbon Dioxide (22-30) mmol/L BUN (9-20) mg/dL Creatinine (0.66-1.25) mg/dL Glucose (74-99) mg/dL POC Glucose (mg/dL) 151 H (75-99) mg/dL Calcium (8.4-10.2) mg/dL Ionized Calcium Eduardo (4.5-5.3) mg/dL Phosphorus (2.5-4.5) mg/dL Magnesium (1.6-2.3) mg/dL Diabetes panel 11/18/17 11/18/17 11/19/17 Range/Units 16:54 23:52 03:46 Sodium 145 142 143 (137-145) mmol/L Potassium 4.5 4.4 (3.5-5.1) mmol/L Chloride 115 H 114 H (98-107) mmol/L Carbon Dioxide 16 L 16 L (22-30) mmol/L BUN 62 H 63 H (9-20) mg/dL Creatinine 2.80 H 2.97 H (0.66-1.25) mg/dL Glucose 146 H 129 H (74-99) mg/dL Calcium 6.7 L 6.4 L* (8.4-10.2) mg/dL Calcium panel 11/18/17 11/19/17 Range/Units 23:52 03:46 Calcium 6.7 L 6.4 L* (8.4-10.2) mg/dL Ionized Calcium Eduardo 4.0 L (4.5-5.3) mg/dL Phosphorus 6.9 H (2.5-4.5) mg/dL Pituitary panel 11/18/17 11/18/17 11/19/17 Range/Units 16:54 23:52 03:46 Sodium 145 142 143 (137-145) mmol/L Potassium 4.5 4.4 (3.5-5.1) mmol/L Chloride 115 H 114 H (98-107) mmol/L Carbon Dioxide 16 L 16 L (22-30) mmol/L BUN 62 H 63 H (9-20) mg/dL Creatinine 2.80 H 2.97 H (0.66-1.25) mg/dL Glucose 146 H 129 H (74-99) mg/dL Calcium 6.7 L 6.4 L* (8.4-10.2) mg/dL Adrenal panel 11/18/17 11/18/17 11/19/17 Range/Units 16:54 23:52 03:46 Sodium 145 142 143 (137-145) mmol/L Potassium 4.5 4.4 (3.5-5.1) mmol/L Chloride 115 H 114 H (98-107) mmol/L Carbon Dioxide 16 L 16 L (22-30) mmol/L BUN 62 H 63 H (9-20) mg/dL Creatinine 2.80 H 2.97 H (0.66-1.25) mg/dL Glucose 146 H 129 H (74-99) mg/dL Calcium 6.7 L 6.4 L* (8.4-10.2) mg/dL Assessment and Plan Assessment: Impression Acute ST segment elevation myocardial infarction secondary to a tight left main lesion status post successful stenting Acute cardiac arrest secondary to the above resuscitated adequately Acute hypoxic respiratory failure secondary to the above History of carcinoid tumor involving the GI tract Computed tomography scan abdomen pelvis suggestive of an ileus no evidence of a small bowel obstruction Failure to wean in spite of multiple trials plan for tracheostomy and PEG tube per Dr. Navarro Plan Continue ICU management Vent per pulmonary management No evidence of an acute surgical abdomen Continue the nasogastric tube to intermittent suction monitor start TPN now We'll follow with you Continue recommendations by cardiology Will monitor labs Agree with the PEG tube trach on Wednesday per Dr. Navarro Surgical consultation note dictated for dr robins The above impression and plan of care have been discussed and directed by signing physician. Suzie Perez nurse practitioner acting as scribe for signing physician.
[2017-11-19] MEDS ORDERED: [UNRECOGNIZED DRUG - REMARK] IV SCH ×5 (17:00)
[2017-11-19 17:27] LABS: Albumin 2.3 g/dL (3.5-5.0); Calcium 6.6 mg/dL (8.4-10.2); Magnesium 2.8 mg/dL (1.6-2.3); Potassium 4.7 mmol/L (3.5-5.1); Total Bilirubin 1.2 mg/dL (0.2-1.3); Total Protein 5.2 g/dL (6.3-8.2)
[2017-11-19 17:32] LABS: Phosphorus 9.2 mg/dL (2.5-4.5)
[2017-11-19 17:51] LABS: Glucose,Whole Blood 151 mg/dL (75-99)
[2017-11-19] MEDS: METOPROLOL TARTRATE 25 MG TAB PO SCH (20:20)
[2017-11-19] MEDS: ATORVASTATIN 80 MG TAB PO SCH (20:20)
--- NOTE | 2017-11-19 20:36 | P.PN ---
Subjective Progress Note Date: 11/19/17 Progress report dictated for Dr. Espinoza. Acute cardiac arrest due to ST elevated MT Patient is a 57-year-old male with a known history of carcinoid tumor located in his mesentery-on hormonal treatments periodically, history of leukemia currently in remission was brought to the hospital status post cardiac arrest. Patient was apparently playing [employer] ball in the same with his family. Patient is leaned on the floor due to acute cardiac arrest. There was a bystander nurse who did CPR on him. EMS was called to the scene and the patient was found in V. fib. Patient had CPR for about 20 minutes and was also shocked. Patient was brought back to sinus rhythm. Patient was given lately taken to [facility] and was found to have ST elevated MT. Patient was immediately transferred to [facility]. Patient had emergent cardiac catheterization and left main artery stent was placed. Currently patient is intubated, mechanical ventilator and sedated. Patient otherwise does follow simple commands and able to open his eyes. Patient is on norepinephrine drip currently. 2-D echocardiography showed his ejection fraction 35%. Chest x-ray showed cardiomegaly and pulmonary vascular congestion. Potassium 6.8 today morning and came down to 4.6 currently. Magnesium 1.4 Patient is being followed by pulmonary and cardiology. 11/12/2017 Patient remained on mechanical ventilator. Patient is still on pressor support. The blood gases showed a pH of 7.3 with a pCO2 of 28 and pO2 77. Chest x-ray showed cardiomegaly and pulmonary vascular congestion and possibly right-sided developing pleural effusion. Patient was given calcium gluconate due to hypocalcemia. Patient has been afebrile otherwise. tube feeding is being initiated. Discussed with the family in detail at bedside. 11/13/2017 Patient remained on mechanical ventilator. And pressor support. Chest x-ray showed consistent with CHF with pulmonary vascular congestion and bilateral pleural effusion. CT of the abdomen and pelvis was done. We showed inflammatory changes in the ileum which is consistent with his neoplasm. Otherwise ileus versus partial bowel obstruction was noted which has been ongoing as per the family. No fever no chills. Patient was started on Zosyn at this time. Pulmonary and cardiology is following. Patient's condition is still critical which has been related to the family. 11/14/2017 Patient is currently on ventilator. Weaning off pressor support. Otherwise they'll function worsening with elevated creatinine level. Nephrology was consulted. Patient was given calcium gluconate. Otherwise patient is awake and is able to respond with eye-movement. No fever no chills. Continued on IV fluids. 11/15/2017 Patient remained on mechanical ventilator. Otherwise renal function slightly worsened with creatinine level III.05. Patient is making good urine output. Patient is off pressor support. Continued on IV fluids. No other acute overnight issues. No fever. No nausea vomiting. 11/16/2017 Patient remained on mechanical ventilator. Otherwise failed weaning trial today. Patient does have good urine output and renal function improved with creatinine level II.9 No fever no chills. No other acute overnight issues. Patient was found have low TSH level and free T4 level. recommended to start on levothyroxine but the patient's does not want to be started this time saying that she usually does have low levels due to his cancer. Otherwise patient was recommended to follow with primary care physician for repeat levels. 11/17/2017 patient is on mechanical data and became more shaky and distress with weaning trial. Otherwise renal function is much improved with creatinine level II.68 Sodium level increased to 148 along with chloride level. IV fluids changed to D5 water. Otherwise no fever no chills. Leukocytosis with increased WBC count 16 today. Discussed with his at bedside in detail and all questions answered. 11/18/2017 . Maintained on IV antibiotics , external pacemaker. Remains vent dependent, failed to 40%/+5 of PEEP. ABGs noted. Evaluated by surgery with no acute surgical abdomen .CT scan suggestive of ileus, abdominal distention improving. NG tube to low intermittent suction. Chest x-ray suggestive of possible fluid overload, bilateral opacity's, possible infiltrates possible aspiration. Fluids decreased, Lasix administered for positive fluid balance. Sodium within normal limits 143. Renal function worsening, creatinine 3.4 .Bicarb 16. Sinus pauses, Status post external pacemaker placement. Scheduled for a trach and peg on Wednesday. Objective - Vital Signs Vital signs: Vital Signs Temp 98.2 F 11/19/17 16:00 Pulse 94 11/19/17 20:00 Resp 25 H 11/19/17 19:00 BP 113/68 11/19/17 19:00 Pulse Ox 98 11/19/17 19:00 Intake & Output 11/19/17 11/19/1718 06:59 18:59 06:59 Intake Total 1040.517 3723.000 153.5 Output Total 1150 1230 95 Balance 580.038 400.000 58.5 Weight 87.7 kg 87.7 kg Intake: IV 1601.0 1485.0 153.5 0.9 110 100 10 0.9 for pressure 66 60 6 Calcium Gluconate 1,000 100 mg In Sodium Chloride 0.9 % 100 ml @ 100 mls/hr IVPB ONCE ONE Rx#: [id number] Dextrose 5% in Water 1, 1375 900 75 000 ml @ 75 mls/hr IV . [id number] [facility] Rx#:[id number] Mvi, Adult No.4 with Vit 50 50 K 10 ml Trace (Conc-1Ml/ Dose) 1 ml Calcium Gluconate 2,000 mg Sodium Acetate 30 meq In Amino Acid 4.25%-D10w 1,000 ml @ 50 mls/hr IV .[id number] [facility] Rx#:[id number] Piperacillin-Tazobactam 3 50.0 75.0 12.5 .375 gm In Dextrose/Water 1 50ml.bag @ 12.5 mls/hr IVPB Q8HR [facility] Rx#: [id number] Intake, IV Titration 129.038 100.000 Amount Propofol 1,000 mg In 129.038 100.000 Empty Bag 1 bag @ Titrate IV .Q0M [facility] Rx#: [id number] Oral 45 Output: Gastric Drainage 400 Urine 750 1230 95 Other: Voiding Method Indwelling Catheter Indwelling Catheter ABP, PAP, CO, CI - Last Documented Arterial Blood Pressure 126/68 - Exam Patient is lying in the bed comfortably, no acute distress, HEENT: Normocephalic. Neck is supple. Pupils equal. Oral cavity is moist. Endotracheal tube present. Neck reveals no JVD, carotid bruits, or thyromegaly. CHEST EXAMINATION: Trachea is central. Symmetrical expansion. Lung martel clear to auscultation and percussion. Right basilar crackles, no wheezes CARDIAC: Normal S1, S2 with no gallops. No murmurs ABDOMEN: Soft. Nontender. Bowel sounds hypoactive. Extremities: reveal no edema. No clubbing or cyanosis Neurologically unable to assess, sedated on mechanical ventilation; Psychiatric: Could not be assessed completely Musculoskeletal: Generalized weakness - Labs CBC & Chem 7: 11/19/17 03:46 11/19/17 16:19 Labs: Abnormal Lab Results - Last 24 Hours (Table) 11/18/17 11/19/17 11/19/17 Range/Units 23:52 00:04 03:46 WBC 22.9 H (3.8-10.6) k/uL RBC 2.84 L (4.30-5.90) m/uL Hgb 8.6 L (13.0-17.5) gm/dL Hct 26.6 L (39.0-53.0) % Neutrophils # 20.8 H (1.3-7.7) k/uL Lymphocytes # 0.9 L (1.0-4.8) k/uL ABG pCO2 (35-45) mmHg ABG HCO3 (21-25) mmol/L ABG Total CO2 (19-24) mmol/L Chloride 115 H (98-107) mmol/L Carbon Dioxide 16 L (22-30) mmol/L BUN 62 H (9-20) mg/dL Creatinine 2.80 H (0.66-1.25) mg/dL Glucose 146 H (74-99) mg/dL POC Glucose (mg/dL) 177 H (75-99) mg/dL Calcium 6.7 L (8.4-10.2) mg/dL Ionized Calcium Eduardo (4.5-5.3) mg/dL Phosphorus (2.5-4.5) mg/dL Magnesium (1.6-2.3) mg/dL AST (17-59) U/L Alkaline Phosphatase (38-126) U/L Total Protein (6.3-8.2) g/dL Albumin (3.5-5.0) g/dL Triglycerides (<150) mg/dL 11/19/17 11/19/17 11/19/17 Range/Units 03:46 06:57 07:05 WBC (3.8-10.6) k/uL RBC (4.30-5.90) m/uL Hgb (13.0-17.5) gm/dL Hct (39.0-53.0) % Neutrophils # (1.3-7.7) k/uL Lymphocytes # (1.0-4.8) k/uL ABG pCO2 26 L (35-45) mmHg ABG HCO3 16 L (21-25) mmol/L ABG Total CO2 17 L (19-24) mmol/L Chloride 114 H (98-107) mmol/L Carbon Dioxide 16 L (22-30) mmol/L BUN 63 H (9-20) mg/dL Creatinine 2.97 H (0.66-1.25) mg/dL Glucose 129 H (74-99) mg/dL POC Glucose (mg/dL) 164 H (75-99) mg/dL Calcium 6.4 L* (8.4-10.2) mg/dL Ionized Calcium Eduardo 4.0 L (4.5-5.3) mg/dL Phosphorus 6.9 H (2.5-4.5) mg/dL Magnesium 2.9 H (1.6-2.3) mg/dL AST (17-59) U/L Alkaline Phosphatase (38-126) U/L Total Protein (6.3-8.2) g/dL Albumin (3.5-5.0) g/dL Triglycerides (<150) mg/dL 11/19/17 11/19/17 11/19/17 Range/Units 11:15 16:19 17:50 WBC (3.8-10.6) k/uL RBC (4.30-5.90) m/uL Hgb (13.0-17.5) gm/dL Hct (39.0-53.0) % Neutrophils # (1.3-7.7) k/uL Lymphocytes # (1.0-4.8) k/uL ABG pCO2 (35-45) mmHg ABG HCO3 (21-25) mmol/L ABG Total CO2 (19-24) mmol/L Chloride 111 H (98-107) mmol/L Carbon Dioxide 16 L (22-30) mmol/L BUN 66 H (9-20) mg/dL Creatinine 3.40 H (0.66-1.25) mg/dL Glucose 135 H (74-99) mg/dL POC Glucose (mg/dL) 151 H 151 H (75-99) mg/dL Calcium 6.6 L (8.4-10.2) mg/dL Ionized Calcium Eduardo 4.0 L (4.5-5.3) mg/dL Phosphorus 9.2 H* (2.5-4.5) mg/dL Magnesium 2.8 H (1.6-2.3) mg/dL AST 184 H (17-59) U/L Alkaline Phosphatase 324 H (38-126) U/L Total Protein 5.2 L (6.3-8.2) g/dL Albumin 2.3 L (3.5-5.0) g/dL Triglycerides 434 H (<150) mg/dL Assessment and Plan Assessment: Acute ST elevated MT status post cardiac catheterization and stenting to left main artery Acute cardiac arrest. Status post adequate resuscitation Acute kidney injury likely due to ATN. Improving Hypothyroidism. Low TSH and free T4 level Acute respiratory failure post procedure, status post vent dependent with failure to wean. Hypertension and possible cardiogenic shock. 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 Replaced with calcium gluconate elevated lipase and amylase Elevated liver enzymes DVT prophylaxis Ileus Pauses, asystole, status post external pacemaker Plan: Continue on current medication regime ,monitoring and symptomatic treatment. NG tube to low intermittent suction as per surgery. TPN initiated. Trach and PEG scheduled for Wednesday. Prognosis guarded given multiple complex medical issues. Follow closely with multiple consults. The impression and plan of care has been dictated as directed. : I performed a history and examination of this patient, discussed the same with the dictator. I agree with the dictator's note ,documented as a scribe. Any additional findings or plans will be noted.
[2017-11-19] MEDS ORDERED: ACETAMINOPHEN IV (For NPO) 1,000 MG in EMPTY BAG 1 BAG IVPB PRN (21:32)
[2017-11-19 23:29] LABS: Glucose,Whole Blood 175 mg/dL (75-99)
[2017-11-20] MEDS: PROPOFOL 1,000 MG in EMPTY BAG 1 BAG IV SCH ×4 (00:16→22:10)
[2017-11-20] MEDS: PIPERACILLIN-TAZOBACTAM 3.375 GM in DEXTROSE/WATER 1 50ML.BAG IVPB SCH ×3 (00:32→16:04)
[2017-11-20 04:47] LABS: Basophils % (A) 0 %; Eosinophils # (A) 0.2 k/uL (0-0.7); Eosinophils % (A) 1 %; HCT 26.6 % (39.0-53.0); HGB 8.7 gm/dL (13.0-17.5); Lymphocytes # (A) 0.8 k/uL (1.0-4.8); Lymphocytes % (A) 3 %; MCHC 32.8 g/dL (31.0-37.0); MCV 94.3 fL (80.0-100.0); Mean Platelet Volume 9.1; Monocytes # (A) 0.8 k/uL (0-1.0); Monocytes % (A) 3 %; Neutrophils # (A) 22.7 k/uL (1.3-7.7); Neutrophils % (A) 91 %; Platelet Count 446 k/uL (150-450); RBC 2.82 m/uL (4.30-5.90); RDW 14.4 % (11.5-15.5); WBC 24.9 k/uL (3.8-10.6)
[2017-11-20 04:53] LABS: Ionized Calcium 3.8 mg/dL (4.5-5.3)
[2017-11-20 05:02] LABS: Magnesium 2.8 mg/dL (1.6-2.3); Potassium 4.8 mmol/L (3.5-5.1)
[2017-11-20 05:12] LABS: Calcium 6.4 mg/dL (8.4-10.2); Phosphorus 9.6 mg/dL (2.5-4.5)
[2017-11-20] MEDS: INSULIN ASPART 100 UNIT/ML 1 ML 10 ML VIAL SQ SCH ×3 (06:14→18:16)
[2017-11-20] MEDS: METOCLOPRAMIDE 5 MG/ML 2 ML VIAL IVP SCH ×3 (06:14→18:16)
[2017-11-20 06:15] LABS: Glucose,Whole Blood 170 mg/dL (75-99)
[2017-11-20] MEDS: DEXTROSE 5% IN WATER 1,000 ML IV SCH (06:19)
[2017-11-20] MEDS ORDERED: CALCIUM GLUCONATE 1,000 MG in SODIUM CHLORIDE 0.9% 100 ML IVPB ONE (06:20)
--- NOTE | 2017-11-20 07:11 | XR ---
EXAMINATION TYPE: XR chest 1V portable DATE OF EXAM: 11/20/2017 HISTORY: intubated. REFERENCE: Previous study dated 11/19/2017. FINDINGS: The patient is ET tube and NG tube remain in place, unchanged in appearance. There has been interval placement of a unipolar pacemaker via a right subclavian approach. Its tip overlies the rig ht atrium. There is a left subclavian catheter in place. Its tip is in the superior vena cava. There are bilateral effusions. I suspect bibasilar atelectasis. The heart is mildly enlarged. IMPRESSION: 1. INTERVAL PLACEMENT OF A UNIPOLAR PACEMAKER ON THE RIGHT IN GOOD POSITION. 2. BILATERAL EFFUSIONS. 3. CARDIOMEGALY. 4. BIBASILAR AIRSPACE DISEASE.
[2017-11-20 07:23] LABS: ABG HCO3 16 mmol/L (21-25); ABG PCO2 30 mmHg (35-45); ABG PO2 83 mmHg (83-108)
[2017-11-20 07:24] LABS: ABG TCO2 16 mmol/L (19-24)
[2017-11-20] MEDS: ALBUTEROL NEBULIZED 2.5 MG/3 ML INHALATION SCH ×3 (08:26→20:36)
[2017-11-20] MEDS: LACTULOSE 20 GM/30 ML CUP PO SCH ×2 (08:54→22:09)
[2017-11-20] MEDS: PANTOPRAZOLE 40 MG/10 ML VIAL IV SCH (08:54)
[2017-11-20] MEDS: METOPROLOL TARTRATE 25 MG TAB PO SCH ×2 (08:54→22:09)
[2017-11-20] MEDS: HEPARIN SODIUM,PORCINE 5,000 UNIT/ML 1 ML VIAL SQ SCH ×2 (08:54→16:03)
[2017-11-20] MEDS: ASPIRIN 81 MG PO SCH (08:54)
[2017-11-20] MEDS: CHLORHEXIDINE GLUCONATE 15 ML CUP MUCOUS MEM SCH (08:54)
[2017-11-20] MEDS: TICAGRELOR 90 MG TAB PO SCH ×2 (08:54→22:10)
[2017-11-20] MEDS: QUEtiapine 25 MG TAB PO SCH ×2 (08:55→22:09)
[2017-11-20] MEDS: MORPHINE SULFATE 4 MG/ML SYRINGE IVP PRN (10:27)
--- NOTE | 2017-11-20 10:34 | P.PN ---
Progress Note - Text Progress Note Date: 11/20/17 The patient is resting in his bed in the ICU. He underwent tracheostomy and PEG tube placement yesterday. He currently has tube feeds running. On exam his abdomen is soft. Resolved ileus. Patient will be seen when necessary.
[2017-11-20 11:52] LABS: Glucose,Whole Blood 171 mg/dL (75-99)
[2017-11-20] MEDS ORDERED: amLODIPine 5 MG TAB PO SCH (12:00)
--- NOTE | 2017-11-20 12:49 | P.PN ---
Subjective Progress Note Date: 11/20/17 Principal diagnosis: Acute cardiac arrest secondary to acute ST segment elevation TN. A pleasant 57-year-old male patient who lives in [place], [place] and the patient was playing pickle ball in the [facility] area. The patient acutely arrested and he was into cardiac arrest. There was a bystander nurse who did CPR on him. EMS was called to the scene and the patient was found in V. fib. The patient was shocked and the patient was given a dose of epinephrine. Subsequently went into asystole. Following that, CPR was continued and the patient went into V. fib, shocked again and then went into normal sinus rhythm. EKG showed ST segment elevation and the patient was taken to [facility] and following that the patient was brought in to the [facility]. Emergent cardiac catheterization was done and the patient was found to have a left main lesion that was stented. The stent insertion with successful. The patient was in already intubated by EMS on the scene. The patient was kept intubated. The patient was moved to the ICU for further care. Overnight, the patient was sedated with Diprivan. He apparently was following some simple commands while given a sedation holiday. This morning, he is on 30 mics of levo fed for blood pressure support. Echocardiogram was done and showed ejection fraction of 35%. No other significant abnormalities noted and this is a preliminary report. Urine output is in order of 25-30 mL an hour. Overnight his urine output dropped and a given a bolus of 1 L and he received a total of 2.5 L fluid bolus. He is current maintenance fluid is at 75 mL of normal saline. He is on a mechanical ventilator on assist control mode at the rate of 20, tidal volume of 600, FiO2 of 50% and a PEEP of 5. Morning blood gases showed a pH of 7.34 with a pCO2 of 28 and pO2 167. Chest x- ray showing some cardiomegaly and some pulmonary vessel congestion. ET tube is in a good location. No other densities seen in the left lower lobe costophrenic angle area. The patient's creatinine is up to 1.4. Today's potassium is up to 6.8. This needs to be repeated. No EKG changes related to this high potassium level. He is afebrile. No aspiration was noted. He remains on 30 mics of norepinephrine infusion for now. Pulses in lower extremities are weak yet obtainable by Doppler. His legs are cold and clammy still. No significant secretions from his orotracheal tube. He is known to have carcinoid tumor and apparently his been on maintenance hormonal treatment. He is seeing a oncologist out of [facility]. The patient also has history of lymphoma. The details of these malignancies are not known to us. The origin of the carcinoid tumor is not clear to me at this point. Further information is to be obtained on this patient. On 11/12 I'm seeing this patient for a follow-up. The patient remains intubated on a mechanical ventilator and the patient is post acute STEMI in acute cardiac arrest. I did not extubated the patient yesterday as the patient was still hypo-tensive and hypoperfusing and the patient was having diminished pulses in lower extremities and he looked cold and clammy and he had ongoing electrolyte disturbance with hypokalemia. He was given IV fluids and the neck fluid balance over the past 24 hours is +2.3 L. Currently is on 75 mL an hour of normal saline. Pulses are palpable in lower oximetry is bilaterally and the patient is much more warm. He is still however on pressors and currently norepinephrine infusion is running at 14 mics. His urine output dropped this morning and he is producing around 25-30 mL an hour of urine output. The patient has the levo fed infusion running through his right upper extremity. He remains on a mechanical ventilator. His assist-control mode at the rate of 20, tidal volume of 600, FiO2 of 40% and a PEEP of 5. The blood gases showed a pH of 7.3 with a pCO2 of 28 and pO2 77. Chest x-ray showing cardiomegaly. ET tube is in a good location. There is development of four-vessel congestion and possibly a right-sided pleural effusion also developing. He is afebrile. He is having no significant secretions with orotracheal tube. His white cell count has dropped and I doubt an underlying aspiration pneumonia although this is not completely excluded. I think his hypotension and shock is probably cardiogenic following his cardiac arrest. In addition, the patient's ionized calcium today's at 3.8 and the patient was given a total of 1 g of calcium gluconate. His troponin peaked at 26.4. This morning he is sedated and is calm and comfortable and synchronous with the mechanical ventilator. Orogastric and orotracheal tube are both in place. The patient is still nothing by mouth. On 11/13/2017 I'm seeing this patient for a follow-up. Patient remains intubated on a mechanical ventilator. He is sedated Diprivan is calm and comfortable. He withdraws to painful stimulation. A repeat echo cardiac exam was done today that showed a preserved LV function. Note that post TN the patient's ejection fraction was impaired with ejection fraction of 35-40%. Based on the welder apprentice arc destination, the ejection fraction is a furthermore improved. I did add milrinone yesterday on him which I am willing to discontinue based on these findings. His CVP is around 7. He is in a positive fluid balance in order of 5 L since he came in to the intensive care unit. He has adequate pulses in all 4 extremities bilaterally. His chest x-ray showing diffuse bilateral pulmonary infiltrates which seems to be more so of a acute lung injury/aspiration-type of picture/non-cardiogenic pulmonary edema. The patient is on assist control mode, at the rate of 20, tidal volume of 600, FiO2 of 40% and PEEP of 5. The morning blood gas showed a pH of 7.38 with a pCO2 of 29 and pO2 of 85. The patient is on normal state rate of 75 mL an hour. Urine output is between 25-30 mL an hour. The patient's creatinine was up to 2 on today's evaluation. He did have a 1 spike of temperature and he is currently covered with IV Zosyn. White cell count is not elevated. No secretions with orotracheal tube. The patient had some difficulties tolerating tube feeds. Abdomen on examination was felt to be quite tender. Calcium level has dropped progressively. We'll need immediate fed femoral the abdomen addition to the liver function tests and pancreatic enzymes. Calcium level will be supplemented. On 11/14/2017 I'm seeing this patient for a follow-up. As mentioned earlier the patient is post cardiac arrest and the patient had a acute cardiac intervention and stenting of a left main for an acute cardiac arrest, acute ST segment elevation myocardial infarction. The patient fortunately does not show signs of hypoxic encephalopathy. Yet there is another complications preventing him from weaning. Initially was quite hypotensive which was thought to be of a cardiogenic in nature. Subsequent echocardiogram showed improvement in the LV function and probably had this done the myocardium which is improving. Hemodynamically improved and is at the point where norepinephrine infusion has been drop down to a few mics only. He subsequently developed an acute kidney injury, nonoliguric, and the creatinine is up to 2.5. This is expected knowing that the patient was subjected to a cardiac arrest, hypotension, pressors and contrast material. He also had potentially an aspiration pneumonia. He developed bilateral lower lobe consolidation/atelectasis and effusions. He is currently on IV Zosyn. The patient got diuresed any procedures adequate amount of urine output over the past 24 hours. He is still oxygenating and ventilating without any major difficulties. He also developed a abdominal distention. CAT scan of the abdomen was done and there is a cecal mass probably his known carcinoid mass. In addition, there is small bowel ileus/ obstruction for which the tube feeds were placed on hold and since then the patient has drained approximately 800 mL of gastric greenish material and his output is still considerably high. Liver function test are within normal. Amylase and lipase are not elevated. The patient also is having excessive rest or secretions which are being suctioned out. He is not ready for further weaning for now. Is afebrile. He is sedated with propofol. He is still on the same vent setting which includes an assist-control of 20, FiO2 of 60% Patient was reevaluated today on 11/15/2017, patient remains on mechanical ventilation, his ventilator settings are FiO2 of 40% tidal volume of 500 assist control rate of 20 and PEEP of 5. ABG showed a pO2 of 105 pCO2 of 29 pH of 7.37 CBC and basic metabolic profile are relatively normal however his BUN is 59 creatinine is 3.05. Bicarb is 18. Patient continues to have fair amount of secretions according to the nurses taking care of him, his urine output is excellent, remains on IV fluid at a relatively high rate. Chest x-ray showed stable bilateral infiltrates and possibly pleural effusions. Suspect the patient may have had an aspiration pneumonia involving the right lower lobe. Hemodynamically, the patient seems to be stable, neurologically he was noted to be functioning well based on the note by Dr. Moise above. Apparently the patient did not sustain any significant hypoxic encephalopathy. His echocardiogram showed improvement in LV function. His kidney functioning seems to be a bit concerning, being closely followed by nephrology. I believe the patient must have sustained acute tubular necrosis and acute kidney injury. Remains on antibiotics for presumptive aspiration. His CT of the abdomen was reviewed, there is a cecal mass possibly his known carcinoid mass. His feeding was placed on hold, but considering the patient had 2 bowel movements over the last 24 hours, I will resume tube feeding. Secretions are still present but not as bad as reported by Dr. Moise yesterday. Hence I plan to give the patient a weaning trial, sedation holiday, and possibly a spontaneous breathing trial. Reevaluated today on 11/16/2017, remains on mechanical ventilation, sedated, on propofol drip, ventilator settings are the same as noted above. ABG showed a pO2 of 90 pCO2 of 29 pH of 7.38. Renal profile is slightly better today with a creatinine down to 2.90 BUN is 65. Patient remains a bit acidotic with a bicarb of 17. Endotracheal tube secretions seem to be much less today. Chest x -ray is showing improvement in his by basilar infiltrates and pleural effusions. Hemodynamically the patient remains stable. Neurologically patient is to be awakened today, he will be given a sedation holiday, and possibly a spontaneous breathing trial. All labs were reviewed, patient remains on enteral feeding. is at bedside, and she was updated on his condition. Patient was reevaluated today on 11/17/2017, remains on mechanical ventilation, sedated, on propofol drip. His ventilator settings are basically the same. No changes were made over the last 24 hours. However the patient was taken off propofol, I awaken the patient, seems to be responsive, but generally weak, and I recommended a trial of spontaneous breathing using pressure support mode of mechanical ventilation, pressure support was at 12 and CPAP. Patient did well for about 45 minutes, then he was noted to get more tachypneic, tachycardic, and hypertensive. Patient was arrested back again on assist control mode of mechanical ventilation. His IV fluid was changed to D5W since the patient is developing hypernatremia, and hyperchloremic metabolic acidosis. His renal profile showed a BUN of 64 creatinine of 2.68 slightly improved compared to yesterday. ABG showed a pO2 of 87 pCO2 of 35 pH of 7.31. CBC continues to show leukocytosis with WBC count of 16.9. Chest x-ray is showing stable bilateral infiltrates and pleural effusions. Looking at the patient's fluid balance, patient has been slightly on the negative side, and his urine output has been reasonable. His IV fluid was changed to D5W because of the hypernatremia, and may have to consider fluid boluses via the nasogastric tube with the feedings. Reevaluated today on 11/18/2017, patient remains on mechanical ventilation, same ventilator settings, remains sedated on propofol, however I was able to take him off of propofol, and kept him on assist control mode of mechanical ventilation. As soon as the patient woke up, he was noted to be tachypneic, followed intermittently very simple instructions like closing eyes and squeezing hands, but not wiggling toes. Patient was noted to be generally weak , not quite ready for a spontaneous breathing trial. May consider again pressure support of 12 and CPAP today. In the last few days the patient seems to fail all weaning trials, hence I discussed with the today potentially setting him up for tracheostomy. is agreeable, however the patient is on brilinta, and we'll discuss with the welder apprentice arc if we could hold it for few days. A shunt will likely benefit from tracheostomy and PEG tube placement, I believe his course on mechanical ventilation is going to be definitely prolonged. He may eventually require transfer to an ECF. All his labs, x-rays , were reviewed, I'm quite concerned about his abdominal distention, hence I placed a consult to Dr. briggs to evaluate. Meantime his tube feeding was placed on hold, and will place nasogastric tube on intermittent suction. Flat plate of the abdomen was done, chest x-ray showed some improvement in his by basilar opacities today. Renal functioning seems to be worsening, and his hypernatremia is not improving much. Hence we will increase his IV fluid with D5W, and would hold on any diuretics for now. His urine output seems to be reasonable. Patient has been in positive balance especially with the free water flushes given through the nasogastric tube to correct his hypernatremia. Reevaluated today on 11/19/2017, patient remains on mechanical ventilation, ventilator settings are tidal volume of 500, assist control rate of 20 FiO2 of 40% and PEEP of 5. ABG showed a pO2 of 93 pCO2 of 26 pH of 7.39. Patient had a positive fluid balance of 1600 mL over the last 24 hours. Hence I will cut down his IV fluid and bit, and give him a dose of Lasix. His sodium corrected nicely it is 143 today. Bicarb remains low at 16, BUN remains 63 and creatinine about the same 2.97. Chest x-ray continues to show bilateral opacities, possibly infiltrates related to aspiration, although the possibility of some fluid overload is not entirely ruled out but felt to be less likely. That should improve with Lasix IV push since it will be given today. Patient was taken off propofol, noted to be anxious, he became tachypneic tachycardic and hypertensive, I kept him on assist control mode of mechanical ventilation but off propofol, and I added Seroquel. Patient had 24 second episode of asystole yesterday, and he recovered on his own without any intervention. Discussed this with the welder apprentice arc today, and he plans to take him for a pacemaker implantation. He seems to be quite concerned about that episode of sinus pauses. I also discussed his condition with the surgical staff for tracheostomy possibly Wednesday in spite of being on Brilinta. Doubt if we can successfully weaned and extubated the patient in the next couple of days. Reevaluated today on 11/20/2017, patient is back on mechanical ventilation again , ventilator settings are as noted above, unchanged. ABG showed a pO2 of 83 pCO2 of 30 pH of 7.30. His renal functioning however seems to be getting worse , BUN is up to 73 creatinine is 3.70, sodium seems to be better today at 136. Bicarb remains low at 16 patient was tried again off propofol, but shortly as he woke up, patient became extremely agitated tachycardic, restless, and he was breathing about 40 times per minute. Remains on assist control mode of mechanical ventilation, and had to place him back on propofol. Yesterday we started the patient on Seroquel. All his labs were reviewed, chest x-ray was also reviewed. Continues to show bilateral pleural effusions, cardiomegaly, I would likely recommend ultrasound of the chest, and may even consider thoracentesis if the fluid is large enough to be drained. In the meantime I discussed with the porcelain slusher, and I believe the patient is being considered for hemodialysis/ultrafiltration. Objective - Vital Signs Vital signs: Vital Signs Temp 98.7 F 11/20/17 08:00 Pulse 87 11/20/17 10:00 Resp 21 11/20/17 10:00 BP 105/65 11/20/17 10:00 Pulse Ox 99 11/20/17 10:00 Intake & Output 11/19/17 11/20/17 11/20/17 18:59 06:59 18:59 Intake Total 3595.684 9470.790 469.667 Output Total 1230 740 123 Balance 294.677 2801.790 346.667 Weight 87.7 kg 93.1 kg Intake: IV 1485.0 1895.5 423 0.9 100 130 30 0.9 for pressure 60 78 18 Calcium Gluconate 1,000 100 mg In Sodium Chloride 0.9 % 100 ml @ 100 mls/hr IVPB ONCE ONE Rx#: [id number] Dextrose 5% in Water 1, 900 975 225 000 ml @ 75 mls/hr IV . [id number] [facility] Rx#:[id number] Mvi, Adult No.4 with Vit 50 650 150 K 10 ml Trace (Conc-1Ml/ Dose) 1 ml Calcium Gluconate 2,000 mg Sodium Acetate 30 meq In Amino Acid 4.25%-D10w 1,000 ml @ 50 mls/hr IV .[id number] [facility] Rx#:[id number] Piperacillin-Tazobactam 3 75.0 62.5 .375 gm In Dextrose/Water 1 50ml.bag @ 12.5 mls/hr IVPB Q8HR [facility] Rx#: [id number] Intake, IV Titration 100.000 165.290 46.667 Amount Propofol 1,000 mg In 100.000 165.290 46.667 Empty Bag 1 bag @ Titrate IV .Q0M [facility] Rx#: [id number] Oral 45 Output: Gastric Drainage 200 Urine 1230 540 123 Other: Voiding Method Indwelling Catheter Indwelling Catheter Indwelling Catheter ABP, PAP, CO, CI - Last Documented Arterial Blood Pressure 156/67 - Exam Physical Exam: Revealed a 57-year-old white male on mechanical ventilation, in no distress. Sedated. Head: Atraumatic, normocephalic. HEENT:[Neck is supple.] [No neck masses.] [No thyromegaly.] [No JVD.] Endotracheal tube seems to be intact. Moist mucous membranes. Throat is clear. Chest: [Minimal fine crackles at the right base, no rhonchi no wheezes.] Cardiac Exam: [Normal S1 and S2, no S3 gallop, no murmur.] Abdomen: [Soft, nontender, no megaly, no rebound, no guarding, normal bowel sounds.] Extremities: [No clubbing, no edema, no cyanosis.] Neurological Exam: Cannot be examined fully sedated on propofol. Psychiatric: Blunted conduct be assessed, patient was on propofol all along. Musculoskeletal: On propofol could not be assessed. - Labs CBC & Chem 7: 11/20/17 04:28 11/20/17 04:28 Labs: Abnormal Lab Results - Last 24 Hours (Table) 11/19/17 11/19/17 11/19/17 Range/Units 16:19 16:19 17:50 WBC (3.8-10.6) k/uL RBC (4.30-5.90) m/uL Hgb (13.0-17.5) gm/dL Hct (39.0-53.0) % Neutrophils # (1.3-7.7) k/uL Lymphocytes # (1.0-4.8) k/uL ABG pH (7.35-7.45) ABG pCO2 (35-45) mmHg ABG HCO3 (21-25) mmol/L ABG Total CO2 (19-24) mmol/L Sodium (137-145) mmol/L Chloride 111 H (98-107) mmol/L Carbon Dioxide 16 L (22-30) mmol/L BUN 66 H (9-20) mg/dL Creatinine 3.40 H (0.66-1.25) mg/dL Glucose 135 H (74-99) mg/dL POC Glucose (mg/dL) 151 H (75-99) mg/dL Calcium 6.6 L (8.4-10.2) mg/dL Ionized Calcium Eduardo 4.0 L (4.5-5.3) mg/dL Phosphorus 9.2 H* (2.5-4.5) mg/dL Magnesium 2.8 H (1.6-2.3) mg/dL AST 184 H (17-59) U/L Alkaline Phosphatase 324 H (38-126) U/L Total Protein 5.2 L (6.3-8.2) g/dL Albumin 2.3 L (3.5-5.0) g/dL Triglycerides 434 H (<150) mg/dL Vitamin D 25-Hydroxy 18.2 L (30.0-100.0) ng/mL 11/19/17 11/20/17 11/20/17 Range/Units 23:27 04:28 04:28 WBC 24.9 H (3.8-10.6) k/uL RBC 2.82 L (4.30-5.90) m/uL Hgb 8.7 L (13.0-17.5) gm/dL Hct 26.6 L (39.0-53.0) % Neutrophils # 22.7 H (1.3-7.7) k/uL Lymphocytes # 0.8 L (1.0-4.8) k/uL ABG pH (7.35-7.45) ABG pCO2 (35-45) mmHg ABG HCO3 (21-25) mmol/L ABG Total CO2 (19-24) mmol/L Sodium 136 L (137-145) mmol/L Chloride 108 H (98-107) mmol/L Carbon Dioxide 16 L (22-30) mmol/L BUN 73 H (9-20) mg/dL Creatinine 3.70 H (0.66-1.25) mg/dL Glucose 147 H (74-99) mg/dL POC Glucose (mg/dL) 175 H (75-99) mg/dL Calcium 6.4 L* (8.4-10.2) mg/dL Ionized Calcium Eduardo 3.8 L (4.5-5.3) mg/dL Phosphorus 9.6 H* (2.5-4.5) mg/dL Magnesium 2.8 H (1.6-2.3) mg/dL AST (17-59) U/L Alkaline Phosphatase (38-126) U/L Total Protein (6.3-8.2) g/dL Albumin (3.5-5.0) g/dL Triglycerides (<150) mg/dL Vitamin D 25-Hydroxy (30.0-100.0) ng/mL 11/20/17 11/20/17 11/20/17 Range/Units 06:05 07:11 11:51 WBC (3.8-10.6) k/uL RBC (4.30-5.90) m/uL Hgb (13.0-17.5) gm/dL Hct (39.0-53.0) % Neutrophils # (1.3-7.7) k/uL Lymphocytes # (1.0-4.8) k/uL ABG pH 7.30 L (7.35-7.45) ABG pCO2 30 L (35-45) mmHg ABG HCO3 16 L (21-25) mmol/L ABG Total CO2 16 L (19-24) mmol/L Sodium (137-145) mmol/L Chloride (98-107) mmol/L Carbon Dioxide (22-30) mmol/L BUN (9-20) mg/dL Creatinine (0.66-1.25) mg/dL Glucose (74-99) mg/dL POC Glucose (mg/dL) 170 H 171 H (75-99) mg/dL Calcium (8.4-10.2) mg/dL Ionized Calcium Eduardo (4.5-5.3) mg/dL Phosphorus (2.5-4.5) mg/dL Magnesium (1.6-2.3) mg/dL AST (17-59) U/L Alkaline Phosphatase (38-126) U/L Total Protein (6.3-8.2) g/dL Albumin (3.5-5.0) g/dL Triglycerides (<150) mg/dL Vitamin D 25-Hydroxy (30.0-100.0) ng/mL Assessment and Plan Assessment: [address] segment elevation myocardial infarction secondary to a tight left main lesion him a status post successful angioplasty and stenting 2 acute cardiac arrest secondary to above, resuscitated adequately 3 acute hypoxic respiratory failure secondary to above 4 acute hypotension, post cardiac arrest. Obviously echocardiogram showing a preserved LV function and there is no valvular disruption and that is no clear- cut cardiogenic component. No evidence of any stunned myocardium on subsequent echocardiogram. 5 acute kidney injury secondary acute cardiac arrest, hypotension and possibly contrast material. The patient is nonoliguric. Creatinine is up to 3.7 and BUN of 73, being considered for possible dialysis. 6 diffuse bilateral pulmonary infiltrates/effusion. Consider noncardiogenic pulmonary edema. Consider acute lung injury secondary aspiration/cardiac arrest. Patient is still oxygenating and ventilating well. The patient is still having less and less endotracheal tube secretions 7 history of carcinoid tumor involving the GI tract, and now we are dealing with what seems to be some ileus, surgery was consulted, recommended conservative measures only. Patient remains on Reglan, and lactulose was added today 9 hypocalcemia, recurrent, patient will be addressed accordingly. 10 non-anion gap metabolic acidosis 11 acute hypernatremia improved, resolved 12 abdominal distention with possible ileus, hence tube feeding will be placed on hold, nasogastric tube placed on suction, initiated a surgical consultation. 13 failure to wean in spite of multiple trials over the last few days, hence initiated a consultation to Dr. Navarro to consider tracheostomy and PEG tube placement. This will be done early next week Wednesday. 14 one episode of 24 seconds sinus positive/asystole, hence the patient will require a pacemaker implantation which will be done today by cardiology. 15 status post temporary pacemaker implantation on 11/19/2017. Plan: Continue present supportive care measures, bronchodilators, diuretics, antibiotics, steroids, GI and DVT prophylaxis, nutritional support , presently on TPN. Continue daily weaning trials and possibly spontaneous breathing trials. That will depend on his overall clinical condition on a daily basis. Discussed his condition with at bedside today, also discussed his condition with the porcelain slusher, no plans to extubate the patient we plan to received with tracheostomy next week, and may even undergo dialysis today or tomorrow. Critical care time is 35 minutes. Time with Patient: Greater than 30
[2017-11-20] MEDS: 1: MVI, ADULT NO.4 WITH VIT K 10 ML, TRACE (CONC-1ML/DOSE) 1 ML, CALCIUM GLUCONATE 1,000 IV SCH ×10 (13:00)
--- NOTE | 2017-11-20 13:47 | PN ---
PROGRESS NOTE This is a 57-year-old gentleman who was admitted to the hospital following a cardiac arrest, had left main stent and currently intubated on vent. The exact status of his mentation is still being evaluated. He is off sedation, became somewhat agitated, so he is being sedated back. Blood pressures have been high. I am adding Norvasc 5 mg daily. He is already on appropriate medications including aspirin, Lipitor, Lopressor. PHYSICAL EXAM: On exam, patient is intubated on vent. No meaningful responses. Vital signs are stable. Chest exam reveals diminished air entry at the bases. Heart exam reveals first and second heart sounds. No gallop. There is a systolic murmur in the left lower sternal border. Abdomen is soft exam. Examination of extremities reveal trace edema. Peripheral pulses are felt. LABS: Labs show that the hemoglobin is 8.7, BUN is 73, creatinine is 3.7. ASSESSMENT: 1. Status post cardiac arrest secondary to acute myocardial infarction. The patient is status post coronary artery bypass grafting. 2. Respiratory failure. 3. Hypoxic encephalopathy. PLAN: Patient will continue with current medications. I added Norvasc. MMODL / IJN: [id number] /
--- NOTE | 2017-11-20 15:23 | PN ---
PROGRESS NOTE The patient is seen for followup for acute kidney injury. The patient remains on the vent. His sedation is significantly decreased, but he is not much more awake. Urine output remains good at about 40 to 50 mL an hour. Serum creatinine is elevated today at 3.7 mg/dL. The patient has not been hypotensive. FiO2 is at 40%. PHYSICAL EXAMINATION: On examination, blood pressure is 117/70, heart rate 95 per minute. Patient is afebrile. EXAMINATION OF THE HEART: S1, S2. EXAMINATION OF THE LUNGS: Decreased breath sounds at the bases. Bilateral breath sounds are heard. Abdomen is soft, distended, nontender. Examination of the lower extremities shows edema 1+ bilaterally. LABS: Labs show sodium 136, potassium 4.8, chloride 108, CO2 is 16, BUN 73, serum creatinine 3.7. Hemoglobin 8.7 g/dL. ASSESSMENT: 1. Acute kidney injury, ATN, ischemic, nonoliguric. Renal function has been worsening over the last couple of days. The patient remains, however, with good urine output. He is not requiring any pressors and patient is not on any nephrotoxic medications. Given the patient's encephalopathy and presence of volume overload on the chest x-ray and generalized edema, I have discussed with the family regarding initiation of renal replacement therapy. There is no urgent need for dialysis today. However, if the renal function continues to worsen, we need to proceed with it and this may also help his mentation and aid in extubation. 2. Hypertension. Blood pressure currently not elevated. Will DC the Norvasc. 3. Abdominal distention, currently off of tube feeding and maintained on TPN. 4. Status post cardiac arrest. 5. Status post myocardial infarction, status post cardiac catheterization. MMODL / IJN: [id number] /
[2017-11-20] MEDS: LEVOTHYROXINE IVP 100 MCG/5 ML VIAL IV SCH (17:03)
--- NOTE | 2017-11-20 17:08 | PN ---
PROGRESS NOTE DATE OF SERVICE: 11/20/2017 This 57-year-old gentleman admitted with acute cardiac arrest and cardiac arrhythmia due to ST segment elevation myocardial infarction, underwent a cardiac cath and LAD stenting. Patient also had on the field CPR. The patient is currently mechanically ventilated and monitored closely. The patient also is on sedation holidays. The patient also had acute kidney injury, possibly ATN and multifactorial. Patient is being closely monitored in ICU at this time. PAST MEDICAL HISTORY: Reviewed. REVIEW OF SYSTEMS: Could not be taken, the patient mechanically ventilated and sedated. MEDICATIONS: Current medications are reviewed and include: 1. Tylenol 1000 mg q.6 p.r.n. 2. Maalox q.4 p.r.n. 3. Ventolin 2.5 t.i.d. 4. Aspirin 81 mg p.o. daily. 5. Lipitor 80 mg q.h.s. 6. Atropine 0.5 mg daily. 7. Calcium gluconate p.r.n. 8. Excess water. 9. Vitamin D2. 10.Heparin subcu q.8. 11.NovoLog insulin. 12.Cephulac. 13.Reglan. 14.Lopressor. 15. protocols. 16.Levophed p.r.n. 17.Multivitamins. 18.Zosyn 3.375 IV q.8. 19.Seroquel. 20.Brilinta. PHYSICAL EXAMINATION: The patient is mechanically ventilated and sedated. Vent settings are noted. Pulse is 93, blood pressure 138/66, respirations 24, temperature normal, pulse ox 97% on 40% FiO2. HEENT: Conjunctivae normal. Oral mucosa moist. Neck is no jugular venous distention or carotid bruit. No lymph node enlargement. CARDIOVASCULAR: S1 and S2 muffled. No S3, no S4. RESPIRATORY: Breath sounds diminished at the bases. A few scattered rhonchi and crackles bilaterally. ABDOMEN: Soft, nontender. No mass palpable. LEGS: No edema, no swelling. NERVOUS SYSTEM: Patient is mechanically ventilated and sedated. LABS: WBC 24.9, hemoglobin is 8.7. Sodium 136. Phosphorus 9.6. Calcium 6.4. Magnesium 2.8. ASSESSMENT: 1. Acute ST-segment elevation myocardial infarction, status post cardiac catheterization and stenting of the left main artery, present on admission. 2. Acute cardiorespiratory arrest, status post on the field resuscitation. 3. Acute hypoxic respiratory failure, status post mechanical ventilation and failure to wean. 4. Acute kidney injury, possibly acute tubular necrosis. 5. Hypothyroidism. 6. Hypocalcemia. 7. Hypertension and possible cardiac in shock. 8. Hyperkalemia 4.6. 9. Hypomagnesemia. 10.History of leukemia, currently in remission. 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 12.Elevated lipase and amylase. 13.Elevated liver enzymes. 14.Deep venous thrombosis prophylaxis. 16.Status post external pacemaker for cardiac arrhythmia. 17.Vitamin D deficiency. RECOMMENDATIONS AND DISCUSSION: In this patient with multiple medical problems, at this time I recommend current medications, continue with _ supplementation. Otherwise, I would also recommend I will also check a free T3. If the free T3 is also I would also recommend add thyroid supplementation as well. Otherwise continue to monitor. See orders for further details. Further recommendations to follow. MMODL / IJN: [id number] / MTDD
--- NOTE | 2017-11-20 17:12 | XR ---
EXAMINATION TYPE: XR chest 1V portable DATE OF EXAM: 11/20/2017 COMPARISON: Earlier on the same day. HISTORY: Respiratory failure TECHNIQUE: Single frontal view of the chest is obtained. FINDINGS: Endotracheal tube is noted between the clavicles and jasbir. There is an enteric tube note d. There is a left subclavian central venous catheter with the tip in the superior vena cava. Implant cardiac device is noted arising from the right. There is an enteric tube that goes below the film. No definite pneumothorax or pleural effusion is seen. There remains bilateral airspace opacities with small bilateral pleural effusions. IMPRESSION: All tubes and lines appear to be in appropriate locations. No significant change in appearance of the chest.
[2017-11-20 17:27] LABS: T4, Free (Free Thyroxine) 0.57 ng/dL (0.78-2.19)
[2017-11-20 18:12] LABS: Glucose,Whole Blood 156 mg/dL (75-99)
--- NOTE | 2017-11-20 20:16 | P.CONS ---
History of Present Illness - Reason for Consult Consult date: 11/20/17 Carcinoid Requesting physician: Dylan Omer - Chief Complaint Cardiac arrest - History of Present Illness Mr. 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 Course complicated by NILE, VDRF, difficulty with extubation, in need of trach and PEG, ileus, and liver dysfunction. We were called regarding his carcinoid. Review of Systems All systems: negative Constitutional: Reports as per HPI Past Medical History Past Medical History: Coronary Artery Disease (CAD) Additional Past Medical History / Comment(s): Pt admitted with STEMI. 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 History of Any Multi-Drug Resistant Organisms: None Reported Past Surgical History: Back Surgery, Hernia Repair Additional Past Surgical History / Comment(s): 11/10/17 PCI with stent, bilateral hernia repair x 3, exploratory laparoscopy, colonoscopy, laminectomy. Past Anesthesia/Blood Transfusion Reactions: No Reported Reaction Smoking Status: Former smoker - Past Family History Father Family Medical History: No Reported History Additional Family Medical History / Comment(s): Father is 82 yrs old and healthy. Mother Family Medical History: Dementia Additional Family Medical History / Comment(s): Mother is . Medications and Allergies Home Medications Medication Instructions Recorded Confirmed Type Atorvastatin [Lipitor] 40 mg PO DAILY 11/11/17 11/11/17 History Butalb/APAP/Caff 50-325-40Mg 1 - 2 tab PO Q4H PRN MDD 6 TABS 11/11/17 11/11/17 History [Fioricet 50-325-40] Ibuprofen [Motrin] 600 mg PO Q6HR PRN 11/11/17 11/11/17 History Lisinopril [Zestril] 10 mg PO DAILY 11/11/17 11/11/17 History Octreotide Lar [SandoSTATIN LAR] 20 mg IM Q3D 11/11/17 11/11/17 History Omeprazole [PriLOSEC] 20 mg PO AC-BRKFST 11/11/17 11/11/17 History Allergies Allergy/AdvReac Type Severity Reaction Status Date / Time No Known Allergies Allergy Verified 11/10/17 21:00 Physical Exam Vitals: Vital Signs Temp Pulse Resp BP Pulse Ox 11/20/17 18:00 95 24 106/59 96 11/20/17 17:00 94 20 108/63 95 11/20/17 16:00 98.2 F 94 20 111/63 95 11/20/17 15:00 93 26 H 113/65 96 11/20/17 14:00 93 24 104/53 97 11/20/17 13:36 96 11/20/17 13:26 95 11/20/17 13:00 92 27 H 117/70 96 11/20/17 12:00 98 F 92 33 H 140/72 95 11/20/17 11:00 90 30 H 133/72 95 11/20/17 10:00 87 21 105/65 99 11/20/17 09:00 89 24 106/59 98 11/20/17 08:36 88 11/20/17 08:26 89 11/20/17 08:00 98.7 F 89 20 102/58 98 11/20/17 07:00 87 28 H 144/70 98 11/20/17 06:00 85 26 H 118/63 97 11/20/17 05:00 85 24 112/63 96 11/20/17 04:00 98.5 F 83 23 112/60 95 11/20/17 03:00 83 21 100/61 95 11/20/17 02:00 81 20 103/60 94 L 11/20/17 01:00 99 F 83 20 90/54 95 11/20/17 00:00 99.8 F H 84 23 98/52 97 11/19/17 23:12 84 22 100/58 92 L 11/19/17 23:00 83 20 102/57 92 L 11/19/17 22:00 99.2 F 84 20 96/57 94 L 11/19/17 21:00 100.3 F H 85 21 107/58 94 L 11/19/17 20:00 100.3 F H 89 20 112/71 98 11/19/17 19:45 92 Intake and Output 11/20/17 11/20/17 11/20/17 06:59 14:59 22:59 Intake Total 9934.508 6531.507 727.4 Output Total 455 313 510 Balance 1029.290 742.507 217.4 Intake: IV 1319 987 705 0.9 90 70 50 0.9 for pressure 54 42 30 Dextrose 5% in Water 1, 675 525 375 000 ml @ 75 mls/hr IV . [id number] [facility] Rx#:[id number] Mvi, Adult No.4 with Vit 450 350 250 K 10 ml Trace (Conc-1Ml/ Dose) 1 ml Calcium Gluconate 2,000 mg Sodium Acetate 30 meq In Amino Acid 4.25%-D10w 1,000 ml @ 50 mls/hr IV .[id number] [facility] Rx#:[id number] Piperacillin-Tazobactam 3 50 .375 gm In Dextrose/Water 1 50ml.bag @ 12.5 mls/hr IVPB Q8HR [facility] Rx#: [id number] Intake, IV Titration 165.290 68.507 22.4 Amount Propofol 1,000 mg In 165.290 68.507 22.4 Empty Bag 1 bag @ Titrate IV .Q0M [facility] Rx#: [id number] Output: Gastric Drainage 200 300 Urine 255 313 210 Other: Voiding Method Indwelling Catheter Indwelling Catheter Indwelling Catheter Weight 93.1 kg ABP, PAP, CO, CI - Last 8 Hours Arterial Blood Pressure 140/64 Arterial Blood Pressure 146/64 Arterial Blood Pressure 156/71 Arterial Blood Pressure 129/63 Arterial Blood Pressure 138/66 Arterial Blood Pressure 143/71 Arterial Blood Pressure 176/81 Gen.: No acute distress. Intubated and sedated. HEENT: No conjunctival pallor. Mucosa moist. Neck supple. Lymph: No cervical lymphadenopathy. Lungs: Intubated. Heart: Regular rate. Abdomen: Soft, nontender, positive bowel sounds. MSK: Sedated. Moves all extremities spontaneously. Neuro: Sedated. Moves all extremities spontaneously Psych: Sedated. Skin: No jaundice. Results CBC & Chem 7: 11/20/17 04:28 11/20/17 04:28 Labs: Abnormal Lab Results - Last 24 Hours (Table) 11/19/17 11/19/17 11/20/17 Range/Units 16:19 23:27 04:28 WBC 24.9 H (3.8-10.6) k/uL RBC 2.82 L (4.30-5.90) m/uL Hgb 8.7 L (13.0-17.5) gm/dL Hct 26.6 L (39.0-53.0) % Neutrophils # 22.7 H (1.3-7.7) k/uL Lymphocytes # 0.8 L (1.0-4.8) k/uL ABG pH (7.35-7.45) ABG pCO2 (35-45) mmHg ABG HCO3 (21-25) mmol/L ABG Total CO2 (19-24) mmol/L Sodium (137-145) mmol/L Chloride (98-107) mmol/L Carbon Dioxide (22-30) mmol/L BUN (9-20) mg/dL Creatinine (0.66-1.25) mg/dL Glucose (74-99) mg/dL POC Glucose (mg/dL) 175 H (75-99) mg/dL Calcium (8.4-10.2) mg/dL Ionized Calcium Eduardo (4.5-5.3) mg/dL Phosphorus (2.5-4.5) mg/dL Magnesium (1.6-2.3) mg/dL Vitamin D 25-Hydroxy 18.2 L (30.0-100.0) ng/mL Free T4 (0.78-2.19) ng/dL Free T3 pg/mL (2.8-5.3) pg/ml 18 11/20/17 11/20/17 Range/Units 04:28 04:28 06:05 WBC (3.8-10.6) k/uL RBC (4.30-5.90) m/uL Hgb (13.0-17.5) gm/dL Hct (39.0-53.0) % Neutrophils # (1.3-7.7) k/uL Lymphocytes # (1.0-4.8) k/uL ABG pH (7.35-7.45) ABG pCO2 (35-45) mmHg ABG HCO3 (21-25) mmol/L ABG Total CO2 (19-24) mmol/L Sodium 136 L (137-145) mmol/L Chloride 108 H (98-107) mmol/L Carbon Dioxide 16 L (22-30) mmol/L BUN 73 H (9-20) mg/dL Creatinine 3.70 H (0.66-1.25) mg/dL Glucose 147 H (74-99) mg/dL POC Glucose (mg/dL) 170 H (75-99) mg/dL Calcium 6.4 L* (8.4-10.2) mg/dL Ionized Calcium Eduardo 3.8 L (4.5-5.3) mg/dL Phosphorus 9.6 H* (2.5-4.5) mg/dL Magnesium 2.8 H (1.6-2.3) mg/dL Vitamin D 25-Hydroxy (30.0-100.0) ng/mL Free T4 0.57 L (0.78-2.19) ng/dL Free T3 pg/mL 2.4 L (2.8-5.3) pg/ml 11/20/17 11/20/17 11/20/17 Range/Units 07:11 11:51 18:10 WBC (3.8-10.6) k/uL RBC (4.30-5.90) m/uL Hgb (13.0-17.5) gm/dL Hct (39.0-53.0) % Neutrophils # (1.3-7.7) k/uL Lymphocytes # (1.0-4.8) k/uL ABG pH 7.30 L (7.35-7.45) ABG pCO2 30 L (35-45) mmHg ABG HCO3 16 L (21-25) mmol/L ABG Total CO2 16 L (19-24) mmol/L Sodium (137-145) mmol/L Chloride (98-107) mmol/L Carbon Dioxide (22-30) mmol/L BUN (9-20) mg/dL Creatinine (0.66-1.25) mg/dL Glucose (74-99) mg/dL POC Glucose (mg/dL) 171 H 156 H (75-99) mg/dL Calcium (8.4-10.2) mg/dL Ionized Calcium Eduardo (4.5-5.3) mg/dL Phosphorus (2.5-4.5) mg/dL Magnesium (1.6-2.3) mg/dL Vitamin D 25-Hydroxy (30.0-100.0) ng/mL Free T4 (0.78-2.19) ng/dL Free T3 pg/mL (2.8-5.3) pg/ml Chest x-ray: report reviewed Abdominal x-ray: report reviewed CT scan - abdomen: report reviewed CT scan - pelvis: report reviewed Assessment and Plan Assessment: 1. Cardiac arrest 2. STEMI 3. NILE 4. Worsening leukocytosis and thrombocytosis, reactive 5. Carcinoid of mesentary 6. History of leukemia in remission 7. Ventilator dependent respiratory failure 8. Liver dysfunction Plan: Mr. Meredith is a 57 yo male with history of carcinoid tumor, on somatostatin as per records/family, who is here after cardiac arrest due to STEMI. Course complicated by ventilator dependent respiratory failure, difficulty extubating, ileus, NILE, liver dysfunction, and need of trach and peg. We are called regarding his carcinoid. At this time, would hold off on treatment of carcinoid treatment until he improves medically and is able to follow up as outpatient. Unfortunately I do not have all his records and would recommend that we obtain this. As for his leukocytosis and thrombocytosis, likely reactive to underlying stress/illness. If overall he seems to be improving, this could suggest healing of his BM after acute shock of cardiac arrest.
[2017-11-20] MEDS: ATORVASTATIN 80 MG TAB PO SCH (22:10)
[2017-11-20] MEDS: MORPHINE SULFATE/PF 10MG/10ML VL IVP PRN (22:12)
[2017-11-21] MEDS: CALCIUM GLUCONATE 1,000 MG in SODIUM CHLORIDE 0.9% 100 ML IVPB SCH ×3 (00:18→20:43)
[2017-11-21] MEDS: CHLORHEXIDINE GLUCONATE 15 ML CUP MUCOUS MEM SCH ×3 (00:18→20:43)
[2017-11-21] MEDS: PIPERACILLIN-TAZOBACTAM 3.375 GM in DEXTROSE/WATER 1 50ML.BAG IVPB SCH ×3 (00:18→17:02)
[2017-11-21] MEDS: HEPARIN SODIUM,PORCINE 5,000 UNIT/ML 1 ML VIAL SQ SCH ×3 (00:19→17:02)
[2017-11-21] MEDS: METOCLOPRAMIDE 5 MG/ML 2 ML VIAL IVP SCH ×4 (00:37→18:27)
[2017-11-21] MEDS: INSULIN ASPART 100 UNIT/ML 1 ML 10 ML VIAL SQ SCH ×4 (00:37→18:27)
[2017-11-21 00:39] LABS: Glucose,Whole Blood 159 mg/dL (75-99)
[2017-11-21] MEDS: PROPOFOL 1,000 MG in EMPTY BAG 1 BAG IV SCH ×4 (03:30→19:10)
[2017-11-21] MEDS: DEXTROSE 5% IN WATER 1,000 ML IV SCH (04:00)
[2017-11-21 05:22] LABS: Basophils % (A) 0 %; Eosinophils # (A) 0.2 k/uL (0-0.7); Eosinophils % (A) 1 %; HCT 25.5 % (39.0-53.0); HGB 8.1 gm/dL (13.0-17.5); Lymphocytes # (A) 0.8 k/uL (1.0-4.8); Lymphocytes % (A) 3 %; MCH 30.3 pg (25.0-35.0); MCHC 31.8 g/dL (31.0-37.0); MCV 95.3 fL (80.0-100.0); Mean Platelet Volume 9.8; Monocytes % (A) 4 %; Neutrophils # (A) 21.4 k/uL (1.3-7.7); Neutrophils % (A) 90 %; Platelet Count 415 k/uL (150-450); RBC 2.68 m/uL (4.30-5.90); RDW 14.4 % (11.5-15.5); WBC 23.8 k/uL (3.8-10.6)
[2017-11-21 05:42] LABS: Albumin 2.3 g/dL (3.5-5.0); Calcium 6.7 mg/dL (8.4-10.2); Magnesium 2.9 mg/dL (1.6-2.3); Potassium 4.4 mmol/L (3.5-5.1); Total Bilirubin 1.3 mg/dL (0.2-1.3); Total Protein 5.3 g/dL (6.3-8.2)
[2017-11-21] MEDS: 1: MVI, ADULT NO.4 WITH VIT K 10 ML, TRACE (CONC-1ML/DOSE) 1 ML, CALCIUM GLUCONATE 1,000 IV SCH ×10 (05:48→11:24)
[2017-11-21 06:25] LABS: Glucose,Whole Blood 166 mg/dL (75-99)
[2017-11-21] MEDS ORDERED: FUROSEMIDE 10 MG/ML 10 ML VIAL IV STA (06:34)
--- NOTE | 2017-11-21 06:46 | XR ---
EXAMINATION TYPE: XR chest 1V portable DATE OF EXAM: 11/21/2017 HISTORY: intubated. REFERENCE: Previous study dated 11/20/2017. FINDINGS: The patient remains intubated. The patient is ET tube and NG tube remain in place, unchange d in appearance. There is a left subclavian catheter in place. Its tip is in the superior vena cava. There is unipolar pacing device in place on the right. There is worsening opacity of both lungs. I suspect this is largely due to pleural fluid. Airspace di sease is not excluded. IMPRESSION: WORSENING AERATION, BOTH LUNGS.
[2017-11-21 07:39] LABS: ABG PCO2 33 mmHg (35-45); ABG PH 7.26 (7.35-7.45)
[2017-11-21 07:40] LABS: ABG HCO3 15 mmol/L (21-25); ABG PO2 76 mmHg (83-108); ABG TCO2 16 mmol/L (19-24)
[2017-11-21] MEDS: MORPHINE SULFATE/PF 10MG/10ML VL IVP PRN ×2 (07:46→21:26)
[2017-11-21] MEDS: LACTULOSE 20 GM/30 ML CUP PO SCH (08:35)
[2017-11-21] MEDS: ALBUTEROL NEBULIZED 2.5 MG/3 ML INHALATION SCH ×3 (09:10→19:04)
[2017-11-21] MEDS: DEXTROSE 5% IN WATER 1,000 ML with SODIUM BICARB (1 MEQ/ML) 150 ML IV SCH (09:40)
[2017-11-21] MEDS: ASPIRIN 81 MG PO SCH (09:41)
[2017-11-21] MEDS: LEVOTHYROXINE IVP 100 MCG/5 ML VIAL IV SCH (09:46)
[2017-11-21] MEDS: METOPROLOL TARTRATE 25 MG TAB PO SCH ×2 (09:47→20:40)
[2017-11-21] MEDS: QUEtiapine 25 MG TAB PO SCH ×2 (09:47→20:40)
[2017-11-21] MEDS: PANTOPRAZOLE 40 MG/10 ML VIAL IVP SCH ×2 (09:47→20:43)
[2017-11-21] MEDS: TICAGRELOR 90 MG TAB PO SCH ×2 (09:47→20:42)
--- NOTE | 2017-11-21 10:29 | P.PN ---
Subjective Progress Note Date: 11/21/17 Principal diagnosis: Acute ST segment elevation myocardial infarction secondary to tight left main lesion, status post successful angioplasty and stenting, acute cardiac arrest with CPR and resuscitation, acute hypoxic respiratory failure ventilator dependent, acute kidney injury secondary to acute cardiac arrest and hypotension , abdominal distention with possible ileus, history of neuroendocrine carcinoid tumor of the mesentery, and history of leukemia in remission. Status post successful stenting of the distal left main and proximal ostial LAD on 11/11/2017. Status post externalized permanent pacemaker placed on 11/10/2017. Patient is laying in bed with his head elevated, he is in no acute distress. He remains intubated with mechanical ventilator support. He is currently sedated on Diprivan at 45 mcg/kg/m. ABGs this morning show a pH of 7.26, pCO2 33, pO2 76, HCO3 15, oxygen saturation 94.0%, base excess -12.0. His is at his bedside, discussed with his we will hold off on tracheostomy and PEG tube placement at this time due to his acute illness, elevated WBC count, and he continues on Brilinta. Dr. Salomno is at his bedside, right groin temporary dialysis catheter placed. Objective - Vital Signs Vital signs: Vital Signs Temp 98.3 F 11/21/17 08:00 Pulse 87 11/21/17 08:00 Resp 24 11/21/17 08:00 BP 116/62 11/21/17 08:00 Pulse Ox 95 11/21/17 08:00 Intake & Output 11/20/17 11/21/17 11/21/17 18:59 06:59 18:59 Intake Total 8675.742 9153 188.673 Output Total 823 190 8 Balance 499.576 5775 180.673 Weight 95.5 kg Intake: IV 1692 1251 91 0.9 120 110 10 0.9 for pressure 72 66 6 Dextrose 5% in Water 1, 900 825 75 000 ml @ 75 mls/hr IV . [id number] [facility] Rx#:[id number] Mvi, Adult No.4 with Vit 600 250 K 10 ml Trace (Conc-1Ml/ Dose) 1 ml Calcium Gluconate 2,000 mg Sodium Acetate 30 meq In Amino Acid 4.25%-D10w 1,000 ml @ 50 mls/hr IV .[id number] [facility] Rx#:[id number] Intake, IV Titration 90.907 200 97.673 Amount Propofol 1,000 mg In 90.907 200 97.673 Empty Bag 1 bag @ Titrate IV .Q0M [facility] Rx#: [id number] Output: Gastric Drainage 300 Urine 523 190 8 Other: Voiding Method Indwelling Catheter Indwelling Catheter ABP, PAP, CO, CI - Last Documented Arterial Blood Pressure 157/68 - Constitutional Constitutional Comment(s): He remains intubated with mechanical ventilator support. He is currently sedated on Diprivan drip at 45 mcg/kg/m. He does not follow any verbal commands at this time. General appearance: Present: no acute distress - Neck Details: Neck is supple, no JVD, no lymphadenopathy. - Respiratory Details: Lungs sounds essentially clear to his bilateral upper lobes, diminished to his bilateral bases. Respirations are symmetrical and nonlabored with mechanical ventilator support. #7.[address] and secured. Current mechanical ventilator settings are as follows, assist control 20, TV 500, FiO2 40%, PEEP 5. Current oxygen saturations are 95% with current ventilator settings. - Cardiovascular Details: Regular rhythm and rate. S1 and S2 present, negative for S3, gallop or murmur. Sequential compression devices in place to his bilateral lower extremities. Bedside telemetry showing normal sinus rhythm heart rate 87. Right subclavian pacemaker in place and secured. - Gastrointestinal Gastrointestinal Comment(s): Abdomen soft, and distended. No organomegaly. OG tube in place to low intermittent wall suction evacuating brownish colored drainage. TPN infusing at 50 mL per hour, per IV. - Genitourinary Genitourinary Comment(s): Felipe catheter for accurate I&O. Clear yellow urine. Urine output 700 mL over the last 8 hours. - Integumentary Integumentary Comment(s): Skin is warm and dry. No clubbing or cyanosis. - Neurologic Neurologic Comment(s): Patient remains sedated on Diprivan drip at 45 g kilogram per minute. - Allied health notes Allied health notes reviewed: nursing - Labs CBC & Chem 7: 11/21/17 05:00 11/21/17 05:00 Labs: Abnormal Lab Results - Last 24 Hours (Table) 11/20/17 11/20/17 11/20/17 Range/Units 04:28 11:51 18:10 WBC (3.8-10.6) k/uL RBC (4.30-5.90) m/uL Hgb (13.0-17.5) gm/dL Hct (39.0-53.0) % Neutrophils # (1.3-7.7) k/uL Lymphocytes # (1.0-4.8) k/uL ABG pH (7.35-7.45) ABG pCO2 (35-45) mmHg ABG pO2 (83-108) mmHg ABG HCO3 (21-25) mmol/L ABG Total CO2 (19-24) mmol/L Sodium (137-145) mmol/L Carbon Dioxide (22-30) mmol/L BUN (9-20) mg/dL Creatinine (0.66-1.25) mg/dL Glucose (74-99) mg/dL POC Glucose (mg/dL) 171 H 156 H (75-99) mg/dL Calcium (8.4-10.2) mg/dL Phosphorus (2.5-4.5) mg/dL Magnesium (1.6-2.3) mg/dL AST (17-59) U/L Alkaline Phosphatase (38-126) U/L Total Protein (6.3-8.2) g/dL Albumin (3.5-5.0) g/dL Free T4 0.57 L (0.78-2.19) ng/dL Free T3 pg/mL 2.4 L (2.8-5.3) pg/ml 11/21/17 11/21/17 11/21/17 Range/Units 00:27 05:00 05:00 WBC 23.8 H (3.8-10.6) k/uL RBC 2.68 L (4.30-5.90) m/uL Hgb 8.1 L (13.0-17.5) gm/dL Hct 25.5 L (39.0-53.0) % Neutrophils # 21.4 H (1.3-7.7) k/uL Lymphocytes # 0.8 L (1.0-4.8) k/uL ABG pH (7.35-7.45) ABG pCO2 (35-45) mmHg ABG pO2 (83-108) mmHg ABG HCO3 (21-25) mmol/L ABG Total CO2 (19-24) mmol/L Sodium 134 L (137-145) mmol/L Carbon Dioxide 15 L (22-30) mmol/L BUN 90 H* (9-20) mg/dL Creatinine 5.31 H* (0.66-1.25) mg/dL Glucose 141 H (74-99) mg/dL POC Glucose (mg/dL) 159 H (75-99) mg/dL Calcium 6.7 L (8.4-10.2) mg/dL Phosphorus 10.0 H* (2.5-4.5) mg/dL Magnesium 2.9 H (1.6-2.3) mg/dL AST 181 H (17-59) U/L Alkaline Phosphatase 307 H (38-126) U/L Total Protein 5.3 L (6.3-8.2) g/dL Albumin 2.3 L (3.5-5.0) g/dL Free T4 (0.78-2.19) ng/dL Free T3 pg/mL (2.8-5.3) pg/ml 11/21/17 11/21/17 Range/Units 05:54 07:26 WBC (3.8-10.6) k/uL RBC (4.30-5.90) m/uL Hgb (13.0-17.5) gm/dL Hct (39.0-53.0) % Neutrophils # (1.3-7.7) k/uL Lymphocytes # (1.0-4.8) k/uL ABG pH 7.26 L (7.35-7.45) ABG pCO2 33 L (35-45) mmHg ABG pO2 76 L (83-108) mmHg ABG HCO3 15 L (21-25) mmol/L ABG Total CO2 16 L (19-24) mmol/L Sodium (137-145) mmol/L Carbon Dioxide (22-30) mmol/L BUN (9-20) mg/dL Creatinine (0.66-1.25) mg/dL Glucose (74-99) mg/dL POC Glucose (mg/dL) 166 H (75-99) mg/dL Calcium (8.4-10.2) mg/dL Phosphorus (2.5-4.5) mg/dL Magnesium (1.6-2.3) mg/dL AST (17-59) U/L Alkaline Phosphatase (38-126) U/L Total Protein (6.3-8.2) g/dL Albumin (3.5-5.0) g/dL Free T4 (0.78-2.19) ng/dL Free T3 pg/mL (2.8-5.3) pg/ml - Imaging and Cardiology Chest x-ray: report reviewed, image reviewed Assessment and Plan (1) Acute ST segment elevation myocardial infarction Current Visit: Yes Status: Acute Code(s): I21.3 - ST ELEVATION (STEMI) MYOCARDIAL INFARCTION OF [facility] SITE SNOMED Code(s): 278082868 (2) Cardiac arrest Current Visit: Yes Status: Acute Code(s): I46.9 - CARDIAC ARREST, CAUSE UNSPECIFIED SNOMED Code(s): 003506679 (3) Acute respiratory failure with hypoxia Current Visit: Yes Status: Acute Code(s): J96.01 - ACUTE RESPIRATORY FAILURE WITH HYPOXIA SNOMED Code(s): 09486124 (4) History of benign carcinoid tumor of gastrointestinal tract Current Visit: Yes Status: Acute Code(s): Z86.012 - PERSONAL HISTORY OF BENIGN CARCINOID TUMOR SNOMED Code(s): 88512486578216 (5) History of temporary cardiac pacemaker treatment Current Visit: Yes Status: Acute Code(s): Z86.79 - PERSONAL HISTORY OF OTHER DISEASES OF THE CIRCULATORY SYSTEM SNOMED Code(s): 996188394 (6) Failure to wean from mechanical ventilation Current Visit: Yes Status: Acute Code(s): Z99.11 - DEPENDENCE ON RESPIRATOR [VENTILATOR] STATUS SNOMED Code(s): 213354015 Plan: 1. Trach and PEG placement on hold at this time due to his acute illness, increased WBC count and Brilinta. 2. Pulmonary management per Dr. Hassan's recommendations. 3. Ileus management per general surgery recommendations. 4. GI and DVT prophylaxis. 5. Pacemaker management per cardiology's recommendations. 6. Hemodialysis management per nephrology's recommendations. Avoid nephrotoxic medications. 7. Further recommendations to follow as patient progresses in his care. Time with Patient: Greater than 30
[2017-11-21] MEDS ORDERED: IOHEXOL 350 MG/ML 25 ML BOTTLE (ORAL USE) PO PRN (10:59)
[2017-11-21] MEDS ORDERED: RX INFO: IV CONTRAST WAS GIVEN 1 EACH MISC MISCELLANE PRN (10:59)
--- NOTE | 2017-11-21 11:06 | PN ---
PROGRESS NOTE Patient is seen for followup for acute kidney injury. His renal function has deteriorated with decrease in urine output. Serum creatinine is up to 5.3 mg/dL today. The patient remains on the vent. Maintained on sedation. He is currently having a dialysis catheter placed. Renal replacement therapy was discussed with his yesterday and we will initiate dialysis today. EXAMINATION: Patient remains on the vent. Blood pressure is 116/62, heart rate 87 per minute. He is afebrile. Examination of the heart: S1, S2. Examination lungs: Bilateral breath sounds are heard. Abdomen is soft, nontender. Examination lower extremity shows edema 1+ bilaterally. SUPERVISOR FABRICATION exam cannot be performed. LABS: Show sodium 134, potassium 4.4, chloride 104, CO2 is 15, BUN 90, serum creatinine 5.3, phosphorus of 10.0, calcium 6.7, hemoglobin 8.1 g/dL. ASSESSMENT: 1. Acute kidney injury, acute tubular necrosis, currently oliguric with worsening renal function. Will start renal replacement therapy today. 2. Volume overload. Expect improvement with dialysis. 3. Metabolic acidosis secondary to renal failure. Expect improvement with hemodialysis and then we can discontinue the IV bicarb, which will be started today. 4. Vent dependent respiratory failure. 5. Acute tubular necrosis secondary to contrast nephropathy. 6. Severe hyperphosphatemia from renal failure. PLAN: Start dialysis today and will repeat again tomorrow. Increase UF as tolerated. MMODL / IJN: [id number] /
--- NOTE | 2017-11-21 11:15 | P.PN ---
Progress Note - Text Progress Note Date: 11/20/17 The patient has been reintubated. He is nasogastric tube was placed 2-300 mL of dark fluid per shift. His recent CAT scan shows evidence of ileus. On exam is lesser stable. His abdomen is soft, mildly distended. Ileus. Patient will be managed medically.
--- NOTE | 2017-11-21 11:17 | P.PN ---
Progress Note - Text Progress Note Date: 11/21/17 The patient remains in the ICU on the ventilator. The patient apparently had some gastric contents, up around the nasogastric tube last night. He's had a large volume of output through the nasogastric tube. On exam his abdomen is soft and distended. Patient had a CAT scan performed 4 days ago. At that time he is found have an ileus. The patient on repeat CAT scan performed today in order to make sure there is no evidence of any mechanical obstruction. He'll continue receive supportive care.
[2017-11-21 12:20] LABS: Glucose,Whole Blood 179 mg/dL (75-99)
--- NOTE | 2017-11-21 12:57 | CONS ---
DATE OF CONSULTATION: 11/21/2017 This a 57-year-old gentleman who was seen in the intensive care unit. I was called in for placement of urgent dialysis catheter. This patient went into acute renal failure. The patient has been admitted with a history of acute ST-segment elevation myocardial infarction second to tight left main lesion from status post surgical angioplasty and stenting. The patient had a cardiac arrest and was resuscitated. The patient has been on ventilator. The patient is very obtunded with distention of the abdomen. EXAMINATION: Patient was seen in his room. The patient is on ventilator. Chest has crackles bilateral. Abdomen is protuberant and distended. Femorals are 1+. PLAN: Placement of the triple-lumen dialysis catheter. MMODL / IJN: [id number] / [email or web address]
--- NOTE | 2017-11-21 13:26 | CT ---
EXAMINATION TYPE: CT abdomen pelvis w con DATE OF EXAM: 11/21/2017 REFERENCE: Previous study dated 11/18/2017. HISTORY: possible obstruction HISTORY: Possible obstruction REFERENCE: NONE CT DLP: 1188.40 mGy Automated exposure control for dose reduction was used. TECHNIQUE: Helical acquisition through the abdomen and pelvis was obtained following the oral ingesti on of with Oral Contrast and following intravenous administration of 100 mL of Omnipaque 300. The bunny a was reformatted in axial, coronal and sagittal projections. FINDINGS: There are moderate, bilateral pleural effusions. There is associated atelectasis or consol idation at the lung bases. The heart is enlarged. Within the abdomen, the liver is enlarged measuring 21 cm. The gallbladder is distended, likely from fasting. The spleen is unremarkable. Both adrenal glands are unremarkable. There is no evidence of hydronephrosis or nephrolithiasis. Limited views of the pancreas are unremarkable. There is celiac adenopathy. This is very similar to the previous study. There is also some mesenteric adenopathy. There is some interloop fluid in the midabdomen. This is similar to previous. There is a Felipe catheter within the bladder. There is thickening of the mucosa of the sigmoid colon. There is no evidence of bowel obstruction. Th e appendix appears normal. No free air is seen. There is generalized anasarca. There is degenerative disc disease at L5-S1. No bony destructive lesion is seen. IMPRESSION: 1. NO EVIDENCE OF BOWEL OBSTRUCTION. 2. THICKENING OF THE COLONIC MUCOSA IN THE SIGMOID REGION IS SUSPICIOUS FOR COLITIS. PLEASE CORRELATE CLINICALLY. 3. MODERATE BILATERAL PLEURAL EFFUSIONS WITH ASSOCIATED ATELECTASIS OR CONSOLIDATION. 4. HEPATOMEGALY. 5. CELIAC AND MESENTERIC ADENOPATHY. 6. GENERALIZED ANASARCA. 7. SMALL AMOUNT OF INTRAPERITONEAL FLUID.
--- NOTE | 2017-11-21 14:46 | P.PN ---
Subjective Progress Note Date: 11/21/17 Principal diagnosis: Acute cardiac arrest secondary to acute ST segment elevation LA. A pleasant 57-year-old male patient who lives in [place], [place] and the patient was playing pickle ball in the [facility] area. The patient acutely arrested and he was into cardiac arrest. There was a bystander nurse who did CPR on him. EMS was called to the scene and the patient was found in V. fib. The patient was shocked and the patient was given a dose of epinephrine. Subsequently went into asystole. Following that, CPR was continued and the patient went into V. fib, shocked again and then went into normal sinus rhythm. EKG showed ST segment elevation and the patient was taken to [facility] and following that the patient was brought in to the [facility]. Emergent cardiac catheterization was done and the patient was found to have a left main lesion that was stented. The stent insertion with successful. The patient was in already intubated by EMS on the scene. The patient was kept intubated. The patient was moved to the ICU for further care. Overnight, the patient was sedated with Diprivan. He apparently was following some simple commands while given a sedation holiday. This morning, he is on 30 mics of levo fed for blood pressure support. Echocardiogram was done and showed ejection fraction of 35%. No other significant abnormalities noted and this is a preliminary report. Urine output is in order of 25-30 mL an hour. Overnight his urine output dropped and a given a bolus of 1 L and he received a total of 2.5 L fluid bolus. He is current maintenance fluid is at 75 mL of normal saline. He is on a mechanical ventilator on assist control mode at the rate of 20, tidal volume of 600, FiO2 of 50% and a PEEP of 5. Morning blood gases showed a pH of 7.34 with a pCO2 of 28 and pO2 167. Chest x- ray showing some cardiomegaly and some pulmonary vessel congestion. ET tube is in a good location. No other densities seen in the left lower lobe costophrenic angle area. The patient's creatinine is up to 1.4. Today's potassium is up to 6.8. This needs to be repeated. No EKG changes related to this high potassium level. He is afebrile. No aspiration was noted. He remains on 30 mics of norepinephrine infusion for now. Pulses in lower extremities are weak yet obtainable by Doppler. His legs are cold and clammy still. No significant secretions from his orotracheal tube. He is known to have carcinoid tumor and apparently his been on maintenance hormonal treatment. He is seeing a oncologist out of Health system. The patient also has history of lymphoma. The details of these malignancies are not known to us. The origin of the carcinoid tumor is not clear to me at this point. Further information is to be obtained on this patient. On 11/12 I'm seeing this patient for a follow-up. The patient remains intubated on a mechanical ventilator and the patient is post acute STEMI in acute cardiac arrest. I did not extubated the patient yesterday as the patient was still hypo-tensive and hypoperfusing and the patient was having diminished pulses in lower extremities and he looked cold and clammy and he had ongoing electrolyte disturbance with hypokalemia. He was given IV fluids and the neck fluid balance over the past 24 hours is +2.3 L. Currently is on 75 mL an hour of normal saline. Pulses are palpable in lower oximetry is bilaterally and the patient is much more warm. He is still however on pressors and currently norepinephrine infusion is running at 14 mics. His urine output dropped this morning and he is producing around 25-30 mL an hour of urine output. The patient has the levo fed infusion running through his right upper extremity. He remains on a mechanical ventilator. His assist-control mode at the rate of 20, tidal volume of 600, FiO2 of 40% and a PEEP of 5. The blood gases showed a pH of 7.3 with a pCO2 of 28 and pO2 77. Chest x-ray showing cardiomegaly. ET tube is in a good location. There is development of four-vessel congestion and possibly a right-sided pleural effusion also developing. He is afebrile. He is having no significant secretions with orotracheal tube. His white cell count has dropped and I doubt an underlying aspiration pneumonia although this is not completely excluded. I think his hypotension and shock is probably cardiogenic following his cardiac arrest. In addition, the patient's ionized calcium today's at 3.8 and the patient was given a total of 1 g of calcium gluconate. His troponin peaked at 26.4. This morning he is sedated and is calm and comfortable and synchronous with the mechanical ventilator. Orogastric and orotracheal tube are both in place. The patient is still nothing by mouth. On 11/13/2017 I'm seeing this patient for a follow-up. Patient remains intubated on a mechanical ventilator. He is sedated Diprivan is calm and comfortable. He withdraws to painful stimulation. A repeat echo cardiac exam was done today that showed a preserved LV function. Note that post LA the patient's ejection fraction was impaired with ejection fraction of 35-40%. Based on the geriatric physical therapist destination, the ejection fraction is a furthermore improved. I did add milrinone yesterday on him which I am willing to discontinue based on these findings. His CVP is around 7. He is in a positive fluid balance in order of 5 L since he came in to the intensive care unit. He has adequate pulses in all 4 extremities bilaterally. His chest x-ray showing diffuse bilateral pulmonary infiltrates which seems to be more so of a acute lung injury/aspiration-type of picture/non-cardiogenic pulmonary edema. The patient is on assist control mode, at the rate of 20, tidal volume of 600, FiO2 of 40% and PEEP of 5. The morning blood gas showed a pH of 7.38 with a pCO2 of 29 and pO2 of 85. The patient is on normal state rate of 75 mL an hour. Urine output is between 25-30 mL an hour. The patient's creatinine was up to 2 on today's evaluation. He did have a 1 spike of temperature and he is currently covered with IV Zosyn. White cell count is not elevated. No secretions with orotracheal tube. The patient had some difficulties tolerating tube feeds. Abdomen on examination was felt to be quite tender. Calcium level has dropped progressively. We'll need immediate fed femoral the abdomen addition to the liver function tests and pancreatic enzymes. Calcium level will be supplemented. On 11/14/2017 I'm seeing this patient for a follow-up. As mentioned earlier the patient is post cardiac arrest and the patient had a acute cardiac intervention and stenting of a left main for an acute cardiac arrest, acute ST segment elevation myocardial infarction. The patient fortunately does not show signs of hypoxic encephalopathy. Yet there is another complications preventing him from weaning. Initially was quite hypotensive which was thought to be of a cardiogenic in nature. Subsequent echocardiogram showed improvement in the LV function and probably had this done the myocardium which is improving. Hemodynamically improved and is at the point where norepinephrine infusion has been drop down to a few mics only. He subsequently developed an acute kidney injury, nonoliguric, and the creatinine is up to 2.5. This is expected knowing that the patient was subjected to a cardiac arrest, hypotension, pressors and contrast material. He also had potentially an aspiration pneumonia. He developed bilateral lower lobe consolidation/atelectasis and effusions. He is currently on IV Zosyn. The patient got diuresed any procedures adequate amount of urine output over the past 24 hours. He is still oxygenating and ventilating without any major difficulties. He also developed a abdominal distention. CAT scan of the abdomen was done and there is a cecal mass probably his known carcinoid mass. In addition, there is small bowel ileus/ obstruction for which the tube feeds were placed on hold and since then the patient has drained approximately 800 mL of gastric greenish material and his output is still considerably high. Liver function test are within normal. Amylase and lipase are not elevated. The patient also is having excessive rest or secretions which are being suctioned out. He is not ready for further weaning for now. Is afebrile. He is sedated with propofol. He is still on the same vent setting which includes an assist-control of 20, FiO2 of 60% Patient was reevaluated today on 11/15/2017, patient remains on mechanical ventilation, his ventilator settings are FiO2 of 40% tidal volume of 500 assist control rate of 20 and PEEP of 5. ABG showed a pO2 of 105 pCO2 of 29 pH of 7.37 CBC and basic metabolic profile are relatively normal however his BUN is 59 creatinine is 3.05. Bicarb is 18. Patient continues to have fair amount of secretions according to the nurses taking care of him, his urine output is excellent, remains on IV fluid at a relatively high rate. Chest x-ray showed stable bilateral infiltrates and possibly pleural effusions. Suspect the patient may have had an aspiration pneumonia involving the right lower lobe. Hemodynamically, the patient seems to be stable, neurologically he was noted to be functioning well based on the note by Dr. Moise above. Apparently the patient did not sustain any significant hypoxic encephalopathy. His echocardiogram showed improvement in LV function. His kidney functioning seems to be a bit concerning, being closely followed by nephrology. I believe the patient must have sustained acute tubular necrosis and acute kidney injury. Remains on antibiotics for presumptive aspiration. His CT of the abdomen was reviewed, there is a cecal mass possibly his known carcinoid mass. His feeding was placed on hold, but considering the patient had 2 bowel movements over the last 24 hours, I will resume tube feeding. Secretions are still present but not as bad as reported by Dr. Moise yesterday. Hence I plan to give the patient a weaning trial, sedation holiday, and possibly a spontaneous breathing trial. Reevaluated today on 11/16/2017, remains on mechanical ventilation, sedated, on propofol drip, ventilator settings are the same as noted above. ABG showed a pO2 of 90 pCO2 of 29 pH of 7.38. Renal profile is slightly better today with a creatinine down to 2.90 BUN is 65. Patient remains a bit acidotic with a bicarb of 17. Endotracheal tube secretions seem to be much less today. Chest x -ray is showing improvement in his by basilar infiltrates and pleural effusions. Hemodynamically the patient remains stable. Neurologically patient is to be awakened today, he will be given a sedation holiday, and possibly a spontaneous breathing trial. All labs were reviewed, patient remains on enteral feeding. is at bedside, and she was updated on his condition. Patient was reevaluated today on 11/17/2017, remains on mechanical ventilation, sedated, on propofol drip. His ventilator settings are basically the same. No changes were made over the last 24 hours. However the patient was taken off propofol, I awaken the patient, seems to be responsive, but generally weak, and I recommended a trial of spontaneous breathing using pressure support mode of mechanical ventilation, pressure support was at 12 and CPAP. Patient did well for about 45 minutes, then he was noted to get more tachypneic, tachycardic, and hypertensive. Patient was arrested back again on assist control mode of mechanical ventilation. His IV fluid was changed to D5W since the patient is developing hypernatremia, and hyperchloremic metabolic acidosis. His renal profile showed a BUN of 64 creatinine of 2.68 slightly improved compared to yesterday. ABG showed a pO2 of 87 pCO2 of 35 pH of 7.31. CBC continues to show leukocytosis with WBC count of 16.9. Chest x-ray is showing stable bilateral infiltrates and pleural effusions. Looking at the patient's fluid balance, patient has been slightly on the negative side, and his urine output has been reasonable. His IV fluid was changed to D5W because of the hypernatremia, and may have to consider fluid boluses via the nasogastric tube with the feedings. Reevaluated today on 11/18/2017, patient remains on mechanical ventilation, same ventilator settings, remains sedated on propofol, however I was able to take him off of propofol, and kept him on assist control mode of mechanical ventilation. As soon as the patient woke up, he was noted to be tachypneic, followed intermittently very simple instructions like closing eyes and squeezing hands, but not wiggling toes. Patient was noted to be generally weak , not quite ready for a spontaneous breathing trial. May consider again pressure support of 12 and CPAP today. In the last few days the patient seems to fail all weaning trials, hence I discussed with the today potentially setting him up for tracheostomy. is agreeable, however the patient is on brilinta, and we'll discuss with the geriatric physical therapist if we could hold it for few days. A shunt will likely benefit from tracheostomy and PEG tube placement, I believe his course on mechanical ventilation is going to be definitely prolonged. He may eventually require transfer to an ECF. All his labs, x-rays , were reviewed, I'm quite concerned about his abdominal distention, hence I placed a consult to Dr. briggs to evaluate. Meantime his tube feeding was placed on hold, and will place nasogastric tube on intermittent suction. Flat plate of the abdomen was done, chest x-ray showed some improvement in his by basilar opacities today. Renal functioning seems to be worsening, and his hypernatremia is not improving much. Hence we will increase his IV fluid with D5W, and would hold on any diuretics for now. His urine output seems to be reasonable. Patient has been in positive balance especially with the free water flushes given through the nasogastric tube to correct his hypernatremia. Reevaluated today on 11/19/2017, patient remains on mechanical ventilation, ventilator settings are tidal volume of 500, assist control rate of 20 FiO2 of 40% and PEEP of 5. ABG showed a pO2 of 93 pCO2 of 26 pH of 7.39. Patient had a positive fluid balance of 1600 mL over the last 24 hours. Hence I will cut down his IV fluid and bit, and give him a dose of Lasix. His sodium corrected nicely it is 143 today. Bicarb remains low at 16, BUN remains 63 and creatinine about the same 2.97. Chest x-ray continues to show bilateral opacities, possibly infiltrates related to aspiration, although the possibility of some fluid overload is not entirely ruled out but felt to be less likely. That should improve with Lasix IV push since it will be given today. Patient was taken off propofol, noted to be anxious, he became tachypneic tachycardic and hypertensive, I kept him on assist control mode of mechanical ventilation but off propofol, and I added Seroquel. Patient had 24 second episode of asystole yesterday, and he recovered on his own without any intervention. Discussed this with the geriatric physical therapist today, and he plans to take him for a pacemaker implantation. He seems to be quite concerned about that episode of sinus pauses. I also discussed his condition with the surgical staff for tracheostomy possibly Wednesday in spite of being on Brilinta. Doubt if we can successfully weaned and extubated the patient in the next couple of days. Reevaluated today on 11/20/2017, patient is back on mechanical ventilation again , ventilator settings are as noted above, unchanged. ABG showed a pO2 of 83 pCO2 of 30 pH of 7.30. His renal functioning however seems to be getting worse , BUN is up to 73 creatinine is 3.70, sodium seems to be better today at 136. Bicarb remains low at 16 patient was tried again off propofol, but shortly as he woke up, patient became extremely agitated tachycardic, restless, and he was breathing about 40 times per minute. Remains on assist control mode of mechanical ventilation, and had to place him back on propofol. Yesterday we started the patient on Seroquel. All his labs were reviewed, chest x-ray was also reviewed. Continues to show bilateral pleural effusions, cardiomegaly, I would likely recommend ultrasound of the chest, and may even consider thoracentesis if the fluid is large enough to be drained. In the meantime I discussed with the circus train supervisor, and I believe the patient is being considered for hemodialysis/ultrafiltration. Reevaluated today on 11/21/2017, patient remains on mechanical ventilation, ventilator settings are tidal volume of 500 assist control rate of 20 FiO2 of 40 % and PEEP of 5. ABG showed a pO2 of 76 pCO2 of 33 pH of 7.26, his bicarb is 16. Obviously his metabolic acidosis is getting worse, and his renal functioning is getting worse today. Hence the patient will start on hemodialysis today, as I have discussed with the circus train supervisor on the case. Patient is also experiencing significant coffee-ground material in the nasogastric tube, and he remains on Protonix 40 mg IV push every 12 hours. His abdomen remains distended and general surgery is on the case. Presently he remains on TPN. CBC is showing worsening leukocytosis with WBC count of 23.8 hemoglobin is 8.1. Patient was also placed on sodium bicarb today, and he remains on Zosyn. Lasix was given earlier, but likely we are going to start hemodialysis later this afternoon. Blood pressure is marginal, however if noted to worsen, patient will be started on norepinephrine. Especially during hemodialysis. Repeat CT of the abdomen and pelvis showed no evidence of bowel obstruction, thickening of the colonic mucosa in the sigmoid region suspicious for colitis. Moderate bilateral pleural effusions were noted. Associated with atelectasis. And there is hepatomegaly with celiac and mesenteric adenopathy as well as generalized anasarca. Chest x-ray is showing worsening opacities in both lungs and possibly bilateral pleural effusions. Hoping that will improve with hemodialysis/ultrafiltration. Objective - Vital Signs Vital signs: Vital Signs Temp 98.3 F 11/21/17 08:00 Pulse 78 11/21/17 11:39 Resp 20 11/21/17 11:00 BP 97/58 11/21/17 11:00 Pulse Ox 96 11/21/17 11:00 Intake & Output 11/20/17 11/21/17 11/21/17 18:59 06:59 18:59 Intake Total 0386.770 4033 1588.971 Output Total 823 190 759 Balance 228.803 1541 829.971 Weight 95.5 kg Intake: IV 1692 1251 796 0.9 120 110 60 0.9 for pressure 72 66 36 Dextrose 5% in Water 1, 900 825 150 000 ml @ 75 mls/hr IV . [id number] JACK Rx#:[id number] Dextrose 5% in Water 1, 300 000 ml @ 75 mls/hr IV . [id number] JACK with Sodium Bicarb (1 Meq/ml) 150 ml Rx#:[id number] Mvi, Adult No.4 with Vit 250 K 10 ml Trace (Conc-1Ml/ Dose) 1 ml Calcium Gluconate 1,000 mg Sodium Acetate 30 meq In Amino Acid 4.25%-D10w 1,000 ml @ 125 mls/hr IV .BY DURATION [facility] Rx#: [id number] Mvi, Adult No.4 with Vit 600 250 K 10 ml Trace (Conc-1Ml/ Dose) 1 ml Calcium Gluconate 2,000 mg Sodium Acetate 30 meq In Amino Acid 4.25%-D10w 1,000 ml @ 50 mls/hr IV .[id number] [facility] Rx#:[id number] Intake, IV Titration 90.907 200 192.971 Amount Propofol 1,000 mg In 90.907 200 192.971 Empty Bag 1 bag @ Titrate IV .Q0M [facility] Rx#: [id number] Other 600 Output: Gastric Drainage 300 700 Urine 523 190 59 Other: Voiding Method Indwelling Catheter Indwelling Catheter Indwelling Catheter ABP, PAP, CO, CI - Last Documented Arterial Blood Pressure 117/62 - Exam Physical Exam: Revealed a 57-year-old white male on mechanical ventilation, sedated on propofol drip. Head: Atraumatic, normocephalic. Endotracheal tube is intact. HEENT:[Neck is supple.] [No neck masses.] [No thyromegaly.] [No JVD.] Endotracheal tube seems to be intact. Moist mucous membranes. Throat is clear. Chest: [Minimal fine crackles at the right base, no rhonchi no wheezes.] Cardiac Exam: [Normal S1 and S2, no S3 gallop, no murmur.] Abdomen: [Distended, nontender, tympanitic, no bowel sounds were appreciated.] Extremities: [No clubbing, no edema, no cyanosis.] Neurological Exam: Cannot be examined fully sedated on propofol. Psychiatric: Cannot be examined remains on propofol drip. Musculoskeletal: On propofol could not be assessed. - Labs CBC & Chem 7: 11/21/17 05:00 11/21/17 05:00 Labs: Abnormal Lab Results - Last 24 Hours (Table) 11/20/17 11/20/17 11/21/17 Range/Units 04:28 18:10 00:27 WBC (3.8-10.6) k/uL RBC (4.30-5.90) m/uL Hgb (13.0-17.5) gm/dL Hct (39.0-53.0) % Neutrophils # (1.3-7.7) k/uL Lymphocytes # (1.0-4.8) k/uL ABG pH (7.35-7.45) ABG pCO2 (35-45) mmHg ABG pO2 (83-108) mmHg ABG HCO3 (21-25) mmol/L ABG Total CO2 (19-24) mmol/L Sodium (137-145) mmol/L Carbon Dioxide (22-30) mmol/L BUN (9-20) mg/dL Creatinine (0.66-1.25) mg/dL Glucose (74-99) mg/dL POC Glucose (mg/dL) 156 H 159 H (75-99) mg/dL Calcium (8.4-10.2) mg/dL Ionized Calcium Eduardo (4.5-5.3) mg/dL Phosphorus (2.5-4.5) mg/dL Magnesium (1.6-2.3) mg/dL AST (17-59) U/L Alkaline Phosphatase (38-126) U/L Total Protein (6.3-8.2) g/dL Albumin (3.5-5.0) g/dL Free T4 0.57 L (0.78-2.19) ng/dL Free T3 pg/mL 2.4 L (2.8-5.3) pg/ml 11/21/17 11/21/17 11/21/17 Range/Units 05:00 05:00 05:54 WBC 23.8 H (3.8-10.6) k/uL RBC 2.68 L (4.30-5.90) m/uL Hgb 8.1 L (13.0-17.5) gm/dL Hct 25.5 L (39.0-53.0) % Neutrophils # 21.4 H (1.3-7.7) k/uL Lymphocytes # 0.8 L (1.0-4.8) k/uL ABG pH (7.35-7.45) ABG pCO2 (35-45) mmHg ABG pO2 (83-108) mmHg ABG HCO3 (21-25) mmol/L ABG Total CO2 (19-24) mmol/L Sodium 134 L (137-145) mmol/L Carbon Dioxide 15 L (22-30) mmol/L BUN 90 H* (9-20) mg/dL Creatinine 5.31 H* (0.66-1.25) mg/dL Glucose 141 H (74-99) mg/dL POC Glucose (mg/dL) 166 H (75-99) mg/dL Calcium 6.7 L (8.4-10.2) mg/dL Ionized Calcium Eduardo (4.5-5.3) mg/dL Phosphorus 10.0 H* (2.5-4.5) mg/dL Magnesium 2.9 H (1.6-2.3) mg/dL AST 181 H (17-59) U/L Alkaline Phosphatase 307 H (38-126) U/L Total Protein 5.3 L (6.3-8.2) g/dL Albumin 2.3 L (3.5-5.0) g/dL Free T4 (0.78-2.19) ng/dL Free T3 pg/mL (2.8-5.3) pg/ml 11/21/17 11/21/17 11/21/17 Range/Units 07:26 11:00 12:08 WBC (3.8-10.6) k/uL RBC (4.30-5.90) m/uL Hgb (13.0-17.5) gm/dL Hct (39.0-53.0) % Neutrophils # (1.3-7.7) k/uL Lymphocytes # (1.0-4.8) k/uL ABG pH 7.26 L (7.35-7.45) ABG pCO2 33 L (35-45) mmHg ABG pO2 76 L (83-108) mmHg ABG HCO3 15 L (21-25) mmol/L ABG Total CO2 16 L (19-24) mmol/L Sodium (137-145) mmol/L Carbon Dioxide (22-30) mmol/L BUN (9-20) mg/dL Creatinine (0.66-1.25) mg/dL Glucose (74-99) mg/dL POC Glucose (mg/dL) 179 H (75-99) mg/dL Calcium (8.4-10.2) mg/dL Ionized Calcium Eduardo 3.9 L (4.5-5.3) mg/dL Phosphorus (2.5-4.5) mg/dL Magnesium (1.6-2.3) mg/dL AST (17-59) U/L Alkaline Phosphatase (38-126) U/L Total Protein (6.3-8.2) g/dL Albumin (3.5-5.0) g/dL Free T4 (0.78-2.19) ng/dL Free T3 pg/mL (2.8-5.3) pg/ml Assessment and Plan Assessment: [address] segment elevation myocardial infarction secondary to a tight left main lesion him a status post successful angioplasty and stenting 2 acute cardiac arrest secondary to above, resuscitated adequately 3 acute hypoxic respiratory failure secondary to above 4 acute hypotension, post cardiac arrest. Obviously echocardiogram showing a preserved LV function and there is no valvular disruption and that is no clear- cut cardiogenic component. No evidence of any stunned myocardium on subsequent echocardiogram. 5 acute kidney injury secondary acute cardiac arrest, hypotension , considering the worsening of the acute kidney injury, and worsening renal failure, patient will undergo hemodialysis today. 6 diffuse bilateral pulmonary infiltrates/effusion. Consider noncardiogenic pulmonary edema. Suspect aspiration pneumonia. 7 history of carcinoid tumor involving the GI tract, and now we are dealing with what seems to be some ileus, surgery was consulted, recommended conservative measures only. Patient remains on Reglan, and lactulose was added today 9 hypocalcemia, recurrent, patient will be addressed accordingly. 10 positive anion gap metabolic acidosis 11 acute hypernatremia improved, resolved 12 abdominal distention with possible ileus, no obstruction hence tube feeding will be placed on hold, nasogastric tube placed on suction, general surgery is following.. 13 failure to wean in spite of multiple trials over the last few days, hence initiated a consultation to Dr. Navarro to consider tracheostomy and PEG tube placement. Considering the septum back today in his overall clinical status, the tracheostomy may have to be delayed a day or 2. 14 one episode of 24 seconds sinus positive/asystole, hence a temporary pacemaker was placed. 15 status post temporary pacemaker implantation on 11/19/2017. Plan: Continue present supportive care measures, bronchodilators, diuretics, antibiotics, steroids, GI and DVT prophylaxis, nutritional support , presently on TPN. Continue hemodialysis, continue to coordinate care with the different consultants on the case, discussed his condition with today and updated her on what is happening. Patient remains critically ill, prognosis is getting more and more guarded, critical care time is 40 minutes. Time with Patient: Greater than 30
--- NOTE | 2017-11-21 15:39 | PN ---
PROGRESS NOTE DATE OF SERVICE: 11/21/2017. HISTORY: Mr. Meredith is a 57-year-old gentleman who was admitted to the hospital following a cardiac arrest. Continues to remain intubated and sedated and on vent. Currently plans are underway for a trach and PEG. EXAM: He is remains intubated on vent. Heart rate is 76 and blood pressure is 113/62, respiratory rate 18. Chest exam reveals diminished air entry at the bases. Heart exam reveals first and second heart sounds. Regular rhythm. Abdomen is soft. Exam of extremities did not reveal any edema. Peripheral pulses are felt. LABS: Hemoglobin of 8.1, platelet count is 415,000, BUN is 19, creatinine is 5.3. ASSESSMENT AND PLAN: 1. Status post cardiac arrest with left main stenting. 2. Chronic renal failure. 3. Possible hypoxic encephalopathy. 4. Respiratory failure. PLAN: Patient will continue with aspirin, Lipitor, Lopressor, and Brilinta. Prognosis is guarded. MMODL / IJN: [id number] /
[2017-11-21] MEDS ORDERED: HEPARIN SODIUM,PORCINE 5,000 UNIT/ML 1 ML VIAL ONE (17:15)
--- NOTE | 2017-11-21 19:00 | PN ---
PROGRESS NOTE DATE OF SERVICE: 11/21/2017 This 57-year-old gentleman who was admitted with acute ST elevation myocardial infarction had cardiac catheterization and acute cardiorespiratory failure. The patient has been closely monitored at this time. The patient also has some abdominal distention. CT scan showed evidence of some colitis. No diarrhea is noted at this time. The white count is still elevated. Patient is on empiric antibiotics. Multiple consultants are following the patient closely. 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 Hematology Oncology recommended treatment later. Patient also had features of hypothyroidism which is likely to be central. The patient also hypocalcemia, which is replaced this time. PAST MEDICAL HISTORY: Reviewed. REVIEW OF SYSTEMS: Could not be taken. CURRENT MEDICATIONS: Reviewed and include: 1. Maalox 30 mL q.4 p.r.n. 2. Ventolin. 3. Aspirin 81 mg. 4. Lipitor 80 mg. 5. Atropine 0.5 mg daily. 6. Calcium gluconate 10 mg b.i.d. 7. Vitamin D2 50,000 q.Wednesday. 8. Heparin 5000 subcu q.8. 9. NovoLog scale. 11.Synthroid 25 mcg IV daily. 12.Metoprolol. 13.Lopressor. 14.Replacement protocols. 15.Nitrostat. 16.Levophed drip. 17.TPN. 18.Seroquel 25 mg b.i.d. 19.Brilinta 90 mg p.o. b.i.d. PHYSICAL EXAMINATION: The patient is mechanically sedated. Pulse 78, blood pressure 94/49, respiration 20, temperature 98.2, pulse ox 97% on 40% FiO2. Vent settings noted. HEENT: Conjunctivae normal. Oral mucosa moist. NECK: No jugular venous distention. No carotid bruit. No lymph node enlargement. CARDIOVASCULAR: S1, S2. No S3, no S4. RESPIRATORY: Breath sounds diminished in the bases. No rhonchi, no crackles. ABDOMEN: Soft. Diffuse distention present. Bowel sounds diminished. LEGS: No edema. NERVOUS SYSTEM: The patient mechanically sedated. SKIN: No ulcer, rash or bleeding. LABS: WBC 23.8, hemoglobin 8.1, pH noted. Creatinine 5.31. ASSESSMENT: 1. Acute ST-segment elevation myocardial infarction status post cardiac catheterization and stenting of the left main artery, present on admission. 2. Acute cardiorespiratory status CPR and resuscitation on the field. 3. Acute hypoxic respiratory failure status post mechanical ventilation and failure to wean. 4. Acute kidney injury, possible acute tubular necrosis, acute renal failure. 5. Hypothyroidism. 6. Hypocalcemia. 7. Hypotension, possibly cardiogenic shock. 8. Hyperkalemia, improved. 9. Hypomagnesemia. 10.History of leukemia, currently in remission. 11.History of carcinoid tumor of the mesentry. 12.Elevated lipase, amylase. 13.Abdominal distention, possibly colitis. 14.Elevated liver enzymes. 15.History of DVT prophylaxis. 16.History of external pacemaker for cardiac arrhythmia. 17.Vitamin D deficiency. RECOMMENDATIONS AND DISCUSSION: This is 57-year-old gentleman who presented with multiple complex medical issues , at this time I recommend to continue current management, continue with bronchodilators and broad-spectrum IV antibiotics. Further weaning per Dr. Hassan. Continue with thyroid. Hematology oncology input appreciated. Patient still has some abdominal distention. Will closely monitor. Patient also multiple electrolyte imbalances. Ileus is a concern. Further recommendations to follow. MMODL / IJN: [id number] / [facility]ITAL[facility]
[2017-11-21 19:01] LABS: Glucose,Whole Blood 155 mg/dL (75-99)
[2017-11-21] MEDS: ATORVASTATIN 80 MG TAB PO SCH (20:40)
[2017-11-22 00:18] LABS: Glucose,Whole Blood 190 mg/dL (75-99)
[2017-11-22] MEDS: PROPOFOL 1,000 MG in EMPTY BAG 1 BAG IV SCH ×2 (00:20→04:46)
[2017-11-22] MEDS: HEPARIN SODIUM,PORCINE 5,000 UNIT/ML 1 ML VIAL SQ SCH ×4 (00:21→23:57)
[2017-11-22] MEDS: METOCLOPRAMIDE 5 MG/ML 2 ML VIAL IVP SCH ×4 (00:21→17:06)
[2017-11-22] MEDS: INSULIN ASPART 100 UNIT/ML 1 ML 10 ML VIAL SQ SCH ×4 (00:21→17:33)
[2017-11-22] MEDS: PIPERACILLIN-TAZOBACTAM 3.375 GM in DEXTROSE/WATER 1 50ML.BAG IVPB SCH ×3 (00:33→21:23)
[2017-11-22] MEDS: DEXTROSE 5% IN WATER 1,000 ML with SODIUM BICARB (1 MEQ/ML) 150 ML IV SCH ×2 (00:36→17:45)
[2017-11-22] MEDS: MORPHINE SULFATE/PF 10MG/10ML VL IVP PRN ×2 (01:07→20:12)
[2017-11-22] MEDS: 1: MVI, ADULT NO.4 WITH VIT K 10 ML, TRACE (CONC-1ML/DOSE) 1 ML, CALCIUM GLUCONATE 1,000 IV SCH ×25 (02:12→21:38)
[2017-11-22 04:48] LABS: Basophils % (A) 0 %; Eosinophils # (A) 0.3 k/uL (0-0.7); Eosinophils % (A) 1 %; HGB 7.4 gm/dL (13.0-17.5); Lymphocytes # (A) 0.6 k/uL (1.0-4.8); Lymphocytes % (A) 3 %; MCHC 32.4 g/dL (31.0-37.0); MCV 92.6 fL (80.0-100.0); Mean Platelet Volume 11.3; Monocytes # (A) 0.9 k/uL (0-1.0); Monocytes % (A) 4 %; Neutrophils # (A) 18.4 k/uL (1.3-7.7); Neutrophils % (A) 89 %; Platelet Count 389 k/uL (150-450); RBC 2.48 m/uL (4.30-5.90); RDW 14.7 % (11.5-15.5); WBC 20.7 k/uL (3.8-10.6)
[2017-11-22 05:22] LABS: Albumin 2.3 g/dL (3.5-5.0); Calcium 7.3 mg/dL (8.4-10.2); Magnesium 2.5 mg/dL (1.6-2.3); Potassium 3.9 mmol/L (3.5-5.1); Total Bilirubin 1.2 mg/dL (0.2-1.3); Total Protein 5.2 g/dL (6.3-8.2)
[2017-11-22 05:41] LABS: Phosphorus 9.2 mg/dL (2.5-4.5)
[2017-11-22 06:20] LABS: Glucose,Whole Blood 200 mg/dL (75-99)
[2017-11-22 07:11] LABS: ABG Base Excess -4.5 mmol/L; ABG HCO3 22 mmol/L (21-25); ABG Oxygen Saturation 94.9 % (94-97); ABG PCO2 42 mmHg (35-45); ABG PH 7.32 (7.35-7.45); ABG PO2 79 mmHg (83-108); ABG TCO2 23 mmol/L (19-24)
[2017-11-22] MEDS: ALBUTEROL NEBULIZED 2.5 MG/3 ML INHALATION SCH (07:31)
--- NOTE | 2017-11-22 07:40 | PCN ---
PROCEDURE NOTE PREOPERATIVE DIAGNOSIS: Acute, chronic renal failure. PROCEDURE: Placement of a triple-lumen dialysis catheter right femoral approach. This patient was seen in the room. Right groin was shaved and prepped and draped in the usual sterile manner and 1% lidocaine for the groin. Micropuncture introducer right femoral vein. Micropuncture guide was passed. A 4-Australian dilator advanced on the top of the guidewire. Then, we passed a regular guidewire and then dilator advanced on the top of the guidewire. Then, we placed a triple lumen catheter on the top of the guidewire and the guidewire was removed. Flushed with heparin saline and hep-locked secured with 3-0 nylon. Dressing applied. Patient tolerated the procedure well. MMODL / IJN: [id number] /
[2017-11-22] MEDS ORDERED: 1: MVI, ADULT NO.4 WITH VIT K 10 ML, TRACE (CONC-1ML/DOSE) 1 ML, CALCIUM GLUCONATE 1,000 IV SCH ×5 (08:30)
--- NOTE | 2017-11-22 08:54 | XR ---
EXAMINATION TYPE: XR chest 1V portable DATE OF EXAM: 11/22/2017 COMPARISON: 11/21/2017 HISTORY: Intubation TECHNIQUE: Single frontal view of the chest is obtained. FINDINGS: The patient remains intubated. The patient is ET tube and NG tube remain in place, unchang ed in appearance. There is a left subclavian catheter in place. Its tip is in the superior vena cava. There is unipolar pacing device in place on the right. Diffuse bilateral consolidation and pleural effusion noted. CHF excluded. IMPRESSION: 1. Diffuse airspace disease and pleural effusion are stable. Differential diagnosis would include pul monary edema or diffuse pneumonia. ARDS also a consideration.
[2017-11-22] MEDS: POTASSIUM CHLORIDE 10 MEQ in SODIUM CHLORIDE 0.9% 100 ML IVPB SCH ×2 (09:08→10:36)
[2017-11-22] MEDS: PANTOPRAZOLE 40 MG/10 ML VIAL IVP SCH ×2 (09:08→21:23)
[2017-11-22] MEDS: ASPIRIN 81 MG PO SCH (09:09)
[2017-11-22] MEDS: TICAGRELOR 90 MG TAB PO SCH ×2 (09:09→21:39)
[2017-11-22] MEDS: METOPROLOL TARTRATE 25 MG TAB PO SCH ×2 (09:09→21:22)
[2017-11-22] MEDS: CHLORHEXIDINE GLUCONATE 15 ML CUP MUCOUS MEM SCH ×2 (09:09→22:01)
[2017-11-22] MEDS: QUEtiapine 25 MG TAB PO SCH ×2 (09:10→21:23)
[2017-11-22] MEDS: LEVOTHYROXINE IVP 100 MCG/5 ML VIAL IV SCH (09:11)
[2017-11-22] MEDS: CALCIUM GLUCONATE 1,000 MG in SODIUM CHLORIDE 0.9% 100 ML IVPB SCH ×2 (09:29→21:25)
--- NOTE | 2017-11-22 10:34 | P.PN ---
Subjective Progress Note Date: 11/22/17 Principal diagnosis: Cardiopulmonary arrest, respiratory failure, mechanical ventilation Progress note dated 11/22/2017 This is a 57-year-old gentleman who had an [id number] cardiopulmonary arrest on November 10. He was intubated on November 10 after resuscitation. He had a temporary pacemaker placed on November 19. He has a history of acute ST segment elevation myocardial infarction status post and a plasty and stenting of a left main lesion. The patient also has a history of hypoxemic respiratory failure hypotension acute kidney injury diffuse bilateral pulmonary infiltrates with possible aspiration history of carcinoid tumor involving the GI tract hypocalcemia anion gap metabolic acidosis hypernatremia abdominal distention failure to wean and asystole requiring temporary pacemaker insertion. This was done on November 19. Currently, we are performing a daily eruption of sedation on him. I will see whether or not he might be a candidate for weaning. We should discuss CODE STATUS. He is a full code. I trach and PEG should be done NAZANIN. It appears that he is not making much or any progress. Objective - Vital Signs Vital signs: Vital Signs Temp 98.1 F 11/22/17 04:00 Pulse 93 11/22/17 07:50 Resp 21 11/22/17 06:00 BP 102/59 11/22/17 06:00 Pulse Ox 95 11/22/17 06:00 Intake & Output 11/21/17 11/22/17 11/22/17 18:59 06:59 18:59 Intake Total 2534.971 2556.11 Output Total 815 950 Balance 0941.258 3544.11 Weight 96.6 kg Intake: IV 1642 2367 0.9 120 120 0.9 for pressure 72 72 Dextrose 5% in Water 1, 150 000 ml @ 75 mls/hr IV . [id number] JACK Rx#:[id number] Dextrose 5% in Water 1, 750 900 000 ml @ 75 mls/hr IV . [id number] JACK with Sodium Bicarb (1 Meq/ml) 150 ml Rx#:[id number] Mvi, Adult No.4 with Vit 550 1275 K 10 ml Trace (Conc-1Ml/ Dose) 1 ml Calcium Gluconate 1,000 mg Sodium Acetate 30 meq In Amino Acid 4.25%-D10w 1,000 ml @ 125 mls/hr IV .BY DURATION JACK Rx#: [id number] Intake, IV Titration 292.971 189.11 Amount Propofol 1,000 mg In 292.971 189.11 Empty Bag 1 bag @ Titrate IV .Q0M JACK Rx#: [id number] Other 600 Output: Gastric Drainage 700 230 Urine 115 20 Oral Regurgitation 700 Other: Voiding Method Indwelling Catheter Indwelling Catheter ABP, PAP, CO, CI - Last Documented Arterial Blood Pressure 122/57 - Exam No acute distress, The patient has a poorly placed endotracheal tube and NG tube.. HEENT examination is grossly unremarkable. Mucous membranes are moist. Neck supple. Full range of motion. No adenopathy thyromegaly or neck vein distention. Cardiovascular examination reveals regular rhythm rate. S1-S2 normal. No S3 or S4. No discernible murmur noted. Lungs reveal diffuse bilateral rhonchi. Breath sounds are equal bilaterally. No wheezes. A few scattered crackles. Abdomen soft bowel sounds are heard. No masses or tenderness. Extremities are intact. No cyanosis clubbing or edema. Skin is without rash or lesion. Neurologic examination cannot be adequately assessed as the patient is currently sedated - Labs CBC & Chem 7: 11/22/17 04:40 11/22/17 04:40 Labs: Abnormal Lab Results - Last 24 Hours (Table) 11/21/17 11/21/17 11/21/17 Range/Units 11:00 12:08 18:23 WBC (3.8-10.6) k/uL RBC (4.30-5.90) m/uL Hgb (13.0-17.5) gm/dL Hct (39.0-53.0) % Neutrophils # (1.3-7.7) k/uL Lymphocytes # (1.0-4.8) k/uL ABG pH (7.35-7.45) ABG pO2 (83-108) mmHg Sodium (137-145) mmol/L Chloride (98-107) mmol/L Carbon Dioxide (22-30) mmol/L BUN (9-20) mg/dL Creatinine (0.66-1.25) mg/dL Glucose (74-99) mg/dL POC Glucose (mg/dL) 179 H 155 H (75-99) mg/dL Calcium (8.4-10.2) mg/dL Ionized Calcium Eduardo 3.9 L (4.5-5.3) mg/dL Phosphorus (2.5-4.5) mg/dL Magnesium (1.6-2.3) mg/dL AST (17-59) U/L Alkaline Phosphatase (38-126) U/L Total Protein (6.3-8.2) g/dL Albumin (3.5-5.0) g/dL 11/22/17 11/22/17 11/22/17 Range/Units 00:17 04:40 04:40 WBC 20.7 H (3.8-10.6) k/uL RBC 2.48 L (4.30-5.90) m/uL Hgb 7.4 L (13.0-17.5) gm/dL Hct 23.0 L (39.0-53.0) % Neutrophils # 18.4 H (1.3-7.7) k/uL Lymphocytes # 0.6 L (1.0-4.8) k/uL ABG pH (7.35-7.45) ABG pO2 (83-108) mmHg Sodium 128 L (137-145) mmol/L Chloride 92 L (98-107) mmol/L Carbon Dioxide 20 L (22-30) mmol/L BUN 78 H (9-20) mg/dL Creatinine 5.00 H* (0.66-1.25) mg/dL Glucose 153 H (74-99) mg/dL POC Glucose (mg/dL) 190 H (75-99) mg/dL Calcium 7.3 L (8.4-10.2) mg/dL Ionized Calcium Eduardo (4.5-5.3) mg/dL Phosphorus 9.2 H* (2.5-4.5) mg/dL Magnesium 2.5 H (1.6-2.3) mg/dL AST 188 H (17-59) U/L Alkaline Phosphatase 304 H (38-126) U/L Total Protein 5.2 L (6.3-8.2) g/dL Albumin 2.3 L (3.5-5.0) g/dL 11/22/17 11/22/17 Range/Units 06:01 07:02 WBC (3.8-10.6) k/uL RBC (4.30-5.90) m/uL Hgb (13.0-17.5) gm/dL Hct (39.0-53.0) % Neutrophils # (1.3-7.7) k/uL Lymphocytes # (1.0-4.8) k/uL ABG pH 7.32 L (7.35-7.45) ABG pO2 79 L (83-108) mmHg Sodium (137-145) mmol/L Chloride (98-107) mmol/L Carbon Dioxide (22-30) mmol/L BUN (9-20) mg/dL Creatinine (0.66-1.25) mg/dL Glucose (74-99) mg/dL POC Glucose (mg/dL) 200 H (75-99) mg/dL Calcium (8.4-10.2) mg/dL Ionized Calcium Eduardo (4.5-5.3) mg/dL Phosphorus (2.5-4.5) mg/dL Magnesium (1.6-2.3) mg/dL AST (17-59) U/L Alkaline Phosphatase (38-126) U/L Total Protein (6.3-8.2) g/dL Albumin (3.5-5.0) g/dL Assessment and Plan Assessment: Assessment Acute ST segment elevation myocardial infarction, status post angioplasty and stenting of a left main lesion Status post cardiopulmonary arrest with cardiopulmonary resuscitation and return of spontaneous circulation, November 10 Hypoxemic respiratory failure with intubation and mechanical ventilation, and failure to wean Hypotension, secondary to cardiac arrest, resolved Acute kidney injury Diffuse bilateral infiltrates, which may reflect noncardiogenic pulmonary edema or aspiration History of gastrointestinal carcinoid tumor Hypocalcemia Anion gap metabolic acidosis Hypernatremia Diffuse abdominal distention Failure to wean History of cardiac arrhythmia/sinus pause/asystole, status post temporary pacemaker placement Plan: Plan dated 11/22/2017 We will continue with full supportive care at the current time. We need to talk about PEG tube placement and tracheostomy as well. In addition, the patient's CODE STATUS needs to be addressed. Additional recommendations and suggestions are forthcoming. We will do a daily eruption of sedation and assess the patient for a spontaneous breathing trial. Prognosis is poor. The patient currently is on the assist control mode rate of 20, a tidal volume of 500, and FiO2 of 55%, and a PEEP of 5. The patient's blood gases show a PaO2 of 79 a PaCO2 of 42 and a pH of 7.32. In addition, the patient is on dextrose with 3 amps of bicarbonate at 75 mL an hour and TPN at 125 mL and propofol at 35 mcg/kg/m Critical care time is 34 minutes. Time with Patient: Greater than 30
[2017-11-22 10:53] VITALS: BMI 30.8
[2017-11-22] MEDS: IPRATROPIUM-ALBUTEROL 3 ML NEB INHALATION SCH ×4 (11:08→23:31)
[2017-11-22] MEDS ORDERED: BISACODYL 10 MG SUPP RECTAL STA (11:13)
--- NOTE | 2017-11-22 12:49 | PN ---
PROGRESS NOTE Mr. Meredith is a 57-year-old gentleman who is admitted to the hospital with cardiorespiratory arrest. Underwent cardiac catheterization, angioplasty of left main stenosis. Remains on vent and so far attempts at weaning have failed. The patient is awaiting trach and PEG. He has had a temporary pacemaker for complete heart block. Rhythm luther, he remains stable. Blood pressure appears normal. There has not been any significant change in his symptoms. On exam, comfortable at rest. Vital signs are stable. Chest exam reveals diminished air entry bilaterally. Heart exam reveals first and second heart sounds. No gallop. Examination of the extremities did not reveal any edema. Peripheral pulses are palpable. LABS: Labs show that the hemoglobin is 7.4, platelet count is 389. Potassium is 3.9. BUN is 78, creatinine is 5. ASSESSMENT: 1. Status post cardiac respiratory arrest. 2. Status post left main stenting. 3. Renal failure. 4. Complete heart block. PLAN: The patient is awaiting trach and PEG. Prognosis guarded. Patient probably suffered from hypoxic encephalopathy. MMODL / IJN: [id number] /
[2017-11-22 14:02] LABS: Glucose,Whole Blood 227 mg/dL (75-99)
--- NOTE | 2017-11-22 14:02 | P.PN ---
<Jelena Perezbarby Contreras - Last Filed: 11/22/17 13:54> Subjective Progress Note Date: 11/22/17 57-year-old being seen in the intensive care unit. Patient currently is on vent support mechanical ventilation being followed by the rf test technician. Currently receiving hemodialysis. at bedside. Incontinent of stool large amount of liquid brown nasal gastric tube to suction abdomen soft nondistended with bowel tones computed tomography scan abdomen pelvis done on the no evidence of a bowel obstruction thickening of the colon mucosa the sigmoid suspicious for colitis. Hepatomegaly. Small amount of intraperitoneal fluid noted moderate bilateral pleural effusions noted Objective - Vital Signs Vital signs: Vital Signs Temp 99.0 F 11/22/17 12:00 Pulse 90 11/22/17 12:00 Resp 20 11/22/17 12:00 BP 126/65 11/22/17 12:00 Pulse Ox 96 11/22/17 12:00 Intake & Output 11/21/17 11/22/17 11/22/17 18:59 06:59 18:59 Intake Total 2534.971 2556.11 96 Output Total 815 950 0 Balance 5573.830 8530.11 96 Weight 96.6 kg 96.6 kg Intake: IV 1642 2367 96 0.9 120 120 60 0.9 for pressure 72 72 36 Dextrose 5% in Water 1, 150 000 ml @ 75 mls/hr IV . [id number] [facility] Rx#:[id number] Dextrose 5% in Water 1, 750 900 000 ml @ 75 mls/hr IV . [id number] JACK with Sodium Bicarb (1 Meq/ml) 150 ml Rx#:[id number] Mvi, Adult No.4 with Vit 550 1275 K 10 ml Trace (Conc-1Ml/ Dose) 1 ml Calcium Gluconate 1,000 mg Sodium Acetate 30 meq In Amino Acid 4.25%-D10w 1,000 ml @ 125 mls/hr IV .BY DURATION JACK Rx#: [id number] Intake, IV Titration 292.971 189.11 Amount Propofol 1,000 mg In 292.971 189.11 Empty Bag 1 bag @ Titrate IV .Q0M JACK Rx#: [id number] Tube Feeding 0 Other 600 Output: Gastric Drainage 700 230 Urine 115 20 0 Oral Regurgitation 700 Other: Voiding Method Indwelling Catheter Indwelling Catheter ABP, PAP, CO, CI - Last Documented Arterial Blood Pressure 158/70 - Exam Exam Abdomen incontinent large amount of liquid brown stool. Soft not distended. Scrotal edema present. Nasal gastric tube connected to suction brown secretions noted indwelling Felipe catheter in place - Labs CBC & Chem 7: 11/22/17 04:40 11/22/17 04:40 Labs: Abnormal Lab Results - Last 24 Hours (Table) 11/21/17 11/22/17 11/22/17 Range/Units 18:23 00:17 04:40 WBC 20.7 H (3.8-10.6) k/uL RBC 2.48 L (4.30-5.90) m/uL Hgb 7.4 L (13.0-17.5) gm/dL Hct 23.0 L (39.0-53.0) % Neutrophils # 18.4 H (1.3-7.7) k/uL Lymphocytes # 0.6 L (1.0-4.8) k/uL ABG pH (7.35-7.45) ABG pO2 (83-108) mmHg Sodium (137-145) mmol/L Chloride (98-107) mmol/L Carbon Dioxide (22-30) mmol/L BUN (9-20) mg/dL Creatinine (0.66-1.25) mg/dL Glucose (74-99) mg/dL POC Glucose (mg/dL) 155 H 190 H (75-99) mg/dL Calcium (8.4-10.2) mg/dL Phosphorus (2.5-4.5) mg/dL Magnesium (1.6-2.3) mg/dL AST (17-59) U/L Alkaline Phosphatase (38-126) U/L Total Protein (6.3-8.2) g/dL Albumin (3.5-5.0) g/dL 11/22/17 11/22/17 11/22/17 Range/Units 04:40 06:01 07:02 WBC (3.8-10.6) k/uL RBC (4.30-5.90) m/uL Hgb (13.0-17.5) gm/dL Hct (39.0-53.0) % Neutrophils # (1.3-7.7) k/uL Lymphocytes # (1.0-4.8) k/uL ABG pH 7.32 L (7.35-7.45) ABG pO2 79 L (83-108) mmHg Sodium 128 L (137-145) mmol/L Chloride 92 L (98-107) mmol/L Carbon Dioxide 20 L (22-30) mmol/L BUN 78 H (9-20) mg/dL Creatinine 5.00 H* (0.66-1.25) mg/dL Glucose 153 H (74-99) mg/dL POC Glucose (mg/dL) 200 H (75-99) mg/dL Calcium 7.3 L (8.4-10.2) mg/dL Phosphorus 9.2 H* (2.5-4.5) mg/dL Magnesium 2.5 H (1.6-2.3) mg/dL AST 188 H (17-59) U/L Alkaline Phosphatase 304 H (38-126) U/L Total Protein 5.2 L (6.3-8.2) g/dL Albumin 2.3 L (3.5-5.0) g/dL Assessment and Plan Assessment: Impression Acute ST segment elevation myocardial infarction secondary to a tight left main lesion status post successful stenting Acute cardiac arrest secondary to the above resuscitated adequately Acute hypoxic respiratory failure secondary to the above History of carcinoid tumor involving the GI tract Computed tomography scan abdomen pelvis suggestive of an ileus no evidence of a small bowel obstruction Failure to wean in spite of multiple trials plan for tracheostomy and PEG tube per Dr. Navarro Plan Continue ICU management Vent per pulmonary management No evidence of an acute surgical abdomen Continue the nasogastric tube to intermittent suction monitor start TPN now We'll follow with you Agree PEG tube trach need to be addressed Surgical consultation note dictated for dr robins The above impression and plan of care have been discussed and directed by signing physician. Suzie Perez nurse practitioner acting as scribe for signing physician. <Darryl Robins - Last Filed: 11/22/17 16:37> Objective - Vital Signs Vital signs: Vital Signs Temp 99.0 F 11/22/17 12:00 Pulse 96 11/22/17 15:25 Resp 20 11/22/17 12:00 BP 126/65 11/22/17 12:00 Pulse Ox 96 11/22/17 12:00 Intake & Output 11/21/17 11/22/17 11/22/17 18:59 06:59 18:59 Intake Total 2534.971 2556.11 96 Output Total 815 950 0 Balance 5148.515 7884.11 96 Weight 96.6 kg 96.6 kg Intake: IV 1642 2367 96 0.9 120 120 60 0.9 for pressure 72 72 36 Dextrose 5% in Water 1, 150 000 ml @ 75 mls/hr IV . [id number] [facility] Rx#:[id number] Dextrose 5% in Water 1, 750 900 000 ml @ 75 mls/hr IV . [id number] JACK with Sodium Bicarb (1 Meq/ml) 150 ml Rx#:[id number] Mvi, Adult No.4 with Vit 550 1275 K 10 ml Trace (Conc-1Ml/ Dose) 1 ml Calcium Gluconate 1,000 mg Sodium Acetate 30 meq In Amino Acid 4.25%-D10w 1,000 ml @ 125 mls/hr IV .BY DURATION [facility] Rx#: [id number] Intake, IV Titration 292.971 189.11 Amount Propofol 1,000 mg In 292.971 189.11 Empty Bag 1 bag @ Titrate IV .Q0M [facility] Rx#: [id number] Tube Feeding 0 Other 600 Output: Gastric Drainage 700 230 Urine 115 20 0 Oral Regurgitation 700 Other: Voiding Method Indwelling Catheter Indwelling Catheter ABP, PAP, CO, CI - Last Documented Arterial Blood Pressure 158/70 - Labs CBC & Chem 7: 11/22/17 04:40 11/22/17 04:40 Labs: Abnormal Lab Results - Last 24 Hours (Table) 11/21/17 11/22/17 11/22/17 Range/Units 18:23 00:17 04:40 WBC 20.7 H (3.8-10.6) k/uL RBC 2.48 L (4.30-5.90) m/uL Hgb 7.4 L (13.0-17.5) gm/dL Hct 23.0 L (39.0-53.0) % Neutrophils # 18.4 H (1.3-7.7) k/uL Lymphocytes # 0.6 L (1.0-4.8) k/uL ABG pH (7.35-7.45) ABG pO2 (83-108) mmHg Sodium (137-145) mmol/L Chloride (98-107) mmol/L Carbon Dioxide (22-30) mmol/L BUN (9-20) mg/dL Creatinine (0.66-1.25) mg/dL Glucose (74-99) mg/dL POC Glucose (mg/dL) 155 H 190 H (75-99) mg/dL Calcium (8.4-10.2) mg/dL Phosphorus (2.5-4.5) mg/dL Magnesium (1.6-2.3) mg/dL AST (17-59) U/L Alkaline Phosphatase (38-126) U/L Total Protein (6.3-8.2) g/dL Albumin (3.5-5.0) g/dL 11/22/17 11/22/17 11/22/17 Range/Units 04:40 06:01 07:02 WBC (3.8-10.6) k/uL RBC (4.30-5.90) m/uL Hgb (13.0-17.5) gm/dL Hct (39.0-53.0) % Neutrophils # (1.3-7.7) k/uL Lymphocytes # (1.0-4.8) k/uL ABG pH 7.32 L (7.35-7.45) ABG pO2 79 L (83-108) mmHg Sodium 128 L (137-145) mmol/L Chloride 92 L (98-107) mmol/L Carbon Dioxide 20 L (22-30) mmol/L BUN 78 H (9-20) mg/dL Creatinine 5.00 H* (0.66-1.25) mg/dL Glucose 153 H (74-99) mg/dL POC Glucose (mg/dL) 200 H (75-99) mg/dL Calcium 7.3 L (8.4-10.2) mg/dL Phosphorus 9.2 H* (2.5-4.5) mg/dL Magnesium 2.5 H (1.6-2.3) mg/dL AST 188 H (17-59) U/L Alkaline Phosphatase 304 H (38-126) U/L Total Protein 5.2 L (6.3-8.2) g/dL Albumin 2.3 L (3.5-5.0) g/dL 11/22/17 Range/Units 13:20 WBC (3.8-10.6) k/uL RBC (4.30-5.90) m/uL Hgb (13.0-17.5) gm/dL Hct (39.0-53.0) % Neutrophils # (1.3-7.7) k/uL Lymphocytes # (1.0-4.8) k/uL ABG pH (7.35-7.45) ABG pO2 (83-108) mmHg Sodium (137-145) mmol/L Chloride (98-107) mmol/L Carbon Dioxide (22-30) mmol/L BUN (9-20) mg/dL Creatinine (0.66-1.25) mg/dL Glucose (74-99) mg/dL POC Glucose (mg/dL) 227 H (75-99) mg/dL Calcium (8.4-10.2) mg/dL Phosphorus (2.5-4.5) mg/dL Magnesium (1.6-2.3) mg/dL AST (17-59) U/L Alkaline Phosphatase (38-126) U/L Total Protein (6.3-8.2) g/dL Albumin (3.5-5.0) g/dL Assessment and Plan Plan: The patient's CAT scan shows no evidence of colonic or small bowel obstruction. The patient's high gastric residual with tube feeds is most likely due to a severe ileus. At this point I would recommend nasogastric tube to low intermittent suction and continue TPN. No acute surgical intervention is planned.
[2017-11-22] MEDS: SODIUM CHLORIDE 0.9% 1,000 ML IV SCH (14:03)
[2017-11-22] MEDS ORDERED: HYDROmorphone 0.5 MG/0.5 ML SYRINGE IVP PRN (14:12)
--- NOTE | 2017-11-22 14:22 | P.PN ---
Subjective Progress Note Date: 11/22/17 Principal diagnosis: Acute ST segment elevation myocardial infarction secondary to tight left main lesion, status post successful angioplasty and stenting, acute cardiac arrest with CPR and resuscitation, acute hypoxic respiratory failure, ventilator dependence, acute kidney injury secondary to acute cardiac arrest and hypotension, abdominal distention with possible ileus, history of neuroendocrine carcinoid tumor of the mesentery, and history of leukemia in remission. Status post successful stenting of the distal left main and ostial LAD on 2017. Status post external is permanent pacemaker placed on 11/19/2017. Status post placement of triple-lumen dialysis catheter with a right femoral approach on 11/22/2017. Patient currently lying in bed in no acute distress. Remains intubated. He received dialysis yesterday. is at the bedside this morning, updated and all questions answered. Objective - Vital Signs Vital signs: Vital Signs Temp 99.0 F 11/22/17 12:00 Pulse 90 11/22/17 12:00 Resp 20 11/22/17 12:00 BP 126/65 11/22/17 12:00 Pulse Ox 96 11/22/17 12:00 Intake & Output 11/21/17 11/22/17 11/22/17 18:59 06:59 18:59 Intake Total 2534.971 2556.11 96 Output Total 815 950 0 Balance 7324.530 6218.11 96 Weight 96.6 kg 96.6 kg Intake: IV 1642 2367 96 0.9 120 120 60 0.9 for pressure 72 72 36 Dextrose 5% in Water 1, 150 000 ml @ 75 mls/hr IV . [id number] JACK Rx#:[id number] Dextrose 5% in Water 1, 750 900 000 ml @ 75 mls/hr IV . [id number] JACK with Sodium Bicarb (1 Meq/ml) 150 ml Rx#:[id number] Mvi, Adult No.4 with Vit 550 1275 K 10 ml Trace (Conc-1Ml/ Dose) 1 ml Calcium Gluconate 1,000 mg Sodium Acetate 30 meq In Amino Acid 4.25%-D10w 1,000 ml @ 125 mls/hr IV .BY DURATION JACK Rx#: [id number] Intake, IV Titration 292.971 189.11 Amount Propofol 1,000 mg In 292.971 189.11 Empty Bag 1 bag @ Titrate IV .Q0M [facility] Rx#: [id number] Tube Feeding 0 Other 600 Output: Gastric Drainage 700 230 Urine 115 20 0 Oral Regurgitation 700 Other: Voiding Method Indwelling Catheter Indwelling Catheter ABP, PAP, CO, CI - Last Documented Arterial Blood Pressure 158/70 - Constitutional General appearance: Present: no acute distress - Respiratory Details: Lungs sounds diminished bilaterally. Respirations even, nonlabored on mechanical ventilator. Current ventilator settings assist control mode, FiO2 40 %, total 9 500, respiratory rate 20, PEEP 5. 7.5 ET tube present. - Cardiovascular Details: S1, S2 present. Regular rate and rhythm, sinus rhythm on telemetry. Palpable peripheral pulses bilaterally. SCDs present. - Gastrointestinal Gastrointestinal Comment(s): Abdomen soft, nontender, nondistended. Active bowel sounds 4 quadrants. OG tube present. Tubings currently on hold. - Genitourinary Genitourinary Comment(s): Felipe present draining clear, yellow urine. Minimal urine output overnight. Right femoral temporary dialysis catheter present. - Integumentary Integumentary Comment(s): Skin is warm and dry with evidence of good perfusion. - Neurologic Neurologic Comment(s): Currently sedated on propofol. Does open his eyes, does not follow commands. - Allied health notes Allied health notes reviewed: nursing - Labs CBC & Chem 7: 11/22/17 04:40 11/22/17 04:40 Labs: Abnormal Lab Results - Last 24 Hours (Table) 11/21/17 11/22/17 11/22/17 Range/Units 18:23 00:17 04:40 WBC 20.7 H (3.8-10.6) k/uL RBC 2.48 L (4.30-5.90) m/uL Hgb 7.4 L (13.0-17.5) gm/dL Hct 23.0 L (39.0-53.0) % Neutrophils # 18.4 H (1.3-7.7) k/uL Lymphocytes # 0.6 L (1.0-4.8) k/uL ABG pH (7.35-7.45) ABG pO2 (83-108) mmHg Sodium (137-145) mmol/L Chloride (98-107) mmol/L Carbon Dioxide (22-30) mmol/L BUN (9-20) mg/dL Creatinine (0.66-1.25) mg/dL Glucose (74-99) mg/dL POC Glucose (mg/dL) 155 H 190 H (75-99) mg/dL Calcium (8.4-10.2) mg/dL Phosphorus (2.5-4.5) mg/dL Magnesium (1.6-2.3) mg/dL AST (17-59) U/L Alkaline Phosphatase (38-126) U/L Total Protein (6.3-8.2) g/dL Albumin (3.5-5.0) g/dL 11/22/17 11/22/17 11/22/17 Range/Units 04:40 06:01 07:02 WBC (3.8-10.6) k/uL RBC (4.30-5.90) m/uL Hgb (13.0-17.5) gm/dL Hct (39.0-53.0) % Neutrophils # (1.3-7.7) k/uL Lymphocytes # (1.0-4.8) k/uL ABG pH 7.32 L (7.35-7.45) ABG pO2 79 L (83-108) mmHg Sodium 128 L (137-145) mmol/L Chloride 92 L (98-107) mmol/L Carbon Dioxide 20 L (22-30) mmol/L BUN 78 H (9-20) mg/dL Creatinine 5.00 H* (0.66-1.25) mg/dL Glucose 153 H (74-99) mg/dL POC Glucose (mg/dL) 200 H (75-99) mg/dL Calcium 7.3 L (8.4-10.2) mg/dL Phosphorus 9.2 H* (2.5-4.5) mg/dL Magnesium 2.5 H (1.6-2.3) mg/dL AST 188 H (17-59) U/L Alkaline Phosphatase 304 H (38-126) U/L Total Protein 5.2 L (6.3-8.2) g/dL Albumin 2.3 L (3.5-5.0) g/dL 11/22/17 Range/Units 13:20 WBC (3.8-10.6) k/uL RBC (4.30-5.90) m/uL Hgb (13.0-17.5) gm/dL Hct (39.0-53.0) % Neutrophils # (1.3-7.7) k/uL Lymphocytes # (1.0-4.8) k/uL ABG pH (7.35-7.45) ABG pO2 (83-108) mmHg Sodium (137-145) mmol/L Chloride (98-107) mmol/L Carbon Dioxide (22-30) mmol/L BUN (9-20) mg/dL Creatinine (0.66-1.25) mg/dL Glucose (74-99) mg/dL POC Glucose (mg/dL) 227 H (75-99) mg/dL Calcium (8.4-10.2) mg/dL Phosphorus (2.5-4.5) mg/dL Magnesium (1.6-2.3) mg/dL AST (17-59) U/L Alkaline Phosphatase (38-126) U/L Total Protein (6.3-8.2) g/dL Albumin (3.5-5.0) g/dL - Imaging and Cardiology Chest x-ray: report reviewed, image reviewed Assessment and Plan (1) Respiratory failure Current Visit: Yes Status: Acute Code(s): J96.90 - RESPIRATORY FAILURE, UNSP , UNSP W HYPOXIA OR HYPERCAPNIA SNOMED Code(s): 296821708 (2) Cardiac arrest Current Visit: Yes Status: Acute Code(s): I46.9 - CARDIAC ARREST, CAUSE UNSPECIFIED SNOMED Code(s): 465113502 (3) Acute ST segment elevation myocardial infarction Current Visit: Yes Status: Acute Code(s): I21.3 - ST ELEVATION (STEMI) MYOCARDIAL INFARCTION OF UNSP SITE SNOMED Code(s): 974089817 (4) Failure to wean from mechanical ventilation Current Visit: Yes Status: Acute Code(s): Z99.11 - DEPENDENCE ON RESPIRATOR [VENTILATOR] STATUS SNOMED Code(s): 512029519 (5) History of benign carcinoid tumor of gastrointestinal tract Current Visit: Yes Status: Chronic Code(s): Z86.012 - PERSONAL HISTORY OF BENIGN CARCINOID TUMOR SNOMED Code(s): 17947927983500 (6) History of temporary cardiac pacemaker treatment Current Visit: Yes Status: Acute Code(s): Z86.79 - PERSONAL HISTORY OF OTHER DISEASES OF THE CIRCULATORY SYSTEM SNOMED Code(s): 117352622 Plan: 1. Plan is for tracheostomy in PEG tube placement on November [address] Navarro. 2. Ventilator management per pulmonology. 3. Hemodialysis per nephrology. 4. GI/DVT prophylaxis. 5. AMI/cardiac management per cardiology. 6. Will monitor daily labs and x-rays. 7. Medical management of other comorbidities per primary care service. 8. More recommendations to follow. Time with Patient: Greater than 30
[2017-11-22] MEDS: LACTATED RINGERS 1,000 ML IV SCH (17:05)
--- NOTE | 2017-11-22 17:10 | PN ---
PROGRESS NOTE DATE OF SERVICE: 11/22/2017. This 57-year-old gentleman admitted with acute ST elevation myocardial infarction, CAD, CABG and multiple other medical issues including acute renal failure, hemodialysis has been initiated. The patient also had hypotension, hypotension and cardiogenic shock also. The patient had failure to wean also. The patient also had other issues include hypocalcemia which is being monitored. PAST MEDICAL HISTORY: Reviewed. REVIEW OF SYSTEMS: Could not be taken. The patient is mechanically ventilated and sedated. CURRENT MEDICATIONS: Reviewed and include: 1. Maalox 30 mL q.4h p.r.n. 2. DuoNeb q.i.d. and p.r.n. 3. Aspirin 81 mg p.o. daily. 4. Lipitor 80 mg q.h.s. 5. Troponin 0.5 mg p.r.n. 6. Calcium gluconate. 7. Vitamin D2. 8. Heparin. 9. Dilaudid p.r.n. 10.Lactate Ringers. 11.Synthroid 25 mcg p.o. b.i.d. 12.Lopressor 25 mg p.o. b.i.d. 13.Morphine. 14.Narcan. 15.Protonix. 16.Propofol. 17.Brilinta. PHYSICAL EXAM: The pulse is 90. The patient is sedated. Blood pressure 130/60, respiration 20, temperature 99 degrees, pulse ox is 96% on mechanical ventilation. Vent settings are noted. FIO2 55%. HEENT: Conjunctivae pale. Oral mucosa moist. NECK: No jugular venous distention. No carotid bruit. No lymph node enlargement. CARDIOVASCULAR: S1, S2 muffled. Ejection systolic murmur. RESPIRATORY: Breath sounds diminished in the bases. A few scattered rhonchi and crackles. ABDOMEN: Soft, nontender. No guarding. No rigidity. No distention. LEGS: Minimal edema. NERVOUS SYSTEM: Patient is mechanically ventilated and sedated. LYMPHATICS: No lymphadenopathy in the neck, axillae, groin. SKIN: As mentioned earlier, pale. LABS: WBC 20.7, hemoglobin 7.4, sodium 138, other labs are noted. ASSESSMENT: 1. Acute ST-segment elevation myocardial infarction status post cardiac cath and stenting of the left main artery, present on admission. 2. Acute cardiorespiratory failure status post CPR, resuscitation on the field. 3. Acute hypoxic respiratory failure on mechanical ventilation, failure to wean. 4. Acute kidney injury, possible acute tubular necrosis, acute renal failure on newly started hemodialysis. 5. Hypothyroidism. 6. Hypocalcemia. 7. Hypotension possibly cardiogenic shock. 8. Hyperkalemia, improved. 9. Hypomagnesemia. 10.History of leukemia, currently in remission. 11.History of carcinoid tumor of mesentry. 12.Elevated lipase and amylase. 13.Increased AST. 14.Abdominal distention, possibly colitis. 15.Elevated liver enzymes. 16.History of DVT prophylaxis. 17.History of external pacemaker for cardiac arrhythmia. 18.Vitamin D deficiency. RECOMMENDATIONS AND DISCUSSION: I recommend to continue current management and continue supplementation. Repeat labs. Prognosis guarded. Continue to monitor fluid and electrolyte balance closely. Further weaning per Dr. Packer. Guarded prognosis. Further recommendations to follow. MMODL / IJN: [id number] /
[2017-11-22 17:32] LABS: Glucose,Whole Blood 180 mg/dL (75-99)
[2017-11-22] MEDS: ATORVASTATIN 80 MG TAB PO SCH (21:21)
--- NOTE | 2017-11-22 21:23 | P.PN ---
Subjective Progress Note Date: 11/18/17 Principal diagnosis: Acute cardiac arrest due to ST elevated CO Patient is a 57-year-old male with a known history of carcinoid tumor located in his mesentery-on hormonal treatments periodically, history of leukemia currently in remission was brought to the hospital status post cardiac arrest. Patient was apparently playing pickle ball in the same with his family. Patient is leaned on the floor due to acute cardiac arrest. There was a bystander nurse who did CPR on him. EMS was called to the scene and the patient was found in V. fib. Patient had CPR for about 20 minutes and was also shocked. Patient was brought back to sinus rhythm. Patient was given lately taken to [facility] and was found to have ST elevated CO. Patient was immediately transferred to [facility]. Patient had emergent cardiac catheterization and left main artery stent was placed. Currently patient is intubated, mechanical ventilator and sedated. Patient otherwise does follow simple commands and able to open his eyes. Patient is on norepinephrine drip currently. 2-D echocardiography showed his ejection fraction 35%. Chest x-ray showed cardiomegaly and pulmonary vascular congestion. Potassium 6.8 today morning and came down to 4.6 currently. Magnesium 1.4 Patient is being followed by pulmonary and cardiology. 11/12/2017 Patient remained on mechanical ventilator. Patient is still on pressor support. The blood gases showed a pH of 7.3 with a pCO2 of 28 and pO2 77. Chest x-ray showed cardiomegaly and pulmonary vascular congestion and possibly right-sided developing pleural effusion. Patient was given calcium gluconate due to hypocalcemia. Patient has been afebrile otherwise. tube feeding is being initiated. Discussed with the family in detail at bedside. 11/13/2017 Patient remained on mechanical ventilator. And pressor support. Chest x-ray showed consistent with CHF with pulmonary vascular congestion and bilateral pleural effusion. CT of the abdomen and pelvis was done. We showed inflammatory changes in the ileum which is consistent with his neoplasm. Otherwise ileus versus partial bowel obstruction was noted which has been ongoing as per the family. No fever no chills. Patient was started on Zosyn at this time. Pulmonary and cardiology is following. Patient's condition is still critical which has been related to the family. 11/14/2017 Patient is currently on ventilator. Weaning off pressor support. Otherwise they'll function worsening with elevated creatinine level. Nephrology was consulted. Patient was given calcium gluconate. Otherwise patient is awake and is able to respond with eye-movement. No fever no chills. Continued on IV fluids. 11/15/2017 Patient remained on mechanical ventilator. Otherwise renal function slightly worsened with creatinine level III.05. Patient is making good urine output. Patient is off pressor support. Continued on IV fluids. No other acute overnight issues. No fever. No nausea vomiting. 11/16/2017 Patient remained on mechanical ventilator. Otherwise failed weaning trial today. Patient does have good urine output and renal function improved with creatinine level II.9 No fever no chills. No other acute overnight issues. Patient was found have low TSH level and free T4 level. recommended to start on levothyroxine but the patient's does not want to be started this time saying that she usually does have low levels due to his cancer. Otherwise patient was recommended to follow with primary care physician for repeat levels. 11/17/2017 patient is on mechanical data and became more shaky and distress with weaning trial. Otherwise renal function is much improved with creatinine level II.68 Sodium level increased to 148 along with chloride level. IV fluids changed to D5 water. Otherwise no fever no chills. Leukocytosis with increased WBC count 16 today. Discussed with his at bedside in detail and all questions answered. 11/18/2017 Patient remained on mechanical ventilator. Renal function is improving slowly. Otherwise does make good urine output. Currently patient is sedated and could not provide any history. Discussed with his at bedside Active Medications Al Hydroxide/Mg Hydroxide (Maalox) 30 ml PO Q4HR PRN PRN Reason: Heartburn Albuterol Sulfate (Ventolin Nebulized) 2.5 mg INHALATION RT-TID [facility] Last Admin: 11/13/17 19:34 Dose: 2.5 mg Aspirin (Aspirin) 81 mg PO DAILY [facility] Last Admin: 11/13/17 09:25 Dose: 81 mg Atorvastatin Calcium (Lipitor) 80 mg PO HS [facility] Last Admin: 11/13/17 20:28 Dose: 80 mg Atropine Sulfate (Atropine) 0.5 mg IV ONCE PRN PRN Reason: Symptomatic Bradycardia Chlorhexidine Gluconate (Peridex) 15 ml MUCOUS MEM BID [facility] Last Admin: 11/13/17 20:29 Dose: 15 ml Heparin Sodium (Porcine) (Heparin) 5,000 unit SQ Q8HR [facility] Last Admin: 11/13/17 16:29 Dose: 5,000 unit Sodium Chloride (Saline 0.9%) 1,000 mls @ 75 mls/hr IV .[id number] [facility] Last Admin: 11/13/17 09:19 Dose: 75 mls/hr Propofol 1,000 mg/ IV Solution 100 mls @ 0 mls/hr IV .Q0M [facility]; Titrate PRN Reason: Protocol Last Admin: 11/13/17 20:28 Dose: 40.18 mcg/kg/min, 23.7 mls/hr Norepinephrine Bitartrate (Levophed-0.9% Nacl 16 Mg/250ml Pmx) 16 mg in 250 mls @ 0 mls/hr IV .Q0M [facility]; Titrate PRN Reason: Protocol Last Titration: 11/13/17 19:03 Dose: 8 mcg/min, 7.5 mls/hr Piperacillin/Tazobactam/ (Dextrose 3.375 gm/ IV Solution) 50 mls @ 12.5 mls/hr IVPB Q8HR [facility] Last Admin: 11/13/17 16:32 Dose: 12.5 mls/hr Insulin Aspart (Novolog) 0 unit SQ Q6HR JACK PRN Reason: Protocol Last Admin: 11/13/17 18:35 Dose: Not Given Iohexol (Omnipaque 350 Mg/Ml (For Oral Use)) 25 ml PO Q60M PRN PRN Reason: CT Scan Stop: 11/14/17 09:10 Last Admin: 11/13/17 11:03 Dose: 25 ml Metoprolol Tartrate (Lopressor) 12.5 mg PO BID [facility] Last Admin: 11/13/17 20:17 Dose: Not Given Miscellaneous Information (Magnesium Per Protocol) 1 each MISCELLANE DAILY PRN ; Protocol PRN Reason: Per Protocol Miscellaneous Information (Rx Info: Iv Contrast Was Given) 1 each MISCELLANE DAILY PRN PRN Reason: Per Protocol Stop: 11/15/17 09:10 Morphine Sulfate (Morphine Sulfate (Inj)) 1 mg IVP Q4HR PRN PRN Reason: Pain Last Admin: 11/13/17 02:30 Dose: 1 mg Naloxone HCl (Narcan) 0.2 mg IV Q2M PRN PRN Reason: Opioid Reversal Nitroglycerin (Nitrostat) 0.4 mg SUBLINGUAL Q5M PRN PRN Reason: Chest Pain Pantoprazole Sodium (Protonix) 40 mg IV DAILY [facility] Last Admin: 11/13/17 09:24 Dose: 40 mg Ticagrelor (Brilinta) 90 mg PO BID [facility] Last Admin: 11/13/17 20:28 Dose: 90 mg Zolpidem Tartrate (Ambien) 5 mg PO HS PRN PRN Reason: Insomnia Complete review of systems could not be apparent from the patient. Objective - Vital Signs Vital signs: Vital Signs Temp 97.8 F 11/18/17 08:00 Pulse 86 11/18/17 14:51 Resp 33 H 11/18/17 11:00 BP 120/68 11/18/17 11:00 Pulse Ox 99 11/18/17 11:00 Intake & Output 11/17/17 11/18/17 11/18/17 18:59 06:59 18:59 Intake Total 0279.261 5320.5 904.867 Output Total 1175 1205 515 Balance -8.000 769.5 389.867 Weight 87.7 kg 87.7 kg Intake: IV 787.0 774.5 492.5 0.9 40 40 50 0.9 for pressure 72 72 30 Dextrose 5% in Water 1, 125 000 ml @ 125 mls/hr IV . Q8H [facility] Rx#:[id number] Dextrose 5% in Water 1, 400 600 275 000 ml @ 50 mls/hr IV . Q20H [facility] Rx#:[id number] Piperacillin-Tazobactam 3 75.0 62.5 12.5 .375 gm In Dextrose/Water 1 50ml.bag @ 12.5 mls/hr IVPB Q8HR [facility] Rx#: [id number] Sodium Chloride 0.9% 1, 200 000 ml @ 50 mls/hr IV . Q20H [facility] Rx#:[id number] Intake, IV Titration 100.000 100 62.367 Amount Propofol 1,000 mg In 100.000 100 62.367 Empty Bag 1 bag @ Titrate IV .Q0M [facility] Rx#: [id number] Tube Feeding 250 800 250 Other 30 300 100 Output: Urine 1175 1205 515 Other: Voiding Method Indwelling Catheter Indwelling Catheter Indwelling Catheter ABP, PAP, CO, CI - Last Documented Arterial Blood Pressure 155/83 - Exam Patient is lying in the bed comfortably, no acute distress, patient is sedated and on ventilator HEENT: Normocephalic. Neck is supple. Pupils reactive. Nostrils clear. Oral cavity is moist. Ears reveal no drainage. Neck reveals no JVD, carotid bruits, or thyromegaly. CHEST EXAMINATION: Trachea is central. Symmetrical expansion. Lung martel clear to auscultation and percussion. CARDIAC: Normal S1, S2 with no gallops. No murmurs ABDOMEN: Soft. Tenderness in the epigastric region. Bowel sounds normal. No organomegaly. No abdominal bruits. Extremities: reveal no edema. No clubbing or cyanosis Neurologically awake and alert. No focal deficits noted Skin: No rash or skin lesions. Psychiatric: Could not be assessed completely Musculoskeletal: No joint swelling or deformity. Normal range of motion. - Labs CBC & Chem 7: 11/22/17 04:40 11/22/17 04:40 Labs: Abnormal Lab Results - Last 24 Hours (Table) 11/18/17 11/18/17 11/18/17 Range/Units 04:20 04:20 07:50 WBC 20.4 H (3.8-10.6) k/uL RBC 3.15 L (4.30-5.90) m/uL Hgb 9.8 L (13.0-17.5) gm/dL Hct 29.1 L (39.0-53.0) % Plt Count 458 H (150-450) k/uL Neutrophils # 18.4 H (1.3-7.7) k/uL Lymphocytes # 0.7 L (1.0-4.8) k/uL ABG pCO2 27 L (35-45) mmHg ABG HCO3 16 L (21-25) mmol/L ABG Total CO2 17 L (19-24) mmol/L Sodium 151 H (137-145) mmol/L Chloride 121 H* (98-107) mmol/L Carbon Dioxide 17 L (22-30) mmol/L BUN 62 H (9-20) mg/dL Creatinine 2.67 H (0.66-1.25) mg/dL Glucose 155 H (74-99) mg/dL POC Glucose (mg/dL) (75-99) mg/dL Calcium 6.8 L (8.4-10.2) mg/dL Ionized Calcium Eduardo 4.4 L (4.5-5.3) mg/dL Phosphorus 5.3 H (2.5-4.5) mg/dL Magnesium 3.1 H (1.6-2.3) mg/dL 11/18/17 Range/Units 11:06 WBC (3.8-10.6) k/uL RBC (4.30-5.90) m/uL Hgb (13.0-17.5) gm/dL Hct (39.0-53.0) % Plt Count (150-450) k/uL Neutrophils # (1.3-7.7) k/uL Lymphocytes # (1.0-4.8) k/uL ABG pCO2 (35-45) mmHg ABG HCO3 (21-25) mmol/L ABG Total CO2 (19-24) mmol/L Sodium (137-145) mmol/L Chloride (98-107) mmol/L Carbon Dioxide (22-30) mmol/L BUN (9-20) mg/dL Creatinine (0.66-1.25) mg/dL Glucose (74-99) mg/dL POC Glucose (mg/dL) 203 H (75-99) mg/dL Calcium (8.4-10.2) mg/dL Ionized Calcium Eduardo (4.5-5.3) mg/dL Phosphorus (2.5-4.5) mg/dL Magnesium (1.6-2.3) mg/dL Assessment and Plan Assessment: Acute ST elevated CO status post cardiac catheterization and stenting to left main artery Acute cardiac arrest. Status post adequate resuscitation Acute kidney injury likely due to ATN. Improving Hypothyroidism. Low TSH and free T4 level Acute respiratory failure post procedure Hypertension and possible cardiogenic shock. 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 Replaced with calcium gluconate elevated lipase and amylase Elevated liver enzymes DVT prophylaxis Plan: Patient be continued on mechanical ventilator. Pressor support and IV fluids. Patient is off pressor support. Pulmonary and cardiology is on board. Continue the weaning trial as tolerated. Continue with aspirin, statins and metoprolol. DVT prophylaxis Further recommendations based on the clinical course. Prognosis is guarded. Discussed the family at bedside in detail and all questions were answered. Time with Patient: Greater than 30
--- NOTE | 2017-11-22 22:55 | PN ---
PROGRESS NOTE Patient was seen for followup for acute kidney injury. He is currently hemodialysis- dependent. He remains with no significant urine output. Blood pressure is running on the higher side. Patient will be dialyzed again today. On examination, blood pressure is 139/68, heart rate about 97 per minute. Patient is afebrile. EXAMINATION OF THE HEART: S1, S2. EXAMINATION OF LUNGS: Bilateral breath sounds are heard. ABDOMEN: Soft, distended. Examination of lower extremities shows edema 1+ bilaterally with scrotal edema noted as well. Labs show sodium 128, potassium 3.9, hemoglobin 7.4 g/dL, serum creatinine 5.0, phosphorus 9.2. ASSESSMENT: 1. Acute kidney injury, currently oliguric, acute tubular necrosis, mainly secondary to contrast nephropathy. Patient was started on hemodialysis yesterday. He will have his second treatment again today. 2. Hyponatremia. Will adjust the TPN. Expect improvement with dialysis as well. 3. Severe hyperphosphatemia associated with advanced renal failure. Currently patient is not being fed. We will start phosphate binders once we start tube feedings. 4. Vent-dependent respiratory failure. 5. Status post cardiac arrest. 6. Status post acute myocardial infarction and coronary stenting. 7. Anemia with coffee-ground aspirate noted from the NG tube. PLAN: Monitor hemoglobin. Repeat hemodialysis today as well as in a.m. Increase sodium in the TPN. MMODL / IJN: [id number] /
--- NOTE | 2017-11-22 23:29 | P.PN ---
Subjective Progress Note Date: 11/22/17 Principal diagnosis: STEMI Patient seen today in follow-up. He remains ventilator dependent. There is no family at bedside. Objective - Vital Signs Vital signs: Vital Signs Temp 98.1 F 11/22/17 04:00 Pulse 88 11/22/17 11:07 Resp 21 11/22/17 06:00 BP 102/59 11/22/17 06:00 Pulse Ox 95 11/22/17 06:00 Intake & Output 11/21/17 11/22/17 11/22/17 18:59 06:59 18:59 Intake Total 2534.971 2556.11 Output Total 815 950 Balance 8969.540 3284.11 Weight 96.6 kg 96.6 kg Intake: IV 1642 2367 0.9 120 120 0.9 for pressure 72 72 Dextrose 5% in Water 1, 150 000 ml @ 75 mls/hr IV . [id number] JACK Rx#:[id number] Dextrose 5% in Water 1, 750 900 000 ml @ 75 mls/hr IV . [id number] JACK with Sodium Bicarb (1 Meq/ml) 150 ml Rx#:[id number] Mvi, Adult No.4 with Vit 550 1275 K 10 ml Trace (Conc-1Ml/ Dose) 1 ml Calcium Gluconate 1,000 mg Sodium Acetate 30 meq In Amino Acid 4.25%-D10w 1,000 ml @ 125 mls/hr IV .BY DURATION [facility] Rx#: [id number] Intake, IV Titration 292.971 189.11 Amount Propofol 1,000 mg In 292.971 189.11 Empty Bag 1 bag @ Titrate IV .Q0M [facility] Rx#: [id number] Other 600 Output: Gastric Drainage 700 230 Urine 115 20 Oral Regurgitation 700 Other: Voiding Method Indwelling Catheter Indwelling Catheter ABP, PAP, CO, CI - Last Documented Arterial Blood Pressure 122/57 - Exam Ventilator - Constitutional General appearance: Present: obese - Neck Details: supple - Respiratory Respiratory: bilateral: diminished - Cardiovascular Rhythm: irregularly irregular - Gastrointestinal General gastrointestinal: Present: soft - Integumentary Integumentary: Present: pale - Psychiatric Psychiatric Comment(s): unable to assess - Labs CBC & Chem 7: 11/22/17 04:40 11/22/17 04:40 Labs: Abnormal Lab Results - Last 24 Hours (Table) 03/18/18 03/18/18 03/18/18 Range/Units 11:00 12:08 18:23 WBC (3.8-10.6) k/uL RBC (4.30-5.90) m/uL Hgb (13.0-17.5) gm/dL Hct (39.0-53.0) % Neutrophils # (1.3-7.7) k/uL Lymphocytes # (1.0-4.8) k/uL ABG pH (7.35-7.45) ABG pO2 (83-108) mmHg Sodium (137-145) mmol/L Chloride (98-107) mmol/L Carbon Dioxide (22-30) mmol/L BUN (9-20) mg/dL Creatinine (0.66-1.25) mg/dL Glucose (74-99) mg/dL POC Glucose (mg/dL) 179 H 155 H (75-99) mg/dL Calcium (8.4-10.2) mg/dL Ionized Calcium Eduardo 3.9 L (4.5-5.3) mg/dL Phosphorus (2.5-4.5) mg/dL Magnesium (1.6-2.3) mg/dL AST (17-59) U/L Alkaline Phosphatase (38-126) U/L Total Protein (6.3-8.2) g/dL Albumin (3.5-5.0) g/dL 11/22/17 11/22/17 11/22/17 Range/Units 00:17 04:40 04:40 WBC 20.7 H (3.8-10.6) k/uL RBC 2.48 L (4.30-5.90) m/uL Hgb 7.4 L (13.0-17.5) gm/dL Hct 23.0 L (39.0-53.0) % Neutrophils # 18.4 H (1.3-7.7) k/uL Lymphocytes # 0.6 L (1.0-4.8) k/uL ABG pH (7.35-7.45) ABG pO2 (83-108) mmHg Sodium 128 L (137-145) mmol/L Chloride 92 L (98-107) mmol/L Carbon Dioxide 20 L (22-30) mmol/L BUN 78 H (9-20) mg/dL Creatinine 5.00 H* (0.66-1.25) mg/dL Glucose 153 H (74-99) mg/dL POC Glucose (mg/dL) 190 H (75-99) mg/dL Calcium 7.3 L (8.4-10.2) mg/dL Ionized Calcium Eduardo (4.5-5.3) mg/dL Phosphorus 9.2 H* (2.5-4.5) mg/dL Magnesium 2.5 H (1.6-2.3) mg/dL AST 188 H (17-59) U/L Alkaline Phosphatase 304 H (38-126) U/L Total Protein 5.2 L (6.3-8.2) g/dL Albumin 2.3 L (3.5-5.0) g/dL 11/22/17 11/22/17 Range/Units 06:01 07:02 WBC (3.8-10.6) k/uL RBC (4.30-5.90) m/uL Hgb (13.0-17.5) gm/dL Hct (39.0-53.0) % Neutrophils # (1.3-7.7) k/uL Lymphocytes # (1.0-4.8) k/uL ABG pH 7.32 L (7.35-7.45) ABG pO2 79 L (83-108) mmHg Sodium (137-145) mmol/L Chloride (98-107) mmol/L Carbon Dioxide (22-30) mmol/L BUN (9-20) mg/dL Creatinine (0.66-1.25) mg/dL Glucose (74-99) mg/dL POC Glucose (mg/dL) 200 H (75-99) mg/dL Calcium (8.4-10.2) mg/dL Ionized Calcium Eduardo (4.5-5.3) mg/dL Phosphorus (2.5-4.5) mg/dL Magnesium (1.6-2.3) mg/dL AST (17-59) U/L Alkaline Phosphatase (38-126) U/L Total Protein (6.3-8.2) g/dL Albumin (3.5-5.0) g/dL Assessment and Plan (1) History of leukemia Narrative/Plan: 1. Unable to confirm history related to hematological and/or oncological diseases. I have asked nursing to obtain records from previous treating sleep technician and/or oncologist. No family at bedside to provide information. Will follow-up after we receive further information related to history to better assist with consultation. 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 Monitor CBC 2. Transfusion less than 7 3. Await Records of patients history Current Visit: Yes Status: Acute Code(s): D64.9 - ANEMIA, UNSPECIFIED SNOMED Code(s): 61568822 (6) Leukocytosis Narrative/Plan: 1. Predominant neutrophilia- likely reactive, will provide further information once records are received and reviewed Current Visit: Yes Status: Acute Code(s): D72.829 - ELEVATED WHITE BLOOD CELL COUNT, UNSPECIFIED SNOMED Code(s): 334091585
[2017-11-23] MEDS: METOCLOPRAMIDE 5 MG/ML 2 ML VIAL IVP SCH ×4 (00:03→18:22)
[2017-11-23] MEDS: INSULIN ASPART 100 UNIT/ML 1 ML 10 ML VIAL SQ SCH ×2 (00:03→06:41)
[2017-11-23 00:08] LABS: Glucose,Whole Blood 219 mg/dL (75-99)
[2017-11-23] MEDS: IPRATROPIUM-ALBUTEROL 3 ML NEB INHALATION SCH ×5 (00:47→19:04)
[2017-11-23] MEDS: MORPHINE SULFATE/PF 10MG/10ML VL IVP PRN ×5 (00:54→18:27)
[2017-11-23 04:26] LABS: Basophils # (A) 0.1 k/uL (0-0.2); Basophils % (A) 0 %; Eosinophils # (A) 0.1 k/uL (0-0.7); Eosinophils % (A) 0 %; HCT 21.9 % (39.0-53.0); HGB 7.3 gm/dL (13.0-17.5); Lymphocytes # (A) 0.7 k/uL (1.0-4.8); Lymphocytes % (A) 3 %; MCH 30.3 pg (25.0-35.0); MCHC 33.5 g/dL (31.0-37.0); MCV 90.3 fL (80.0-100.0); Mean Platelet Volume 9.9; Monocytes % (A) 4 %; Neutrophils # (A) 21.8 k/uL (1.3-7.7); Neutrophils % (A) 91 %; Platelet Count 461 k/uL (150-450); RBC 2.42 m/uL (4.30-5.90); RDW 14.4 % (11.5-15.5); WBC 24.1 k/uL (3.8-10.6)
[2017-11-23 04:42] LABS: ABG Base Excess -1.1 mmol/L; ABG HCO3 24 mmol/L (21-25); ABG Oxygen Saturation 98.9 % (94-97); ABG PCO2 44 mmHg (35-45); ABG PH 7.36 (7.35-7.45); ABG PO2 122 mmHg (83-108); ABG TCO2 26 mmol/L (19-24)
[2017-11-23 05:03] LABS: Albumin 2.2 g/dL (3.5-5.0); Calcium 7.4 mg/dL (8.4-10.2); Magnesium 2.4 mg/dL (1.6-2.3); Phosphorus 7.8 mg/dL (2.5-4.5); Potassium 4.1 mmol/L (3.5-5.1); Total Bilirubin 1.2 mg/dL (0.2-1.3); Total Protein 5.1 g/dL (6.3-8.2)
[2017-11-23 06:32] LABS: Glucose,Whole Blood 244 mg/dL (75-99)
[2017-11-23] MEDS ORDERED: INSULIN REGULAR BOLUS (FROM DRIP BAG) IV PRN (06:47)
[2017-11-23] MEDS: 1: MVI, ADULT NO.4 WITH VIT K 10 ML, TRACE (CONC-1ML/DOSE) 1 ML, CALCIUM GLUCONATE 1,000 IV SCH ×15 (07:08→16:18)
[2017-11-23 07:15] LABS: Glucose,Whole Blood 229 mg/dL (75-99)
[2017-11-23] MEDS: INSULIN REGULAR 100 UNIT in SODIUM CHLORIDE 0.9% 100 ML IV SCH (07:20)
[2017-11-23 07:56] LABS: Glucose,Whole Blood 234 mg/dL (75-99)
--- NOTE | 2017-11-23 08:37 | XR ---
EXAMINATION TYPE: XR chest 1V portable DATE OF EXAM: 11/23/2017 COMPARISON: Prior chest x-ray 11/22/2017 HISTORY: Intubated TECHNIQUE: Single frontal view of the chest is obtained. FINDINGS: Endotracheal tube, NG tube are overlying appropriate positions. Transvenous pacemaker show s a generator in the right pectoral region, lead is present in the right ventricle. The heart is enla rged. Left subclavian central venous catheter is present, distal tip overlies the superior vena cava. No evident pneumothorax. Bibasilar effusions persist, central vascularity is prominent. Lungs show a similar appearance. There are overlying cardiac leads. IMPRESSION: Findings similar to prior exam. Correlate for congestive heart failure. There are likely associated effusions and atelectasis versus edema, correlate to exclude pneumonia. Correlate for CLAIRE S.
[2017-11-23] MEDS: CHLORHEXIDINE GLUCONATE 15 ML CUP MUCOUS MEM SCH ×2 (08:45→20:55)
[2017-11-23] MEDS: ASPIRIN 81 MG PO SCH (08:45)
[2017-11-23] MEDS: METOPROLOL TARTRATE 25 MG TAB PO SCH ×2 (08:45→20:55)
[2017-11-23] MEDS: LEVOTHYROXINE IVP 100 MCG/5 ML VIAL IV SCH (08:45)
[2017-11-23] MEDS: HEPARIN SODIUM,PORCINE 5,000 UNIT/ML 1 ML VIAL SQ SCH ×2 (08:45→15:19)
[2017-11-23] MEDS: PANTOPRAZOLE 40 MG/10 ML VIAL IVP SCH ×2 (08:45→20:55)
[2017-11-23] MEDS: QUEtiapine 25 MG TAB PO SCH ×2 (08:46→20:56)
[2017-11-23] MEDS: TICAGRELOR 90 MG TAB PO SCH ×2 (08:46→20:56)
[2017-11-23] MEDS: CALCIUM GLUCONATE 1,000 MG in SODIUM CHLORIDE 0.9% 100 ML IVPB SCH ×2 (08:48→21:13)
[2017-11-23] MEDS: PIPERACILLIN-TAZOBACTAM 3.375 GM in DEXTROSE/WATER 1 50ML.BAG IVPB SCH ×2 (08:49→22:12)
--- NOTE | 2017-11-23 09:08 | P.PN ---
Subjective Progress Note Date: 11/23/17 Principal diagnosis: Cardiopulmonary arrest, respiratory failure, mechanical ventilation Progress note dated 11/22/2017 This is a 57-year-old gentleman who had an xrl-[id number]-gvqlyvis cardiopulmonary arrest on November 10. He was intubated on November 10 after resuscitation. He had a temporary pacemaker placed on November 19. He has a history of acute ST segment elevation myocardial infarction status post and a plasty and stenting of a left main lesion. The patient also has a history of hypoxemic respiratory failure hypotension acute kidney injury diffuse bilateral pulmonary infiltrates with possible aspiration history of carcinoid tumor involving the GI tract hypocalcemia anion gap metabolic acidosis hypernatremia abdominal distention failure to wean and asystole requiring temporary pacemaker insertion. This was done on November 19. Currently, we are performing a daily eruption of sedation on him. I will see whether or not he might be a candidate for weaning. We should discuss CODE STATUS. He is a full code. I trach and PEG should be done NAZANIN. It appears that he is not making much or any progress. Progress note dated 11/23/2017 This is a 57-year-old male who is status post out of hospital cardiopulmonary arrest on November 10. He was intubated on November 10 after resuscitation. Had a temporary pacemaker placed on November 19. He has a history of acute ST segment elevation myocardial infarction, status post angioplasty and stenting of the left main lesion. The patient also has a history of hypoxemic respiratory failure, hypotension, acute kidney injury, diffuse bilateral pulmonary status, possible aspiration, and carcinoid tumor involving the GI tract, as well as metabolic acidosis, hypernatremia, abdominal distention, and failure to wean. Temporary pacemaker was placed because of asystole. This was done on November 19. The patient is scheduled for possible tracheostomy PEG tube placement on Wednesday. We will ask neurology to see the patient. The patient does open his eyes but has a blank stare. Inaddition, we'll go ahead and hold the patient' s sedation do a daily interuption of sedation on PSV and CPAP. Currently, the patient's on the assist control mode rate of 20, tidal volume 500, FiO2 of 50% to be dropped to 40% PEEP of 5 and a D5W IV with 3 Amps of sodium bicarb at 75 mL per hour Objective - Vital Signs Vital signs: Vital Signs Temp 98.6 F 11/23/17 04:00 Pulse 88 11/23/17 07:20 Resp 20 11/23/17 07:00 BP 98/61 11/23/17 07:00 Pulse Ox 97 11/23/17 07:00 Intake & Output 11/22/17 11/23/17 11/23/17 18:59 06:59 18:59 Intake Total 828.14 2526.0 207.733 Output Total 2925 13 250 Balance -2096.86 2513.0 -42.267 Weight 96.6 kg 96.4 kg Intake: IV 733 2426.0 206 0.9 130 60.0 0.9 for pressure 78 66 6 Calcium Gluconate 1,000 100 mg In Sodium Chloride 0.9 % 100 ml @ 100 mls/hr IVPB BID JACK Rx#: [id number] Dextrose 5% in Water 1, 525 825 75 000 ml @ 75 mls/hr IV . [id number] JACK with Sodium Bicarb (1 Meq/ml) 150 ml Rx#:[id number] Mvi, Adult No.4 with Vit 1375 125 K 10 ml Trace (Conc-1Ml/ Dose) 1 ml Calcium Gluconate 1,000 mg Sodium Acetate 40 meq In Amino Acid 4.25%-D10w 1,000 ml @ 125 mls/hr IV .BY DURATION [facility] Rx#: [id number] Intake, IV Titration 95.14 1.733 Amount Insulin Regular 100 unit 1.733 In Sodium Chloride 0.9% 100 ml @ Per Protocol IV .Q0M JACK Rx#:[id number] Propofol 1,000 mg In 95.14 Empty Bag 1 bag @ Titrate IV .Q0M [facility] Rx#: [id number] Tube Feeding 0 0 Other 100 Output: Gastric Drainage 225 250 Urine 0 13 Oral Regurgitation 200 Other 2500 Other: Voiding Method Indwelling Catheter Indwelling Catheter ABP, PAP, CO, CI - Last Documented Arterial Blood Pressure 122/59 - Exam No acute distress, The patient has a orally placed endotracheal tube and NG tube.. HEENT examination is grossly unremarkable. Mucous membranes are moist. Neck supple. Full range of motion. No adenopathy thyromegaly or neck vein distention. Cardiovascular examination reveals regular rhythm rate. S1-S2 normal. No S3 or S4. No discernible murmur noted. Lungs reveal diffuse bilateral rhonchi. Breath sounds are equal bilaterally. No wheezes. A few scattered crackles. Abdomen soft bowel sounds are heard. No masses or tenderness. Extremities are intact. No cyanosis clubbing or edema. Skin is without rash or lesion. Neurologic examination cannot be adequately assessed as the patient is currently sedated. The patient does move all 4 extremities. The patient does seem to open his eyes on verbal stimuli. - Labs CBC & Chem 7: 11/23/17 04:05 11/23/17 04:05 Labs: Abnormal Lab Results - Last 24 Hours (Table) 11/22/17 11/22/17 11/23/17 Range/Units 13:20 17:29 00:01 WBC (3.8-10.6) k/uL RBC (4.30-5.90) m/uL Hgb (13.0-17.5) gm/dL Hct (39.0-53.0) % Plt Count (150-450) k/uL Neutrophils # (1.3-7.7) k/uL Lymphocytes # (1.0-4.8) k/uL ABG pO2 (83-108) mmHg ABG Total CO2 (19-24) mmol/L ABG O2 Saturation (94-97) % Sodium (137-145) mmol/L Chloride (98-107) mmol/L BUN (9-20) mg/dL Creatinine (0.66-1.25) mg/dL Glucose (74-99) mg/dL POC Glucose (mg/dL) 227 H 180 H 219 H (75-99) mg/dL Calcium (8.4-10.2) mg/dL Phosphorus (2.5-4.5) mg/dL Magnesium (1.6-2.3) mg/dL AST (17-59) U/L Alkaline Phosphatase (38-126) U/L Total Protein (6.3-8.2) g/dL Albumin (3.5-5.0) g/dL 11/23/17 11/23/17 11/23/17 Range/Units 04:05 04:05 04:40 WBC 24.1 H (3.8-10.6) k/uL RBC 2.42 L (4.30-5.90) m/uL Hgb 7.3 L (13.0-17.5) gm/dL Hct 21.9 L (39.0-53.0) % Plt Count 461 H (150-450) k/uL Neutrophils # 21.8 H (1.3-7.7) k/uL Lymphocytes # 0.7 L (1.0-4.8) k/uL ABG pO2 122 H (83-108) mmHg ABG Total CO2 26 H (19-24) mmol/L ABG O2 Saturation 98.9 H (94-97) % Sodium 132 L (137-145) mmol/L Chloride 93 L (98-107) mmol/L BUN 73 H (9-20) mg/dL Creatinine 4.31 H (0.66-1.25) mg/dL Glucose 194 H (74-99) mg/dL POC Glucose (mg/dL) (75-99) mg/dL Calcium 7.4 L (8.4-10.2) mg/dL Phosphorus 7.8 H (2.5-4.5) mg/dL Magnesium 2.4 H (1.6-2.3) mg/dL AST 239 H (17-59) U/L Alkaline Phosphatase 336 H (38-126) U/L Total Protein 5.1 L (6.3-8.2) g/dL Albumin 2.2 L (3.5-5.0) g/dL 11/23/17 11/23/17 11/23/17 Range/Units 06:26 07:14 07:45 WBC (3.8-10.6) k/uL RBC (4.30-5.90) m/uL Hgb (13.0-17.5) gm/dL Hct (39.0-53.0) % Plt Count (150-450) k/uL Neutrophils # (1.3-7.7) k/uL Lymphocytes # (1.0-4.8) k/uL ABG pO2 (83-108) mmHg ABG Total CO2 (19-24) mmol/L ABG O2 Saturation (94-97) % Sodium (137-145) mmol/L Chloride (98-107) mmol/L BUN (9-20) mg/dL Creatinine (0.66-1.25) mg/dL Glucose (74-99) mg/dL POC Glucose (mg/dL) 244 H 229 H 234 H (75-99) mg/dL Calcium (8.4-10.2) mg/dL Phosphorus (2.5-4.5) mg/dL Magnesium (1.6-2.3) mg/dL AST (17-59) U/L Alkaline Phosphatase (38-126) U/L Total Protein (6.3-8.2) g/dL Albumin (3.5-5.0) g/dL Assessment and Plan Assessment: Assessment Acute ST segment elevation myocardial infarction, status post angioplasty and stenting of a left main lesion Status post cardiopulmonary arrest with cardiopulmonary resuscitation and return of spontaneous circulation, November 10 Hypoxemic respiratory failure with intubation and mechanical ventilation, and failure to wean Hypotension, secondary to cardiac arrest, resolved Acute kidney injury Diffuse bilateral infiltrates, which may reflect noncardiogenic pulmonary edema or aspiration History of gastrointestinal carcinoid tumor Hypocalcemia Anion gap metabolic acidosis Hypernatremia Diffuse abdominal distention Failure to wean History of cardiac arrhythmia/sinus pause/asystole, status post temporary pacemaker placement Plan: Plan dated 11/22/2017 We will continue with full supportive care at the current time. We need to talk about PEG tube placement and tracheostomy as well. In addition, the patient's CODE STATUS needs to be addressed. Additional recommendations and suggestions are forthcoming. We will do a daily eruption of sedation and assess the patient for a spontaneous breathing trial. Prognosis is poor. The patient currently is on the assist control mode rate of 20, a tidal volume of 500, and FiO2 of 55%, and a PEEP of 5. The patient's blood gases show a PaO2 of 79 a PaCO2 of 42 and a pH of 7.32. In addition, the patient is on dextrose with 3 amps of bicarbonate at 75 mL an hour and TPN at 125 mL and propofol at 35 mcg/kg/m Critical care time is 34 minutes. Plan dated 11/23/2017 The patient will continue with full supportive care at this time. He scheduled for a PEG tube placement and tracheostomy tomorrow. Today we'll go ahead and do a PSV/CPAP trial. We'll have neurology see the patient for anoxic/metabolic encephalopathy. I'll look at the labs x-rays a medications. The patient is not able to tolerate enteral nutrition at this time. Additional recommendations and suggestions are forthcoming. FiO2 was dropped down from 50 % down to 40%. Critical care time 36 minutes Time with Patient: Greater than 30
[2017-11-23] MEDS: DEXTROSE 5% IN WATER 1,000 ML with SODIUM BICARB (1 MEQ/ML) 150 ML IV SCH ×2 (09:16→22:14)
[2017-11-23 09:17] LABS: Glucose,Whole Blood 201 mg/dL (75-99)
[2017-11-23 10:10] LABS: Glucose,Whole Blood 106 mg/dL (75-99)
--- NOTE | 2017-11-23 11:09 | CT ---
EXAMINATION TYPE: CT brain wo con DATE OF EXAM: 11/23/2017 HISTORY: Patient poor historian. Altered mental status post cardiac arrest. CT DLP: 1463.3 mGycm. Automated Exposure Control for Dose Reduction was Utilized. TECHNIQUE: CT scan of the head is performed without contrast. COMPARISON: None. FINDINGS: Repeat imaging performed due to motion artifact degradation. There is no acute intracrani al hemorrhage or midline shift identified. There is diffuse ventricular and sulcal prominence consist ent with mild diffuse age-related cerebral atrophy. Diaz-white matter differentiation is preserved. The globes are intact and bilaterally. There is 1.7 cm partially calcified right parietal scalp les ion presumed dermatologic and benign axial image 45. There is nearly completely opacified bilateral f rontal sinuses. There is complete opacification of visualized portion of maxillary sinuses. There is near complete opacity of anterior ethmoid sinuses, right greater than left. Air-fluid level is seen i n right frontal sinus. Some bony erosive changes are present. IMPRESSION: No acute intracranial hemorrhage or midline shift. There is mild diffuse age-related ce rebral atrophy. There is partial visualization of suspected acute on chronic anterior paranasal pansi nusitis as detailed above. Correlate clinically.
[2017-11-23 11:24] LABS: Glucose,Whole Blood 125 mg/dL (75-99)
--- NOTE | 2017-11-23 11:54 | P.PN ---
Subjective Progress Note Date: 11/23/17 57-year-old male seen in the ICU currently on hemodialysis no family at bedside sedated on vent support nursing reports her's been 200 out of the oral gastric tube for the last couple hours. Additionally patient has been incontinent of liquid brown stool per nursing report. Abdomen remains slightly distended firm hypoactive bowel tones noted Objective - Vital Signs Vital signs: Vital Signs Temp 98 F 11/23/17 08:00 Pulse 92 11/23/17 11:39 Resp 20 11/23/17 11:00 BP 140/61 11/23/17 11:00 Pulse Ox 89 L 11/23/17 11:00 Intake & Output 11/22/17 11/23/17 11/23/17 18:59 06:59 18:59 Intake Total 828.14 2526.0 1085.400 Output Total 2925 13 251 Balance -2096.86 2513.0 834.400 Weight 96.6 kg 96.4 kg Intake: IV 733 2426.0 1070 0.9 130 60.0 40 0.9 for pressure 78 66 30 Calcium Gluconate 1,000 100 mg In Sodium Chloride 0.9 % 100 ml @ 100 mls/hr IVPB BID [facility] Rx#: [id number] Dextrose 5% in Water 1, 525 825 375 000 ml @ 75 mls/hr IV . [id number] JACK with Sodium Bicarb (1 Meq/ml) 150 ml Rx#:[id number] Mvi, Adult No.4 with Vit 1375 625 K 10 ml Trace (Conc-1Ml/ Dose) 1 ml Calcium Gluconate 1,000 mg Sodium Acetate 40 meq In Amino Acid 4.25%-D10w 1,000 ml @ 125 mls/hr IV .BY DURATION [facility] Rx#: [id number] Intake, IV Titration 95.14 15.400 Amount Insulin Regular 100 unit 15.400 In Sodium Chloride 0.9% 100 ml @ Per Protocol IV .Q0M [facility] Rx#:[id number] Propofol 1,000 mg In 95.14 Empty Bag 1 bag @ Titrate IV .Q0M [facility] Rx#: [id number] Tube Feeding 0 0 Other 100 Output: Gastric Drainage 225 250 Urine 0 13 1 Oral Regurgitation 200 Other 2500 Other: Voiding Method Indwelling Catheter Indwelling Catheter Indwelling Catheter ABP, PAP, CO, CI - Last Documented Arterial Blood Pressure 124/63 - Exam Physical exam Abdomen firm. Hypoactive bowel tones oral gastric tube to suction 200 out for the last couple hours incontinent of stool indwelling Felipe catheter in place scrotal edema noted - Labs CBC & Chem 7: 11/23/17 04:05 11/23/17 04:05 Labs: Abnormal Lab Results - Last 24 Hours (Table) 11/22/17 11/22/17 11/23/17 Range/Units 13:20 17:29 00:01 WBC (3.8-10.6) k/uL RBC (4.30-5.90) m/uL Hgb (13.0-17.5) gm/dL Hct (39.0-53.0) % Plt Count (150-450) k/uL Neutrophils # (1.3-7.7) k/uL Lymphocytes # (1.0-4.8) k/uL ABG pO2 (83-108) mmHg ABG Total CO2 (19-24) mmol/L ABG O2 Saturation (94-97) % Sodium (137-145) mmol/L Chloride (98-107) mmol/L BUN (9-20) mg/dL Creatinine (0.66-1.25) mg/dL Glucose (74-99) mg/dL POC Glucose (mg/dL) 227 H 180 H 219 H (75-99) mg/dL Calcium (8.4-10.2) mg/dL Phosphorus (2.5-4.5) mg/dL Magnesium (1.6-2.3) mg/dL AST (17-59) U/L Alkaline Phosphatase (38-126) U/L Total Protein (6.3-8.2) g/dL Albumin (3.5-5.0) g/dL 11/23/17 11/23/17 11/23/17 Range/Units 04:05 04:05 04:40 WBC 24.1 H (3.8-10.6) k/uL RBC 2.42 L (4.30-5.90) m/uL Hgb 7.3 L (13.0-17.5) gm/dL Hct 21.9 L (39.0-53.0) % Plt Count 461 H (150-450) k/uL Neutrophils # 21.8 H (1.3-7.7) k/uL Lymphocytes # 0.7 L (1.0-4.8) k/uL ABG pO2 122 H (83-108) mmHg ABG Total CO2 26 H (19-24) mmol/L ABG O2 Saturation 98.9 H (94-97) % Sodium 132 L (137-145) mmol/L Chloride 93 L (98-107) mmol/L BUN 73 H (9-20) mg/dL Creatinine 4.31 H (0.66-1.25) mg/dL Glucose 194 H (74-99) mg/dL POC Glucose (mg/dL) (75-99) mg/dL Calcium 7.4 L (8.4-10.2) mg/dL Phosphorus 7.8 H (2.5-4.5) mg/dL Magnesium 2.4 H (1.6-2.3) mg/dL AST 239 H (17-59) U/L Alkaline Phosphatase 336 H (38-126) U/L Total Protein 5.1 L (6.3-8.2) g/dL Albumin 2.2 L (3.5-5.0) g/dL 11/23/17 11/23/17 11/23/17 Range/Units 06:26 07:14 07:45 WBC (3.8-10.6) k/uL RBC (4.30-5.90) m/uL Hgb (13.0-17.5) gm/dL Hct (39.0-53.0) % Plt Count (150-450) k/uL Neutrophils # (1.3-7.7) k/uL Lymphocytes # (1.0-4.8) k/uL ABG pO2 (83-108) mmHg ABG Total CO2 (19-24) mmol/L ABG O2 Saturation (94-97) % Sodium (137-145) mmol/L Chloride (98-107) mmol/L BUN (9-20) mg/dL Creatinine (0.66-1.25) mg/dL Glucose (74-99) mg/dL POC Glucose (mg/dL) 244 H 229 H 234 H (75-99) mg/dL Calcium (8.4-10.2) mg/dL Phosphorus (2.5-4.5) mg/dL Magnesium (1.6-2.3) mg/dL AST (17-59) U/L Alkaline Phosphatase (38-126) U/L Total Protein (6.3-8.2) g/dL Albumin (3.5-5.0) g/dL 11/23/17 11/23/17 11/23/17 Range/Units 09:14 10:07 11:09 WBC (3.8-10.6) k/uL RBC (4.30-5.90) m/uL Hgb (13.0-17.5) gm/dL Hct (39.0-53.0) % Plt Count (150-450) k/uL Neutrophils # (1.3-7.7) k/uL Lymphocytes # (1.0-4.8) k/uL ABG pO2 (83-108) mmHg ABG Total CO2 (19-24) mmol/L ABG O2 Saturation (94-97) % Sodium (137-145) mmol/L Chloride (98-107) mmol/L BUN (9-20) mg/dL Creatinine (0.66-1.25) mg/dL Glucose (74-99) mg/dL POC Glucose (mg/dL) 201 H 106 H 125 H (75-99) mg/dL Calcium (8.4-10.2) mg/dL Phosphorus (2.5-4.5) mg/dL Magnesium (1.6-2.3) mg/dL AST (17-59) U/L Alkaline Phosphatase (38-126) U/L Total Protein (6.3-8.2) g/dL Albumin (3.5-5.0) g/dL Assessment and Plan Assessment: Impression Acute ST segment elevation myocardial infarction secondary to a tight left main lesion status post successful stenting Acute cardiac arrest secondary to the above resuscitated adequately Acute hypoxic respiratory failure secondary to the above History of carcinoid tumor involving the GI tract Computed tomography scan abdomen pelvis suggestive of an ileus no evidence of a small bowel obstruction Failure to wean in spite of multiple trials plan for tracheostomy and PEG tube per Dr. Navarro Plan Continue ICU management Vent per pulmonary management No evidence of an acute surgical abdomen Continue the nasogastric tube to intermittent suction monitor start TPN now We'll follow with you Agree PEG tube trach need to be addressed note dictated for dr robins The above impression and plan of care have been discussed and directed by signing physician. Suzie Perez nurse practitioner acting as scribe for signing physician.
--- NOTE | 2017-11-23 12:14 | PN ---
PROGRESS NOTE A 57-year-old gentleman that is admitted to the hospital following a cardiac arrest and left main stenting, has had prolonged hospitalization, renal failure, respiratory failure. He had been off sedation for more than 24 hours without any full neurological activity. He has had CT scans and will undergo EEG to evaluate for hypoxic encephalopathy. This morning, he is intubated, off sedation, appears comfortable at rest. Vital signs are stable. Chest exam reveals diminished air entry of the bases. Heart exam reveals first and second heart sounds. No gallop. Abdomen is soft and nontender. Exam of the extremities did not reveal any edema. Peripheral pulses are felt. Patient is intermittently requiring pacing especially when he is moved to his side. He is aspirin, Lipitor, Lopressor 25 b.i.d., and Brilinta. ASSESSMENT: 1. Status post cardiac arrest with left main stenting. 2. Renal failure. 3. Respiratory failure. 4. Complete heart block, status post permanent pacemaker. Patient is stable from cardiac standpoint. I will continue with current medications. MMODL / IJN: [id number] /
[2017-11-23 12:24] LABS: Glucose,Whole Blood 127 mg/dL (75-99)
[2017-11-23 13:03] LABS: Glucose,Whole Blood 135 mg/dL (75-99)
[2017-11-23 14:35] LABS: Glucose,Whole Blood 155 mg/dL (75-99)
--- NOTE | 2017-11-23 15:05 | PN ---
PROGRESS NOTE DATE OF SERVICE: 11/23/2017 This is a 57-year-old gentleman with a past medical history of multiple medical problems admitted with acute ST-segment elevation myocardial infarction with CAD , CABG. The patient also continues to be unresponsive and is dependent on mechanical ventilation. Hemodialysis has been initiate for renal failure. Patient also had hypotension, cardiogenic shock also. Patient had multiple complex medical issues, patient monitored in ICU. Neurology is following the patient closely. A recent CAT scan of the brain done today showed no acute changes. PAST MEDICAL HISTORY: Reviewed. REVIEW OF SYSTEMS: Could not be taken, the patient mechanically ventilated and sedated. CURRENT MEDICATIONS: Reviewed, include: 1. Maalox 30 mg q.4 p.r.n. 2. DuoNeb q.i.d. and p.r.n. 3. Aspirin 81 mg daily. 4. Lipitor 80 mg q.h.s. 5. Atropine 0.5 p.r.n. 6. Calcium gluconate b.i.d. 7. Peridex. 8. Dextrose. 9. Vitamin D. 10.Heparin. 11.Lopressor. 12.Potassium. 13.Narcan. 14.TPN. 15.Synthroid IV. PHYSICAL EXAM: Patient is on mechanical ventilation. Pulse is 91, blood pressure 103/60, respiratory rate 20, temp 97.9, pulse ox 98% on mechanical ventilation, 60% FiO2. Vent settings are noted. HEENT: Conjunctivae are pale. Oral mucosa moist. Neck is no jugular venous distention. No lymph node enlargement. CARDIOVASCULAR SYSTEM: S1, S2, no S3, no S4. RESPIRATORY: Breath sounds diminished at the bases, a few scattered rhonchi, no crackles. ABDOMEN: Soft, nontender. No mass. LEGS: Minimal edema. NERVOUS SYSTEM: Patient is mechanically insufflated. SKIN: Noted. LABS: WBC 24.1, hemoglobin is 7.3. ASSESSMENT: 1. Acute ST-segment elevation myocardial infarction, status post cardiac cath and stenting on the left, not present on admission. 2. Acute respiratory failure, status post CPR resuscitation in the field. 3. Acute hypoxic respiratory failure on mechanical ventilation, failure to wean. 4. Acute kidney injury. Possible acute tubular necrosis and acute renal failure on newly started hemodialysis. 5. Hypothyroidism. 6. Hypocalcemia. 7. Hypotension, possibly cardiogenic shock. 8. Hypokalemia, improved. 9. Hypomagnesemia. 10.History of leukemia, currently in remission. 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 12.History of increased lipase and amylase. 13.Increased AST. 14.Abdominal distention, possible colitis. 15.Increased liver enzymes. 16.History of deep venous thrombosis prophylaxis. 18.Vitamin D deficiency. 19.FULL CODE. RECOMMENDATION: In this 57-year-old gentleman who presented with multiple medical problems, will monitor the patient closely, continue with the current management and symptomatic treatment. At this time, I recommend continue with the current medication, continue with broad-spectrum IV antibiotics. Continue with weaning per Dr. Packer. Continue with the hemodialysis. Continue to follow with Surgery while also following Neurology as well. CAT scan of the brain noted. Also recommend continue with the broad spectrum IV antibiotics and will obtain a set of cultures as well and continue to monitor with multiple consultants. Prognosis guarded. Discussed with family and further recommendations to follow. MMARIL / DYANAN: [id number] / MTDD
[2017-11-23] MEDS: LACTATED RINGERS 1,000 ML IV SCH (15:18)
[2017-11-23 15:23] LABS: Glucose,Whole Blood 155 mg/dL (75-99)
[2017-11-23 16:21] LABS: Glucose,Whole Blood 200 mg/dL (75-99)
[2017-11-23 17:08] LABS: Glucose,Whole Blood 204 mg/dL (75-99)
--- NOTE | 2017-11-23 17:47 | PN ---
PROGRESS NOTE Patient is seen for followup for acute kidney injury. He remains severely oliguric and hemodialysis-dependent. We had about 2 L of ultrafiltration yesterday. The patient will be dialyzed again today. He remains on the vent. On examination, blood pressure this morning was 129/61, heart rate of about 90 per minute. Patient is afebrile. EXAMINATION OF THE HEART: S1, S2. EXAMINATION OF LUNGS: Bilateral breath sounds are heard. ABDOMEN: Soft, distended, non-tender. Examination of lower extremities shows edema 2+ bilaterally with scrotal edema noted as well. Labs show sodium 132, potassium 4.1, BUN 73, serum creatinine 4.3, hemoglobin 7.3 g/dL. ASSESSMENT: 1. Acute kidney injury, acute tubular necrosis, ischemic, and secondary to contrast nephropathy, currently hemodialysis-dependent. 2. Volume overload. Will increase UF to about 3 L today. 3. Vent-dependent respiratory failure. 4. Status post cardiac arrest. 5. Status post acute myocardial infarction and left main artery stenting. 6. Status post permanent pacemaker for complete heart block. PLAN: Repeat hemodialysis today. Further discussion to determine degree of encephalopathy and whether patient has underlying anoxic encephalopathy. He has had 3 treatments of hemodialysis, and the uremic component to his encephalopathy should have improved by now. MMODL / IJN: [id number] /
[2017-11-23] MEDS ORDERED: hydrALAZINE HCL 20 MG/ML 1 ML VIAL IVP STA (18:15)
[2017-11-23] MEDS ORDERED: ENALAPRILAT 1.25 MG/ML 1 ML VIAL IVP STA (18:15)
[2017-11-23 18:16] LABS: Glucose,Whole Blood 154 mg/dL (75-99)
[2017-11-23 19:18] LABS: Glucose,Whole Blood 208 mg/dL (75-99)
[2017-11-23] MEDS ORDERED: NITROGLYCERIN-D5W PMX 250 ML IV ONE (19:21)
[2017-11-23] MEDS: NITROGLYCERIN-D5W PMX 50 MG in DEXTROSE/WATER 1 250ML.BAG IV SCH (19:31)
[2017-11-23 20:13] LABS: Glucose,Whole Blood 210 mg/dL (75-99)
[2017-11-23] MEDS: ATORVASTATIN 80 MG TAB PO SCH (20:55)
[2017-11-23] MEDS: ERGOCALCIFEROL 50,000 UNIT CAP PO SCH (20:55)
[2017-11-23 21:03] LABS: Glucose,Whole Blood 196 mg/dL (75-99)
[2017-11-23 22:16] LABS: Glucose,Whole Blood 211 mg/dL (75-99)
--- NOTE | 2017-11-23 22:53 | CONS ---
CONSULTATION DATE OF CONSULTATION: 11/23/2017. CHIEF COMPLAINT: Unresponsiveness. HISTORY OF PRESENT ILLNESS: Mr. Meredith is a 57-year-old male who is being evaluated by the neurology service per the request of Dr. Omer for unresponsiveness. The patient was brought into [facility] on 11/10/2017 after he had a cardiac arrest. The patient was playing pickle ball and suddenly collapsed to the ground. A nurse was present at the scene and started CPR while EMS arrived. The patient was found to be in V. fib. He was shocked on scene and was brought back to sinus rhythm, according to the chart. He was initially taken to [facility], where his EKG showed ST elevation. He was transferred to [facility] immediately and underwent an emergency heart cath and a stent was placed in his left main artery. The patient has been intubated and sedated since then. His sedation was discontinued over 24 hours ago and the patient continues to be unresponsive. I did order a stat CT scan of the brain which showed no acute abnormalities. Generalized atrophy was seen. No seizure- like activity has been reported. At the time of my evaluation, the patient's is present at bedside. She states that after the stent placement, the patient had responded to her by squeezing her hand, but this has not been seen by the nursing staff since his admission. The patient is currently not responding to any verbal or painful stimuli. His CBC today showed leukocytosis at 24.1, anemia with hemoglobin of 7.3 and hematocrit of 22% and mild thrombocytosis at 461,000. His comprehensive metabolic profile showed mild hyponatremia at 132, renal insufficiency with a BUN of 73 and creatinine of 4.31, hypocalcemia at 7.4 and elevated AST at 239. His ALT was normal. PAST MEDICAL HISTORY: Coronary artery disease, history of leukemia, carcinoid tumor, history of spine surgery and hernia repair. SOCIAL HISTORY: The patient quit smoking over 30 years ago. There is no history of any alcohol or drug use. FAMILY HISTORY: Positive for dementia. HOME MEDICATIONS: Reviewed in the chart. ALLERGIES: No known drug allergies. REVIEW OF SYSTEMS: Unable to obtain, as the patient is unresponsive. PHYSICAL EXAM: Vital signs show a temperature of 98, pulse 83, respirations 20, blood pressure 110/62. GENERAL APPEARANCE: The patient is a well-developed male who is intubated and unresponsive. HEENT: Normocephalic, atraumatic. No obvious facial asymmetry is seen. Endotracheal tube is intact. Neck is supple with no masses felt. CARDIOVASCULAR: Regular rate and rhythm. ABDOMEN: Nondistended. Extremities showed trace edema with no clubbing seen. NEUROLOGICAL: The patient is unresponsive to verbal or painful stimuli. No seizure- like activity is seen. Brainstem reflexes showed normal corneal reflex and oculocephalic reflex bilaterally. Pupils are pinpoint. Plantar reflex showed silent toes bilaterally. The patient does not respond to any verbal or painful stimuli in all 4 extremities. IMPRESSION: 1. Anoxic brain injury. 2. Hypoxic encephalopathy. 3. Acute myocardial infarction. 4. Status post cardiac arrest. 5. Renal insufficiency. 6. Hepatic insufficiency. 7. Anemia. 8. Leukocytosis. RECOMMENDATION: The patient has been off of sedation for over 24 hours and continues to be unresponsive to both verbal and painful stimuli. There is significant concern for anoxic brain injury. I did review his CT scan of the brain which showed no acute findings. An EEG has been ordered. I had a lengthy discussion with the patient's regarding his neurological status. Given his renal insufficiency, we will continue to evaluate the patient over the next 24-48 hours to monitor for any improvements. If his neurological examination continues to be unchanged in 48 hours, the prognosis will be poor. Continue neuro checks. Continue the rest of your current workup and management. I will continue to follow with you. Further recommendations to follow. Thank you for allowing me to participate in the care of your patient. If you have any questions, please feel free to contact me. ADRIEN / DYANAN: [id number] /
[2017-11-23 22:56] LABS: Glucose,Whole Blood 186 mg/dL (75-99)
--- NOTE | 2017-11-23 23:53 | CONS ---
CONSULTATION DATE OF CONSULTATION: 11/23/2017. REASON FOR CONSULTATION: Leukocytosis/infection. HISTORY OF PRESENT ILLNESS: The patient is a 57-year-old male who has been in the hospital at [facility] since 11/10/2017. The patient apparently was playing in the gym. He did have a cardiac arrest. There was a bystander nurse who did CPR on him. EMS was called and the patient was found to be in atrial fibrillation. He did have CPR and was shocked, brought in sinus rhythm and subsequently taken to the [facility] ER where the patient was noticed to have acute ST elevated [place]. The patient has been transferred to the [facility] quality assurance lab technician where the patient did have PTCA and stenting of the left main. The patient since then has been intubated, has been on the vent. He has multiple complication including acute renal failure for which the patient did get a dialysis catheter placed in the right groin by Dr. Salomon on 11/21/2017 and the patient was getting dialysis for the same. The patient also had art lines and the central line that apparently has been placed more than 10 days ago. The patient did have a low-grade fever of 100.3 on the with a fever of 100.5 to 100.4 last night and at midnight. The patient also noticed to have elevated white count that has been around 24 to 25 with a reading of 24.1 today. He did have a urine on admission that has been negative. Because of this persistently elevated white count and the patient did have a low-grade fever, I was asked to see the patient for further recommendation for antibiotic therapy. As for antibiotics, the patient has pain on the Zosyn that apparently was started last night. The patient did have a CT of the abdomen and pelvis done on the that was suggestive of a left-sided colitis. All of this information has been reviewed by talking to the nursing staff, family member and review of the chart as the patient is currently intubated on the vent and unable to provide any history. REVIEW OF SYSTEMS: Could not be reliably obtained. The positive points have been mentioned in HPI. PAST MEDICAL HISTORY: Significant for coronary artery disease, leukemia, neuroendocrine carcinoid tumor . PAST SURGICAL HISTORY: PTCA with stent placement, bilateral hernia repair, back surgery, colonoscopy and exploratory laparotomy. SOCIAL HISTORY: Former smoker. No drinking or drug use. FAMILY HISTORY: Mother with history of dementia. ALLERGIES: No known drug allergies. MEDICATION: Medications include the patient is currently on Brilinta, Seroquel, propofol, , TPN, Lipitor, aspirin, Atropine, DuoNeb, Maalox. EXAMINATION: Blood pressure is 139/73 with a pulse of 97, temperature of 98. He is 98% on 70% FiO2. General description is a middle aged male, intubated on the vent. HEENT: Pallor, no scleral icterus. The patient is orally intubated on examination. Oral cavity . NECK: Trachea is central. No thyromegaly. LUNGS: Unlabored breathing, decreased breath sounds in the bases. No wheeze or crackle. HEART: S1, S2. Regular rate and rhythm. ABDOMEN: Soft, distended and has been tender in the left lower quadrant area. No guarding. No organomegaly. EXTREMITIES: Some trace edema of the feet. SKIN EXAMINATION: No rash or mass palpable. NEUROLOGIC: The patient is currently sedated on the vent. LABS: Hemoglobin 7.3, but improved to 4.1 with a BUN of 73, creatinine 4.3, white count has been normal. AST slightly elevated 239. Urine has been negative. DIAGNOSTIC IMPRESSION AND PLAN: Patient with low-grade fever of 100.4. Did have elevated white count, which is likely multifactorial. The patient did have a slight abdominal distention, some loose stool per the RN with CT suggestive of colitis. Question of possible Clostridium difficile as the patient has been exposed to the hospital, as well as antibiotic therapy. With other sources of this elevated fever and white count, could be the central line as the patient did have both art line, as well as a central line. Clinical suspicion is low for underlying pneumonia and there was no evidence of any cellulitis or joint swelling. PLAN: 1. We will check a stool for C. diff. 2. Recommend obtaining blood cultures from the central line and art line and advise those should be changed. 3. Empirically add Flagyl 500 every 8 and continue Zosyn for now. 4. Depending upon his clinical response, as well as cultures will adjust medication further if needed. Thank you for this consultation follow this patient along with you. Family present at the bedside and their questions were answered. MMODL / IJN: [id number] /
[2017-11-24] MEDS: METOCLOPRAMIDE 5 MG/ML 2 ML VIAL IVP SCH ×4 (00:02→19:01)
[2017-11-24] MEDS: HEPARIN SODIUM,PORCINE 5,000 UNIT/ML 1 ML VIAL SQ SCH ×3 (00:02→15:20)
[2017-11-24] MEDS: metroNIDAZOLE-NS PMX 500 MG in SALINE 1 100ML.BAG IVPB SCH ×3 (00:02→15:20)
[2017-11-24 00:08] LABS: Glucose,Whole Blood 195 mg/dL (75-99)
[2017-11-24] MEDS: IPRATROPIUM-ALBUTEROL 3 ML NEB INHALATION SCH ×7 (00:42→23:00)
[2017-11-24 01:13] LABS: Glucose,Whole Blood 183 mg/dL (75-99)
[2017-11-24 01:58] LABS: Glucose,Whole Blood 198 mg/dL (75-99)
[2017-11-24] MEDS: MORPHINE SULFATE/PF 10MG/10ML VL IVP PRN ×2 (02:02→16:49)
[2017-11-24] MEDS: DEXTROSE 10% IN WATER 1,000 ML IV SCH ×3 (02:44→16:28)
[2017-11-24] MEDS: 1: MVI, ADULT NO.4 WITH VIT K 10 ML, TRACE (CONC-1ML/DOSE) 1 ML, CALCIUM GLUCONATE 1,000 IV SCH ×5 (02:48)
[2017-11-24 03:33] LABS: Glucose,Whole Blood 162 mg/dL (75-99)
[2017-11-24 04:05] LABS: Glucose,Whole Blood 191 mg/dL (75-99)
[2017-11-24 04:28] LABS: ABG Base Excess 4.2 mmol/L; ABG HCO3 29 mmol/L (21-25); ABG Oxygen Saturation 98.2 % (94-97); ABG PCO2 49 mmHg (35-45); ABG PH 7.39 (7.35-7.45); ABG PO2 113 mmHg (83-108); ABG TCO2 31 mmol/L (19-24)
[2017-11-24 04:30] LABS: HCT 20.2 % (39.0-53.0); MCH 29.9 pg (25.0-35.0); MCHC 32.9 g/dL (31.0-37.0); MCV 90.8 fL (80.0-100.0); Mean Platelet Volume 9.7; Platelet Count 517 k/uL (150-450); RBC 2.22 m/uL (4.30-5.90); RDW 14.4 % (11.5-15.5)
[2017-11-24 04:57] LABS: Albumin 2.1 g/dL (3.5-5.0); Calcium 7.2 mg/dL (8.4-10.2); Magnesium 2.2 mg/dL (1.6-2.3); Phosphorus 6.3 mg/dL (2.5-4.5); Potassium 3.7 mmol/L (3.5-5.1); Total Bilirubin 0.8 mg/dL (0.2-1.3)
[2017-11-24 05:16] LABS: HGB 6.6 gm/dL (13.0-17.5)
[2017-11-24 05:43] LABS: Glucose,Whole Blood 186 mg/dL (75-99)
[2017-11-24] MEDS ORDERED: FUROSEMIDE 10 MG/ML 2 ML VIAL IV ONE (06:17)
[2017-11-24 06:41] LABS: Glucose,Whole Blood 186 mg/dL (75-99)
[2017-11-24] MEDS ORDERED: DESMOPRESSIN INJ 30 MCG in SODIUM CHLORIDE 0.9% 50 ML IVPB ONE (06:51)
[2017-11-24] MEDS: INSULIN REGULAR 100 UNIT in SODIUM CHLORIDE 0.9% 100 ML IV SCH (07:12)
[2017-11-24 07:13] LABS: Glucose,Whole Blood 182 mg/dL (75-99)
[2017-11-24 08:24] LABS: Glucose,Whole Blood 122 mg/dL (75-99)
--- NOTE | 2017-11-24 08:29 | XR ---
EXAMINATION TYPE: XR chest 1V portable DATE OF EXAM: 11/24/2017 COMPARISON: Prior chest x-ray 11/23/2017 HISTORY: Intubated TECHNIQUE: Single frontal view of the chest is obtained. FINDINGS: Patient is rotated. Endotracheal tube and NG tube are overlying appropriate positions, lef t subclavian central venous catheter shows the distal tip over the superior vena cava level. There ar e overlying cardiac leads. Transvenous pacemaker in the right pectoral region shows the distal tip of the lead in the right ventricle. The heart is enlarged. Suspect bilateral pleural effusions. There m ay be associated atelectasis versus airspace disease, correlate for possible ARDS. IMPRESSION: Findings are similar to prior exam.
[2017-11-24 09:20] LABS: Glucose,Whole Blood 135 mg/dL (75-99)
--- NOTE | 2017-11-24 09:31 | P.PN ---
Subjective Progress Note Date: 11/24/17 Principal diagnosis: Cardiopulmonary arrest, respiratory failure, mechanical ventilation Progress note dated 11/22/2017 This is a 57-year-old gentleman who had an [id number] cardiopulmonary arrest on November 10. He was intubated on November 10 after resuscitation. He had a temporary pacemaker placed on November 19. He has a history of acute ST segment elevation myocardial infarction status post and a plasty and stenting of a left main lesion. The patient also has a history of hypoxemic respiratory failure hypotension acute kidney injury diffuse bilateral pulmonary infiltrates with possible aspiration history of carcinoid tumor involving the GI tract hypocalcemia anion gap metabolic acidosis hypernatremia abdominal distention failure to wean and asystole requiring temporary pacemaker insertion. This was done on November 19. Currently, we are performing a daily eruption of sedation on him. I will see whether or not he might be a candidate for weaning. We should discuss CODE STATUS. He is a full code. I trach and PEG should be done NAZANIN. It appears that he is not making much or any progress. Progress note dated 11/23/2017 This is a 57-year-old male who is status post out of hospital cardiopulmonary arrest on November 10. He was intubated on November 10 after resuscitation. Had a temporary pacemaker placed on November 19. He has a history of acute ST segment elevation myocardial infarction, status post angioplasty and stenting of the left main lesion. The patient also has a history of hypoxemic respiratory failure, hypotension, acute kidney injury, diffuse bilateral pulmonary status, possible aspiration, and carcinoid tumor involving the GI tract, as well as metabolic acidosis, hypernatremia, abdominal distention, and failure to wean. Temporary pacemaker was placed because of asystole. This was done on November 19. The patient is scheduled for possible tracheostomy PEG tube placement on Wednesday. We will ask neurology to see the patient. The patient does open his eyes but has a blank stare. Inaddition, we'll go ahead and hold the patient' s sedation do a daily interuption of sedation on PSV and CPAP. Currently, the patient's on the assist control mode rate of 20, tidal volume 500, FiO2 of 50% to be dropped to 40% PEEP of 5 and a D5W IV with 3 Amps of sodium bicarb at 75 mL per hour Progress note dated 11/24/2017 This is a 57-year-old male status post out of hospital cardiopulmonary arrest. This occurred on November 10. He did have bystander CPR. Unfortunately, neurologic status seemed to be bit impaired. The patient did have a temporary pacemaker placed on November 19. He has a history of acute ST segment elevation myocardial infarction, status post angioplasty and stenting of the left main coronary artery. He also has a history of hypoxemic respiratory failure, hypotension, acute kidney injury, diffuse bilateral pulmonary infiltrates, possible aspiration versus pneumonia, carcinoid tumor involving the GI tract, abdominal distention and failure to wean. The temporary pacemaker was placed for asystole on November 19. The patient is apparently going to have a tracheostomy and PEG tube possibly today. I spoke to the about that yesterday. The patient's neurologic status has not improved. Chest x-ray shows diffuse bilateral infiltrates. He, the patient's vent settings include the assist control mode rate of 20 tidal volume 500 FiO2 50% to be dropped to 40 % PEEP of 5. Arterial blood gases show a PaO2 of 113, PaCO2 49 and a pH of 7.39. The patient's hemoglobin was 6.6. The patient's currently received blood for that. In addition, the patient is having an EEG and neurology consult and also scheduled for hemodialysis today. Currently, the IV is D5W with 3 A of bicarb at 75 mL an hour. The patient is also getting D10 at 125 insulin is on hold and nitroglycerin drip is off. Objective - Vital Signs Vital signs: Vital Signs Temp 97.9 F 11/24/17 08:00 Pulse 89 11/24/17 08:00 Resp 21 11/24/17 08:00 BP 120/65 11/24/17 08:00 Pulse Ox 98 11/24/17 08:00 Intake & Output 11/23/17 11/24/17 11/24/17 18:59 06:59 18:59 Intake Total 2608.692 2681.841 220.909 Output Total 801 202 550 Balance 7811.059 0985.841 -329.091 Weight 98 kg Intake: IV 2582 2542.0 206 0.9 110 20 0.9 for pressure 72 72 6 Calcium Gluconate 1,000 100 mg Sodium Acetate 40 meq In Amino Acid 4.25%-D10w 1,000 ml @ 125 mls/hr IV .BY DURATION [facility] Rx#: [id number] Dextrose 10% in Water 1, 625 125 000 ml @ 125 mls/hr IV . Q8H [facility] Rx#:[id number] Dextrose 5% in Water 1, 900 900 75 000 ml @ 75 mls/hr IV . [id number] JACK with Sodium Bicarb (1 Meq/ml) 150 ml Rx#:[id number] Mvi, Adult No.4 with Vit 1500 775 K 10 ml Trace (Conc-1Ml/ Dose) 1 ml Calcium Gluconate 1,000 mg Sodium Acetate 40 meq In Amino Acid 4.25%-D10w 1,000 ml @ 125 mls/hr IV .BY DURATION [facility] Rx#: [id number] Piperacillin-Tazobactam 3 50.0 .375 gm In Dextrose/Water 1 50ml.bag @ 12.5 mls/hr IVPB Q12H [facility] Rx#: [id number] Intake, IV Titration 26.692 59.841 14.909 Amount Insulin Regular 100 unit 26.692 54.341 14.909 In Sodium Chloride 0.9% 100 ml @ Per Protocol IV .Q0M [facility] Rx#:[id number] Nitroglycerin-D5w Pmx 50 5.500 mg In Dextrose/Water 1 250ml.bag @ 10 MCG/MIN 3 mls/hr IV .Q24H [facility] Rx#: [id number] Tube Feeding 0 Other 80 Output: Gastric Drainage 800 200 550 Urine 1 2 Other: Voiding Method Indwelling Catheter Indwelling Catheter ABP, PAP, CO, CI - Last Documented Arterial Blood Pressure 149/62 - Exam No acute distress, The patient has a orally placed endotracheal tube and NG tube.. HEENT examination is grossly unremarkable. Mucous membranes are moist. Neck supple. Full range of motion. No adenopathy thyromegaly or neck vein distention. Cardiovascular examination reveals regular rhythm rate. S1-S2 normal. No S3 or S4. No discernible murmur noted. Lungs reveal diffuse bilateral rhonchi. Breath sounds are equal bilaterally. No wheezes. A few scattered crackles. Abdomen soft bowel sounds are heard. No masses or tenderness. Extremities are intact. No cyanosis clubbing or edema. Skin is without rash or lesion. Neurologic examination cannot be adequately assessed as the patient is currently sedated. The patient does move all 4 extremities. The patient does seem to open his eyes on verbal stimuli. - Labs CBC & Chem 7: 11/24/17 04:05 11/24/17 04:05 Labs: Abnormal Lab Results - Last 24 Hours (Table) 11/21/17 11/23/17 11/23/17 Range/Units 10:20 10:07 11:09 WBC (3.8-10.6) k/uL RBC (4.30-5.90) m/uL Hgb (13.0-17.5) gm/dL Hct (39.0-53.0) % Plt Count (150-450) k/uL ABG pCO2 (35-45) mmHg ABG pO2 (83-108) mmHg ABG HCO3 (21-25) mmol/L ABG Total CO2 (19-24) mmol/L ABG O2 Saturation (94-97) % Sodium (137-145) mmol/L Chloride (98-107) mmol/L BUN (9-20) mg/dL Creatinine (0.66-1.25) mg/dL Glucose (74-99) mg/dL POC Glucose (mg/dL) 106 H 125 H (75-99) mg/dL Calcium (8.4-10.2) mg/dL Phosphorus (2.5-4.5) mg/dL AST (17-59) U/L Alkaline Phosphatase (38-126) U/L Total Protein (6.3-8.2) g/dL Albumin (3.5-5.0) g/dL Crossmatch See Detail 11/23/17 11/23/17 11/23/17 Range/Units 12:20 13:02 14:07 WBC (3.8-10.6) k/uL RBC (4.30-5.90) m/uL Hgb (13.0-17.5) gm/dL Hct (39.0-53.0) % Plt Count (150-450) k/uL ABG pCO2 (35-45) mmHg ABG pO2 (83-108) mmHg ABG HCO3 (21-25) mmol/L ABG Total CO2 (19-24) mmol/L ABG O2 Saturation (94-97) % Sodium (137-145) mmol/L Chloride (98-107) mmol/L BUN (9-20) mg/dL Creatinine (0.66-1.25) mg/dL Glucose (74-99) mg/dL POC Glucose (mg/dL) 127 H 135 H 155 H (75-99) mg/dL Calcium (8.4-10.2) mg/dL Phosphorus (2.5-4.5) mg/dL AST (17-59) U/L Alkaline Phosphatase (38-126) U/L Total Protein (6.3-8.2) g/dL Albumin (3.5-5.0) g/dL Crossmatch 11/23/17 11/23/17 11/23/17 Range/Units 15:20 16:19 17:07 WBC (3.8-10.6) k/uL RBC (4.30-5.90) m/uL Hgb (13.0-17.5) gm/dL Hct (39.0-53.0) % Plt Count (150-450) k/uL ABG pCO2 (35-45) mmHg ABG pO2 (83-108) mmHg ABG HCO3 (21-25) mmol/L ABG Total CO2 (19-24) mmol/L ABG O2 Saturation (94-97) % Sodium (137-145) mmol/L Chloride (98-107) mmol/L BUN (9-20) mg/dL Creatinine (0.66-1.25) mg/dL Glucose (74-99) mg/dL POC Glucose (mg/dL) 155 H 200 H 204 H (75-99) mg/dL Calcium (8.4-10.2) mg/dL Phosphorus (2.5-4.5) mg/dL AST (17-59) U/L Alkaline Phosphatase (38-126) U/L Total Protein (6.3-8.2) g/dL Albumin (3.5-5.0) g/dL Crossmatch 11/23/17 11/23/17 11/23/17 Range/Units 18:12 19:14 19:51 WBC (3.8-10.6) k/uL RBC (4.30-5.90) m/uL Hgb (13.0-17.5) gm/dL Hct (39.0-53.0) % Plt Count (150-450) k/uL ABG pCO2 (35-45) mmHg ABG pO2 (83-108) mmHg ABG HCO3 (21-25) mmol/L ABG Total CO2 (19-24) mmol/L ABG O2 Saturation (94-97) % Sodium (137-145) mmol/L Chloride (98-107) mmol/L BUN (9-20) mg/dL Creatinine (0.66-1.25) mg/dL Glucose (74-99) mg/dL POC Glucose (mg/dL) 154 H 208 H 210 H (75-99) mg/dL Calcium (8.4-10.2) mg/dL Phosphorus (2.5-4.5) mg/dL AST (17-59) U/L Alkaline Phosphatase (38-126) U/L Total Protein (6.3-8.2) g/dL Albumin (3.5-5.0) g/dL Crossmatch 11/23/17 11/23/17 11/23/17 Range/Units 21:01 22:14 22:53 WBC (3.8-10.6) k/uL RBC (4.30-5.90) m/uL Hgb (13.0-17.5) gm/dL Hct (39.0-53.0) % Plt Count (150-450) k/uL ABG pCO2 (35-45) mmHg ABG pO2 (83-108) mmHg ABG HCO3 (21-25) mmol/L ABG Total CO2 (19-24) mmol/L ABG O2 Saturation (94-97) % Sodium (137-145) mmol/L Chloride (98-107) mmol/L BUN (9-20) mg/dL Creatinine (0.66-1.25) mg/dL Glucose (74-99) mg/dL POC Glucose (mg/dL) 196 H 211 H 186 H (75-99) mg/dL Calcium (8.4-10.2) mg/dL Phosphorus (2.5-4.5) mg/dL AST (17-59) U/L Alkaline Phosphatase (38-126) U/L Total Protein (6.3-8.2) g/dL Albumin (3.5-5.0) g/dL Crossmatch 11/23/17 11/24/17 11/24/17 Range/Units 23:49 01:10 01:57 WBC (3.8-10.6) k/uL RBC (4.30-5.90) m/uL Hgb (13.0-17.5) gm/dL Hct (39.0-53.0) % Plt Count (150-450) k/uL ABG pCO2 (35-45) mmHg ABG pO2 (83-108) mmHg ABG HCO3 (21-25) mmol/L ABG Total CO2 (19-24) mmol/L ABG O2 Saturation (94-97) % Sodium (137-145) mmol/L Chloride (98-107) mmol/L BUN (9-20) mg/dL Creatinine (0.66-1.25) mg/dL Glucose (74-99) mg/dL POC Glucose (mg/dL) 195 H 183 H 198 H (75-99) mg/dL Calcium (8.4-10.2) mg/dL Phosphorus (2.5-4.5) mg/dL AST (17-59) U/L Alkaline Phosphatase (38-126) U/L Total Protein (6.3-8.2) g/dL Albumin (3.5-5.0) g/dL Crossmatch 11/24/17 11/24/17 11/24/17 Range/Units 03:14 04:03 04:05 WBC 22.0 H (3.8-10.6) k/uL RBC 2.22 L (4.30-5.90) m/uL Hgb 6.6 L* (13.0-17.5) gm/dL Hct 20.2 L (39.0-53.0) % Plt Count 517 H (150-450) k/uL ABG pCO2 (35-45) mmHg ABG pO2 (83-108) mmHg ABG HCO3 (21-25) mmol/L ABG Total CO2 (19-24) mmol/L ABG O2 Saturation (94-97) % Sodium (137-145) mmol/L Chloride (98-107) mmol/L BUN (9-20) mg/dL Creatinine (0.66-1.25) mg/dL Glucose (74-99) mg/dL POC Glucose (mg/dL) 162 H 191 H (75-99) mg/dL Calcium (8.4-10.2) mg/dL Phosphorus (2.5-4.5) mg/dL AST (17-59) U/L Alkaline Phosphatase (38-126) U/L Total Protein (6.3-8.2) g/dL Albumin (3.5-5.0) g/dL Crossmatch 11/24/17 11/24/17 11/24/17 Range/Units 04:05 04:26 05:41 WBC (3.8-10.6) k/uL RBC (4.30-5.90) m/uL Hgb (13.0-17.5) gm/dL Hct (39.0-53.0) % Plt Count (150-450) k/uL ABG pCO2 49 H (35-45) mmHg ABG pO2 113 H (83-108) mmHg ABG HCO3 29 H (21-25) mmol/L ABG Total CO2 31 H (19-24) mmol/L ABG O2 Saturation 98.2 H (94-97) % Sodium 130 L (137-145) mmol/L Chloride 90 L (98-107) mmol/L BUN 68 H (9-20) mg/dL Creatinine 3.80 H (0.66-1.25) mg/dL Glucose 157 H (74-99) mg/dL POC Glucose (mg/dL) 186 H (75-99) mg/dL Calcium 7.2 L (8.4-10.2) mg/dL Phosphorus 6.3 H (2.5-4.5) mg/dL AST 280 H (17-59) U/L Alkaline Phosphatase 349 H (38-126) U/L Total Protein 5.0 L (6.3-8.2) g/dL Albumin 2.1 L (3.5-5.0) g/dL Crossmatch 11/24/17 11/24/17 11/24/17 Range/Units 06:10 07:09 08:22 WBC (3.8-10.6) k/uL RBC (4.30-5.90) m/uL Hgb (13.0-17.5) gm/dL Hct (39.0-53.0) % Plt Count (150-450) k/uL ABG pCO2 (35-45) mmHg ABG pO2 (83-108) mmHg ABG HCO3 (21-25) mmol/L ABG Total CO2 (19-24) mmol/L ABG O2 Saturation (94-97) % Sodium (137-145) mmol/L Chloride (98-107) mmol/L BUN (9-20) mg/dL Creatinine (0.66-1.25) mg/dL Glucose (74-99) mg/dL POC Glucose (mg/dL) 186 H 182 H 122 H (75-99) mg/dL Calcium (8.4-10.2) mg/dL Phosphorus (2.5-4.5) mg/dL AST (17-59) U/L Alkaline Phosphatase (38-126) U/L Total Protein (6.3-8.2) g/dL Albumin (3.5-5.0) g/dL Crossmatch 11/24/17 Range/Units 09:18 WBC (3.8-10.6) k/uL RBC (4.30-5.90) m/uL Hgb (13.0-17.5) gm/dL Hct (39.0-53.0) % Plt Count (150-450) k/uL ABG pCO2 (35-45) mmHg ABG pO2 (83-108) mmHg ABG HCO3 (21-25) mmol/L ABG Total CO2 (19-24) mmol/L ABG O2 Saturation (94-97) % Sodium (137-145) mmol/L Chloride (98-107) mmol/L BUN (9-20) mg/dL Creatinine (0.66-1.25) mg/dL Glucose (74-99) mg/dL POC Glucose (mg/dL) 135 H (75-99) mg/dL Calcium (8.4-10.2) mg/dL Phosphorus (2.5-4.5) mg/dL AST (17-59) U/L Alkaline Phosphatase (38-126) U/L Total Protein (6.3-8.2) g/dL Albumin (3.5-5.0) g/dL Crossmatch Microbiology - Last 24 Hours (Table) 11/23/17 15:20 Gram Stain - Preliminary Sputum Sputum Culture - Preliminary Assessment and Plan Assessment: Assessment Acute ST segment elevation myocardial infarction, status post angioplasty and stenting of a left main lesion Status post cardiopulmonary arrest with cardiopulmonary resuscitation and return of spontaneous circulation, November 10 Hypoxemic respiratory failure with intubation and mechanical ventilation, and failure to wean Rule out anoxic brain injury. Hypotension, secondary to cardiac arrest, resolved Acute kidney injury Diffuse bilateral infiltrates, which may reflect noncardiogenic pulmonary edema or aspiration History of gastrointestinal carcinoid tumor Anion gap metabolic acidosis Hypernatremia Diffuse abdominal distention Failure to wean History of cardiac arrhythmia/sinus pause/asystole, status post temporary pacemaker placement Anticipated tracheostomy and PEG tube placement on November 24 Plan: Plan dated 11/22/2017 We will continue with full supportive care at the current time. We need to talk about PEG tube placement and tracheostomy as well. In addition, the patient's CODE STATUS needs to be addressed. Additional recommendations and suggestions are forthcoming. We will do a daily eruption of sedation and assess the patient for a spontaneous breathing trial. Prognosis is poor. The patient currently is on the assist control mode rate of 20, a tidal volume of 500, and FiO2 of 55%, and a PEEP of 5. The patient's blood gases show a PaO2 of 79 a PaCO2 of 42 and a pH of 7.32. In addition, the patient is on dextrose with 3 amps of bicarbonate at 75 mL an hour and TPN at 125 mL and propofol at 35 mcg/kg/m Critical care time is 34 minutes. Plan dated 11/23/2017 The patient will continue with full supportive care at this time. He scheduled for a PEG tube placement and tracheostomy tomorrow. Today we'll go ahead and do a PSV/CPAP trial. We'll have neurology see the patient for anoxic/metabolic encephalopathy. I'll look at the labs x-rays a medications. The patient is not able to tolerate enteral nutrition at this time. Additional recommendations and suggestions are forthcoming. FiO2 was dropped down from 50 % down to 40%. Critical care time 36 minutes Plan dated 11/24/2017 The patient will receive full supportive care at this time. His apparently scheduled for a PEG tube placement and tracheostomy tube placement today. The patient some IVs will be reevaluated. Labs x-rays a medications are reviewed. Chest x-ray shows diffuse bilateral infiltrates, unchanged. The patient will continue on parenteral nutrition. Additional recommendations and suggestions are forthcoming. Prognosis is guarded. We'll continue to follow. We'll await neurology input. Critical care time 34 minutes Time with Patient: Greater than 30
[2017-11-24] MEDS: QUEtiapine 25 MG TAB PO SCH ×2 (09:42→20:29)
[2017-11-24] MEDS: PIPERACILLIN-TAZOBACTAM 3.375 GM in DEXTROSE/WATER 1 50ML.BAG IVPB SCH ×2 (09:42→21:05)
[2017-11-24] MEDS: TICAGRELOR 90 MG TAB PO SCH ×2 (09:43→20:29)
[2017-11-24] MEDS: CHLORHEXIDINE GLUCONATE 15 ML CUP MUCOUS MEM SCH ×2 (09:43→20:28)
[2017-11-24] MEDS: CALCIUM GLUCONATE 1,000 MG in SODIUM CHLORIDE 0.9% 100 ML IVPB SCH ×2 (09:43→21:05)
[2017-11-24] MEDS: ASPIRIN 81 MG PO SCH (09:43)
[2017-11-24] MEDS: METOPROLOL TARTRATE 25 MG TAB PO SCH ×2 (09:44→20:28)
[2017-11-24] MEDS: LEVOTHYROXINE IVP 100 MCG/5 ML VIAL IV SCH (09:44)
[2017-11-24] MEDS: PANTOPRAZOLE 40 MG/10 ML VIAL IVP SCH ×2 (09:44→20:28)
[2017-11-24] MEDS: SODIUM CHLORIDE 0.9% 1,000 ML IV SCH (09:44)
[2017-11-24 10:06] LABS: Glucose,Whole Blood 133 mg/dL (75-99)
[2017-11-24 10:40] VITALS: RESP 20
[2017-11-24 11:09] LABS: Glucose,Whole Blood 105 mg/dL (75-99)
--- NOTE | 2017-11-24 11:36 | PN ---
PROGRESS NOTE Mr. Meredith is a 57-year-old gentleman who is status post cardiac arrest, status post left main stenting with renal failure on dialysis, respiratory failure and possible hypoxic encephalopathy, who is without sedation for almost 48 hours without any purposeful activity. Intermittently using the pacemaker that he has. PHYSICAL EXAM: Heart rate is 70 beats per minute. Blood pressure is 113/55, respiratory rate is 18. Chest exam reveals diminished air entry at the bases. Heart exam reveals first and second heart sounds. No gallop. Exam of extremities did not reveal any edema. Peripheral pulses are felt. LABS: Show that BUN is 68, creatinine is 3.8, potassium is 3.7, hemoglobin is low at 6.6. ASSESSMENT: 1. Status post cardiac arrest. 2. Possible hypoxic encephalopathy. 3. Renal failure on dialysis. 4. Complete heart block, status post pacemaker. PLAN: Patient will continue with supportive care at this time. Prognosis guarded. MMODL / IJN: [id number] /
[2017-11-24 11:38] LABS: Band Neutrophils % 2 %; Eosinophils # (M) 0.22 k/uL (0-0.7); Lymphocytes # (M) 0.66 k/uL (1.0-4.8); Monocytes # (M) 0.66 k/uL (0-1.0); Neutrophils % (M) 91 %; Nucleated Red Blood Cells 0 /100 WBC (0-0); Total Cells Counted 100
[2017-11-24 11:42] LABS: Polychromasia Present
--- NOTE | 2017-11-24 11:42 | P.PN ---
Subjective Progress Note Date: 11/24/17 Principal diagnosis: Acute ST segment elevation myocardial infarction secondary to tight left main lesion, status post successful angioplasty and stenting, acute cardiac arrest with CPR and resuscitation, acute hypoxic respiratory failure, ventilator dependence, acute kidney injury secondary to acute cardiac arrest and hypotension, abdominal distention with possible ileus, history of neuroendocrine carcinoid tumor of the mesentery, and history of leukemia in remission. Status post successful stenting of the distal left main and ostial LAD on 2017. Status post external is permanent pacemaker placed on 11/19/2017. Status post placement of triple-lumen dialysis catheter with a right femoral approach on 11/22/2017. Patient currently lying in bed in no acute distress. Remains intubated. Continues to open eyes but does not follow, does not track. Currently receiving dialysis. is at the bedside this morning, updated and all questions answered. Continues to have bleeding around dialysis site, receiving 1 unit packed red blood cells and DDAVP during dialysis. Objective - Vital Signs Vital signs: Vital Signs Temp 97.6 F 11/24/17 10:48 Pulse 79 11/24/17 11:25 Resp 20 11/24/17 11:00 BP 100/61 11/24/17 11:00 Pulse Ox 100 11/24/17 11:00 Intake & Output 11/23/17 11/24/17 11/24/17 18:59 06:59 18:59 Intake Total 2608.692 2681.841 1364.909 Output Total 801 202 550 Balance 8477.644 7596.841 814.909 Weight 98 kg Intake: IV 2582 2542.0 1040 0.9 110 20 10 0.9 for pressure 72 72 30 Calcium Gluconate 1,000 100 mg Sodium Acetate 40 meq In Amino Acid 4.25%-D10w 1,000 ml @ 125 mls/hr IV .BY DURATION JACK Rx#: [id number] Dextrose 10% in Water 1, 625 625 000 ml @ 125 mls/hr IV . Q8H JACK Rx#:[id number] Dextrose 5% in Water 1, 900 900 150 000 ml @ 75 mls/hr IV . [id number] JACK with Sodium Bicarb (1 Meq/ml) 150 ml Rx#:[id number] Mvi, Adult No.4 with Vit 1500 775 K 10 ml Trace (Conc-1Ml/ Dose) 1 ml Calcium Gluconate 1,000 mg Sodium Acetate 40 meq In Amino Acid 4.25%-D10w 1,000 ml @ 125 mls/hr IV .BY DURATION JACK Rx#: [id number] Piperacillin-Tazobactam 3 50.0 .375 gm In Dextrose/Water 1 50ml.bag @ 12.5 mls/hr IVPB Q12H [facility]ACK Rx#: [id number] Sodium Chloride 0.9% 1, 225 000 ml @ 75 mls/hr IV . [id number] JACK Rx#:[id number] Intake, IV Titration 26.692 59.841 14.909 Amount Insulin Regular 100 unit 26.692 54.341 14.909 In Sodium Chloride 0.9% 100 ml @ Per Protocol IV .Q0M JACK Rx#:[id number] Nitroglycerin-D5w Pmx 50 5.500 mg In Dextrose/Water 1 250ml.bag @ 10 MCG/MIN 3 mls/hr IV .Q24H [facility] Rx#: [id number] Tube Feeding 0 Blood Product 310 Rc Pheresis As-3 Unit 310 [id number] Other 80 Output: Gastric Drainage 800 200 550 Urine 1 2 0 Other: Voiding Method Indwelling Catheter Indwelling Catheter Indwelling Catheter ABP, PAP, CO, CI - Last Documented Arterial Blood Pressure 114/58 - Constitutional General appearance: Present: no acute distress - Respiratory Details: Lungs sounds diminished in coarse bilaterally. Respirations even, nonlabored on mechanical ventilation. Current settings assist control mode, FiO2 40%, tidal volume 500, respiratory rate 20, PEEP 5. ABGs this morning 7.39/29/113/29 /4.2/90% on 50% FiO2. - Cardiovascular Details: S1 and S2 present. Regular rate and rhythm, sinus rhythm on telemetry. Palpable peripheral pulses bilaterally. Generalized edema present. Right radial arterial line, left subclavian triple-lumen central line, right chest transvenous pacemaker, right femoral temporary dialysis catheter present. SCDs present. - Gastrointestinal Gastrointestinal Comment(s): Abdomen soft, nontender, nondistended. Active bowel sounds 4 quadrants. OG tube present, tube feeding currently on hold, previously was infusing at 50 mL per hour. - Genitourinary Genitourinary Comment(s): Patient remains virtually anuric. Currently receiving dialysis. - Integumentary Integumentary Comment(s): Skin is warm and dry. Patient does have continued oozing of blood around dialysis catheter site - Neurologic Neurologic Comment(s): Open his eyes periodically, does not track, does not follow any commands. Has been off sedation for 2 days. - Labs CBC & Chem 7: 11/24/17 04:05 11/24/17 04:05 Labs: Abnormal Lab Results - Last 24 Hours (Table) 11/21/17 11/23/17 11/23/17 Range/Units 10:20 12:20 13:02 WBC (3.8-10.6) k/uL RBC (4.30-5.90) m/uL Hgb (13.0-17.5) gm/dL Hct (39.0-53.0) % Plt Count (150-450) k/uL ABG pCO2 (35-45) mmHg ABG pO2 (83-108) mmHg ABG HCO3 (21-25) mmol/L ABG Total CO2 (19-24) mmol/L ABG O2 Saturation (94-97) % Sodium (137-145) mmol/L Chloride (98-107) mmol/L BUN (9-20) mg/dL Creatinine (0.66-1.25) mg/dL Glucose (74-99) mg/dL POC Glucose (mg/dL) 127 H 135 H (75-99) mg/dL Calcium (8.4-10.2) mg/dL Phosphorus (2.5-4.5) mg/dL AST (17-59) U/L Alkaline Phosphatase (38-126) U/L Total Protein (6.3-8.2) g/dL Albumin (3.5-5.0) g/dL Crossmatch See Detail 11/23/17 11/23/17 11/23/17 Range/Units 14:07 15:20 16:19 WBC (3.8-10.6) k/uL RBC (4.30-5.90) m/uL Hgb (13.0-17.5) gm/dL Hct (39.0-53.0) % Plt Count (150-450) k/uL ABG pCO2 (35-45) mmHg ABG pO2 (83-108) mmHg ABG HCO3 (21-25) mmol/L ABG Total CO2 (19-24) mmol/L ABG O2 Saturation (94-97) % Sodium (137-145) mmol/L Chloride (98-107) mmol/L BUN (9-20) mg/dL Creatinine (0.66-1.25) mg/dL Glucose (74-99) mg/dL POC Glucose (mg/dL) 155 H 155 H 200 H (75-99) mg/dL Calcium (8.4-10.2) mg/dL Phosphorus (2.5-4.5) mg/dL AST (17-59) U/L Alkaline Phosphatase (38-126) U/L Total Protein (6.3-8.2) g/dL Albumin (3.5-5.0) g/dL Crossmatch 11/23/17 11/23/17 11/23/17 Range/Units 17:07 18:12 19:14 WBC (3.8-10.6) k/uL RBC (4.30-5.90) m/uL Hgb (13.0-17.5) gm/dL Hct (39.0-53.0) % Plt Count (150-450) k/uL ABG pCO2 (35-45) mmHg ABG pO2 (83-108) mmHg ABG HCO3 (21-25) mmol/L ABG Total CO2 (19-24) mmol/L ABG O2 Saturation (94-97) % Sodium (137-145) mmol/L Chloride (98-107) mmol/L BUN (9-20) mg/dL Creatinine (0.66-1.25) mg/dL Glucose (74-99) mg/dL POC Glucose (mg/dL) 204 H 154 H 208 H (75-99) mg/dL Calcium (8.4-10.2) mg/dL Phosphorus (2.5-4.5) mg/dL AST (17-59) U/L Alkaline Phosphatase (38-126) U/L Total Protein (6.3-8.2) g/dL Albumin (3.5-5.0) g/dL Crossmatch 11/23/17 11/23/17 11/23/17 Range/Units 19:51 21:01 22:14 WBC (3.8-10.6) k/uL RBC (4.30-5.90) m/uL Hgb (13.0-17.5) gm/dL Hct (39.0-53.0) % Plt Count (150-450) k/uL ABG pCO2 (35-45) mmHg ABG pO2 (83-108) mmHg ABG HCO3 (21-25) mmol/L ABG Total CO2 (19-24) mmol/L ABG O2 Saturation (94-97) % Sodium (137-145) mmol/L Chloride (98-107) mmol/L BUN (9-20) mg/dL Creatinine (0.66-1.25) mg/dL Glucose (74-99) mg/dL POC Glucose (mg/dL) 210 H 196 H 211 H (75-99) mg/dL Calcium (8.4-10.2) mg/dL Phosphorus (2.5-4.5) mg/dL AST (17-59) U/L Alkaline Phosphatase (38-126) U/L Total Protein (6.3-8.2) g/dL Albumin (3.5-5.0) g/dL Crossmatch 11/23/17 11/23/17 11/24/17 Range/Units 22:53 23:49 01:10 WBC (3.8-10.6) k/uL RBC (4.30-5.90) m/uL Hgb (13.0-17.5) gm/dL Hct (39.0-53.0) % Plt Count (150-450) k/uL ABG pCO2 (35-45) mmHg ABG pO2 (83-108) mmHg ABG HCO3 (21-25) mmol/L ABG Total CO2 (19-24) mmol/L ABG O2 Saturation (94-97) % Sodium (137-145) mmol/L Chloride (98-107) mmol/L BUN (9-20) mg/dL Creatinine (0.66-1.25) mg/dL Glucose (74-99) mg/dL POC Glucose (mg/dL) 186 H 195 H 183 H (75-99) mg/dL Calcium (8.4-10.2) mg/dL Phosphorus (2.5-4.5) mg/dL AST (17-59) U/L Alkaline Phosphatase (38-126) U/L Total Protein (6.3-8.2) g/dL Albumin (3.5-5.0) g/dL Crossmatch 11/24/17 11/24/17 11/24/17 Range/Units 01:57 03:14 04:03 WBC (3.8-10.6) k/uL RBC (4.30-5.90) m/uL Hgb (13.0-17.5) gm/dL Hct (39.0-53.0) % Plt Count (150-450) k/uL ABG pCO2 (35-45) mmHg ABG pO2 (83-108) mmHg ABG HCO3 (21-25) mmol/L ABG Total CO2 (19-24) mmol/L ABG O2 Saturation (94-97) % Sodium (137-145) mmol/L Chloride (98-107) mmol/L BUN (9-20) mg/dL Creatinine (0.66-1.25) mg/dL Glucose (74-99) mg/dL POC Glucose (mg/dL) 198 H 162 H 191 H (75-99) mg/dL Calcium (8.4-10.2) mg/dL Phosphorus (2.5-4.5) mg/dL AST (17-59) U/L Alkaline Phosphatase (38-126) U/L Total Protein (6.3-8.2) g/dL Albumin (3.5-5.0) g/dL Crossmatch 11/24/17 11/24/17 11/24/17 Range/Units 04:05 04:05 04:26 WBC 22.0 H (3.8-10.6) k/uL RBC 2.22 L (4.30-5.90) m/uL Hgb 6.6 L* (13.0-17.5) gm/dL Hct 20.2 L (39.0-53.0) % Plt Count 517 H (150-450) k/uL ABG pCO2 49 H (35-45) mmHg ABG pO2 113 H (83-108) mmHg ABG HCO3 29 H (21-25) mmol/L ABG Total CO2 31 H (19-24) mmol/L ABG O2 Saturation 98.2 H (94-97) % Sodium 130 L (137-145) mmol/L Chloride 90 L (98-107) mmol/L BUN 68 H (9-20) mg/dL Creatinine 3.80 H (0.66-1.25) mg/dL Glucose 157 H (74-99) mg/dL POC Glucose (mg/dL) (75-99) mg/dL Calcium 7.2 L (8.4-10.2) mg/dL Phosphorus 6.3 H (2.5-4.5) mg/dL AST 280 H (17-59) U/L Alkaline Phosphatase 349 H (38-126) U/L Total Protein 5.0 L (6.3-8.2) g/dL Albumin 2.1 L (3.5-5.0) g/dL Crossmatch 11/24/17 11/24/17 11/24/17 Range/Units 05:41 06:10 07:09 WBC (3.8-10.6) k/uL RBC (4.30-5.90) m/uL Hgb (13.0-17.5) gm/dL Hct (39.0-53.0) % Plt Count (150-450) k/uL ABG pCO2 (35-45) mmHg ABG pO2 (83-108) mmHg ABG HCO3 (21-25) mmol/L ABG Total CO2 (19-24) mmol/L ABG O2 Saturation (94-97) % Sodium (137-145) mmol/L Chloride (98-107) mmol/L BUN (9-20) mg/dL Creatinine (0.66-1.25) mg/dL Glucose (74-99) mg/dL POC Glucose (mg/dL) 186 H 186 H 182 H (75-99) mg/dL Calcium (8.4-10.2) mg/dL Phosphorus (2.5-4.5) mg/dL AST (17-59) U/L Alkaline Phosphatase (38-126) U/L Total Protein (6.3-8.2) g/dL Albumin (3.5-5.0) g/dL Crossmatch 11/24/17 11/24/17 11/24/17 Range/Units 08:22 09:18 10:03 WBC (3.8-10.6) k/uL RBC (4.30-5.90) m/uL Hgb (13.0-17.5) gm/dL Hct (39.0-53.0) % Plt Count (150-450) k/uL ABG pCO2 (35-45) mmHg ABG pO2 (83-108) mmHg ABG HCO3 (21-25) mmol/L ABG Total CO2 (19-24) mmol/L ABG O2 Saturation (94-97) % Sodium (137-145) mmol/L Chloride (98-107) mmol/L BUN (9-20) mg/dL Creatinine (0.66-1.25) mg/dL Glucose (74-99) mg/dL POC Glucose (mg/dL) 122 H 135 H 133 H (75-99) mg/dL Calcium (8.4-10.2) mg/dL Phosphorus (2.5-4.5) mg/dL AST (17-59) U/L Alkaline Phosphatase (38-126) U/L Total Protein (6.3-8.2) g/dL Albumin (3.5-5.0) g/dL Crossmatch 11/24/17 Range/Units 11:07 WBC (3.8-10.6) k/uL RBC (4.30-5.90) m/uL Hgb (13.0-17.5) gm/dL Hct (39.0-53.0) % Plt Count (150-450) k/uL ABG pCO2 (35-45) mmHg ABG pO2 (83-108) mmHg ABG HCO3 (21-25) mmol/L ABG Total CO2 (19-24) mmol/L ABG O2 Saturation (94-97) % Sodium (137-145) mmol/L Chloride (98-107) mmol/L BUN (9-20) mg/dL Creatinine (0.66-1.25) mg/dL Glucose (74-99) mg/dL POC Glucose (mg/dL) 105 H (75-99) mg/dL Calcium (8.4-10.2) mg/dL Phosphorus (2.5-4.5) mg/dL AST (17-59) U/L Alkaline Phosphatase (38-126) U/L Total Protein (6.3-8.2) g/dL Albumin (3.5-5.0) g/dL Crossmatch Microbiology - Last 24 Hours (Table) 11/23/17 15:20 Gram Stain - Preliminary Sputum Sputum Culture - Preliminary - Imaging and Cardiology Chest x-ray: report reviewed, image reviewed Assessment and Plan (1) Respiratory failure Current Visit: Yes Status: Acute Code(s): J96.90 - RESPIRATORY FAILURE, UNSP , UNSP W HYPOXIA OR HYPERCAPNIA SNOMED Code(s): 895998922 (2) Cardiac arrest Current Visit: Yes Status: Acute Code(s): I46.9 - CARDIAC ARREST, CAUSE UNSPECIFIED SNOMED Code(s): 218080385 (3) Acute ST segment elevation myocardial infarction Current Visit: Yes Status: Acute Code(s): I21.3 - ST ELEVATION (STEMI) MYOCARDIAL INFARCTION OF UNSP SITE SNOMED Code(s): 663823484 (4) Failure to wean from mechanical ventilation Current Visit: Yes Status: Acute Code(s): Z99.11 - DEPENDENCE ON RESPIRATOR [VENTILATOR] STATUS SNOMED Code(s): 814975596 (5) History of benign carcinoid tumor of gastrointestinal tract Current Visit: Yes Status: Chronic Code(s): Z86.012 - PERSONAL HISTORY OF BENIGN CARCINOID TUMOR SNOMED Code(s): 17369988767734 (6) History of temporary cardiac pacemaker treatment Current Visit: Yes Status: Acute Code(s): Z86.79 - PERSONAL HISTORY OF OTHER DISEASES OF THE CIRCULATORY SYSTEM SNOMED Code(s): 667430835 Plan: 1. Will hold off on tracheostomy and PEG tube placement, hopefully will be more stable and bleeding can be controlled. 2. Ventilator management per pulmonology. 3. Hemodialysis per nephrology. 4. GI/DVT prophylaxis. 5. AMI/cardiac management per cardiology. 6. Will monitor daily labs and x-rays. 7. Medical management of other comorbidities per primary care service. 8. More recommendations to follow. Time with Patient: Greater than 30
--- NOTE | 2017-11-24 11:45 | P.PN ---
Subjective Progress Note Date: 11/24/17 57-year-old male seen in the intensive care unit this morning sedated on vent support at bedside. Currently receiving hemodialysis. Patient reportedly is being scheduled today for PEG and trach per Dr. Navarro. Nursing reports no stool today did have frequent loose stools yesterday. Oral gastric tube in place continues to have large output few hypoactive bowel tones abdomen remains distended Objective - Vital Signs Vital signs: Vital Signs Temp 97.6 F 11/24/17 10:48 Pulse 79 11/24/17 11:25 Resp 20 11/24/17 11:00 BP 100/61 11/24/17 11:00 Pulse Ox 100 11/24/17 11:00 Intake & Output 11/23/17 11/24/17 11/24/17 18:59 06:59 18:59 Intake Total 2608.692 2681.841 1364.909 Output Total 801 202 550 Balance 7240.021 6069.841 814.909 Weight 98 kg Intake: IV 2582 2542.0 1040 0.9 110 20 10 0.9 for pressure 72 72 30 Calcium Gluconate 1,000 100 mg Sodium Acetate 40 meq In Amino Acid 4.25%-D10w 1,000 ml @ 125 mls/hr IV .BY DURATION JACK Rx#: [id number] Dextrose 10% in Water 1, 625 625 000 ml @ 125 mls/hr IV . Q8H J[facility] Rx#:[id number] Dextrose 5% in Water 1, 900 900 150 000 ml @ 75 mls/hr IV . [id number] JACK with Sodium Bicarb (1 Meq/ml) 150 ml Rx#:[id number] Mvi, Adult No.4 with Vit 1500 775 K 10 ml Trace (Conc-1Ml/ Dose) 1 ml Calcium Gluconate 1,000 mg Sodium Acetate 40 meq In Amino Acid 4.25%-D10w 1,000 ml @ 125 mls/hr IV .BY DURATION JACK Rx#: [id number] Piperacillin-Tazobactam 3 50.0 .375 gm In Dextrose/Water 1 50ml.bag @ 12.5 mls/hr IVPB Q12H [facility] Rx#: [id number] Sodium Chloride 0.9% 1, 225 000 ml @ 75 mls/hr IV . [id number] JACK Rx#:[id number] Intake, IV Titration 26.692 59.841 14.909 Amount Insulin Regular 100 unit 26.692 54.341 14.909 In Sodium Chloride 0.9% 100 ml @ Per Protocol IV .Q0M [facility] Rx#:[id number] Nitroglycerin-D5w Pmx 50 5.500 mg In Dextrose/Water 1 250ml.bag @ 10 MCG/MIN 3 mls/hr IV .Q24H JACK Rx#: [id number] Tube Feeding 0 Blood Product 310 Rc Pheresis As-3 Unit 310 [id number] Other 80 Output: Gastric Drainage 800 200 550 Urine 1 2 0 Other: Voiding Method Indwelling Catheter Indwelling Catheter Indwelling Catheter ABP, PAP, CO, CI - Last Documented Arterial Blood Pressure 114/58 - Exam Exam Abdomen remains firm distended a few hypoactive bowel tones oral gastric tube in place no stool scrotal edema persist indwelling Felipe catheter in place - Labs CBC & Chem 7: 11/24/17 04:05 11/24/17 04:05 Labs: Abnormal Lab Results - Last 24 Hours (Table) 11/21/17 11/23/17 11/23/17 Range/Units 10:20 12:20 13:02 WBC (3.8-10.6) k/uL RBC (4.30-5.90) m/uL Hgb (13.0-17.5) gm/dL Hct (39.0-53.0) % Plt Count (150-450) k/uL ABG pCO2 (35-45) mmHg ABG pO2 (83-108) mmHg ABG HCO3 (21-25) mmol/L ABG Total CO2 (19-24) mmol/L ABG O2 Saturation (94-97) % Sodium (137-145) mmol/L Chloride (98-107) mmol/L BUN (9-20) mg/dL Creatinine (0.66-1.25) mg/dL Glucose (74-99) mg/dL POC Glucose (mg/dL) 127 H 135 H (75-99) mg/dL Calcium (8.4-10.2) mg/dL Phosphorus (2.5-4.5) mg/dL AST (17-59) U/L Alkaline Phosphatase (38-126) U/L Total Protein (6.3-8.2) g/dL Albumin (3.5-5.0) g/dL Crossmatch See Detail 11/23/17 11/23/17 11/23/17 Range/Units 14:07 15:20 16:19 WBC (3.8-10.6) k/uL RBC (4.30-5.90) m/uL Hgb (13.0-17.5) gm/dL Hct (39.0-53.0) % Plt Count (150-450) k/uL ABG pCO2 (35-45) mmHg ABG pO2 (83-108) mmHg ABG HCO3 (21-25) mmol/L ABG Total CO2 (19-24) mmol/L ABG O2 Saturation (94-97) % Sodium (137-145) mmol/L Chloride (98-107) mmol/L BUN (9-20) mg/dL Creatinine (0.66-1.25) mg/dL Glucose (74-99) mg/dL POC Glucose (mg/dL) 155 H 155 H 200 H (75-99) mg/dL Calcium (8.4-10.2) mg/dL Phosphorus (2.5-4.5) mg/dL AST (17-59) U/L Alkaline Phosphatase (38-126) U/L Total Protein (6.3-8.2) g/dL Albumin (3.5-5.0) g/dL Crossmatch 11/23/17 11/23/17 11/23/17 Range/Units 17:07 18:12 19:14 WBC (3.8-10.6) k/uL RBC (4.30-5.90) m/uL Hgb (13.0-17.5) gm/dL Hct (39.0-53.0) % Plt Count (150-450) k/uL ABG pCO2 (35-45) mmHg ABG pO2 (83-108) mmHg ABG HCO3 (21-25) mmol/L ABG Total CO2 (19-24) mmol/L ABG O2 Saturation (94-97) % Sodium (137-145) mmol/L Chloride (98-107) mmol/L BUN (9-20) mg/dL Creatinine (0.66-1.25) mg/dL Glucose (74-99) mg/dL POC Glucose (mg/dL) 204 H 154 H 208 H (75-99) mg/dL Calcium (8.4-10.2) mg/dL Phosphorus (2.5-4.5) mg/dL AST (17-59) U/L Alkaline Phosphatase (38-126) U/L Total Protein (6.3-8.2) g/dL Albumin (3.5-5.0) g/dL Crossmatch 11/23/17 11/23/17 11/23/17 Range/Units 19:51 21:01 22:14 WBC (3.8-10.6) k/uL RBC (4.30-5.90) m/uL Hgb (13.0-17.5) gm/dL Hct (39.0-53.0) % Plt Count (150-450) k/uL ABG pCO2 (35-45) mmHg ABG pO2 (83-108) mmHg ABG HCO3 (21-25) mmol/L ABG Total CO2 (19-24) mmol/L ABG O2 Saturation (94-97) % Sodium (137-145) mmol/L Chloride (98-107) mmol/L BUN (9-20) mg/dL Creatinine (0.66-1.25) mg/dL Glucose (74-99) mg/dL POC Glucose (mg/dL) 210 H 196 H 211 H (75-99) mg/dL Calcium (8.4-10.2) mg/dL Phosphorus (2.5-4.5) mg/dL AST (17-59) U/L Alkaline Phosphatase (38-126) U/L Total Protein (6.3-8.2) g/dL Albumin (3.5-5.0) g/dL Crossmatch 11/23/17 11/23/17 11/24/17 Range/Units 22:53 23:49 01:10 WBC (3.8-10.6) k/uL RBC (4.30-5.90) m/uL Hgb (13.0-17.5) gm/dL Hct (39.0-53.0) % Plt Count (150-450) k/uL ABG pCO2 (35-45) mmHg ABG pO2 (83-108) mmHg ABG HCO3 (21-25) mmol/L ABG Total CO2 (19-24) mmol/L ABG O2 Saturation (94-97) % Sodium (137-145) mmol/L Chloride (98-107) mmol/L BUN (9-20) mg/dL Creatinine (0.66-1.25) mg/dL Glucose (74-99) mg/dL POC Glucose (mg/dL) 186 H 195 H 183 H (75-99) mg/dL Calcium (8.4-10.2) mg/dL Phosphorus (2.5-4.5) mg/dL AST (17-59) U/L Alkaline Phosphatase (38-126) U/L Total Protein (6.3-8.2) g/dL Albumin (3.5-5.0) g/dL Crossmatch 11/24/17 11/24/17 11/24/17 Range/Units 01:57 03:14 04:03 WBC (3.8-10.6) k/uL RBC (4.30-5.90) m/uL Hgb (13.0-17.5) gm/dL Hct (39.0-53.0) % Plt Count (150-450) k/uL ABG pCO2 (35-45) mmHg ABG pO2 (83-108) mmHg ABG HCO3 (21-25) mmol/L ABG Total CO2 (19-24) mmol/L ABG O2 Saturation (94-97) % Sodium (137-145) mmol/L Chloride (98-107) mmol/L BUN (9-20) mg/dL Creatinine (0.66-1.25) mg/dL Glucose (74-99) mg/dL POC Glucose (mg/dL) 198 H 162 H 191 H (75-99) mg/dL Calcium (8.4-10.2) mg/dL Phosphorus (2.5-4.5) mg/dL AST (17-59) U/L Alkaline Phosphatase (38-126) U/L Total Protein (6.3-8.2) g/dL Albumin (3.5-5.0) g/dL Crossmatch 11/24/17 11/24/17 11/24/17 Range/Units 04:05 04:05 04:26 WBC 22.0 H (3.8-10.6) k/uL RBC 2.22 L (4.30-5.90) m/uL Hgb 6.6 L* (13.0-17.5) gm/dL Hct 20.2 L (39.0-53.0) % Plt Count 517 H (150-450) k/uL ABG pCO2 49 H (35-45) mmHg ABG pO2 113 H (83-108) mmHg ABG HCO3 29 H (21-25) mmol/L ABG Total CO2 31 H (19-24) mmol/L ABG O2 Saturation 98.2 H (94-97) % Sodium 130 L (137-145) mmol/L Chloride 90 L (98-107) mmol/L BUN 68 H (9-20) mg/dL Creatinine 3.80 H (0.66-1.25) mg/dL Glucose 157 H (74-99) mg/dL POC Glucose (mg/dL) (75-99) mg/dL Calcium 7.2 L (8.4-10.2) mg/dL Phosphorus 6.3 H (2.5-4.5) mg/dL AST 280 H (17-59) U/L Alkaline Phosphatase 349 H (38-126) U/L Total Protein 5.0 L (6.3-8.2) g/dL Albumin 2.1 L (3.5-5.0) g/dL Crossmatch 11/24/17 11/24/17 11/24/17 Range/Units 05:41 06:10 07:09 WBC (3.8-10.6) k/uL RBC (4.30-5.90) m/uL Hgb (13.0-17.5) gm/dL Hct (39.0-53.0) % Plt Count (150-450) k/uL ABG pCO2 (35-45) mmHg ABG pO2 (83-108) mmHg ABG HCO3 (21-25) mmol/L ABG Total CO2 (19-24) mmol/L ABG O2 Saturation (94-97) % Sodium (137-145) mmol/L Chloride (98-107) mmol/L BUN (9-20) mg/dL Creatinine (0.66-1.25) mg/dL Glucose (74-99) mg/dL POC Glucose (mg/dL) 186 H 186 H 182 H (75-99) mg/dL Calcium (8.4-10.2) mg/dL Phosphorus (2.5-4.5) mg/dL AST (17-59) U/L Alkaline Phosphatase (38-126) U/L Total Protein (6.3-8.2) g/dL Albumin (3.5-5.0) g/dL Crossmatch 11/24/17 11/24/17 11/24/17 Range/Units 08:22 09:18 10:03 WBC (3.8-10.6) k/uL RBC (4.30-5.90) m/uL Hgb (13.0-17.5) gm/dL Hct (39.0-53.0) % Plt Count (150-450) k/uL ABG pCO2 (35-45) mmHg ABG pO2 (83-108) mmHg ABG HCO3 (21-25) mmol/L ABG Total CO2 (19-24) mmol/L ABG O2 Saturation (94-97) % Sodium (137-145) mmol/L Chloride (98-107) mmol/L BUN (9-20) mg/dL Creatinine (0.66-1.25) mg/dL Glucose (74-99) mg/dL POC Glucose (mg/dL) 122 H 135 H 133 H (75-99) mg/dL Calcium (8.4-10.2) mg/dL Phosphorus (2.5-4.5) mg/dL AST (17-59) U/L Alkaline Phosphatase (38-126) U/L Total Protein (6.3-8.2) g/dL Albumin (3.5-5.0) g/dL Crossmatch 11/24/17 Range/Units 11:07 WBC (3.8-10.6) k/uL RBC (4.30-5.90) m/uL Hgb (13.0-17.5) gm/dL Hct (39.0-53.0) % Plt Count (150-450) k/uL ABG pCO2 (35-45) mmHg ABG pO2 (83-108) mmHg ABG HCO3 (21-25) mmol/L ABG Total CO2 (19-24) mmol/L ABG O2 Saturation (94-97) % Sodium (137-145) mmol/L Chloride (98-107) mmol/L BUN (9-20) mg/dL Creatinine (0.66-1.25) mg/dL Glucose (74-99) mg/dL POC Glucose (mg/dL) 105 H (75-99) mg/dL Calcium (8.4-10.2) mg/dL Phosphorus (2.5-4.5) mg/dL AST (17-59) U/L Alkaline Phosphatase (38-126) U/L Total Protein (6.3-8.2) g/dL Albumin (3.5-5.0) g/dL Crossmatch Microbiology - Last 24 Hours (Table) 11/23/17 15:20 Gram Stain - Preliminary Sputum Sputum Culture - Preliminary Assessment and Plan Assessment: Impression Acute ST segment elevation myocardial infarction secondary to a tight left main lesion status post successful stenting Acute cardiac arrest secondary to the above resuscitated adequately Acute hypoxic respiratory failure secondary to the above History of carcinoid tumor involving the GI tract Computed tomography scan abdomen pelvis suggestive of an ileus no evidence of a small bowel obstruction Failure to wean in spite of multiple trials plan for tracheostomy and PEG tube per Dr. Navarro Plan Continue ICU management Vent per pulmonary management No evidence of an acute surgical abdomen Continue the nasogastric tube to intermittent suction monitor start TPN now We'll follow with you PEG tube trach today per Dr. Navarro note dictated for dr robins The above impression and plan of care have been discussed and directed by signing physician. Suzie Perez nurse practitioner acting as scribe for signing physician.
[2017-11-24] MEDS: 1: MVI, ADULT NO.4 WITH VIT K 10 ML, TRACE (CONC-1ML/DOSE) 1 ML in AMINO ACID 4.25%-D10W IV SCH ×6 (11:55→20:28)
[2017-11-24 12:18] LABS: Glucose,Whole Blood 103 mg/dL (75-99)
[2017-11-24 13:19] LABS: Glucose,Whole Blood 150 mg/dL (75-99)
[2017-11-24 14:09] LABS: Glucose,Whole Blood 168 mg/dL (75-99)
[2017-11-24] MEDS ORDERED: LIDOCAINE 2% INJ 20 MG/ML SQ ONE (14:25)
--- NOTE | 2017-11-24 15:08 | XR ---
EXAMINATION TYPE: XR chest 1V confirm line [facility] DATE OF EXAM: 11/24/2017 COMPARISON: Prior chest x-ray 11/24/2017 and earlier time HISTORY: Post PICC line placement TECHNIQUE: Single frontal view of the chest is obtained. FINDINGS: There is been interval placement of a right-sided PICC line. Distal tip is overlying the c avoatrial junction. No significant interval change. IMPRESSION: Status post PICC line placement as described. No evident complication.
--- NOTE | 2017-11-24 15:09 | PN ---
PROGRESS NOTE DATE OF SERVICE: 11/24/2017 This is a 57-year-old gentleman admitted with multiple medical problems including ST- elevation myocardial infarction, CAD, CABG, unresponsive. The patient also had cardiac respiratory failure. Patient had failure to wean, hemodialysis is being initiated at this time. The patient had a CAT scan that did not show any acute abnormality. Tracheostomy and PEG tube is also being considered at this time. Cardiac and multiple consultants including Pulmonology and Infectious Disease are following the patient closely. PAST MEDICAL HISTORY: Reviewed. REVIEW OF SYSTEM: Could not be taken, the patient is mechanically ventilated and sedated. CURRENT MEDICATIONS: Reviewed and include: 1. Maalox 30 mL q.4 p.r.n. 2. DuoNeb q.i.d. and p.r.n. 3. TPN. 4. Aspirin 81 mg. 5. Lipitor 80 mg q.h.s. 6. Atropine. 7. Calcium gluconate 1 g IV b.i.d. 8. Vitamin D2 fifty thousand q.7 days. 9. Heparin 5000 subcu q.8. 10.Lactated ringers. 11.Synthroid 25 mcg IV daily. 12.Reglan 10 mg IV q.6 p.r.n. 13.Lopressor 25 mg b.i.d. 14.Flagyl q.8. PHYSICAL EXAM: Patient is mechanically ventilated and sedated. Pulse is 81, blood pressure 120/70, respiration 20, temperature 97.6, pulse ox 100% on 40% FiO2. Vent settings are noted. HEENT: Conjunctivae normal. Oral mucosa moist. Neck is no jugular venous distention. No lymph node enlargement. CARDIOVASCULAR: S1, S2, muffled, no S3, no S4. RESPIRATORY: Breath sounds diminished at the bases, a few scattered rhonchi, no crackles. ABDOMEN: Soft, nontender. No mass palpable. LEGS: No edema, no swelling. NERVOUS SYSTEM: Higher functions as mentioned earlier. Moves all 4 limbs. No focal motor deficits. LYMPHATICS: No lymph node enlargement in the neck or axillae. SKIN: No ulcer, rash or bleeding. LABS: At this time shows WBC 22, hemoglobin 6.6, and creatinine is 3.8. ASSESSMENT: 1. Acute ST-segment elevation myocardial infarction, status post cardiac catheterization and stenting of the left main artery, present on admission. 2. Acute respiratory failure, status post CPR and resuscitation in the field. 3. Acute hypoxic respiratory failure on mechanical ventilation, failure to wean. 4. Acute kidney injury. Possible acute tubular necrosis. Acute renal failure on recently started hemodialysis. 5. Anemia, multifactorial. 6. Hypothyroidism. 7. Hypocalcemia. 8. Hypotension, possibly cardiogenic shock. 9. Hypokalemia, improved. 10.Hypomagnesemia. 11.History of leukemia, currently in remission. 12.History of carcinoid tumor of the mesentery. 13.Increased amylase, lipase history. 14.Increased AST. 15.Abdominal distention with possible colitis. 16.Increased liver enzymes. 17.History of deep venous thrombosis prophylaxis. 18.Vitamin D deficiency. 19.FULL CODE. RECOMMENDATION: Recommend to continue with the monitoring and continue with symptomatic treatment. Continue with empiric antibiotics. Continue with the hemodialysis. Monitor electrolytes closely. Otherwise, the hepatitis B is negative, the calcium has improved significantly at this time. Recommend repeat TSH and free T4, also. Continue to monitor. Further recommendations to follow. MMODL / IJN: [id number] /
[2017-11-24] MEDS: LACTATED RINGERS 1,000 ML IV SCH (15:19)
[2017-11-24 15:20] LABS: Glucose,Whole Blood 169 mg/dL (75-99)
--- NOTE | 2017-11-24 15:22 | IR ---
EXAMINATION TYPE: IR cvc insert >=5 years DATE OF EXAM: 11/24/2017 COMPARISON: NONE HISTORY: Infection, needs long-term intravenous access for antibiotics, myocardial infarction FINDINGS: Maximal barrier technique was utilized. The skin overlying the right brachial vein was loc alized with ultrasound and noted to be compressible and patent by ultrasound. An ultrasound image wa s obtained and submitted on patient's chart. Sterile technique utilized with the ultrasound machine. The skin overlying was prepped and draped and Lidocaine used for local anesthesia. A skin michael was m hemanth with a scalpel. Access was gained to the vein under direct ultrasound guidance with a 21-gauge n eedle and a 0.018 inch wire was advanced. Access site was dilated with a peel-away sheath and the ca theter tailored to length. Catheter advanced centrally and a post procedure chest x-ray verified lebron cement with the tip near the cavoatrial junction. Catheter was fixed to the skin a sterile dressing placed. Hemostasis achieved and the catheter was aspirated and flushed with sterile saline. The pat ient remained in stable condition. IMPRESSION: STATUS POST ULTRASOUND GUIDED PICC LINE PLACEMENT, READY FOR USE. THIS PROCEDURE WAS PER FORMED BY THE UNDERSIGNED.
--- NOTE | 2017-11-24 15:42 | PN ---
PROGRESS NOTE DATE OF SERVICE: 11/24/2017. REASON FOR FOLLOWUP: Fever and leukocytosis and a question of colitis. INTERVAL HISTORY: The patient is afebrile. He is hemodynamically stable, not requiring any pressor support. The patient remains intubated on the vent and sedated. No bowel movements per the RN. NG to suction. FiO2 is stable. PHYSICAL EXAMINATION: Blood pressure 120/70 with a pulse of 81, temperature 97.6. He is 100% on 40% FiO2. General description is a middle-aged male lying in bed in no distress. RESPIRATORY SYSTEM: Unlabored breathing. Clear to auscultation anteriorly. HEART: S1, S2. Regular rate and rhythm. ABDOMEN: Soft. Mildly distended and tender to touch. EXTREMITIES: Some trace edema of feet. LABS: Hemoglobin 6.6 with a white count of 22,000. Culture so far pending. DIAGNOSTIC IMPRESSION AND PLAN: Patient with low-grade fever and elevated white count with a question of possible line source versus colitis. So far stool culture could not be obtained. Blood culture obtained is currently pending. He will continue with Samira and Chris watching, his cultures and white count closely. Continue supportive care. Family present at bedside. Their questions were answered. MMODL / IJN: [id number] /
[2017-11-24 16:27] LABS: Glucose,Whole Blood 173 mg/dL (75-99)
[2017-11-24 17:15] LABS: Glucose,Whole Blood 173 mg/dL (75-99)
--- NOTE | 2017-11-24 17:33 | EEG ---
ELECTROENCEPHALOGRAM REPORT DATE OF SERVICE: 11/24/2017. REASON FOR TESTING: Unresponsiveness, status post cardiac arrest. DESCRIPTION OF THE PROCEDURE: This EEG was performed using a 21 channel digital electroencephalograph, following international 10-20 system. DESCRIPTION OF THE RECORDING: From the beginning of the tracing, with patient's eyes closed, the background rhythm was mostly consisting of 6-7 Hz theta frequency in the posterior occipital leads. Occasional slowing into the delta range is seen. No cortical responses noticed on any of the external stimuli. Photic stimulation was performed with no driving response seen. No pathological waves were elicited. No movement artifacts are seen. No obvious epileptiform discharges were seen. His EKG lead showed a regular rate and rhythm. INTERPRETATION: This EEG is abnormal due to presence of generalized slowing of the background rhythm, mostly in the theta range and occasionally into the delta range. This is consistent with moderate encephalopathy. No epileptiform discharges were seen. No cortical response was noticed on any of the external stimuli. Given the patient's history, his encephalopathy is likely due to anoxic brain injury. Clinical correlation is recommended. MMARIL / IJN: [id number] /
[2017-11-24 17:35] LABS: HCT 24.2 % (39.0-53.0); MCH 29.5 pg (25.0-35.0); MCHC 32.9 g/dL (31.0-37.0); MCV 89.7 fL (80.0-100.0); Mean Platelet Volume 10.6; Platelet Count 563 k/uL (150-450); Poikilocytosis Slight; RDW 15.5 % (11.5-15.5); WBC 23.2 k/uL (3.8-10.6)
--- NOTE | 2017-11-24 18:00 | PCN ---
PROCEDURE NOTE DATE OF PROCEDURE: 11/24/2017 PROCEDURE: Left radial arterial line insertion. INDICATION: Hemodynamic monitoring. A time-out was completed verifying correct patient, procedure, site, positioning, and implant(s) or special equipment if applicable. Hai?s test was performed to ensure adequate perfusion. The patient's left wrist was prepped and draped in sterile fashion. 1% Lidocaine was used to anesthetize the area. An 18G Arrow arterial line was introduced into the radial artery. The catheter was threaded over the guide wire and the needle was removed with appropriate pulsatile blood return. Blood loss was minimal. The catheter was then sutured in place to the skin and a sterile dressing applied. Perfusion to the extremity distal to the point of catheter insertion was checked and found to be adequate. The patient tolerated the procedure well and there were no immediate complications. MMODL / IJN: [id number] /
[2017-11-24 18:13] LABS: Glucose,Whole Blood 157 mg/dL (75-99)
[2017-11-24 18:59] LABS: Glucose,Whole Blood 147 mg/dL (75-99)
[2017-11-24] MEDS: ATORVASTATIN 80 MG TAB PO SCH (20:28)
--- NOTE | 2017-11-24 20:39 | PN ---
PROGRESS NOTE Patient is seen for followup for acute kidney injury. Currently, he remains on the vent. The patient is also significantly edematous. He has had an EEG done for possibility of underlying anoxic encephalopathy. Currently, patient is being dialyzed on a daily basis. He tolerated 3 L of ultrafiltration very well yesterday. We will try for 3.5-4 L today. EXAMINATION: Blood pressure is this morning 157/67, heart rate 93 per minute. Patient is afebrile. HEART: S1, S2. LUNGS: Bilateral breath sounds are heard. Abdomen is soft, nontender. Lower extremities show edema 2 to 3+ bilaterally with significant scrotal edema. Abdominal distention seems to have decreased. LABS: Reveal hemoglobin 8.0 g/dL. Earlier this morning, hemoglobin was 6.6, sodium 130, serum creatinine 3.8. ASSESSMENT: 1. Acute kidney injury, oliguric renal failure, currently hemodialysis dependent. We will arrange for hemodialysis again in a.m. 2. Volume overload. Continue with daily dialysis for now. The patient did not respond to Lasix. 3. Anemia secondary to gastrointestinal bleed. The patient will be transfused packed red blood cells. 4. Oozing from the site of the PermCath, status post DDAVP. Will continue to monitor, change dressing and apply pressure. The oozing has decreased as compared to yesterday. 5. Status post cardiac arrest. 6. Acute hypoxic respiratory failure, maintained on the ventilator. 7. Possible anoxic encephalopathy. PLAN: Continue with daily dialysis for now. Increase UF to about 3.5-4 L as tolerated. MMODL / IJN: [id number] /
[2017-11-24 20:57] LABS: Glucose,Whole Blood 152 mg/dL (75-99)
[2017-11-24] MEDS: NITROGLYCERIN-D5W PMX 50 MG in DEXTROSE/WATER 1 250ML.BAG IV SCH (21:13)
[2017-11-24 22:41] LABS: Glucose,Whole Blood 143 mg/dL (75-99)
--- NOTE | 2017-11-24 22:45 | P.PN ---
Subjective Progress Note Date: 11/24/17 Principal diagnosis: STEMI Patient seen today in follow-up. He remains ventilator dependent. There is no family at bedside. Objective - Vital Signs Vital signs: Vital Signs Temp 98.1 F 11/24/17 16:00 Pulse 72 11/24/17 17:00 Resp 20 11/24/17 17:00 BP 103/60 11/24/17 15:00 Pulse Ox 93 L 11/24/17 17:00 Intake & Output 11/23/17 11/24/17 11/24/17 18:59 06:59 18:59 Intake Total 2608.692 2681.841 2595.584 Output Total 801 202 753 Balance 6019.538 8253.841 1842.584 Weight 98 kg Intake: IV 2582 2542.0 2267 0.9 110 20 10 0.9 for pressure 72 72 57 Calcium Gluconate 1,000 100 mg Sodium Acetate 40 meq In Amino Acid 4.25%-D10w 1,000 ml @ 125 mls/hr IV .BY DURATION [facility] Rx#: [id number] Dextrose 10% in Water 1, 625 625 000 ml @ 125 mls/hr IV . Q8H JACK Rx#:[id number] Dextrose 5% in Water 1, 900 900 150 000 ml @ 75 mls/hr IV . [id number] JACK with Sodium Bicarb (1 Meq/ml) 150 ml Rx#:[id number] Mvi, Adult No.4 with Vit 1500 775 750 K 10 ml Trace (Conc-1Ml/ Dose) 1 ml Calcium Gluconate 1,000 mg Sodium Acetate 40 meq In Amino Acid 4.25%-D10w 1,000 ml @ 125 mls/hr IV .BY DURATION JACK Rx#: [id number] Piperacillin-Tazobactam 3 50.0 .375 gm In Dextrose/Water 1 50ml.bag @ 12.5 mls/hr IVPB Q12H JACK Rx#: [id number] Sodium Chloride 0.9% 1, 675 000 ml @ 75 mls/hr IV . [id number] JACK Rx#:[id number] Intake, IV Titration 26.692 59.841 18.584 Amount Insulin Regular 100 unit 26.692 54.341 18.584 In Sodium Chloride 0.9% 100 ml @ Per Protocol IV .Q0M JACK Rx#:[id number] Nitroglycerin-D5w Pmx 50 5.500 mg In Dextrose/Water 1 250ml.bag @ 10 MCG/MIN 3 mls/hr IV .Q24H [facility] Rx#: [id number] Tube Feeding 0 Blood Product 310 Rc Pheresis As-3 Unit 310 [id number] Other 80 Output: Gastric Drainage 800 200 750 Urine 1 2 3 Other: Voiding Method Indwelling Catheter Indwelling Catheter Indwelling Catheter ABP, PAP, CO, CI - Last Documented Arterial Blood Pressure 163/70 - Exam Unable to follow commands, remains ventilator dependent no family at bedside - Respiratory Respiratory: bilateral: diminished - Cardiovascular Rhythm: regular Heart sounds: normal: S1, S2 - Gastrointestinal General gastrointestinal: Present: normal bowel sounds, soft - Integumentary Integumentary: Present: normal - Neurologic Neurologic: Present: CNII-XII intact - Musculoskeletal Musculoskeletal: Present: generalized weakness - Psychiatric Psychiatric Comment(s): sedated on vent - Labs CBC & Chem 7: 11/24/17 17:15 11/24/17 04:05 Labs: Abnormal Lab Results - Last 24 Hours (Table) 11/21/17 11/23/17 11/23/17 Range/Units 10:20 18:12 19:14 WBC (3.8-10.6) k/uL RBC (4.30-5.90) m/uL Hgb (13.0-17.5) gm/dL Hct (39.0-53.0) % Plt Count (150-450) k/uL Neutrophils # (Manual) (1.3-7.7) k/uL Lymphocytes # (Manual) (1.0-4.8) k/uL ABG pCO2 (35-45) mmHg ABG pO2 (83-108) mmHg ABG HCO3 (21-25) mmol/L ABG Total CO2 (19-24) mmol/L ABG O2 Saturation (94-97) % Sodium (137-145) mmol/L Chloride (98-107) mmol/L BUN (9-20) mg/dL Creatinine (0.66-1.25) mg/dL Glucose (74-99) mg/dL POC Glucose (mg/dL) 154 H 208 H (75-99) mg/dL Calcium (8.4-10.2) mg/dL Phosphorus (2.5-4.5) mg/dL AST (17-59) U/L Alkaline Phosphatase (38-126) U/L Total Protein (6.3-8.2) g/dL Albumin (3.5-5.0) g/dL Crossmatch See Detail 11/23/17 11/23/17 11/23/17 Range/Units 19:51 21:01 22:14 WBC (3.8-10.6) k/uL RBC (4.30-5.90) m/uL Hgb (13.0-17.5) gm/dL Hct (39.0-53.0) % Plt Count (150-450) k/uL Neutrophils # (Manual) (1.3-7.7) k/uL Lymphocytes # (Manual) (1.0-4.8) k/uL ABG pCO2 (35-45) mmHg ABG pO2 (83-108) mmHg ABG HCO3 (21-25) mmol/L ABG Total CO2 (19-24) mmol/L ABG O2 Saturation (94-97) % Sodium (137-145) mmol/L Chloride (98-107) mmol/L BUN (9-20) mg/dL Creatinine (0.66-1.25) mg/dL Glucose (74-99) mg/dL POC Glucose (mg/dL) 210 H 196 H 211 H (75-99) mg/dL Calcium (8.4-10.2) mg/dL Phosphorus (2.5-4.5) mg/dL AST (17-59) U/L Alkaline Phosphatase (38-126) U/L Total Protein (6.3-8.2) g/dL Albumin (3.5-5.0) g/dL Crossmatch 11/23/17 11/23/17 11/24/17 Range/Units 22:53 23:49 01:10 WBC (3.8-10.6) k/uL RBC (4.30-5.90) m/uL Hgb (13.0-17.5) gm/dL Hct (39.0-53.0) % Plt Count (150-450) k/uL Neutrophils # (Manual) (1.3-7.7) k/uL Lymphocytes # (Manual) (1.0-4.8) k/uL ABG pCO2 (35-45) mmHg ABG pO2 (83-108) mmHg ABG HCO3 (21-25) mmol/L ABG Total CO2 (19-24) mmol/L ABG O2 Saturation (94-97) % Sodium (137-145) mmol/L Chloride (98-107) mmol/L BUN (9-20) mg/dL Creatinine (0.66-1.25) mg/dL Glucose (74-99) mg/dL POC Glucose (mg/dL) 186 H 195 H 183 H (75-99) mg/dL Calcium (8.4-10.2) mg/dL Phosphorus (2.5-4.5) mg/dL AST (17-59) U/L Alkaline Phosphatase (38-126) U/L Total Protein (6.3-8.2) g/dL Albumin (3.5-5.0) g/dL Crossmatch 11/24/17 11/24/17 11/24/17 Range/Units 01:57 03:14 04:03 WBC (3.8-10.6) k/uL RBC (4.30-5.90) m/uL Hgb (13.0-17.5) gm/dL Hct (39.0-53.0) % Plt Count (150-450) k/uL Neutrophils # (Manual) (1.3-7.7) k/uL Lymphocytes # (Manual) (1.0-4.8) k/uL ABG pCO2 (35-45) mmHg ABG pO2 (83-108) mmHg ABG HCO3 (21-25) mmol/L ABG Total CO2 (19-24) mmol/L ABG O2 Saturation (94-97) % Sodium (137-145) mmol/L Chloride (98-107) mmol/L BUN (9-20) mg/dL Creatinine (0.66-1.25) mg/dL Glucose (74-99) mg/dL POC Glucose (mg/dL) 198 H 162 H 191 H (75-99) mg/dL Calcium (8.4-10.2) mg/dL Phosphorus (2.5-4.5) mg/dL AST (17-59) U/L Alkaline Phosphatase (38-126) U/L Total Protein (6.3-8.2) g/dL Albumin (3.5-5.0) g/dL Crossmatch 11/24/17 11/24/17 11/24/17 Range/Units 04:05 04:05 04:26 WBC 22.0 H (3.8-10.6) k/uL RBC 2.22 L (4.30-5.90) m/uL Hgb 6.6 L* (13.0-17.5) gm/dL Hct 20.2 L (39.0-53.0) % Plt Count 517 H (150-450) k/uL Neutrophils # (Manual) 20.40 H (1.3-7.7) k/uL Lymphocytes # (Manual) 0.66 L (1.0-4.8) k/uL ABG pCO2 49 H (35-45) mmHg ABG pO2 113 H (83-108) mmHg ABG HCO3 29 H (21-25) mmol/L ABG Total CO2 31 H (19-24) mmol/L ABG O2 Saturation 98.2 H (94-97) % Sodium 130 L (137-145) mmol/L Chloride 90 L (98-107) mmol/L BUN 68 H (9-20) mg/dL Creatinine 3.80 H (0.66-1.25) mg/dL Glucose 157 H (74-99) mg/dL POC Glucose (mg/dL) (75-99) mg/dL Calcium 7.2 L (8.4-10.2) mg/dL Phosphorus 6.3 H (2.5-4.5) mg/dL AST 280 H (17-59) U/L Alkaline Phosphatase 349 H (38-126) U/L Total Protein 5.0 L (6.3-8.2) g/dL Albumin 2.1 L (3.5-5.0) g/dL Crossmatch 11/24/17 11/24/17 11/24/17 Range/Units 05:41 06:10 07:09 WBC (3.8-10.6) k/uL RBC (4.30-5.90) m/uL Hgb (13.0-17.5) gm/dL Hct (39.0-53.0) % Plt Count (150-450) k/uL Neutrophils # (Manual) (1.3-7.7) k/uL Lymphocytes # (Manual) (1.0-4.8) k/uL ABG pCO2 (35-45) mmHg ABG pO2 (83-108) mmHg ABG HCO3 (21-25) mmol/L ABG Total CO2 (19-24) mmol/L ABG O2 Saturation (94-97) % Sodium (137-145) mmol/L Chloride (98-107) mmol/L BUN (9-20) mg/dL Creatinine (0.66-1.25) mg/dL Glucose (74-99) mg/dL POC Glucose (mg/dL) 186 H 186 H 182 H (75-99) mg/dL Calcium (8.4-10.2) mg/dL Phosphorus (2.5-4.5) mg/dL AST (17-59) U/L Alkaline Phosphatase (38-126) U/L Total Protein (6.3-8.2) g/dL Albumin (3.5-5.0) g/dL Crossmatch 11/24/17 11/24/17 11/24/17 Range/Units 08:22 09:18 10:03 WBC (3.8-10.6) k/uL RBC (4.30-5.90) m/uL Hgb (13.0-17.5) gm/dL Hct (39.0-53.0) % Plt Count (150-450) k/uL Neutrophils # (Manual) (1.3-7.7) k/uL Lymphocytes # (Manual) (1.0-4.8) k/uL ABG pCO2 (35-45) mmHg ABG pO2 (83-108) mmHg ABG HCO3 (21-25) mmol/L ABG Total CO2 (19-24) mmol/L ABG O2 Saturation (94-97) % Sodium (137-145) mmol/L Chloride (98-107) mmol/L BUN (9-20) mg/dL Creatinine (0.66-1.25) mg/dL Glucose (74-99) mg/dL POC Glucose (mg/dL) 122 H 135 H 133 H (75-99) mg/dL Calcium (8.4-10.2) mg/dL Phosphorus (2.5-4.5) mg/dL AST (17-59) U/L Alkaline Phosphatase (38-126) U/L Total Protein (6.3-8.2) g/dL Albumin (3.5-5.0) g/dL Crossmatch 11/24/17 11/24/17 11/24/17 Range/Units 11:07 12:15 13:18 WBC (3.8-10.6) k/uL RBC (4.30-5.90) m/uL Hgb (13.0-17.5) gm/dL Hct (39.0-53.0) % Plt Count (150-450) k/uL Neutrophils # (Manual) (1.3-7.7) k/uL Lymphocytes # (Manual) (1.0-4.8) k/uL ABG pCO2 (35-45) mmHg ABG pO2 (83-108) mmHg ABG HCO3 (21-25) mmol/L ABG Total CO2 (19-24) mmol/L ABG O2 Saturation (94-97) % Sodium (137-145) mmol/L Chloride (98-107) mmol/L BUN (9-20) mg/dL Creatinine (0.66-1.25) mg/dL Glucose (74-99) mg/dL POC Glucose (mg/dL) 105 H 103 H 150 H (75-99) mg/dL Calcium (8.4-10.2) mg/dL Phosphorus (2.5-4.5) mg/dL AST (17-59) U/L Alkaline Phosphatase (38-126) U/L Total Protein (6.3-8.2) g/dL Albumin (3.5-5.0) g/dL Crossmatch 11/24/17 11/24/17 11/24/17 Range/Units 14:06 15:18 16:26 WBC (3.8-10.6) k/uL RBC (4.30-5.90) m/uL Hgb (13.0-17.5) gm/dL Hct (39.0-53.0) % Plt Count (150-450) k/uL Neutrophils # (Manual) (1.3-7.7) k/uL Lymphocytes # (Manual) (1.0-4.8) k/uL ABG pCO2 (35-45) mmHg ABG pO2 (83-108) mmHg ABG HCO3 (21-25) mmol/L ABG Total CO2 (19-24) mmol/L ABG O2 Saturation (94-97) % Sodium (137-145) mmol/L Chloride (98-107) mmol/L BUN (9-20) mg/dL Creatinine (0.66-1.25) mg/dL Glucose (74-99) mg/dL POC Glucose (mg/dL) 168 H 169 H 173 H (75-99) mg/dL Calcium (8.4-10.2) mg/dL Phosphorus (2.5-4.5) mg/dL AST (17-59) U/L Alkaline Phosphatase (38-126) U/L Total Protein (6.3-8.2) g/dL Albumin (3.5-5.0) g/dL Crossmatch 11/24/17 11/24/17 Range/Units 17:12 17:15 WBC 23.2 H (3.8-10.6) k/uL RBC 2.70 L (4.30-5.90) m/uL Hgb 8.0 L (13.0-17.5) gm/dL Hct 24.2 L (39.0-53.0) % Plt Count 563 H (150-450) k/uL Neutrophils # (Manual) (1.3-7.7) k/uL Lymphocytes # (Manual) (1.0-4.8) k/uL ABG pCO2 (35-45) mmHg ABG pO2 (83-108) mmHg ABG HCO3 (21-25) mmol/L ABG Total CO2 (19-24) mmol/L ABG O2 Saturation (94-97) % Sodium (137-145) mmol/L Chloride (98-107) mmol/L BUN (9-20) mg/dL Creatinine (0.66-1.25) mg/dL Glucose (74-99) mg/dL POC Glucose (mg/dL) 173 H (75-99) mg/dL Calcium (8.4-10.2) mg/dL Phosphorus (2.5-4.5) mg/dL AST (17-59) U/L Alkaline Phosphatase (38-126) U/L Total Protein (6.3-8.2) g/dL Albumin (3.5-5.0) g/dL Crossmatch Microbiology - Last 24 Hours (Table) 11/23/17 14:47 Blood Culture - Preliminary Blood No Growth after 24 hours 11/23/17 15:20 Gram Stain - Preliminary Sputum Sputum Culture - Preliminary Assessment and Plan (1) Malignant carcinoid tumor of pancreas Narrative/Plan: This was diagnosed in 2012, and is metastatic to mesenteric nodes and skeleton, on Sandostatin. This is a generally an indolent tumor, and the pt's disease appears to be well controlled. 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 WBC currently moderately increased, with predominantly neutrophilia, and no major left shift. Likely his WBC count is reactive to current acute situation. Current Visit: Yes Status: Acute Code(s): Z85.6 - PERSONAL HISTORY OF LEUKEMIA SNOMED Code(s): 948204856 (3) Acute ST segment elevation myocardial infarction Current Visit: Yes Status: Acute Code(s): I21.3 - ST ELEVATION (STEMI) MYOCARDIAL INFARCTION OF UNSP SITE SNOMED Code(s): 908008981 (4) Respiratory failure Current Visit: Yes Status: Acute Code(s): J96.90 - RESPIRATORY FAILURE, UNSP , UNSP W HYPOXIA OR HYPERCAPNIA SNOMED Code(s): 889922242 (5) Normochromic anemia Narrative/Plan: 1. Monitor CBC 2. Transfusion less than 7 3. [place] to be due to anemia of kidney disease, and acute illness Current Visit: Yes Status: Acute Code(s): D64.9 - ANEMIA, UNSPECIFIED SNOMED Code(s): 80710044 (6) Leukocytosis Current Visit: Yes Status: Acute Code(s): D72.829 - ELEVATED WHITE BLOOD CELL COUNT, UNSPECIFIED SNOMED Code(s): 202883821
[2017-11-24] MEDS ORDERED: NOREPINEPHRIN 16 MG-0.9%NS PMX 16 MG/250 ML ML IV SCH (23:45)
[2017-11-24 23:54] LABS: Glucose,Whole Blood 135 mg/dL (75-99)
[2017-11-25 00:38] LABS: Basophils # (A) 0.1 k/uL (0-0.2); Basophils % (A) 0 %; Eosinophils # (A) 0.2 k/uL (0-0.7); Eosinophils % (A) 1 %; HGB 7.1 gm/dL (13.0-17.5); Lymphocytes % (A) 5 %; MCH 30.2 pg (25.0-35.0); MCHC 33.7 g/dL (31.0-37.0); MCV 89.7 fL (80.0-100.0); Mean Platelet Volume 9.8; Monocytes # (A) 0.9 k/uL (0-1.0); Monocytes % (A) 5 %; Neutrophils # (A) 17.6 k/uL (1.3-7.7); Neutrophils % (A) 87 %; Platelet Count 557 k/uL (150-450); Poikilocytosis Slight; RBC 2.34 m/uL (4.30-5.90); RDW 15.5 % (11.5-15.5); WBC 20.3 k/uL (3.8-10.6)
[2017-11-25 00:49] LABS: Albumin 2.1 g/dL (3.5-5.0); Calcium 7.2 mg/dL (8.4-10.2); Magnesium 2.2 mg/dL (1.6-2.3); Potassium 4.2 mmol/L (3.5-5.1); Total Bilirubin 0.6 mg/dL (0.2-1.3); Total Protein 4.9 g/dL (6.3-8.2)
[2017-11-25] MEDS: SODIUM CHLORIDE 0.9% 1,000 ML IV SCH (01:09)
[2017-11-25] MEDS: HEPARIN SODIUM,PORCINE 5,000 UNIT/ML 1 ML VIAL SQ SCH (01:09)
[2017-11-25] MEDS: metroNIDAZOLE-NS PMX 500 MG in SALINE 1 100ML.BAG IVPB SCH (01:09)
[2017-11-25] MEDS: METOCLOPRAMIDE 5 MG/ML 2 ML VIAL IVP SCH ×2 (01:10→06:00)
[2017-11-25 01:15] LABS: Glucose,Whole Blood 138 mg/dL (75-99)
[2017-11-25] MEDS: DEXTROSE 10% IN WATER 1,000 ML IV SCH (01:18)
--- NOTE | 2017-11-25 02:18 | CT ---
EXAMINATION TYPE: CT brain wo con DATE OF EXAM: 11/25/2017 COMPARISON: NONE HISTORY: prev. 2 days ago. dilated pinpoint pupils CT DLP: 995.50 mGycm Automated exposure control for dose reduction was used. FINDINGS: There is dilated fourth ventricle with fluid fluid level related to acute hemorrhage into the fourth ventricle. Fourth ventricle measures 4.5 cm. There is dilated lateral and third ventricles. There is effacement of the sulci. There is slight loss of the normal shell-white matter differentiation. There is some high attenuation along the cerebellar tentorium. There is mucosal thickening in the frontal ethmoid maxillary sinuses consistent with diffuse sinusiti s. IMPRESSION: THERE IS ACUTE SUBARACHNOID HEMORRHAGE IN THE FOURTH VENTRICLE AND ALONG THE CEREBELLAR TENTORIUM. TH ERE IS OBSTRUCTIVE TYPE HYDROCEPHALUS WITH DIFFUSE CEREBRAL EDEMA. THIS IS A CHANGE COMPARED TO THE C T SCAN 2 DAYS AGO. THIS EXAM WAS DISCUSSED WITH THE PATIENT'S NEUROLOGIST 2:14 AM.
[2017-11-25 02:45] LABS: Glucose,Whole Blood 187 mg/dL (75-99)
[2017-11-25] MEDS: IPRATROPIUM-ALBUTEROL 3 ML NEB INHALATION SCH (02:58)
[2017-11-25 03:18] VITALS: BP 103/51
[2017-11-25 04:19] VITALS: TEMP 100.3
[2017-11-25 04:31] LABS: Glucose,Whole Blood 174 mg/dL (75-99)
[2017-11-25 05:27] LABS: Basophils # (A) 0.1 k/uL (0-0.2); Basophils % (A) 1 %; Eosinophils # (A) 0.2 k/uL (0-0.7); Eosinophils % (A) 1 %; HCT 21.6 % (39.0-53.0); Lymphocytes # (A) 1.1 k/uL (1.0-4.8); Lymphocytes % (A) 6 %; MCHC 31.8 g/dL (31.0-37.0); MCV 91.2 fL (80.0-100.0); Mean Platelet Volume 10.1; Monocytes # (A) 0.6 k/uL (0-1.0); Monocytes % (A) 3 %; Neutrophils # (A) 16.4 k/uL (1.3-7.7); Neutrophils % (A) 88 %; Platelet Count 597 k/uL (150-450); RBC 2.36 m/uL (4.30-5.90); RDW 15.8 % (11.5-15.5); WBC 18.7 k/uL (3.8-10.6)
[2017-11-25 05:51] LABS: Glucose,Whole Blood 129 mg/dL (75-99)
[2017-11-25 05:57] LABS: Ionized Calcium 4.1 mg/dL (4.5-5.3)
[2017-11-25 05:58] VITALS: PULSE 98
[2017-11-25] MEDS: 1: MVI, ADULT NO.4 WITH VIT K 10 ML, TRACE (CONC-1ML/DOSE) 1 ML in AMINO ACID 4.25%-D10W IV SCH ×3 (06:00)
[2017-11-25 06:16] LABS: HGB 6.9 gm/dL (13.0-17.5)
[2017-11-25 06:22] LABS: Albumin 2.1 g/dL (3.5-5.0); Calcium 7.2 mg/dL (8.4-10.2); Magnesium 2.3 mg/dL (1.6-2.3); Phosphorus 6.2 mg/dL (2.5-4.5); Potassium 4.2 mmol/L (3.5-5.1); Total Bilirubin 0.7 mg/dL (0.2-1.3); Total Protein 4.9 g/dL (6.3-8.2)
--- NOTE | 2017-11-25 23:49 | DS ---
DISCHARGE SUMMARY FINAL DIAGNOSES: 1. Acute ST-segment elevation myocardial infarction, status post cardiac catheterization and stenting of the left main artery, present on admission. 2. Acute respiratory failure on mechanical ventilation with failure to wean. 3. Acute subarachnoid bleeding/hemorrhage in the fourth ventricle along with cerebral tentorium with obstructive hydrocephalus with diffuse cerebral edema. 4. Status post CPR resuscitation in the field. Acute kidney injury, possible acute tubular necrosis. Acute renal failure on recently started hemodialysis. 5. Anemia, multifactorial. 6. Hypothyroidism. 7. Hypocalcemia. 8. Hypotension, possibly cardiogenic shock. 9. Hypokalemia, improved. 10.Hypomagnesemia. 11.History of leukemia, currently in remission. 12.History of carcinoid tumor of the mesentery. 13.Increased amylase, lipase history. 14.Increased AST. 15.Abdominal distention with possible colitis. 16.Increased liver enzymes. 17.History of deep venous thrombosis prophylaxis. 18.Vitamin D deficiency. 19.FULL CODE. DISCHARGE DISPOSITION: The patient is transferred to [facility] in a stable condition with extremely guarded prognosis. HISTORY OF PRESENT ILLNESS: This 57-year-old gentleman with a past history of multiple medical problems was admitted with ST-elevation myocardial infarction, CAD, CABG. The patient had multiple complex medical issues including a field CPR resuscitation, as well as acute hypoxic respiratory failure and responses and failure to wean. The patient is closely monitored at this time in the ICU. Multiple consultants have seen the patient. The prognosis has been extremely guarded throughout the hospital stay. Please refer to the multiple progress notes and consult notes for further details. Eventually, the patient developed pupillary abnormalities and a urgent CT scan showed acute subarachnoid hemorrhage with the fourth ventricle along the cerebellar tentorium and obstructive hydrocephalus diffuse related . Please see CT report for details. Dr. Light was on the case and recommended to transfer the patient to [facility]. The case discussed with the family and the patient is being transferred to [facility] in stable condition with guarded prognosis. Once again, the patient's condition remains extremely guarded throughout the hospital stay. The patient has been closely monitored in ICU with close monitoring by Dr. Moise, Dr. Pakcer, Cardiology, Dr. Ibarra, Dr. Hassan, Dr. Light and Dr. Martinez. Once again, the prognosis guarded. MMODL / IJN: [id number] / TANGELA
--- NOTE | 2017-11-26 14:38 | CDI ---
Last Revision, August 2017 Documentation Clarification Form Date: 11/26/17 From: Sylwia Neil Lisa Angelia, Injury Prevention Coordinator between 8:30 am & 5 pm M-F Admit Date: 11/10/2017 9:17:00 PM Patient Name: Ryder Meredith Visit Number: [id number] Discharge Date: 11/25/17 ATTENTION: The Clinical Documentation Specialists (CDI) and [facility] Coding Staff appreciate your assistance in clarifying documentation. Please respond to the clarification below the line at the bottom and electronically sign. The CDI & [facility] Coding staff will review the response and follow-up if needed. Please note: Queries are made part of the Legal Health Record. If you have any questions, please contact the author of this message via ITS. Dr. Carrol Espinoza, Admitted due to cardiac arrest from STEMI. PN 11/13 -CXR impression suspected CHF exacerbation, mild cardiomegaly with central vascular congestion and small to moderate bilateral pleural effusions. PN 11/19 - Subsequent CXR (11/19) consistent with CHF with pulmonary vascular congestion and bilateral pleual effusion. IV Lasix once on 11/13-40 mg, 11/19 40mg, 11/21 60mg, 11/24 20mg. Echo- EF between 55-60%. Right ventricular systolic pressure 15.95mmHg. In your professional opinion, can you please clarify the type and acuity of CHF if known? Type Systolic Heart Failure: Diastolic Heart Failure: Systolic & Diastolic Heart Failure: Acuity Acute Acute on Chronic Heart Failure Chronic Unable to Determine Other, please specify Please continue to document in your progress notes and discharge summary in order to capture severity of illness and risk of mortality. Include clinical findings that support your diagnosis. Diastolic Heart Failure: Acute on Chronic Heart Failure MTDD
== END 2017-11-25 06:06 | DRG 246 ==
LOC: 6ICU 21:17
PROVIDERS: ADMIT Internal Medicine; ATTEND Internal Medicine
PROC: B2111ZZ Fluoroscopy of Multiple Coronary Arteries using Low Osmolar Contrast (ICD-10-PCS; 2017-11-10)
PROC: B2151ZZ Fluoroscopy of Left Heart using Low Osmolar Contrast (ICD-10-PCS; 2017-11-10)
PROC: 027034Z Dilation of Coronary Artery, One Artery with Drug-eluting Intraluminal Device, Percutaneous Approach (ICD-10-PCS; principal; 2017-11-10 20:59)
PROC: 5A1955Z Respiratory Ventilation, Greater than 96 Consecutive Hours (ICD-10-PCS; 2017-11-10 20:59)
PROC: 0D9670Z Drainage of Stomach with Drainage Device, Via Natural or Artificial Opening (ICD-10-PCS; 2017-11-11)
PROC: 02HV33Z Insertion of Infusion Device into Superior Vena Cava, Percutaneous Approach (ICD-10-PCS; 2017-11-12)
PROC: 3E0G76Z Introduction of Nutritional Substance into Upper GI, Via Natural or Artificial Opening (ICD-10-PCS; 2017-11-12)
PROC: 5A1223Z Performance of Cardiac Pacing, Continuous (ICD-10-PCS; 2017-11-19)
PROC: 3E0436Z Introduction of Nutritional Substance into Central Vein, Percutaneous Approach (ICD-10-PCS; 2017-11-19)
PROC: 5A1D70Z Performance of Urinary Filtration, Intermittent, Less than 6 Hours Per Day (ICD-10-PCS; 2017-11-21)
PROC: 06HY33Z Insertion of Infusion Device into Lower Vein, Percutaneous Approach (ICD-10-PCS; 2017-11-22)
PROC: 5A1D70Z Performance of Urinary Filtration, Intermittent, Less than 6 Hours Per Day (ICD-10-PCS; 2017-11-22)
PROC: 5A1D70Z Performance of Urinary Filtration, Intermittent, Less than 6 Hours Per Day (ICD-10-PCS; 2017-11-23)
PROC: 30243N1 Transfusion of Nonautologous Red Blood Cells into Central Vein, Percutaneous Approach (ICD-10-PCS; 2017-11-24)
PROC: 02HV33Z Insertion of Infusion Device into Superior Vena Cava, Percutaneous Approach (ICD-10-PCS; 2017-11-24)
PROC: 03HY32Z Insertion of Monitoring Device into Upper Artery, Percutaneous Approach (ICD-10-PCS; 2017-11-24)
PROC: 4A133B1 Monitoring of Arterial Pressure, Peripheral, Percutaneous Approach (ICD-10-PCS; 2017-11-24)
PROC: 4A133J1 Monitoring of Arterial Pulse, Peripheral, Percutaneous Approach (ICD-10-PCS; 2017-11-24)
PROC: 5A1D70Z Performance of Urinary Filtration, Intermittent, Less than 6 Hours Per Day (ICD-10-PCS; 2017-11-24)
DX: I21.02 ST elevation (STEMI) myocardial infarction involving left anterior descending coronary artery (principal); I49.01 Ventricular fibrillation; G93.6 Cerebral edema; I50.33 Acute on chronic diastolic (congestive) heart failure; J96.01 Acute respiratory failure with hypoxia; I60.9 Nontraumatic subarachnoid hemorrhage, unspecified; G91.1 Obstructive hydrocephalus; K56.7 Ileus, unspecified; N17.0 Acute kidney failure with tubular necrosis; R57.0 Cardiogenic shock; G93.1 Anoxic brain damage, not elsewhere classified; Z99.11 Dependence on respirator [ventilator] status; N17.9 Acute kidney failure, unspecified; E87.0 Hyperosmolality and hypernatremia; C92.11 Chronic myeloid leukemia, BCR/ABL-positive, in remission; E87.1 Hypo-osmolality and hyponatremia; E87.2 Acidosis; J98.11 Atelectasis; I42.9 Cardiomyopathy, unspecified; I44.2 Atrioventricular block, complete; I11.0 Hypertensive heart disease with heart failure; R16.0 Hepatomegaly, not elsewhere classified; E83.42 Hypomagnesemia; R15.9 Full incontinence of feces; E87.5 Hyperkalemia; E83.51 Hypocalcemia; E83.39 Other disorders of phosphorus metabolism; K76.89 Other specified diseases of liver; I25.10 Atherosclerotic heart disease of native coronary artery without angina pectoris; E78.5 Hyperlipidemia, unspecified; E78.00 Pure hypercholesterolemia, unspecified; E03.9 Hypothyroidism, unspecified; E55.9 Vitamin D deficiency, unspecified; D50.0 Iron deficiency anemia secondary to blood loss (chronic); K52.9 Noninfective gastroenteritis and colitis, unspecified; N14.1 Nephropathy induced by other drugs, medicaments and biological substances; T50.8X5A Adverse effect of diagnostic agents, initial encounter; N50.89 Other specified disorders of the male genital organs; D3A.098 Benign carcinoid tumors of other sites; Z79.890 Hormone replacement therapy; Z79.899 Other long term (current) drug therapy; Z99.2 Dependence on renal dialysis; Z85.72 Personal history of non-Hodgkin lymphomas; Z87.891 Personal history of nicotine dependence; Z90.49 Acquired absence of other specified parts of digestive tract
CPT/HCPCS: 33210; 36569; 36600; 70450; 71045; 74018; 74176; 74177; 76937; 80048; 80053; 80061; 81001; 82150; 82247; 82306; 82330; 82805; 83036; 83605; 83690; 83735; 83970; 84075; 84100; 84132; 84295; 84439; 84443; 84450; 84460; 84478; 84481; 84484; 85025; 85027; 86850; 86900; 86901; 86920; 87040; 87070; 87205; 87340; 90935; 93306; 93458; 94002; 94003; 94640; 95819